=== PATIENT | male | born 1975 | race Two or more races ===

== ENCOUNTER 2020-04-08 23:27 | Inpatient (IN) | payer MEDICAID ==
[~2020-04-08] VITALS: Ht 167.6 cm; Wt 61.2 kg
--- NOTE | 2020-04-08 23:40 | NUR ---
ED Nurse Note: Patient broughtin to ED by [facility], Per ALS unit, patient was initially from [facility] from [facility] going to [facility] however patient was refused at the nursing facility, unit was running out of oxygen then was advised by their dispatch to go to the nearest facility. Patient has trache connected to portable mech vent coming in. Pt has pressure sore at sacral, back, lower and upper ext. PT has gtube, santillan cath and PICC line. Pt is non-verbal but is alert and oriented. Pt denies pain, SOB//CP, fever/ chills. Pt placed on iso bed
--- NOTE | 2020-04-08 23:42 | NUR ---
ED Nurse Note: ERMD at bedside
--- NOTE | 2020-04-08 23:43 | Emergency Room Report ---
History of Present Illness General Chief Complaint: General Complaint Source: EMS Present Illness HPI Disclaimer: Please note that this report is being documented using DRAGON technology. This can lead to erroneous entry secondary to incorrect interpretation by the dictating instrument. HPI: 44-year-old male presents by EMS after he was refused at nursing facility. Patient is being transferred from [facility] to [facility]. He is trach and vent dependent for respiratory failure currently being treated for Klebsiella pneumonia. Is reportedly refused at [facility] for fever but arrives afebrile here. EMS was rerouted to nearest hospital which is our facility. No change in patient vitals. He is afebrile on arrival. No apparent distress. He is Citizen Of [place]-speaking primarily though can interact nonverbally. No apparent distress. PMH: Pneumonia, respiratory failure, diabetes PSH: Tracheostomy Allergies: No allergies listed. Social Hx: Unable to obtain from patient Allergies: Coded Allergies: No Known Allergies (Unverified , 04/08/20) Review of Systems All Other Systems: limited - Unable to obtain from patient. Physical Exam General: Awake and alert, no acute distress, nonverbal HEENT: NC/AT. EOMI. tracheostomy in place. No obvious signs of injury Cardiovascular: RRR. S1 and S2 normal. No murmur appreciated Resp: Vent dependent. Tracheostomy appears in place and functioning well. Normal work of breathing. Abdomen: Abdomen is soft, nondistended. Nontender Skin: Intact. No abrasions, laceration or rash over the exposed skin MSK: Normal tone and bulk. Moving all extremities. No obvious deformity. Neuro: Awake and alert. Mentating appropriately. Medical Decision Making Diagnostic Impression: Primary Impression: Pneumonia ER Course 44-year-old male who is trach and vent dependent currently being treated for Klebsiella pneumonia presents after being turned away from nursing facility. Patient came from [facility]. Patient will require placement but does not appear to be in acute distress at this time. He is afebrile. Will obtain screening labs and admit the patient until proper placement can be found. He arrives with his on ventilators and equipment. Admit to panel physician, Dr. Campbell Laboratory Tests Test 04/08/20 23:45 White Blood Count 19.9 K/UL (4.8-10.8) H Red Blood Count 2.99 M/UL (4.70-6.10) L Hemoglobin 8.3 G/DL (14.2-18.0) L Hematocrit 25.1 % (42.0-52.0) L Mean Corpuscular Volume 84 FL (80-99) Mean Corpuscular Hemoglobin 27.6 PG (27.0-31.0) Mean Corpuscular Hemoglobin Concent 32.9 G/DL (32.0-36.0) Red Cell Distribution Width 14.1 % (11.6-14.8) Platelet Count 575 K/UL (150-450) H Mean Platelet Volume 5.3 FL (6.5-10.1) L Neutrophils (%) (Auto) % (45.0-75.0) Lymphocytes (%) (Auto) % (20.0-45.0) Monocytes (%) (Auto) % (1.0-10.0) Eosinophils (%) (Auto) % (0.0-3.0) Basophils (%) (Auto) % (0.0-2.0) Differential Total Cells Counted 100 Neutrophils % (Manual) 80 % (45-75) H Lymphocytes % (Manual) 13 % (20-45) L Monocytes % (Manual) 6 % (1-10) Eosinophils % (Manual) 0 % (0-3) Basophils % (Manual) 1 % (0-2) Band Neutrophils 0 % (0-8) Platelet Estimate Increased H Platelet Morphology Normal Hypochromasia 1+ Sodium Level 143 MMOL/L (136-145) Potassium Level 3.8 MMOL/L (3.5-5.1) Chloride Level 103 MMOL/L (98-107) Carbon Dioxide Level 36 MMOL/L (21-32) H Anion Gap 5 mmol/L (5-15) Blood Urea Nitrogen 37 mg/dL (7-18) H Creatinine 1.3 MG/DL (0.55-1.30) Estimated Glomerular Filtration Rate 59.4 mL/min (>60) Glucose Level 120 MG/DL (74-106) H Lactic Acid Level 0.90 mmol/L (0.4-2.0) Calcium Level 9.7 MG/DL (8.5-10.1) Total Bilirubin 0.8 MG/DL (0.2-1.0) Aspartate Amino Transferase (AST) 17 U/L (15-37) Alanine Aminotransferase (ALT) 15 U/L (12-78) Alkaline Phosphatase 189 U/L (46-116) H Troponin I 0.000 ng/mL (0.000-0.056) Total Protein 8.3 G/DL (6.4-8.2) H Albumin 1.5 G/DL (3.4-5.0) L Globulin 6.8 g/dL Albumin/Globulin Ratio 0.2 (1.0-2.7) L Microbiology Date/Time Source Procedure Growth Status 04/08/20 23:45 Nasopharynx SARS-CoV-2 RdRp Gene Assay - Final Complete EKG Diagnostic Results Troponin ordered: Yes When was troponin ordered?: Apr 08, 2020 EKG Time: 23:35 Rate: tachycardiac Rhythm: NSR ST Segments: no acute changes Other Impression Sinus tachycardia, normal axis, normal intervals, no ST segment changes. Rhythm Strip Diag. Results Rhythm Strip Time: 23:35 EP Interpretation: yes Rate: 107 Rhythm: NSR, no PVC's, no ectopy Chest X-Ray Diagnostic Results Chest X-Ray Diagnostic Results : Chest X-Ray Ordered: Yes # of Views/Limited/Complete: 1 View Indication: Shortness of Breath EP Interpretation: Yes Interpretation: no effusion, no pneumothorax, other - Tracheostomy in place. Bilateral patchy infiltrates. Impression: Other - Bilateral pneumonia Electronically Signed by: Electronically signed by Dr. Eric Diaz MD Disposition: ADMITTED INPATIENT Condition: Stable Eric Diaz MD Apr 08, 2020 23:43
--- NOTE | 2020-04-08 23:45 | NUR ---
ED Nurse Note: Blood, rapid covid sent to lab
[2020-04-09] VITALS (7 sets, daily range): BP systolic 118–144; BP diastolic 76–92
--- NOTE | 2020-04-09 00:05 | Diagnostic Imaging Report ---
EXAM: XR Chest, 1 View CLINICAL HISTORY: SOB TECHNIQUE: Frontal view of the chest. COMPARISON: No relevant prior studies available. Findings/impression. A tracheostomy tube is present. Diffuse bilateral airspace consolidations are identified. Correlate for multifocal pneumonia. No pneumothorax. Trace left pleural effusion. The right costophrenic angle was collimated from view. The heart is normal in size. Osseous structures are within normal limits.
[2020-04-09 00:10] LABS: CALCIUM 9.7 MG/DL (8.5-10.1); CREATININE 1.3 MG/DL (0.55-1.30); POTASSIUM 3.8 MMOL/L (3.5-5.1)
[2020-04-09 00:15] LABS: ALBUMIN 1.5 G/DL (3.4-5.0); ALBUMIN/GLOBULIN RATIO 0.2 (1.0-2.7); BILIRUBIN,TOTAL 0.8 MG/DL (0.2-1.0)
[2020-04-09 00:16] LABS: HEMATOCRIT 25.1 % (42.0-52.0); HEMOGLOBIN 8.3 G/DL (14.2-18.0); MEAN CORPUSCULAR VOLUME 84 FL (80-99); PLATELET COUNT 575 K/UL (150-450); RED BLOOD COUNT 2.99 M/UL (4.70-6.10); RED CELL DISTRIBUTION WIDTH 14.1 % (11.6-14.8); WHITE BLOOD COUNT 19.9 K/UL (4.8-10.8)
[2020-04-09] MEDS ORDERED: LORazepam Inj 2mg/ml 1ml IV ONE (01:00)
[2020-04-09] MEDS ORDERED: Piperacillin/Tazobactam 3.375 GM in NS 110 ML IVPB ONE (01:00)
--- NOTE | 2020-04-09 06:04 | NUR ---
ED Nurse Note: Skin assessment to done: Pressure sore noted at sacral area and left leg and upper ext. Pictures uploaded
--- NOTE | 2020-04-09 06:45 | NUR ---
ED Nurse Note: Unable to obtain med recon. Called Clarita Soto twice to get updated med recon but with no answer/ response
--- NOTE | 2020-04-09 07:30 | NUR ---
TRANSFER TO FLOOR: Patient transferred to SDU at rm 242 via gurney with manager convention accompanied by RN, Rt and polysomnograph tech. Belongings given and checked with RN. Patient transferred safely to bed and gave a bedside report to EMILE MARCANO
--- NOTE | 2020-04-09 07:36 | NUR ---
NURSE NOTES: Received bedside report from Po Hinojosa RN automated access systems technician nurse.
--- NOTE | 2020-04-09 07:38 | NUR ---
NURSE NOTES: No medication reconciliation done from ER. No demographic entered from ER.
--- NOTE | 2020-04-09 08:20 | NUR ---
Respiratory Note: ABG ordered for this time is a duplicate order.
[2020-04-09] MEDS ORDERED: Zinc Oxide Oint 2oz TOPIC PRN (08:30)
--- NOTE | 2020-04-09 08:49 | History & Physical ---
History and Physical History & Physicial History and Physical HPI Patient is a 44-year-old man admitted with Pneumonia, Covid negative, past history of Ventilator dependance s/p Tracheostomy. Has a history of being treate d for Klebsiella pneumonia recently. Was reportedly refused at [facility] as had fever. Stable vitals on admission to ED, afebrile. Patient nonverbal. No apparent distress. PMH: Pneumonia, respiratory failure, diabetes,decubitus ulcers PSH: Tracheostomy Allergies: No allergies listed. Social Hx: NA FH:NA Allergies: No Known Allergies All Other Systems: limited - Unable to obtain from patient. Physical Exam Vital signs noted: General: Awake and alert, no acute distress, nonverbal HEENT: NC/AT. EOMI. tracheostomy in place. No obvious signs of injury Cardiovascular: RRR. S1 and S2 normal. No murmur appreciated Resp: Vent dependent. Tracheostomy appears in place and functioning well. Normal work of breathing. Abdomen: Abdomen is soft, nondistended. Nontender. Sacral decubitus Skin: Intact. No abrasions, laceration or rash over the exposed skin MSK: Normal tone and bulk. Moving all extremities. No obvious deformity. pressure changes feet Neuro: Awake and alert. Mentating appropriately. Medical Decision Making Impression: Pneumonia, h/o Klebsiella Ventilator dependance Tracheostomy status Diabetes Sacral decubitus and feet pressure areas Plan: - Continue antibiotics - ID Consult,Surgery Consult - Cultures - Monitor labs - PPX - Continue current ventilator sttings - Adjust O2 PRN - ISS -Wound consult Laboratory Tests Test 04/08/20 23:45 White Blood Count 19.9 K/UL (4.8-10.8) H Red Blood Count 2.99 M/UL (4.70-6.10) L Hemoglobin 8.3 G/DL (14.2-18.0) L Hematocrit 25.1 % (42.0-52.0) L Mean Corpuscular Volume 84 FL (80-99) Mean Corpuscular Hemoglobin 27.6 PG (27.0-31.0) Mean Corpuscular Hemoglobin Concent 32.9 G/DL (32.0-36.0) Red Cell Distribution Width 14.1 % (11.6-14.8) Platelet Count 575 K/UL (150-450) H Mean Platelet Volume 5.3 FL (6.5-10.1) L Neutrophils (%) (Auto) % (45.0-75.0) Lymphocytes (%) (Auto) % (20.0-45.0) Monocytes (%) (Auto) % (1.0-10.0) Eosinophils (%) (Auto) % (0.0-3.0) Basophils (%) (Auto) % (0.0-2.0) Differential Total Cells Counted 100 Neutrophils % (Manual) 80 % (45-75) H Lymphocytes % (Manual) 13 % (20-45) L Monocytes % (Manual) 6 % (1-10) Eosinophils % (Manual) 0 % (0-3) Basophils % (Manual) 1 % (0-2) Band Neutrophils 0 % (0-8) Platelet Estimate Increased H Platelet Morphology Normal Hypochromasia 1+ Sodium Level 143 MMOL/L (136-145) Potassium Level 3.8 MMOL/L (3.5-5.1) Chloride Level 103 MMOL/L (98-107) Carbon Dioxide Level 36 MMOL/L (21-32) H Anion Gap 5 mmol/L (5-15) Blood Urea Nitrogen 37 mg/dL (7-18) H Creatinine 1.3 MG/DL (0.55-1.30) Estimated Glomerular Filtration Rate 59.4 mL/min (>60) Glucose Level 120 MG/DL (74-106) H Lactic Acid Level 0.90 mmol/L (0.4-2.0) Calcium Level 9.7 MG/DL (8.5-10.1) Total Bilirubin 0.8 MG/DL (0.2-1.0) Aspartate Amino Transferase (AST) 17 U/L (15-37) Alanine Aminotransferase (ALT) 15 U/L (12-78) Alkaline Phosphatase 189 U/L (46-116) H Troponin I 0.000 ng/mL (0.000-0.056) Total Protein 8.3 G/DL (6.4-8.2) H Albumin 1.5 G/DL (3.4-5.0) L Globulin 6.8 g/dL Albumin/Globulin Ratio 0.2 (1.0-2.7) L Microbiology Date/Time Source Procedure Growth Status 04/08/20 23:45 Nasopharynx SARS-CoV-2 RdRp Gene Assay - Final Complete EKG: Rate: tachycardiac Rhythm: NSR ST Segments: no acute changes Other Impression Sinus tachycardia, normal axis, normal intervals, no ST segment changes. Chest X-Ray: no effusion, no pneumothorax, other - Tracheostomy in place. Bilateral patchy infiltrates. Homer Arroyo MD Apr 09, 2020 08:49
[2020-04-09] MEDS ORDERED: Albuterol/Ipratropium 3ml neb HHN PRN (09:00)
[2020-04-09] MEDS ORDERED: Enoxaparin 40mg Inj SUBQ SCH (09:00)
[2020-04-09] MEDS ORDERED: Milk of Magnesia 30ml Ud ORAL PRN (09:00)
[2020-04-09] MEDS ORDERED: Vancomycin 1.25gm/250ml Premix IVPB ONE (09:00)
[2020-04-09] MEDS ORDERED: LORazepam Inj 2mg/ml 1ml IV PRN (09:00)
--- NOTE | 2020-04-09 09:00 | NUR ---
RESPIRATORY NOTE: PT received in ER and was transferred to [facility] @0725. PT is currently on AC/VC 16,500,28%,+5. Alarms are on and audible. Vent circuit and SX tubing are secure and out of the way. PT is restless and non-compliant, He keeps reaching for his trach. Risk and benefits of mechanical ventilator and keeping his trach intact were explained to him. Bilateral soft restrains aresecurely in place. Extra trach set at bedside. No s/s of respiratory distress noted at this time. Will continue to closely monitor.
[2020-04-09] MEDS: Morphine Sulfate 2mg/ml Inj(IV/IM USE ONLY) IVP PRN ×2 (09:35→14:37)
[2020-04-09] MEDS: Pantoprazole Inj IVP SCH (10:00)
[2020-04-09] MEDS: Ascorbic Acid 500mg tab GT SCH (10:00)
[2020-04-09] MEDS: Zinc Sulfate 220mg GT SCH (10:00)
[2020-04-09] MEDS: Vitamin D 1000 units Tab GT SCH (10:01)
[2020-04-09] MEDS: Piperacillin/Tazobactam 3.375 GM in NS 110 ML IVPB SCH ×2 (10:04→22:40)
[2020-04-09 10:43] LABS: HEMATOCRIT 25.7 % (42.0-52.0); MEAN CORPUSCULAR VOLUME 87 FL (80-99); PLATELET COUNT 564 K/UL (150-450); RED BLOOD COUNT 2.97 M/UL (4.70-6.10); RED CELL DISTRIBUTION WIDTH 13.6 % (11.6-14.8); WHITE BLOOD COUNT 17.5 K/UL (4.8-10.8)
[2020-04-09] MEDS: Midodrine 10mg tab ORAL SCH ×3 (10:47→18:07)
[2020-04-09] MEDS: Heparin 5000 units/ml inj SUBQ SCH ×2 (10:48→20:35)
[2020-04-09 10:50] LABS: ANION GAP 6 mmol/L (5-15); BLOOD UREA NITROGEN 40 mg/dL (7-18); CALCIUM 9.3 MG/DL (8.5-10.1); CARBON DIOXIDE 32 MMOL/L (21-32); CHLORIDE 106 MMOL/L (98-107); CREATININE 1.1 MG/DL (0.55-1.30); SODIUM 144 MMOL/L (136-145)
[2020-04-09] MEDS ORDERED: NovoLOG Insulin Flexpen SUBQ SCH (11:30)
[2020-04-09] MEDS: NovoLOG Insulin Flexpen SUBQ SCH ×3 (12:47→20:33)
--- NOTE | 2020-04-09 14:27 | Consultation ---
History of Present Illness General Date patient seen: Apr 09, 2020 Reason for Hospitalization: General Complaint Present Illness HPI this is a 44-year-old male who presents by EMS after he was refused at nursing facility. Patient is being transferred from [facility] to [facility]. He is trach and vent dependent for respiratory failure currently being treated for Klebsiella pneumonia. Is reportedly refused at [facility] for fever but arrives afebrile here. EMS was rerouted to nearest hospital which is our facility. No change in patient vitals. He is afebrile on arrival. No apparent distress. He is Hebrew- speaking primarily though can interact nonverbally. No apparent distress. on admission noted to have decubitus skin ulcers, malnutrition, and abnormal labs. surgery called to evaluate and assist with care. Allergies: Coded Allergies: No Known Allergies (Unverified , 04/08/20) COVID-19 Screening Contact w/high risk pt: No Experienced COVID-19 symptoms?: No Patient History Limited by: medical condition History Provided By: Medical Record, PMD Healthcare decision maker N Resuscitation status Advanced Directive on File Past Medical/Surgical History Past Medical/Surgical History: (1) Sacral decubitus ulcer (2) Ischemia of left lower extremity (3) Pneumonia Review of Systems Review of Symptoms General ROS: no weight loss or fever Psychological ROS: no depression or mood changes, no memory loss Ophthalmic ROS: no visual changes or eye irritation ENT ROS: no nasal congestion, hearing loss, dizziness Allergy and Immunology ROS: no allergic symptoms or urticaria Hematological and Lymphatic ROS: no swollen glands, unusual bleeding or bruising Endocrine ROS: no polyuria, polydipsia, weight changes, temperature intolerance Respiratory ROS: no cough, shortness of breath, or wheezing Cardiovascular ROS: no chest pain or dyspnea on exertion Gastrointestinal ROS: denies abdominal pain, bright red blood in stool. Musculoskeletal ROS: no myalgias or arthralgias Neurological ROS: no TIA or stroke symptoms Dermatological ROS: no new or changing skin lesions, rashes or pruritis Physical Exam Physical Exam General appearance: alert, cooperative, no distress, appears stated age Head: Normocephalic, without obvious abnormality, atraumatic Eyes: conjunctivae/corneas clear. PERRL, EOM's intact. Fundi benign Throat: Lips, mucosa, and tongue normal. Teeth and gums normal Neck: supple, symmetrical, trachea midline, no adenopathy, thyroid: not enlarged, symmetric, no tenderness/mass/nodules, no carotid bruit and no JVD Lungs: clear to auscultation bilaterally Heart: regular rate and rhythm, S1, S2 normal, no murmur, click, rub or gallop Abdomen: soft, non-tender. Bowel sounds normal. No masses, no organomegaly Extremities: extremities leg leg ischemia and foot Pulses: 2+ and symmetric Skin: Skin see below Neurologic: Grossly normal Last 24 Hour Vital Signs Date Time Temp Pulse Resp B/P (MAP) Pulse Ox O2 Delivery O2 Flow Rate FiO2 04/09/20 12:00 Mechanical Ventilator 04/09/20 10:55 101 21 99 Mechanical Ventilator 28 04/09/20 10:55 100 22 28 04/09/20 10:06 98 21 125/82 100 04/09/20 09:36 99 23 144/92 100 04/09/20 09:01 Mechanical Ventilator 04/09/20 08:00 102 04/09/20 08:00 97.2 99 21 144/92 (109) 100 04/09/20 07:45 98.6 114 24 127/90 100 Mechanical Ventilator 28 04/09/20 07:25 101 21 28 04/09/20 06:08 98.6 114 24 127/90 100 Mechanical Ventilator 28 04/09/20 04:09 98.6 110 23 130/82 100 Mechanical Ventilator 28 04/09/20 03:46 103 20 28 04/09/20 02:15 98.6 117 22 120/77 100 Mechanical Ventilator 04/09/20 01:03 112 30 129/71 100 04/09/20 00:18 98.6 101 18 118/76 100 Mechanical Ventilator 28 04/09/20 00:18 109 18 Mechanical Ventilator 28 04/08/20 23:59 109 18 28 04/08/20 23:32 98.6 98 16 118/76 (90) 100 Mechanical Ventilator Laboratory Tests Test 04/08/20 23:45 04/09/20 10:20 04/09/20 12:31 White Blood Count 19.9 K/UL (4.8-10.8) H 17.5 K/UL (4.8-10.8) H Red Blood Count 2.99 M/UL (4.70-6.10) L 2.97 M/UL (4.70-6.10) L Hemoglobin 8.3 G/DL (14.2-18.0) L 8.0 G/DL (14.2-18.0) L Hematocrit 25.1 % (42.0-52.0) L 25.7 % (42.0-52.0) L Mean Corpuscular Volume 84 FL (80-99) 87 FL (80-99) Mean Corpuscular Hemoglobin 27.6 PG (27.0-31.0) 27.1 PG (27.0-31.0) Mean Corpuscular Hemoglobin Concent 32.9 G/DL (32.0-36.0) 31.3 G/DL (32.0-36.0) L Red Cell Distribution Width 14.1 % (11.6-14.8) 13.6 % (11.6-14.8) Platelet Count 575 K/UL (150-450) H 564 K/UL (150-450) H Mean Platelet Volume 5.3 FL (6.5-10.1) L 5.1 FL (6.5-10.1) L Neutrophils (%) (Auto) % (45.0-75.0) % (45.0-75.0) Lymphocytes (%) (Auto) % (20.0-45.0) % (20.0-45.0) Monocytes (%) (Auto) % (1.0-10.0) % (1.0-10.0) Eosinophils (%) (Auto) % (0.0-3.0) % (0.0-3.0) Basophils (%) (Auto) % (0.0-2.0) % (0.0-2.0) Differential Total Cells Counted 100 100 Neutrophils % (Manual) 80 % (45-75) H 84 % (45-75) H Lymphocytes % (Manual) 13 % (20-45) L 11 % (20-45) L Monocytes % (Manual) 6 % (1-10) 5 % (1-10) Eosinophils % (Manual) 0 % (0-3) 0 % (0-3) Basophils % (Manual) 1 % (0-2) 0 % (0-2) Band Neutrophils 0 % (0-8) 0 % (0-8) Platelet Estimate Increased H Increased H Platelet Morphology Normal Normal Hypochromasia 1+ 1+ Sodium Level 143 MMOL/L (136-145) 144 MMOL/L (136-145) Potassium Level 3.8 MMOL/L (3.5-5.1) 4.0 MMOL/L (3.5-5.1) Chloride Level 103 MMOL/L (98-107) 106 MMOL/L (98-107) Carbon Dioxide Level 36 MMOL/L (21-32) H 32 MMOL/L (21-32) Anion Gap 5 mmol/L (5-15) 6 mmol/L (5-15) Blood Urea Nitrogen 37 mg/dL (7-18) H 40 mg/dL (7-18) H Creatinine 1.3 MG/DL (0.55-1.30) 1.1 MG/DL (0.55-1.30) Estimat Glomerular Filtration Rate 59.4 mL/min (>60) > 60 mL/min (>60) Glucose Level 120 MG/DL (74-106) H 163 MG/DL (74-106) H Lactic Acid Level 0.90 mmol/L (0.4-2.0) Calcium Level 9.7 MG/DL (8.5-10.1) 9.3 MG/DL (8.5-10.1) Total Bilirubin 0.8 MG/DL (0.2-1.0) Aspartate Amino Transf (AST/SGOT) 17 U/L (15-37) Alanine Aminotransferase (ALT/SGPT) 15 U/L (12-78) Alkaline Phosphatase 189 U/L (46-116) H Troponin I 0.000 ng/mL (0.000-0.056) Total Protein 8.3 G/DL (6.4-8.2) H Albumin 1.5 G/DL (3.4-5.0) L Globulin 6.8 g/dL Albumin/Globulin Ratio 0.2 (1.0-2.7) L Arterial Blood pH 7.475 (7.350-7.450) Arterial Blood Partial Pressure CO2 44.7 mmHg (35.0-45.0) Arterial Blood Partial Pressure O2 92.8 mmHg (75.0-100.0) Arterial Blood HCO3 32.2 mmol/L (22.0-26.0) H Arterial Blood Oxygen Saturation 96.6 % (95-100) Arterial Blood Base Excess 7.8 (-2-2) H Vaibhav Test Positive POC Whole Blood Glucose 159 MG/DL (74-106) H Microbiology Date/Time Source Procedure Growth Status 04/08/20 23:45 Nasopharynx SARS-CoV-2 RdRp Gene Assay - Final Complete Height (Feet): 5 Height (Inches): 6.00 Weight (Pounds): 135 Medications Current Medications Medications (Trade) Dose Ordered Sig/Benigno Route PRN Reason Start Time Stop Time Status Last Admin Dose Admin Acetaminophen (Tylenol) 650 mg Q4H PRN ORAL Mild Pain (Pain Scale 1-3) 04/09/20 09:00 05/09/20 08:59 Acetaminophen (Tylenol) 650 mg Q4H PRN ORAL Temp >100.5 04/09/20 09:00 05/09/20 08:59 Albuterol/ Ipratropium (Albuterol/ Ipratropium) 3 ml Q6H PRN HHN Shortness of Breath 04/09/20 09:00 04/14/20 08:59 Ascorbic Acid (Vitamin C) 1,000 mg DAILY GT 04/09/20 09:00 05/09/20 08:59 04/09/20 10:00 Chlorhexidine Gluconate (Ching-Hex 2%) 1 applic DAILY@2000 TOPIC 04/09/20 20:00 07/08/20 19:59 Dextrose (Dextrose 50%) 25 ml Q30M PRN IV Hypoglycemia 04/09/20 09:00 07/08/20 08:59 Dextrose (Dextrose 50%) 50 ml Q30M PRN IV Hypoglycemia 04/09/20 09:00 07/08/20 08:59 Furosemide (Lasix) 20 mg EVERY 12 HOURS IV 04/09/20 09:00 05/09/20 08:59 04/09/20 10:00 Heparin Sodium (Porcine) (Heparin 5000 units/ml) 5,000 units EVERY 12 HOURS SUBQ 04/09/20 10:00 05/24/20 09:59 04/09/20 10:48 Insulin Aspart (NovoLOG) BEFORE MEALS AND HS SUBQ 04/09/20 11:30 07/08/20 11:29 04/09/20 12:47 Lorazepam (Ativan 2mg/ml 1ml) 1 mg Q4H PRN IV For Anxiety 04/09/20 09:00 04/16/20 08:59 04/09/20 09:36 Magnesium Hydroxide (Mom) 30 ml DAILYPRN PRN ORAL Constipation 04/09/20 09:00 05/09/20 08:59 Midodrine (Pro-Amatine) 20 mg THREE TIMES A DAY ORAL 04/09/20 10:00 07/08/20 09:59 04/09/20 10:47 Morphine Sulfate (Morphine Sulfate) 2 mg Q3H PRN IVP For Pain 4-10 04/09/20 09:00 04/16/20 08:59 04/09/20 09:35 Ondansetron HCl (Zofran) 4 mg Q6H PRN IVP Nausea & Vomiting 04/09/20 09:00 05/09/20 08:59 Pantoprazole (Protonix) 40 mg DAILY IVP 04/09/20 09:00 05/09/20 08:59 04/09/20 10:00 Piperacillin Sod/ Tazobactam Sod 3.375 gm/Sodium Chloride 110 ml @ 27.5 mls/hr Q8HR IVPB 04/09/20 10:00 04/16/20 09:59 04/09/20 10:04 Quetiapine Fumarate (SEROqueL) 150 mg Q12HR GT 04/09/20 11:00 05/24/20 10:59 04/09/20 11:35 Vancomycin HCl (Vanco pharmacy to dose) 1 ea DAILY PRN MISC Per rx protocol 04/09/20 08:00 05/09/20 07:59 Vancomycin HCl 750 mg/Sodium Chloride 275 ml @ 183.333 mls/hr Q12HR IVPB 04/09/20 21:00 04/14/20 20:59 Vitamin D (Vitamin D) 2,000 unit DAILY GT 04/09/20 09:00 05/09/20 08:59 04/09/20 10:01 Zinc Oxide (Zinc Oxide) 1 applic TIDPRN PRN TOPIC Itching 04/09/20 08:30 07/08/20 08:29 Zinc Sulfate (Zinc Sulfate) 220 mg DAILY GT 04/09/20 09:00 07/08/20 08:59 04/09/20 10:00 Assessment/Plan Problem List: (1) Pneumonia ICD Codes: J18.9 - Pneumonia, unspecified organism SNOMED: 394688415 (2) Sacral decubitus ulcer Assessment & Plan: Patient presents on admission with identifiable unstageable sacral decubitus ulcer fairly fraction likely recently forming. Areas approximately 3 cm x 3 cm unknown depth. No drainage. No foul odor. Eschar area identified soft no ischemic eschar likely forming. Deep tissue underneath injury. Furthermore patient identified to have significant left lower extremity ischemic disease with ulcers and necrotic eschar. On the left lateral foot there is a necrotic eschar as well as on the left lateral leg significantly large. No drainage no signs of active infection chronic appearing in nature. Care plan initiated. Will need to ensure optimization of patient for care plan. Leukocytosis unlikely related to wounds as they do not seem actively infected Treatment plan Wash sacral area with normal saline daily. Apply Thera honey and gauze to decubitus ulcer and cover with Optifoam dressing. Change daily and as needed saturation. Monitor for incontinence Wash lower extremity with normal saline along with daily bath. Apply Xeroform to eschar on foot and leg. Cover with ABD and wrap with Kerlix okay to swab edges with Betadine. Turn every 2 hours Offload pressure Elevate heels with pillows under leg Nutritional optimization We will follow with recommendations thank you for let me participate in patient's care ICD Codes: L89.159 - Pressure ulcer of sacral region, unspecified stage SNOMED: 151709336 (3) Ischemia of left lower extremity Assessment & Plan: chronic large wounds US duplex arterial and venous ordered will follow with recs ICD Codes: I99.8 - Other disorder of circulatory system SNOMED: 280963875 Anthony Fernandez Apr 09, 2020 14:27
--- NOTE | 2020-04-09 14:30 | NUR ---
NURSE NOTES: Relieved the ASSEMBLER [employer]ING FLOATS who went to sit with the pt. Pt. noted still trying to pull out f/c able to pull out his bilateral soft wrist restrains multiple times.
[2020-04-09] MEDS ORDERED: Haloperidol Lactate 5 MG in D5W 55 ML IVPB SCH (14:40)
--- NOTE | 2020-04-09 18:57 | NUR ---
NURSE NOTES: From 7:45am to 1400 this RN went to be a 1:1 sitter due to pt. very restless, combative inspite Ativan, Haldol given. Pt. cont. pulling the trach inspite bilateral soft wrist restrains. Pt. re-oriented but pt. is still very confused. Got order for psych consult Dr. Graham due to extreme behavior. Will cont. to monitor.
[2020-04-09] MEDS ORDERED: Haloperidol 5mg/ml Inj IM SCH (19:15)
[2020-04-09] MEDS ORDERED: LORazepam Inj 2mg/ml 1ml IM SCH (19:15)
[2020-04-09] MEDS ORDERED: DiphenhydrAMINE 50mg/ml Inj IM SCH (19:15)
--- NOTE | 2020-04-09 19:15 | NUR ---
NURSE NOTES: Received report from EMILE Bradford, pt. in bed- restless and agitated trying to get out of bed, opens eyes to name, pt. appears to be tolerating current vent settings well- AC 16, TV 500, Fio2 at 28% and peep 5- no distress noted- sating at 99%, no signs or symptoms of acute cardiac or respiratory distress noted, bed alarm on, side rails up x's 3- safety brakes engaged, call light within easy reach, G tube feeding started by me Stoneershaila 1.2 at 15cc/hr- no residual noted- goal is 40cc/hr- will continue as tolerated, oral care provided, bilateral wrist restraints removed- bilateral pulses palpable and skin intact- restraints re-applied, pt. appears to have disheveled appearance, Rt. hand 22G and rt. wrist 22G both ivs intact and patent, Made DR. Graham aware of pt. restless in bed and agitated- she will put in an order, safety measures continued, will continue with plan of care.
--- NOTE | 2020-04-09 19:28 | NUR ---
NURSE HAND-OFF REPORT: Pt. still very restless. With ordered for Dr. Graham Important Events on Shift: RN went 1:1 sitter with pt. Patient Status: combative, restless, agitated. Diet: Glucerna 1.2 at 40cc/hr. Pending Orders: Dr. Graham Pending Results/Labs:x Pending MD notification:x Latest Vital Signs: Temperature 97.2 , Pulse 104 , B/P 142 /80 , Respiratory Rate 26 , O2 SAT 100 , Mechanical Ventilator, O2 Flow Rate . Vital Sign Comment: wnl EKG Rhythm: Sinus Tachycardia Rhythm change?: N MD Notified?: - MD Response: Latest Linder Fall Score: 95 Fall Risk: High Risk Safety Measures: Call light , Bed Alarm Zone 1, Side Rails Side Rails x2, Bed position Low and Locked. Fall Precautions: Yellow Socks Yellow Gown Report given to Claire BAPTISTE.
[2020-04-09] MEDS ORDERED: Dyna-Hex 2% Top Sol 2oz TOPIC SCH (20:00)
[2020-04-09] MEDS: Vancomycin 750mg/NS 275ml IVPB SCH ×2 (20:34)
[2020-04-10] VITALS: BP 146/88
--- NOTE | 2020-04-10 02:00 | NUR ---
NURSE NOTES: during bed bath noted- rt. wrist IV out at bedside- new IV inserted to left wrist 22G- complete bed bath given- all linens changed, oral care provided, pt. appears to be tolerating current vent settings well- sating at 100%- no signs of distress noted- pt. appears to be resting comfortably in bed, repositioned and turned pt., will continue to monitor pt. and with plan of care.
[2020-04-10 04:00] VITALS: BP 135/84
[2020-04-10] MEDS: Piperacillin/Tazobactam 3.375 GM in NS 110 ML IVPB SCH ×3 (05:01→22:36)
[2020-04-10] MEDS: NovoLOG Insulin Flexpen SUBQ SCH ×4 (05:30→22:22)
--- NOTE | 2020-04-10 06:55 | NUR ---
NURSE HAND-OFF REPORT: Important Events on Shift:restless/ agitated- called Gladys received orders for IM medications- Ativan, Benadryl, Haldol. Patient Status: stable Diet: Glucerna 1.2 Pending Orders: Pending Results/Labs: Pending MD notification: Latest Vital Signs: Temperature 97.6 , Pulse 100 , B/P 135 /84 , Respiratory Rate 20 , O2 SAT 99 , Mechanical Ventilator, O2 Flow Rate . Vital Sign Comment: EKG Rhythm: Sinus Rhythm Rhythm change?: Y MD Notified?: N - MD Response: Latest Linder Fall Score: 95 Fall Risk: High Risk Safety Measures: Call light Within Reach, Bed Alarm Zone 3, Side Rails Side Rails x3, Bed position Low and Locked. Fall Precautions: Yellow Socks Yellow Gown Door Sign Patient Fall Education Report given to EMILE Erickson- aware to f/u on any abnormal am labs.
--- NOTE | 2020-04-10 07:30 | NUR ---
NURSE NOTES: Received report from EMILE Rangel. Pt awake, no s/sx of acute distress, able to follow simple commands. Pt appears to be tolerating vent settings - AC 16, TV 500, FIO2 28%, PEEP 5, no respiratory distress noted. Pt on tube feeding Glucerna 1.2 running at 30cc/hr, with the goal of 40cc/hr, will continue as tolerated. D/C'd IV site on R hand as bleeding noted and not intact, IV site on L hand patent and asymptomatic, running IVF as ordered. Henry is patent. PT on B soft wrist restraints, no edema noted, pulses are present. Bed on lowest position, call light within reach. Will continue plan of care.
[2020-04-10 08:00] VITALS: BP 141/81
--- NOTE | 2020-04-10 08:42 | General Progress Note ---
Subjective ROS Limited/Unobtainable: Yes Allergies: Coded Allergies: No Known Allergies (Unverified , 04/08/20) Subjective care noted on vent and trach Objective Last 24 Hour Vital Signs Date Time Temp Pulse Resp B/P (MAP) Pulse Ox O2 Delivery O2 Flow Rate FiO2 04/10/20 04:00 Mechanical Ventilator 04/10/20 04:00 97.6 100 20 135/84 (101) 99 04/10/20 04:00 28 04/10/20 03:28 128 34 28 04/10/20 02:42 93 04/10/20 00:00 Mechanical Ventilator 04/10/20 00:00 28 04/10/20 00:00 97.3 110 22 146/88 (107) 100 04/09/20 23:18 117 04/09/20 23:01 101 26 28 04/09/20 20:04 100 22 125/80 99 04/09/20 20:00 Mechanical Ventilator 04/09/20 20:00 28 04/09/20 20:00 97.4 111 24 126/91 (103) 99 04/09/20 19:34 111 24 126/91 99 04/09/20 19:30 119 04/09/20 18:50 104 26 28 04/09/20 16:00 Mechanical Ventilator 04/09/20 16:00 28 04/09/20 15:30 118 04/09/20 15:07 97.2 04/09/20 14:38 118 28 28 04/09/20 12:00 Mechanical Ventilator 04/09/20 12:00 28 04/09/20 12:00 96.6 113 23 142/80 (100) 100 04/09/20 11:42 112 04/09/20 10:55 101 21 99 Mechanical Ventilator 28 04/09/20 10:55 100 22 28 04/09/20 10:06 98 21 125/82 100 04/09/20 09:36 99 23 144/92 100 04/09/20 09:01 Mechanical Ventilator Intake and Output 04/09/20 04/10/20 19:00 07:00 Intake Total 115 ml 839.166 ml Output Total 800 ml 1125 ml Balance -685 ml -285.834 ml Intake Free Water 100 ml 100 ml IV Total 504.166 ml Tube Feeding 15 ml 235 ml Output Urine Total 800 ml 1125 ml Laboratory Tests 04/09/20 10:20: White Blood Count 17.5H, Red Blood Count 2.97L, Hemoglobin 8.0L, Hematocrit 25.7L, Mean Corpuscular Volume 87, Mean Corpuscular Hemoglobin 27.1, Mean Corpuscular Hemoglobin Concent 31.3L, Red Cell Distribution Width 13.6, Platelet Count 564H, Mean Platelet Volume 5.1L, Neutrophils (%) (Auto) , Lymphocytes (%) (Auto) , Monocytes (%) (Auto) , Eosinophils (%) (Auto) , Basophils (%) (Auto) , Differential Total Cells Counted 100, Neutrophils % (Manual) 84H, Lymphocytes % (Manual) 11L, Monocytes % (Manual) 5, Eosinophils % (Manual) 0, Basophils % (Manual) 0, Band Neutrophils 0, Platelet Estimate IncreasedH, Platelet Morphology Normal, Hypochromasia 1+, Arterial Blood pH 7.475H, Arterial Blood Partial Pressure CO2 44.7, Arterial Blood Partial Pressure O2 92.8, Arterial Blood HCO3 32.2H, Arterial Blood Oxygen Saturation 96.6, Arterial Blood Base Excess 7.8H, Vaibhav Test Positive, Sodium Level 144, Potassium Level 4.0, Chloride Level 106, Carbon Dioxide Level 32, Anion Gap 6, Blood Urea Nitrogen 40H, Creatinine 1.1, Estimat Glomerular Filtration Rate > 60, Glucose Level 163H , Calcium Level 9.3 04/09/20 12:31: POC Whole Blood Glucose 159H 04/09/20 20:32: POC Whole Blood Glucose [Pending] 04/10/20 04:59: POC Whole Blood Glucose [Pending] Height (Feet): 5 Height (Inches): 6.00 Weight (Pounds): 135 Objective WDWN trach reduced breath sounds bilaterally without rhonchi or wheeze [id number] without MRG NABS nontender GT no CCE poor LOC Assessment/Plan Assessment/Plan: Impression: Pneumonia, h/o Klebsiella Ventilator dependance Tracheostomy status Diabetes Sacral decubitus and feet pressure areas Plan: - Continue antibiotics - ID Consult,Surgery Consult - Cultures to review - Monitor labs - supportive care - Continue current ventilator sttings - Adjust O2 as needed - DVT prophylaxis -Wound consult Mikhail Campbell MD Apr 10, 2020 08:42
[2020-04-10] MEDS: Vancomycin 750mg/NS 275ml IVPB SCH ×4 (09:08→20:45)
[2020-04-10] MEDS: Zinc Sulfate 220mg GT SCH (09:09)
[2020-04-10] MEDS: Vitamin D 1000 units Tab GT SCH (09:09)
[2020-04-10] MEDS: Ascorbic Acid 500mg tab GT SCH (09:09)
[2020-04-10] MEDS: Midodrine 10mg tab ORAL SCH ×3 (09:09→17:50)
[2020-04-10] MEDS: Pantoprazole Inj IVP SCH (09:09)
[2020-04-10] MEDS: Heparin 5000 units/ml inj SUBQ SCH ×2 (09:12→20:46)
[2020-04-10 09:57] LABS: HEMATOCRIT 27.1 % (42.0-52.0); HEMOGLOBIN 8.7 G/DL (14.2-18.0); MEAN CORPUSCULAR VOLUME 85 FL (80-99); PLATELET COUNT 614 K/UL (150-450); RED BLOOD COUNT 3.18 M/UL (4.70-6.10); RED CELL DISTRIBUTION WIDTH 14.4 % (11.6-14.8); WHITE BLOOD COUNT 18.6 K/UL (4.8-10.8)
[2020-04-10 10:03] LABS: BASOPHILS % (AUTO) 1.2 % (0.0-2.0); EOSINOPHILS % (AUTO) 1.2 % (0.0-3.0); LYMPHOCYTES % (AUTO) 7.7 % (20.0-45.0); MONOCYTES % (AUTO) 4.9 % (1.0-10.0)
[2020-04-10 10:30] LABS: CALCIUM 9.6 MG/DL (8.5-10.1); CREATININE 1.3 MG/DL (0.55-1.30); POTASSIUM 3.4 MMOL/L (3.5-5.1)
--- NOTE | 2020-04-10 10:47 | Cardiology Report ---
APPROVED REPORT EKG Measurement Heart [id number] <Conclusion> Sinus tachycardia Septal infarct, age undetermined Abnormal ECG
--- NOTE | 2020-04-10 11:18 | NUR ---
NURSE NOTES: Reported labs to Dr Campbell. Potassium 3.4, WBC trending up from 17.5 to 18.6, TSH 0.225. Asked MD if okay to switch from vent to clear aerosol, per RT recommendation. Awaiting for response. Addendum: 04/10/20 at 1626 by Adilene Erickson RN MD ordered for 20KCL, BCX X2, CBC and BMP in AM, and okay to wean the pt from vent to cool/clear aerosol
--- NOTE | 2020-04-10 11:22 | NUR ---
RD ASSESSMENT & RECOMMENDATIONS SEE CARE ACTIVITY FOR COMPLETE ASSESSMENT DAILY ESTIMATED NEEDS: Needs based on Critical care, wound, underweight/ 52kg 25-30 kcals/kg 4497-1030 total kcals 1.25-2 g protein/kg 65-104 g total protein 25-30 mL/kg 2400-0535 total fluid mLs NUTRITION DIAGNOSIS: Swallowing difficulty R/T respiratory status as evidenced by trach/vent dep, PEG dep. CURRENT TF:Glucerna 1.2 @ 40ml/hr x 24 hrs ENTERAL NUTRITION RECOMMENDATIONS: Glucerna 1.2 @ 50ml/hr x 24 hrs to provide 1200ml, 1440kcal, 72g prot, 966ml free water * Rec increase goal rate to 50ml/hr x 24 hrs * HOB over 30 degrees/ water flush per MD ADDITIONAL RECOMMENDATIONS: * Calibrated bedscale wt * Wound care: Continue Vit C and ZnSO4 William BID via PEG * Monitor lytes, replete as needed (low k)
--- NOTE | 2020-04-10 11:57 | Diagnostic Imaging Report ---
Indication: Reason For Exam: PAIN Technique: Grayscale and duplex images of the bilateral lower extremity veins Comparison: None Findings: Bilaterally, grayscale and duplex images demonstrate no evidence of intraluminal thrombus. Normal phasic Doppler waveforms, demonstrating normal augmentation response and no evidence of valvular insufficiency. Greater saphenous vein(s) and tibial veins are patent. Normal compressibility. Impression: Negative for evidence of lower extremity deep venous thrombosis bilaterally
--- NOTE | 2020-04-10 12:14 | Diagnostic Imaging Report ---
Indication: Right leg wound, lower extremity pain and edema Technique: Grayscale and duplex images of the bilateral lower extremity arteries Comparison: none Findings: On the right, triphasic waveforms with sharp systolic peaks are seen at the common femoral, superficial femoral, and popliteal artery levels. Tibial vessel waveforms are biphasic or triphasic with sharp systolic peaks. On the left, triphasic waveforms are seen at the level of the common femoral artery level. Left superficial femoral artery waveforms are triphasic proximally, borderline monophasic in the mid portion. Popliteal artery waveforms are monophasic but systolic peaks are sharp. Tibial vessel waveforms are monophasic but with sharp systolic peaks. There is a stenosis of the dorsalis pedis artery, with flow velocity elevation of up to 332 cm/s. There is slightly dampened flow velocity distal to it. Impression: No evidence of significant right lower extremity arterial insufficiency Monophasic waveforms in the distal superficial femoral and popliteal artery, could indicate stenosis in these segments; more likely artifactual as there is still rapid systolic upstroke, including in the ankle vessels. Evidence of significant stenosis in the dorsalis pedis artery
--- NOTE | 2020-04-10 12:34 | NUR ---
NURSE NOTES:WOUND CARE NOTES NOTES:Pt presented on admission with Tracheostomy,GT and Multiple Wounds including an Unstageable Pressure Injury Sacrum(L)2.1cm x (W)2.8cm.Base of wound is 100% slough. Borders are adherent, erythematous. Periwound is indurated with non-blanchable erythema. At L HIP A Blue marker measuring (L)6cm x (W)5cm. Small linear shaped wound that is somewhat approximated. The remaining base within Blue Marker is indurated,erythematous with elevation in skin temp at affected area within marker, and extends well beyond borders of Marker to upper L thigh(L)12cm x (W)8cm. Large Necrotic Ulcer with irregular borders noted to lateral L Tibia. Base of wound is 100% Necrotic and dry. Edges are adherent and erythematous. Periwound is dusky with elevation in skin temp noted(L)21cm x (W)11.5cm. Necrotic Ulcer lateral L foot/L malleolus(L)4cm x 6.5cm. Base of wound is 100% soft, but dry necrosis.Edges are adherent to base of wound but are erythematous. Surrounding the wound, skin colour is dusky and skin temp is elevated. NO odor or exudate noted. Open abscess/Boil noted to lateral R Tibia(L)3cm x (W)3cm with small opening at center base (L)0.4cmx (W)0.4cm. No exudate noted. Skin temp is slightly elevated. Both heels are callused and dry. Dry peeling skin noted to both lower ext, both feet including plantar aspect of both feet. Tx.Plan: Cleanse Sacral wound with Saline. Apply TheraHoney. Apply Moisture Barrier Paste periwound. Cover with Optifoam drsg Daily and prn. Apply Betadine to L Hip. Cover with Optifoam drsg. Change every 3 days and prn. Apply Betadine to Lateral L Tibia, and Lateral L foot. Cover each site with ABD Pads and wrap with Kerlix Daily and prn. Apply Betadine to Lateral R Tibia. Cover with Optifoam drsg. Change every 3 days and prn. Apply Cavilon Skin Barrier to both heels. Cover each heel with Optifoam drsg. Change every 7 days and prn. Reposition at Least every 2 hours or as tolerated. Elevate both lower ext and float Heels with pillows.
--- NOTE | 2020-04-10 13:00 | NUR ---
NURSE NOTES: Pt tolerating the feeding. Residual 30cc. Increased the feeding rate to 35cc/hr.
--- NOTE | 2020-04-10 13:15 | Consultation ---
DATE OF CONSULTATION: 04/10/2020 INFECTIOUS DISEASE CONSULTATION CONSULTING PHYSICIAN: Wong Kilpatrick MD. REFERRING PHYSICIAN: Dr. Arroyo. REASON FOR CONSULTATION: Pneumonia as well as left leg infection. HISTORY OF PRESENTING ILLNESS: This is a 44-year-old gentleman with history of diabetes, respiratory failure, status post tracheostomy, pneumonia, and decubitus ulcers, who comes in with fevers. The patient was found to have pneumonia and an Infectious Diseases consultation has been obtained for antibiotics. PAST MEDICAL HISTORY: 1. History of pneumonia. 2. Respiratory failure. 3. Diabetes mellitus. 4. Decubitus ulcers. 5. Status post tracheostomy. SOCIAL HISTORY: Unknown. FAMILY HISTORY: Unknown. REVIEW OF SYSTEMS: Unable to obtain currently. MEDICATIONS: As an inpatient, the patient is on IV vancomycin, chlorhexidine gluconate, insulin, Seroquel, subcutaneous heparin, midodrine, Zosyn, morphine, milk of magnesia, Zofran, Tylenol, albuterol and ipratropium, zinc sulfate, Protonix, Lasix, vitamin D, ascorbic acid, and zinc oxide. ALLERGIES: No known drug allergies. PHYSICAL EXAMINATION: VITAL SIGNS: Temperature 97.7, T-max of 97.7, pulse of 111, respiratory rate 22, blood pressure 141/81, O2 saturation of 99%. HEENT: Pupils are equally reactive to light and accommodation. NECK: Tracheostomy noted. CARDIOVASCULAR: Regular rate and rhythm. No murmurs. LUNGS: Clear to auscultation bilaterally. No crackles. No wheezes. ABDOMEN: Soft, nontender. G-tube site appears clean. EXTREMITIES: No cyanosis, no clubbing, no edema. Left leg with necrotic ulcer noted. LABORATORY AND DIAGNOSTIC DATA: White count 18.6, hemoglobin 8.7, hematocrit 27.1, MCV 85, platelet count 614,000. Sodium 144, potassium 3.4, chloride 105, bicarb 29, BUN 44, creatinine 1.3. Glucose 169. Calcium of 9.6. Beta-natriuretic peptide 215. COVID-19 test was negative, rapid test. Chest x-ray is showing diffuse bilateral airspace consolidations, multifocal pneumonia noted. ASSESSMENT: This is a 44-year-old gentleman with history of diabetes, respiratory failure, status post tracheostomy, and decubitus ulcers, who comes in with fevers and is found to have, 1. Pneumonia. 2. Sacral decubitus ulcer. 3. Left leg necrotic ulcer PLAN: 1. Continue IV vancomycin and Zosyn. 2. We will order sputum for Gram stain and culture. 3. We will follow up cultures and adjust antibiotics accordingly. I would like to thank Dr. Arroyo for this consultation. Wong Kilpatrick M.D. DR: DORIAN JOB#: [id number] CC: Dr. Arroyo
--- NOTE | 2020-04-10 14:31 | NUR ---
NURSE NOTES: Left a message to Dr Graham. Reported that pt seems to be more restless than this morning, pt trying to get out of bed, and pulled the IV pole even he is on restraints. Awaiting for response. Addendum: 04/10/20 at 1602 by Adilene Erickson RN Dr Graham responded and orders for Seroquel 50mg q6h PRN. RN made her aware that pt is already on seroquel 150mg q12h. Per , "that's OK at the PRN".
--- NOTE | 2020-04-10 14:32 | NUR ---
NURSE NOTES: Urine sample for culture and covid specimen sent to the lab.
--- NOTE | 2020-04-10 14:49 | NUR ---
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
--- NOTE | 2020-04-10 15:07 | NUR ---
NURSE NOTES: WCP uploaded.
--- NOTE | 2020-04-10 16:06 | NUR ---
NURSE HAND-OFF REPORT: Important Events on Shift: Pt started to be more restless in the afternoon. PRN seroquel obtained (see notes). WCP uploaded. Wound care nurse came to see the pt today. Pt was swabbed for Covid-19. RT aware of collecting sputum. Patient Status: no s/sx of acute distress Diet: Glucerna 1.2 running at 35cc/hr now. Goal is 40cc/hr. Pending Orders: Pending Results/Labs: Pending MD notification: Latest Vital Signs: Temperature 97.7 , Pulse 105 , B/P 141 /81 , Respiratory Rate 25 , O2 SAT 99 , Mechanical Ventilator, O2 Flow Rate . Vital Sign Comment: EKG Rhythm: Sinus Tachycardia Rhythm change?: N MD Notified?: N - MD Response: Latest Linder Fall Score: 95 Fall Risk: High Risk Safety Measures: Call light Within Reach, Bed Alarm Zone 3, Side Rails Side Rails x3, Bed position Low and Locked. Fall Precautions: Yellow Socks Yellow Gown Door Sign Patient Fall Education Report given to EMILE Busby
--- NOTE | 2020-04-10 19:07 | Surgery Progress Note ---
Surgery Progress Note Subjective Additional Comments leukocytosis anemia tsh noted dressings going well Objective Last 24 Hour Vital Signs Date Time Temp Pulse Resp B/P (MAP) Pulse Ox O2 Delivery O2 Flow Rate FiO2 04/10/20 16:30 103 22 28 04/10/20 16:00 Mechanical Ventilator 04/10/20 16:00 109 04/10/20 16:00 28 04/10/20 12:00 Mechanical Ventilator 04/10/20 12:00 28 04/10/20 11:52 105 04/10/20 11:08 110 25 28 04/10/20 08:00 97.7 111 22 141/81 (101) 99 04/10/20 08:00 28 04/10/20 08:00 Mechanical Ventilator 04/10/20 07:47 116 04/10/20 07:12 106 28 28 04/10/20 04:00 Mechanical Ventilator 04/10/20 04:00 97.6 100 20 135/84 (101) 99 04/10/20 04:00 28 04/10/20 03:28 128 34 28 04/10/20 02:42 93 04/10/20 00:00 Mechanical Ventilator 04/10/20 00:00 28 04/10/20 00:00 97.3 110 22 146/88 (107) 100 04/09/20 23:18 117 04/09/20 23:01 101 26 28 04/09/20 20:04 100 22 125/80 99 04/09/20 20:00 Mechanical Ventilator 04/09/20 20:00 28 04/09/20 20:00 97.4 111 24 126/91 (103) 99 04/09/20 19:34 111 24 126/91 99 04/09/20 19:30 119 I&O Intake and Output 04/09/20 04/10/20 19:00 07:00 Intake Total 115 ml 839.166 ml Output Total 800 ml 1125 ml Balance -685 ml -285.834 ml Intake Free Water 100 ml 100 ml IV Total 504.166 ml Tube Feeding 15 ml 235 ml Output Urine Total 800 ml 1125 ml Dressing: saturated Cardiovascular: RSR Respiratory: decreased breath sounds Abdomen: soft, non-tender, present bowel sounds Extremities: no tenderness, no cyanosis Laboratory Tests Test 04/09/20 20:32 04/10/20 04:59 04/10/20 08:30 04/10/20 12:00 POC Whole Blood Glucose Pending Pending Pending White Blood Count 18.6 K/UL (4.8-10.8) H Red Blood Count 3.18 M/UL (4.70-6.10) L Hemoglobin 8.7 G/DL (14.2-18.0) L Hematocrit 27.1 % (42.0-52.0) L Mean Corpuscular Volume 85 FL (80-99) Mean Corpuscular Hemoglobin 27.3 PG (27.0-31.0) Mean Corpuscular Hemoglobin Concent 32.1 G/DL (32.0-36.0) Red Cell Distribution Width 14.4 % (11.6-14.8) Platelet Count 614 K/UL (150-450) H Mean Platelet Volume 5.0 FL (6.5-10.1) L Neutrophils (%) (Auto) 85.0 % (45.0-75.0) H Lymphocytes (%) (Auto) 7.7 % (20.0-45.0) L Monocytes (%) (Auto) 4.9 % (1.0-10.0) Eosinophils (%) (Auto) 1.2 % (0.0-3.0) Basophils (%) (Auto) 1.2 % (0.0-2.0) Sodium Level 144 MMOL/L (136-145) Potassium Level 3.4 MMOL/L (3.5-5.1) L Chloride Level 105 MMOL/L (98-107) Carbon Dioxide Level 29 MMOL/L (21-32) Anion Gap 10 mmol/L (5-15) Blood Urea Nitrogen 44 mg/dL (7-18) H Creatinine 1.3 MG/DL (0.55-1.30) Estimat Glomerular Filtration Rate 59.4 mL/min (>60) Glucose Level 169 MG/DL (74-106) H Hemoglobin A1c 10.7 % (4.3-6.0) H Calcium Level 9.6 MG/DL (8.5-10.1) Pro-B-Type Natriuretic Peptide 215 pg/mL (0-125) H Thyroid Stimulating Hormone (TSH) 0.225 uiU/mL (0.358-3.740) Vancomycin Level Trough 20.4 ug/mL (5.0-12.0) H Test 04/10/20 16:19 POC Whole Blood Glucose Pending Plan Problems: (1) Pneumonia (2) Sacral decubitus ulcer Assessment & Plan: Pt presented on admission with Tracheostomy,GT and Multiple Wounds including an Unstageable Pressure Injury Sacrum(L)2.1cm x (W)2.8cm.Base of wound is 100% slough. Borders are adherent, erythematous. Periwound is indurated with non-blanchable erythema. At L HIP A Blue marker measuring (L)6cm x (W)5cm. Small linear shaped wound that is somewhat approximated. The remaining base within Blue Marker is indurated,erythematous with elevation in skin temp at affected area within marker, and extends well beyond borders of Marker to upper L thigh(L)12cm x (W)8cm. Large Necrotic Ulcer with irregular borders noted to lateral L Tibia. Base of wound is 100% Necrotic and dry. Edges are adherent and erythematous. Periwound is dusky with elevation in skin temp noted(L)21cm x (W)11.5cm. Necrotic Ulcer lateral L foot/L malleolus(L)4cm x 6.5cm. Base of wound is 100% soft, but dry necrosis.Edges are adherent to base of wound but are erythematous. Surrounding the wound, skin colour is dusky and skin temp is elevated. NO odor or exudate noted. Open abscess/Boil noted to lateral R Tibia(L)3cm x (W)3cm with small opening at center base (L)0.4cmx (W)0.4cm. No exudate noted. Skin temp is slightly elevated. Both heels are callused and dry. Dry peeling skin noted to both lower ext, both feet including plantar aspect of both feet. Tx.Plan: Cleanse Sacral wound with Saline. Apply TheraHoney. Apply Moisture Barrier Paste periwound. Cover with Optifoam drsg Daily and prn. Apply Betadine to L Hip. Cover with Optifoam drsg. Change every 3 days and prn. Apply Betadine to Lateral L Tibia, and Lateral L foot. Cover each site with ABD Pads and wrap with Kerlix Daily and prn. Apply Betadine to Lateral R Tibia. Cover with Optifoam drsg. Change every 3 days and prn. Apply Cavilon Skin Barrier to both heels. Cover each heel with Optifoam drsg. Change every 7 days and prn. Reposition at Least every 2 hours or as tolerated. Elevate both lower ext and float Heels with pillows.Patient presents on admission with identifiable unstageable sacral decubitus ulcer fairly fracti on likely recently forming. Areas approximately 3 cm x 3 cm unknown depth. No drainage. No foul odor. Eschar area identified soft no ischemic eschar likely forming. Deep tissue underneath injury. Furthermore patient identified to have significant left lower extremity ischemic disease with ulcers and necrotic eschar. On the left lateral foot there is a necrotic eschar as well as on the left lateral leg significantly large. No drainage no signs of active infection chronic appearing in nature. Care plan initiated. Will need to ensure optimization of patient for care plan. Leukocytosis unlikely related to wounds as they do not seem actively infected Nutritional optimization We will follow with recommendations thank you for let me participate in nadiya rodolfo's care (3) Ischemia of left lower extremity Assessment & Plan: chronic large wounds US duplex arterial and venous ordered will follow with Anthony Suggs Apr 10, 2020 19:07
--- NOTE | 2020-04-10 19:26 | NUR ---
NURSE HAND-OFF REPORT: Important Events on Shift:[PRN seroquel, PCR COVID swab] Patient Status: [FULL CODE] Diet: [glucerna 1.2 at 40mL/hr] Pending Orders: [goal of nepro 40/hr] Pending Results/Labs:[] Pending MD notification:[] Latest Vital Signs: Temperature 97.7 , Pulse 103 , B/P 141 /81 , Respiratory Rate 22 , O2 SAT 99 , Mechanical Ventilator, O2 Flow Rate . Vital Sign Comment: [] EKG Rhythm: Sinus Tachycardia Rhythm change?: N MD Notified?: N - MD Response: Latest Linder Fall Score: 95 Fall Risk: High Risk Safety Measures: Call light Within Reach, Bed Alarm Zone 3, Side Rails Side Rails x3, Bed position Low and Locked. Fall Precautions: Yellow Socks Yellow Gown Door Sign Patient Fall Education Report given to [ANTON, RN].
--- NOTE | 2020-04-10 19:35 | NUR ---
NURSE NOTES: Received report from EMILE Montoya. Patient asleep in bed, afebrile and respiratory distress noted. vent to trache shiley 8, AC 16, Tidal Volume 500, PEEP 5 saturating at 98%. with left hand 22g IV line intact, patent and asymptomatic. On Glucerna at 35cc/hr ( 40cc/hr goal) via GT intact, infusing withotu any sediments or residuals. With Fc to urine bag via gravity below bladder draining yellowish urine. With both soft wrist restraints. Skin is intact, pulses are palpable and no paresthesia. HOB elevated. Call light within reach. Bed wheels are locked and side rails are up. Alarm is on and working. Continue plan of care
[2020-04-10 20:00] VITALS: BP 128/84
[2020-04-11] VITALS: BP 119/79
--- NOTE | 2020-04-11 00:03 | Psychiatry Consultation ---
Psychiatry Consultation Psychiatry Consultation Chief Complaint: General Complaint History of Present Illness: 44-year-old male with a history of multiple medical issues, who has been admitted to the hospital. He has been admitted due to pneumonia, respiratory failure, diabetes, decubitus ulcer. The patient is presenting with disorganized speech and behavior. He is now ventilator dependent and status post tracheostomy. The patient is easily agitated, pulled out lines, is on Seroquel. It appears the Seroquel is ineffective. The patient has been getting IM shot for agitation and psychosis. PAST PSYCHIATRIC HISTORY: Psychotic disorder and anxiety. PAST MEDICAL HISTORY: Significant for pneumonia. SUBSTANCE ABUSE HISTORY: No known history of illicit drug use or alcohol. MENTAL STATUS EXAMINATION: The patient is awake, oriented to self, and disoriented to situation. Mood is agitated. Affect is flat. Thought process, there is a paucity of thought content. Thought content, no suicidal or homicidal ideation. Cognition is impaired. Insight and judgment is impaired. ASSESSMENT: [place] I Psychotic disorder. [place] II Deferred. [place] III Pneumonia. [place] IV Low. [place] V 20 PLAN: 1. We will start the patient on Haldol p.r.n. 2. Seroquel. 3. Discussed with the nurse. Allergies: Coded Allergies: No Known Allergies (Unverified , 04/08/20) Objective Data Height (Feet): 5 Height (Inches): 6.00 Weight (Pounds): 135 Watson Graham MD Apr 11, 2020 00:03
--- NOTE | 2020-04-11 00:15 | NUR ---
NURSE NOTES: Pt was noted agitated.Pulling the vent tubes 3 times. Pt attempting to get up and get out of bed. Assisted pt to lay down and reassured to remain calm and relax. Pt still trying to reach the vent tubes. 0020: Placed a call to Dr Graham and explained what's going on with the patient. will put in orders.
[2020-04-11] MEDS ORDERED: Haloperidol 5mg/ml Inj IM ONE (00:30)
[2020-04-11] MEDS ORDERED: DiphenhydrAMINE 50mg/ml Inj IM ONE (00:30)
--- NOTE | 2020-04-11 00:47 | NUR ---
NURSE NOTES: Pt moving around in the bed. RN Assisted the patient to relax. VS are stable: bp: 119/79, HR 98, RR: 26. No respiratory distress noted. Medication given. pt tolerated well
--- NOTE | 2020-04-11 01:00 | NUR ---
NURSE NOTES: Pt calmed down and went to sleep. VS within normal limits. No respiratory distress noted. Continue to monitor the patient. 0115: Placed a call to Dr Graham regarding effectiveness of medication. New orders noted and carry out
--- NOTE | 2020-04-11 01:30 | NUR ---
NURSE NOTES: PT asleep in bed. VS are stable. no respiratory distress noted. Continue to monitor the patient.
[2020-04-11 04:00] VITALS: BP 134/87
--- NOTE | 2020-04-11 04:20 | NUR ---
NURSE NOTES: PT was given partial bed bath. gown and linen change. Pt tolerated well. Continue plan of care.
[2020-04-11] MEDS: DiphenhydrAMINE 50mg/ml Inj IVP PRN ×2 (04:24→20:24)
[2020-04-11] MEDS: Piperacillin/Tazobactam 3.375 GM in NS 110 ML IVPB SCH ×3 (05:40→22:51)
[2020-04-11] MEDS: NovoLOG Insulin Flexpen SUBQ SCH ×4 (06:39→21:23)
--- NOTE | 2020-04-11 07:22 | NUR ---
NURSE HAND-OFF REPORT: Important Events on Shift: stable, moving around Patient Status: stable Diet: glcuerna 1.2 at 40cc/hr Pending Orders: n Pending Results/Labs: chemistry Pending MD notification:n Latest Vital Signs: Temperature 97.2 , Pulse 103 , B/P 134 /87 , Respiratory Rate 19 , O2 SAT 100 , Mechanical Ventilator, O2 Flow Rate . Vital Sign Comment: n EKG Rhythm: Sinus Rhythm Rhythm change?: N MD Notified?: N - MD Response: Latest Linder Fall Score: 95 Fall Risk: High Risk Safety Measures: Call light Within Reach, Bed Alarm Zone 3, Side Rails Side Rails x3, Bed position Low and Locked. Fall Precautions: Yellow Socks Yellow Gown Door Sign Patient Fall Education Report given to Roxie Pond. Pt stable in bed
--- NOTE | 2020-04-11 07:30 | NUR ---
NURSE NOTES:Handoff received from EMILE CANO. Patient received awake and alert, able to make needs known using gestures/ facial expressions. Patient received in bed, agitated on bilateral soft wrist restraints for pulling at devices. patient has removed vent tubing multiple times in the past few minutes, requires constantly supervision, informed both day and PM charge nurse that assignment is unsafe due to having multiple patients that require constant supervision. Fall and aspiration precautions in place with bed in the low and locked position and call light within reach, HOB elevated 30'. Patient has Henry patent and draining to gravity. G tube is running Glucerna 1.2 @40ML/HR. Multiple wounds noted. Will follow plan of care and reinforce importance of not pulling at devices.
[2020-04-11 08:00] VITALS: BP 129/81
[2020-04-11] MEDS: QUEtiapine 200mg tab GT SCH ×2 (08:33→20:24)
[2020-04-11] MEDS: Midodrine 10mg tab ORAL SCH ×3 (08:33→18:10)
[2020-04-11] MEDS: Zinc Sulfate 220mg GT SCH (08:33)
[2020-04-11] MEDS: Vitamin D 1000 units Tab GT SCH (08:33)
[2020-04-11] MEDS: Ascorbic Acid 500mg tab GT SCH (08:34)
[2020-04-11] MEDS: Pantoprazole Inj IVP SCH (08:35)
[2020-04-11] MEDS: Heparin 5000 units/ml inj SUBQ SCH ×2 (08:38→20:24)
[2020-04-11 08:43] LABS: HEMATOCRIT 24.6 % (42.0-52.0); HEMOGLOBIN 8.4 G/DL (14.2-18.0); MEAN CORPUSCULAR VOLUME 82 FL (80-99); PLATELET COUNT 564 K/UL (150-450); RED CELL DISTRIBUTION WIDTH 14.1 % (11.6-14.8); WHITE BLOOD COUNT 19.3 K/UL (4.8-10.8)
[2020-04-11 08:57] LABS: ANION GAP 6 mmol/L (5-15); BLOOD UREA NITROGEN 45 mg/dL (7-18); CALCIUM 9.9 MG/DL (8.5-10.1); CARBON DIOXIDE 32 MMOL/L (21-32); CHLORIDE 107 MMOL/L (98-107); CREATININE 1.1 MG/DL (0.55-1.30); POTASSIUM 3.6 MMOL/L (3.5-5.1); SODIUM 145 MMOL/L (136-145)
[2020-04-11] MEDS: Vancomycin 750mg/NS 275ml IVPB SCH ×4 (10:16→20:32)
--- NOTE | 2020-04-11 10:46 | Infectious Diseases Prog Note ---
Assessment/Plan Assessment/Plan A: 1. Pneumonia. 2. Sacral decubitus ulcer. 3. Left leg necrotic ulcer 4. Ventilator dependent respiratory failure 5. Anemia PLAN: 1. Continue IV vancomycin and Zosyn. 2. We will follow up cultures and adjust antibiotics accordingly. Subjective ROS Limited/Unobtainable: Yes Neurologic: Reports: confusion, other - on restraint Allergies: Coded Allergies: No Known Allergies (Unverified , 04/08/20) Objective Last 24 Hour Vital Signs Date Time Temp Pulse Resp B/P (MAP) Pulse Ox O2 Delivery O2 Flow Rate FiO2 04/11/20 08:00 97.3 97 19 129/81 (97) 100 04/11/20 08:00 Mechanical Ventilator 04/11/20 08:00 28 04/11/20 06:35 110 34 28 04/11/20 04:00 28 04/11/20 04:00 Mechanical Ventilator 04/11/20 04:00 97.2 103 19 134/87 (103) 100 04/11/20 03:02 101 04/11/20 02:44 97 21 28 04/11/20 00:00 Mechanical Ventilator 04/11/20 00:00 97.2 93 19 119/79 (92) 100 04/11/20 00:00 28 04/10/20 23:13 92 22 28 04/10/20 23:01 100 04/10/20 20:00 97.0 89 20 128/84 (99) 100 04/10/20 20:00 Mechanical Ventilator 04/10/20 20:00 28 04/10/20 19:49 90 18 28 04/10/20 19:02 92 04/10/20 16:30 103 22 28 04/10/20 16:00 Mechanical Ventilator 04/10/20 16:00 109 04/10/20 16:00 28 04/10/20 12:00 Mechanical Ventilator 04/10/20 12:00 28 04/10/20 11:52 105 04/10/20 11:08 110 25 28 Height (Feet): 5 Height (Inches): 6.00 Weight (Pounds): 135 HEENT: status post trach Respiratory/Chest: other - on Ventilator, UXA8=180% Cardiovascular: normal rate Abdomen: soft, non tender, other - GT in place Skin: ulcers, other - sacral, left leg Neurologic/Psychiatric: alert, disoriented Microbiology Date/Time Source Procedure Growth Status 04/09/20 10:30 Blood Blood Culture - Preliminary NO GROWTH AFTER 24 HOURS Resulted 04/09/20 10:20 Blood Blood Culture - Preliminary NO GROWTH AFTER 24 HOURS Resulted 04/09/20 05:45 Rectum Received 04/09/20 05:45 Nasal Nares MRSA Culture - Final NO METHICILLIN RESISTANT STAPH AUREUS... Complete 04/08/20 23:45 Nasopharynx SARS-CoV-2 RdRp Gene Assay - Final Complete Laboratory Tests Test 04/10/20 12:00 04/10/20 16:19 04/10/20 21:18 04/11/20 05:38 POC Whole Blood Glucose Pending Pending 180 MG/DL (74-106) H 215 MG/DL (74-106) H Test 04/11/20 08:19 White Blood Count 19.3 K/UL (4.8-10.8) H Red Blood Count 3.00 M/UL (4.70-6.10) L Hemoglobin 8.4 G/DL (14.2-18.0) L Hematocrit 24.6 % (42.0-52.0) L Mean Corpuscular Volume 82 FL (80-99) Mean Corpuscular Hemoglobin 27.8 PG (27.0-31.0) Mean Corpuscular Hemoglobin Concent 34.0 G/DL (32.0-36.0) Red Cell Distribution Width 14.1 % (11.6-14.8) Platelet Count 564 K/UL (150-450) H Mean Platelet Volume 5.1 FL (6.5-10.1) L Neutrophils (%) (Auto) % (45.0-75.0) Lymphocytes (%) (Auto) % (20.0-45.0) Monocytes (%) (Auto) % (1.0-10.0) Eosinophils (%) (Auto) % (0.0-3.0) Basophils (%) (Auto) % (0.0-2.0) Neutrophils % (Manual) Pending Lymphocytes % (Manual) Pending Platelet Estimate Pending Platelet Morphology Pending Sodium Level 145 MMOL/L (136-145) Potassium Level 3.6 MMOL/L (3.5-5.1) Chloride Level 107 MMOL/L (98-107) Carbon Dioxide Level 32 MMOL/L (21-32) Anion Gap 6 mmol/L (5-15) Blood Urea Nitrogen 45 mg/dL (7-18) H Creatinine 1.1 MG/DL (0.55-1.30) Estimat Glomerular Filtration Rate > 60 mL/min (>60) Glucose Level 202 MG/DL (74-106) H Calcium Level 9.9 MG/DL (8.5-10.1) Vancomycin Level Trough 17.8 ug/mL (5.0-12.0) H Current Medications Medications (Trade) Dose Ordered Sig/Benigno Route PRN Reason Start Time Stop Time Status Last Admin Dose Admin Acetaminophen (Tylenol) 650 mg Q4H PRN ORAL Mild Pain (Pain Scale 1-3) 04/09/20 09:00 05/09/20 08:59 Acetaminophen (Tylenol) 650 mg Q4H PRN ORAL Temp >100.5 04/09/20 09:00 05/09/20 08:59 Albuterol/ Ipratropium (Albuterol/ Ipratropium) 3 ml Q6H PRN HHN Shortness of Breath 04/09/20 09:00 04/14/20 08:59 Ascorbic Acid (Vitamin C) 1,000 mg DAILY GT 04/09/20 09:00 05/09/20 08:59 04/11/20 08:34 Dextrose (Dextrose 50%) 25 ml Q30M PRN IV Hypoglycemia 04/09/20 09:00 07/08/20 08:59 Dextrose (Dextrose 50%) 50 ml Q30M PRN IV Hypoglycemia 04/09/20 09:00 07/08/20 08:59 Diphenhydramine HCl (Benadryl) 50 mg Q12H PRN IVP Agitation 04/11/20 01:30 05/11/20 01:29 04/11/20 04:24 Furosemide (Lasix) 20 mg EVERY 12 HOURS IV 04/09/20 09:00 05/09/20 08:59 04/11/20 08:35 Heparin Sodium (Porcine) (Heparin 5000 units/ml) 5,000 units EVERY 12 HOURS SUBQ 04/09/20 10:00 05/24/20 09:59 04/11/20 08:38 Insulin Aspart (NovoLOG) BEFORE MEALS AND HS SUBQ 04/09/20 11:30 07/08/20 11:29 04/11/20 06:39 Magnesium Hydroxide (Mom) 30 ml DAILYPRN PRN ORAL Constipation 04/09/20 09:00 05/09/20 08:59 Midodrine (Pro-Amatine) 20 mg THREE TIMES A DAY ORAL 04/09/20 10:00 07/08/20 09:59 04/11/20 08:33 Morphine Sulfate (Morphine Sulfate) 2 mg Q3H PRN IVP For Pain 4-10 04/09/20 09:00 04/16/20 08:59 04/09/20 14:37 Ondansetron HCl (Zofran) 4 mg Q6H PRN IVP Nausea & Vomiting 04/09/20 09:00 05/09/20 08:59 Pantoprazole (Protonix) 40 mg DAILY IVP 04/09/20 09:00 05/09/20 08:59 04/11/20 08:35 Piperacillin Sod/ Tazobactam Sod 3.375 gm/Sodium Chloride 110 ml @ 27.5 mls/hr Q8HR IVPB 04/09/20 10:00 04/16/20 09:59 04/11/20 05:40 Quetiapine Fumarate (SEROqueL) 50 mg Q6H PRN GT Restlessness and agitation 04/10/20 16:15 05/25/20 16:14 04/11/20 00:10 Quetiapine Fumarate (SEROqueL) 200 mg Q12HR GT 04/11/20 09:00 05/26/20 08:59 04/11/20 08:33 Vancomycin HCl (Vanco pharmacy to dose) 1 ea DAILY PRN MISC Per rx protocol 04/09/20 08:00 05/09/20 07:59 Vancomycin HCl 750 mg/Sodium Chloride 275 ml @ 183.333 mls/hr Q12HR IVPB 04/09/20 21:00 04/14/20 20:59 04/11/20 10:16 Vitamin D (Vitamin D) 2,000 unit DAILY GT 04/09/20 09:00 05/09/20 08:59 04/11/20 08:33 Zinc Oxide (Zinc Oxide) 1 applic TIDPRN PRN TOPIC Itching 04/09/20 08:30 07/08/20 08:29 Zinc Sulfate (Zinc Sulfate) 220 mg DAILY GT 04/09/20 09:00 07/08/20 08:59 04/11/20 08:33 Sumit Devine MD Apr 11, 2020 10:46
--- NOTE | 2020-04-11 11:03 | NUR ---
INSURANCE clinicals/review faxed to [facility] (04/09-04/11) FX [phone] PH [phone]
[2020-04-11 12:00] VITALS: BP 137/88
--- NOTE | 2020-04-11 12:40 | Psychiatric Progress Note ---
Psychiatry Progress Note Psychiatry Progress Note Medications Current Medications Medications (Trade) Dose Ordered Sig/Benigno Route PRN Reason Start Time Stop Time Status Last Admin Dose Admin Acetaminophen (Tylenol) 650 mg Q4H PRN ORAL Mild Pain (Pain Scale 1-3) 04/09/20 09:00 05/09/20 08:59 Acetaminophen (Tylenol) 650 mg Q4H PRN ORAL Temp >100.5 04/09/20 09:00 05/09/20 08:59 Albuterol/ Ipratropium (Albuterol/ Ipratropium) 3 ml Q6H PRN HHN Shortness of Breath 04/09/20 09:00 04/14/20 08:59 Ascorbic Acid (Vitamin C) 1,000 mg DAILY GT 04/09/20 09:00 05/09/20 08:59 04/11/20 08:34 Dextrose (Dextrose 50%) 25 ml Q30M PRN IV Hypoglycemia 04/09/20 09:00 07/08/20 08:59 Dextrose (Dextrose 50%) 50 ml Q30M PRN IV Hypoglycemia 04/09/20 09:00 07/08/20 08:59 Diphenhydramine HCl (Benadryl) 50 mg Q12H PRN IVP Agitation 04/11/20 01:30 05/11/20 01:29 04/11/20 04:24 Furosemide (Lasix) 20 mg EVERY 12 HOURS IV 04/09/20 09:00 05/09/20 08:59 04/11/20 08:35 Heparin Sodium (Porcine) (Heparin 5000 units/ml) 5,000 units EVERY 12 HOURS SUBQ 04/09/20 10:00 05/24/20 09:59 04/11/20 08:38 Insulin Aspart (NovoLOG) BEFORE MEALS AND HS SUBQ 04/09/20 11:30 07/08/20 11:29 04/11/20 12:25 Magnesium Hydroxide (Mom) 30 ml DAILYPRN PRN ORAL Constipation 04/09/20 09:00 05/09/20 08:59 Midodrine (Pro-Amatine) 20 mg THREE TIMES A DAY ORAL 04/09/20 10:00 07/08/20 09:59 04/11/20 08:33 Morphine Sulfate (Morphine Sulfate) 2 mg Q3H PRN IVP For Pain 4-10 04/09/20 09:00 04/16/20 08:59 04/09/20 14:37 Ondansetron HCl (Zofran) 4 mg Q6H PRN IVP Nausea & Vomiting 04/09/20 09:00 05/09/20 08:59 Pantoprazole (Protonix) 40 mg DAILY IVP 04/09/20 09:00 05/09/20 08:59 04/11/20 08:35 Piperacillin Sod/ Tazobactam Sod 3.375 gm/Sodium Chloride 110 ml @ 27.5 mls/hr Q8HR IVPB 04/09/20 10:00 04/16/20 09:59 04/11/20 05:40 Quetiapine Fumarate (SEROqueL) 50 mg Q6H PRN GT Restlessness and agitation 04/10/20 16:15 05/25/20 16:14 04/11/20 00:10 Quetiapine Fumarate (SEROqueL) 200 mg Q12HR GT 04/11/20 09:00 05/26/20 08:59 04/11/20 08:33 Vancomycin HCl (Vanco pharmacy to dose) 1 ea DAILY PRN MISC Per rx protocol 04/09/20 08:00 05/09/20 07:59 Vancomycin HCl 750 mg/Sodium Chloride 275 ml @ 183.333 mls/hr Q12HR IVPB 04/09/20 21:00 04/14/20 20:59 04/11/20 10:16 Vitamin D (Vitamin D) 2,000 unit DAILY GT 04/09/20 09:00 05/09/20 08:59 04/11/20 08:33 Zinc Oxide (Zinc Oxide) 1 applic TIDPRN PRN TOPIC Itching 04/09/20 08:30 07/08/20 08:29 Zinc Sulfate (Zinc Sulfate) 220 mg DAILY GT 04/09/20 09:00 07/08/20 08:59 04/11/20 08:33 Neurological/Psychiatric: Reports: anxiety, depressed, emotional problems Allergies: Coded Allergies: No Known Allergies (Unverified , 04/08/20) Objective Data Height (Feet): 5 Height (Inches): 6.00 Weight (Pounds): 135 Additional Comments: MENTAL STATUS EXAMINATION: The patient is awake, oriented to self, and disoriented to situation. Mood is agitated. Affect is flat. Thought process, there is a paucity of thought content. Thought content, no suicidal or homicidal ideation. Cognition is impaired. Insight and judgment is impaired. Assessment/Plan Assessment/Plan: ASSESSMENT: [place] I Psychotic disorder. [place] II Deferred. [place] III Pneumonia. [place] IV Low. [place] V 20 PLAN: 1. We will start the patient on Haldol p.r.n. 2. Seroquel. 3. Discussed with the nurse. Watson Graham MD Apr 11, 2020 12:40
--- NOTE | 2020-04-11 12:53 | NUR ---
Accounting Reconciliation ClerkPsychologist SI: PNA, Trach/Vent dependent, Leukocytosis T 97.3, HR 97, RR 19, BP 129/81 AC 16, TV 500, FiO2 28, PEEP 5.0 O2 Sat 100% WBC 19.3, BUN 45 IS: Zosyn IV Vancomycin IV q 12 h Heparin SQ BID SDU Status DCP: Pending hospitalization
--- NOTE | 2020-04-11 13:47 | NUR ---
NURSE NOTES:Non-Administered Midodrine as patient BP is 138/88.
[2020-04-11 16:00] VITALS: BP 123/73
--- NOTE | 2020-04-11 16:57 | General Progress Note ---
Subjective ROS Limited/Unobtainable: Yes Allergies: Coded Allergies: No Known Allergies (Unverified , 04/08/20) Subjective care noted on vent and trach Objective Last 24 Hour Vital Signs Date Time Temp Pulse Resp B/P (MAP) Pulse Ox O2 Delivery O2 Flow Rate FiO2 04/11/20 16:09 98 04/11/20 16:00 Mechanical Ventilator 04/11/20 16:00 28 04/11/20 16:00 100.0 99 19 123/73 (90) 100 04/11/20 13:05 100 15 28 04/11/20 12:00 28 04/11/20 12:00 Mechanical Ventilator 04/11/20 12:00 97.3 97 25 137/88 (104) 100 04/11/20 12:00 96 04/11/20 08:00 96 04/11/20 08:00 97.3 97 19 129/81 (97) 100 04/11/20 08:00 Mechanical Ventilator 04/11/20 08:00 28 04/11/20 06:35 110 34 28 04/11/20 04:00 28 04/11/20 04:00 Mechanical Ventilator 04/11/20 04:00 97.2 103 19 134/87 (103) 100 04/11/20 03:02 101 04/11/20 02:44 97 21 28 04/11/20 00:00 Mechanical Ventilator 04/11/20 00:00 97.2 93 19 119/79 (92) 100 04/11/20 00:00 28 04/10/20 23:13 92 22 28 04/10/20 23:01 100 04/10/20 20:00 97.0 89 20 128/84 (99) 100 04/10/20 20:00 Mechanical Ventilator 04/10/20 20:00 28 04/10/20 19:49 90 18 28 04/10/20 19:02 92 Intake and Output 04/10/20 04/11/20 19:00 07:00 Intake Total 1142.500 ml Output Total 750 ml 700 ml Balance -750 ml 442.500 ml Intake Free Water 230 ml IV Total 412.500 ml Tube Feeding 500 ml Output Urine Total 750 ml 700 ml # Bowel Movements 1 Laboratory Tests 04/10/20 21:18: POC Whole Blood Glucose 180H 04/11/20 05:38: POC Whole Blood Glucose 215H 04/11/20 08:19: White Blood Count 19.3H, Red Blood Count 3.00L, Hemoglobin 8.4L, Hematocrit 24.6L, Mean Corpuscular Volume 82, Mean Corpuscular Hemoglobin 27.8, Mean Corpuscular Hemoglobin Concent 34.0, Red Cell Distribution Width 14.1, Platelet Count 564H, Mean Platelet Volume 5.1L, Neutrophils (%) (Auto) , Lymphocytes (%) (Auto) , Monocytes (%) (Auto) , Eosinophils (%) (Auto) , Basophils (%) (Auto) , Differential Total Cells Counted 100, Neutrophils % (Manual) 86H, Lymphocytes % (Manual) 8L, Monocytes % (Manual) 5, Eosinophils % (Manual) 1, Basophils % (Manu al) 0, Band Neutrophils 0, Platelet Estimate IncreasedH, Platelet Morphology Normal, Hypochromasia 1+, Anisocytosis 1+, Sodium Level 145, Potassium Level 3.6, Chloride Level 107, Carbon Dioxide Level 32, Anion Gap 6, Blood Urea Nitrogen 45H, Creatinine 1.1, Estimat Glomerular Filtration Rate > 60, Glucose Level 202H, Calcium Level 9.9, Vancomycin Level Trough 17.8H 04/11/20 11:52: POC Whole Blood Glucose 224H Height (Feet): 5 Height (Inches): 6.00 Weight (Pounds): 135 Objective WDWN trach reduced breath sounds bilaterally without rhonchi or wheeze [id number] without MRG NABS nontender GT no CCE poor LOC Assessment/Plan Assessment/Plan: Impression: Pneumonia, h/o Klebsiella Ventilator dependance Tracheostomy status Diabetes Sacral decubitus and feet pressure areas Plan: - Continue antibiotics - ID Consult,Surgery Consult - Cultures to review and defer to ID as to abx change - Monitor labs - supportive care - Continue current ventilator sttings - Adjust O2 as needed - DVT prophylaxis -Wound consult - dc planning once wbc improves impression, plan, and exam edited and reviewed in detail care discussed with Mikhail Alejandro MD Apr 11, 2020 16:57
--- NOTE | 2020-04-11 18:32 | NUR ---
NURSE NOTES:Patient pulled on IV line and caused Iv pole with feeding and IV pump to crash onto the floor. This is the 3rd time patient has done this today. Informed patient to stop pulling at lines, but patient continues to act impulsively.
--- NOTE | 2020-04-11 18:44 | Consultation ---
DATE OF CONSULTATION: 04/11/2020 HISTORY OF PRESENT ILLNESS: The patient is a 44-year-old male with a history of multiple medical issues, who has been admitted to the hospital. He has been admitted due to pneumonia, respiratory failure, diabetes, decubitus ulcer. The patient is presenting with disorganized speech and behavior. He is now ventilator dependent and status post tracheostomy. The patient is easily agitated, pulled out lines, is on Seroquel. It appears the Seroquel is ineffective. The patient has been getting IM shot for agitation and psychosis. PAST PSYCHIATRIC HISTORY: Psychotic disorder and anxiety. PAST MEDICAL HISTORY: Significant for pneumonia. SUBSTANCE ABUSE HISTORY: No known history of illicit drug use or alcohol. MENTAL STATUS EXAMINATION: The patient is awake, oriented to self, and disoriented to situation. Mood is agitated. Affect is flat. Thought process, there is a paucity of thought content. Thought content, no suicidal or homicidal ideation. Cognition is impaired. Insight and judgment is impaired. ASSESSMENT: [place] I Psychotic disorder. [place] II Deferred. [place] III Pneumonia. [place] IV Low. [place] V 20 PLAN: 1. We will start the patient on Haldol p.r.n. 2. Seroquel. 3. Discussed with the nurse. Watson Graham M.D. DR: COLUMBA JOB#: [id number] CC:
--- NOTE | 2020-04-11 19:20 | NUR ---
NURSE NOTES: Received report from EMILE Turpin. Patient asleep in bed, afebrile and respiratory distress noted. vent to trache shiley 8, AC 16, Tidal Volume 500, PEEP 5 saturating at 98%. with left fore arm 20g IV line intact, patent and asymptomatic. On Glucerna at 40 cc/hr via GT intact, infusing without any sediments or residuals. With Fc to urine bag via gravity below bladder draining yellowish urine. With both soft wrist restraints. Skin is intact, pulses are palpable and no paresthesia. HOB elevated. Call light within reach. Bed wheels are locked and side rails are up. Alarm is on and working. Continue plan of care Addendum: 04/11/20 at 2048 by JEROME Richter RN Correction: GT was found pull out during rounds. Inserted FC to keep stoma open. Pt has no discomfort. VS stable. Informed Dr Campbell about it. Dr Campbell responded he will call GI energy consultant and will let me know. Continue to monitor the patient.
[2020-04-11 20:00] VITALS: BP 126/83
--- NOTE | 2020-04-11 20:55 | Surgery Progress Note ---
Surgery Progress Note Subjective Additional Comments no acute events Objective Last 24 Hour Vital Signs Date Time Temp Pulse Resp B/P (MAP) Pulse Ox O2 Delivery O2 Flow Rate FiO2 04/11/20 16:09 98 04/11/20 16:00 Mechanical Ventilator 04/11/20 16:00 28 04/11/20 16:00 100.0 99 19 123/73 (90) 100 04/11/20 13:05 100 15 28 04/11/20 12:00 28 04/11/20 12:00 Mechanical Ventilator 04/11/20 12:00 97.3 97 25 137/88 (104) 100 04/11/20 12:00 96 04/11/20 08:00 96 04/11/20 08:00 97.3 97 19 129/81 (97) 100 04/11/20 08:00 Mechanical Ventilator 04/11/20 08:00 28 04/11/20 06:35 110 34 28 04/11/20 04:00 28 04/11/20 04:00 Mechanical Ventilator 04/11/20 04:00 97.2 103 19 134/87 (103) 100 04/11/20 03:02 101 04/11/20 02:44 97 21 28 04/11/20 00:00 Mechanical Ventilator 04/11/20 00:00 97.2 93 19 119/79 (92) 100 04/11/20 00:00 28 04/10/20 23:13 92 22 28 04/10/20 23:01 100 I&O Intake and Output 04/10/20 04/11/20 19:00 07:00 Intake Total 1182.500 ml Output Total 750 ml 700 ml Balance -750 ml 482.500 ml Intake Free Water 230 ml IV Total 412.500 ml Tube Feeding 540 ml Output Urine Total 750 ml 700 ml # Bowel Movements 1 Dressing: saturated Cardiovascular: RSR Respiratory: decreased breath sounds Abdomen: soft, non-tender, present bowel sounds Extremities: no tenderness, no cyanosis Laboratory Tests Test 04/10/20 21:18 04/11/20 05:38 04/11/20 08:19 04/11/20 11:52 POC Whole Blood Glucose 180 MG/DL (74-106) H 215 MG/DL (74-106) H 224 MG/DL (74-106) H White Blood Count 19.3 K/UL (4.8-10.8) H Red Blood Count 3.00 M/UL (4.70-6.10) L Hemoglobin 8.4 G/DL (14.2-18.0) L Hematocrit 24.6 % (42.0-52.0) L Mean Corpuscular Volume 82 FL (80-99) Mean Corpuscular Hemoglobin 27.8 PG (27.0-31.0) Mean Corpuscular Hemoglobin Concent 34.0 G/DL (32.0-36.0) Red Cell Distribution Width 14.1 % (11.6-14.8) Platelet Count 564 K/UL (150-450) H Mean Platelet Volume 5.1 FL (6.5-10.1) L Neutrophils (%) (Auto) % (45.0-75.0) Lymphocytes (%) (Auto) % (20.0-45.0) Monocytes (%) (Auto) % (1.0-10.0) Eosinophils (%) (Auto) % (0.0-3.0) Basophils (%) (Auto) % (0.0-2.0) Differential Total Cells Counted 100 Neutrophils % (Manual) 86 % (45-75) H Lymphocytes % (Manual) 8 % (20-45) L Monocytes % (Manual) 5 % (1-10) Eosinophils % (Manual) 1 % (0-3) Basophils % (Manual) 0 % (0-2) Band Neutrophils 0 % (0-8) Platelet Estimate Increased H Platelet Morphology Normal Hypochromasia 1+ Anisocytosis 1+ Sodium Level 145 MMOL/L (136-145) Potassium Level 3.6 MMOL/L (3.5-5.1) Chloride Level 107 MMOL/L (98-107) Carbon Dioxide Level 32 MMOL/L (21-32) Anion Gap 6 mmol/L (5-15) Blood Urea Nitrogen 45 mg/dL (7-18) H Creatinine 1.1 MG/DL (0.55-1.30) Estimat Glomerular Filtration Rate > 60 mL/min (>60) Glucose Level 202 MG/DL (74-106) H Calcium Level 9.9 MG/DL (8.5-10.1) Vancomycin Level Trough 17.8 ug/mL (5.0-12.0) H Test 04/11/20 20:40 POC Whole Blood Glucose 199 MG/DL (74-106) H Plan Problems: (1) Pneumonia (2) Sacral decubitus ulcer Assessment & Plan: Pt presented on admission with Tracheostomy,GT and Multiple Wounds including an Unstageable Pressure Injury Sacrum(L)2.1cm x (W)2.8cm.Base of wound is 100% slough. Borders are adherent, erythematous. Periwound is indurated with non-blanchable erythema. At L HIP A Blue marker measuring (L)6cm x (W)5cm. Small linear shaped wound that is somewhat approximated. The remaining base within Blue Marker is indurated,erythematous with elevation in skin temp at affected area within marker, and extends well beyond borders of Marker to upper L thigh(L)12cm x (W)8cm. Large Necrotic Ulcer with irregular borders noted to lateral L Tibia. Base of wound is 100% Necrotic and dry. Edges are adherent and erythematous. Periwound is dusky with elevation in skin temp noted(L)21cm x (W)11.5cm. Necrotic Ulcer lateral L foot/L malleolus(L)4cm x 6.5cm. Base of wound is 100% soft, but dry necrosis.Edges are adherent to base of wound but are erythematous. Surrounding the wound, skin colour is dusky and skin temp is elevated. NO odor or exudate noted. Open abscess/Boil noted to lateral R Tibia(L)3cm x (W)3cm with small opening at center base (L)0.4cmx (W)0.4cm. No exudate noted. Skin temp is slightly elevated. Both heels are callused and dry. Dry peeling skin noted to both lower ext, both feet including plantar aspect of both feet. Tx.Plan: Cleanse Sacral wound with Saline. Apply TheraHoney. Apply Moisture Barrier Paste periwound. Cover with Optifoam drsg Daily and prn. Apply Betadine to L Hip. Cover with Optifoam drsg. Change every 3 days and prn. Apply Betadine to Lateral L Tibia, and Lateral L foot. Cover each site with ABD Pads and wrap with Kerlix Daily and prn. Apply Betadine to Lateral R Tibia. Cover with Optifoam drsg. Change every 3 days and prn. Apply Cavilon Skin Barrier to both heels. Cover each heel with Optifoam drsg. Change every 7 days and prn. Reposition at Least every 2 hours or as tolerated. Elevate both lower ext and float Heels with pillows.Patient presents on admission with identifiable unstageable sacral decubitus ulcer fairly fraction likely recently forming. Areas approximately 3 cm x 3 cm unknown d epth. No drainage. No foul odor. Eschar area identified soft no ischemic eschar likely forming. Deep tissue underneath injury. Furthermore patient identified to have significant left lower extremity ischemic disease with ulcers and necrotic eschar. On the left lateral foot there is a necrotic eschar as well as on the left lateral leg significantly large. No drainage no signs of active infection chronic appearing in nature. Care plan initiated. Will need to ensure optimization of patient for care plan. Leukocytosis unlikely related to wounds as they do not seem actively infected Nutritional optimization We will follow with recommendations thank you for let me participate in patient's care (3) Ischemia of left lower extremity Assessment & Plan: chronic large wounds US duplex arterial and venous ordered will follow with Anthony Suggs Apr 11, 2020 20:55
[2020-04-12] VITALS: BP 130/86
--- NOTE | 2020-04-12 00:03 | NUR ---
NURSE NOTES: Pt asleep in bed. not agitated. Vs are WNL. No respiratory distress noted. remove restraints. Both wrsit skin intact. pulses are palpable and no paresthesia noted Continue to monitor
[2020-04-12] MEDS: Haloperidol 5mg/ml Inj IM PRN ×2 (01:16→19:58)
--- NOTE | 2020-04-12 03:13 | NUR ---
NURSE NOTES: Pt was noted agitated, moving around and trying to reach the vent tubes. reassure the patient but still pt is persistent. Inititate both soft wrist restraints. Skin is intact. no paresthesia and pulses are palpable. continue to monitor
[2020-04-12 04:00] VITALS: BP 129/74
[2020-04-12] MEDS: Piperacillin/Tazobactam 3.375 GM in NS 110 ML IVPB SCH ×3 (06:03→21:14)
[2020-04-12] MEDS: NovoLOG Insulin Flexpen SUBQ SCH ×4 (06:04→21:19)
--- NOTE | 2020-04-12 06:04 | NUR ---
NURSE NOTES: Pt feeding was held since last night due to GTube out. Held Insulin medication for now
--- NOTE | 2020-04-12 07:15 | NUR ---
NURSE HAND-OFF REPORT: Important Events on Shift: hematuria, CBI continuation Patient Status: stable Diet: ccho Pending Orders: n Pending Results/Labs:n Pending MD notification:n Latest Vital Signs: Temperature 97.9 , Pulse 83 , B/P 129 /74 , Respiratory Rate 21 , O2 SAT 100 , Mechanical Ventilator, O2 Flow Rate . Vital Sign Comment: n EKG Rhythm: Sinus Rhythm Rhythm change?: N MD Notified?: N - MD Response: Latest Linder Fall Score: 95 Fall Risk: High Risk Safety Measures: Call light Within Reach, Bed Alarm Zone 3, Side Rails Side Rails x3, Bed position Low and Locked. Fall Precautions: Yellow Socks Yellow Gown Door Sign Patient Fall Education Report given to EMILE Duarte. Pt stable Addendum: 04/12/20 at 0739 by JEROME Richter RN ERROR: INCORRECT PATIENT INFORMATION. DISREGARD
--- NOTE | 2020-04-12 07:39 | NUR ---
NURSE HAND-OFF REPORT: Important Events on Shift: gtube pulled out Patient Status: stable Diet: glcuerna 1.2 at 40cc/ hr Pending Orders: n Pending Results/Labs:n Pending MD notification:n Latest Vital Signs: Temperature 97.9 , Pulse 83 , B/P 129 /74 , Respiratory Rate 21 , O2 SAT 100 , Mechanical Ventilator, O2 Flow Rate . Vital Sign Comment: n EKG Rhythm: Sinus Rhythm Rhythm change?: N MD Notified?: N - MD Response: Latest Linder Fall Score: 95 Fall Risk: High Risk Safety Measures: Call light Within Reach, Bed Alarm Zone 3, Side Rails Side Rails x3, Bed position Low and Locked. Fall Precautions: Yellow Socks Yellow Gown Door Sign Patient Fall Education Report given to EMILE Duarte.
[2020-04-12 08:00] VITALS: BP 147/86
--- NOTE | 2020-04-12 08:00 | NUR ---
NURSE NOTES: Received report from JEROME RN. Patient is awake and trying to get out of restraints. Vent to trach shiley 8, AC 16, Tidal Volume 500, FiO2 28% PEEP 5 saturating 96%. Pt has left FA 20g SL. Per night assistant nurse, pt pulled out GT. DR Forte to replace G tube, replacement at bedside. tube feeding Glucerna at 40 cc/hr has been placed on hold until replaces Gtube.Pt has FC with dark nina urine. Pt is on bilat soft wrist restraints, skin is intact, pulses are palpable. HOB elevated. Call light within reach. Bed wheels are locked and side rails are up. Alarm is on
[2020-04-12] MEDS: Vitamin D 1000 units Tab GT SCH (08:40)
[2020-04-12] MEDS: Ascorbic Acid 500mg tab GT SCH (08:40)
[2020-04-12] MEDS: QUEtiapine 200mg tab GT SCH ×2 (08:40→21:13)
[2020-04-12] MEDS: Zinc Sulfate 220mg GT SCH (08:40)
[2020-04-12] MEDS: Heparin 5000 units/ml inj SUBQ SCH ×2 (08:41→21:15)
[2020-04-12] MEDS: DiphenhydrAMINE 50mg/ml Inj IVP PRN ×2 (08:41→22:36)
[2020-04-12] MEDS: Midodrine 10mg tab ORAL SCH ×3 (08:41→17:26)
[2020-04-12] MEDS: Pantoprazole Inj IVP SCH (08:44)
[2020-04-12] MEDS: Vancomycin 750mg/NS 275ml IVPB SCH ×4 (08:47→21:14)
--- NOTE | 2020-04-12 10:22 | Infectious Diseases Prog Note ---
Assessment/Plan Assessment/Plan antibiotics : vancomycin iv, zosyn A 1. left leg necrotic ulcer r/o osteomyelitis 2. pneumonia 3. diabetes mellitus 4. respiratory failure s/p tracheostomy P 1. continue iv vancomycin, zosyn 2. will follow up cultures 3. left leg culture 4. CT left leg Subjective ROS Limited/Unobtainable: Yes Allergies: Coded Allergies: No Known Allergies (Unverified , 04/08/20) Objective Last 24 Hour Vital Signs Date Time Temp Pulse Resp B/P (MAP) Pulse Ox O2 Delivery O2 Flow Rate FiO2 04/12/20 08:00 97.7 94 18 147/86 (106) 100 04/12/20 08:00 Mechanical Ventilator 04/12/20 08:00 84 04/12/20 08:00 28 04/12/20 07:30 87 24 28 04/12/20 04:00 97.9 83 21 129/74 (92) 100 04/12/20 04:00 28 04/12/20 04:00 Mechanical Ventilator 04/12/20 03:25 83 17 28 04/12/20 03:07 81 04/12/20 00:00 98.0 85 21 130/86 (101) 100 04/12/20 00:00 Mechanical Ventilator 04/11/20 23:15 92 21 28 04/11/20 23:08 87 04/11/20 20:00 97.9 91 22 126/83 (97) 100 04/11/20 20:00 Mechanical Ventilator 04/11/20 20:00 28 04/11/20 19:26 100 21 28 04/11/20 19:25 93 04/11/20 16:09 98 04/11/20 16:00 Mechanical Ventilator 04/11/20 16:00 28 04/11/20 16:00 100.0 99 19 123/73 (90) 100 04/11/20 13:05 100 15 28 04/11/20 12:00 28 04/11/20 12:00 Mechanical Ventilator 04/11/20 12:00 97.3 97 25 137/88 (104) 100 04/11/20 12:00 96 Height (Feet): 5 Height (Inches): 6.00 Weight (Pounds): 135 HEENT: status post trach Respiratory/Chest: lungs clear Cardiovascular: normal rate, regular rhythm, no gallop/murmur Abdomen: soft, non tender Extremities: no edema, other - left leg necrotic ulcers Microbiology Date/Time Source Procedure Growth Status 04/10/20 18:00 Sputum Induced Gram Stain - Final Resulted 04/10/20 18:00 Sputum Induced Sputum Culture Pending Resulted 04/10/20 15:30 Blood Blood Culture - Preliminary NO GROWTH AFTER 24 HOURS Resulted 04/10/20 15:20 Blood Blood Culture - Preliminary NO GROWTH AFTER 24 HOURS Resulted 04/10/20 14:11 Nasopharynx Coronavirus COVID-19 PCR ([place]) - Final Complete 04/10/20 13:15 Indwelling Cath Urine Culture - Preliminary NO GROWTH Resulted 04/09/20 10:30 Blood Blood Culture - Preliminary NO GROWTH AFTER 48 HOURS Resulted 04/09/20 10:20 Blood Blood Culture - Preliminary NO GROWTH AFTER 48 HOURS Resulted Laboratory Tests Test 04/11/20 11:52 04/11/20 20:40 04/12/20 05:24 POC Whole Blood Glucose 224 MG/DL (74-106) H 199 MG/DL (74-106) H 169 MG/DL (74-106) H Current Medications Medications (Trade) Dose Ordered Sig/Benigno Route PRN Reason Start Time Stop Time Status Last Admin Dose Admin Acetaminophen (Tylenol) 650 mg Q4H PRN ORAL Mild Pain (Pain Scale 1-3) 04/09/20 09:00 05/09/20 08:59 Acetaminophen (Tylenol) 650 mg Q4H PRN ORAL Temp >100.5 04/09/20 09:00 05/09/20 08:59 Albuterol/ Ipratropium (Albuterol/ Ipratropium) 3 ml Q6H PRN HHN Shortness of Breath 04/09/20 09:00 04/14/20 08:59 Ascorbic Acid (Vitamin C) 1,000 mg DAILY GT 04/09/20 09:00 05/09/20 08:59 04/11/20 08:34 Dextrose (Dextrose 50%) 25 ml Q30M PRN IV Hypoglycemia 04/09/20 09:00 07/08/20 08:59 Dextrose (Dextrose 50%) 50 ml Q30M PRN IV Hypoglycemia 04/09/20 09:00 07/08/20 08:59 Diphenhydramine HCl (Benadryl) 50 mg Q12H PRN IVP Agitation 04/11/20 01:30 05/11/20 01:29 04/12/20 08:41 Furosemide (Lasix) 20 mg EVERY 12 HOURS IV 04/09/20 09:00 05/09/20 08:59 04/12/20 08:41 Haloperidol Lactate (Haldol) 5 mg Q6H PRN IM Agitation 04/11/20 16:15 05/26/20 16:14 04/12/20 01:16 Heparin Sodium (Porcine) (Heparin 5000 units/ml) 5,000 units EVERY 12 HOURS SUBQ 04/09/20 10:00 05/24/20 09:59 04/11/20 20:24 Insulin Aspart (NovoLOG) BEFORE MEALS AND HS SUBQ 04/09/20 11:30 07/08/20 11:29 04/11/20 21:23 Magnesium Hydroxide (Mom) 30 ml DAILYPRN PRN ORAL Constipation 04/09/20 09:00 05/09/20 08:59 Midodrine (Pro-Amatine) 20 mg THREE TIMES A DAY ORAL 04/09/20 10:00 07/08/20 09:59 04/11/20 18:10 Morphine Sulfate (Morphine Sulfate) 2 mg Q3H PRN IVP For Pain 4-10 04/09/20 09:00 04/16/20 08:59 04/09/20 14:37 Ondansetron HCl (Zofran) 4 mg Q6H PRN IVP Nausea & Vomiting 04/09/20 09:00 05/09/20 08:59 Pantoprazole (Protonix) 40 mg DAILY IVP 04/09/20 09:00 05/09/20 08:59 04/12/20 08:44 Piperacillin Sod/ Tazobactam Sod 3.375 gm/Sodium Chloride 110 ml @ 27.5 mls/hr Q8HR IVPB 04/09/20 10:00 04/16/20 09:59 04/12/20 06:03 Quetiapine Fumarate (SEROqueL) 50 mg Q6H PRN GT Restlessness and agitation 04/10/20 16:15 05/25/20 16:14 04/11/20 14:19 Quetiapine Fumarate (SEROqueL) 200 mg Q12HR GT 04/11/20 09:00 05/26/20 08:59 04/11/20 08:33 Vancomycin HCl (Vanco pharmacy to dose) 1 ea DAILY PRN MISC Per rx protocol 04/09/20 08:00 05/09/20 07:59 Vancomycin HCl 750 mg/Sodium Chloride 275 ml @ 183.333 mls/hr Q12HR IVPB 04/09/20 21:00 04/14/20 20:59 04/12/20 08:47 Vitamin D (Vitamin D) 2,000 unit DAILY GT 04/09/20 09:00 05/09/20 08:59 04/11/20 08:33 Zinc Oxide (Zinc Oxide) 1 applic TIDPRN PRN TOPIC Itching 04/09/20 08:30 07/08/20 08:29 Zinc Sulfate (Zinc Sulfate) 220 mg DAILY GT 04/09/20 09:00 07/08/20 08:59 04/11/20 08:33 Wong Kilpatrick MD Apr 12, 2020 10:22
[2020-04-12] MEDS ORDERED: Omnipaque-300 100ml vial INJ PRN (10:30)
--- NOTE | 2020-04-12 10:33 | General Progress Note ---
Subjective ROS Limited/Unobtainable: Yes Allergies: Coded Allergies: No Known Allergies (Unverified , 04/08/20) Subjective care noted on vent and trach Objective Last 24 Hour Vital Signs Date Time Temp Pulse Resp B/P (MAP) Pulse Ox O2 Delivery O2 Flow Rate FiO2 04/12/20 08:00 97.7 94 18 147/86 (106) 100 04/12/20 08:00 Mechanical Ventilator 04/12/20 08:00 84 04/12/20 08:00 28 04/12/20 07:30 87 24 28 04/12/20 04:00 97.9 83 21 129/74 (92) 100 04/12/20 04:00 28 04/12/20 04:00 Mechanical Ventilator 04/12/20 03:25 83 17 28 04/12/20 03:07 81 04/12/20 00:00 98.0 85 21 130/86 (101) 100 04/12/20 00:00 Mechanical Ventilator 04/11/20 23:15 92 21 28 04/11/20 23:08 87 04/11/20 20:00 97.9 91 22 126/83 (97) 100 04/11/20 20:00 Mechanical Ventilator 04/11/20 20:00 28 04/11/20 19:26 100 21 28 04/11/20 19:25 93 04/11/20 16:09 98 04/11/20 16:00 Mechanical Ventilator 04/11/20 16:00 28 04/11/20 16:00 100.0 99 19 123/73 (90) 100 04/11/20 13:05 100 15 28 04/11/20 12:00 28 04/11/20 12:00 Mechanical Ventilator 04/11/20 12:00 97.3 97 25 137/88 (104) 100 04/11/20 12:00 96 Intake and Output 04/11/20 04/12/20 19:00 07:00 Intake Total 740 ml 385.000 ml Output Total 1000 ml 200 ml Balance -260 ml 185.000 ml Intake Free Water 300 ml IV Total 385.000 ml Tube Feeding 440 ml Output Urine Total 1000 ml 200 ml Laboratory Tests 04/11/20 11:52: POC Whole Blood Glucose 224H 04/11/20 20:40: POC Whole Blood Glucose 199H 04/12/20 05:24: POC Whole Blood Glucose 169H Height (Feet): 5 Height (Inches): 6.00 Weight (Pounds): 135 Objective WDWN trach reduced breath sounds bilaterally without rhonchi or wheeze [id number] without MRG NABS nontender GT no CCE poor LOC Assessment/Plan Assessment/Plan: Impression: Pneumonia, h/o Klebsiella Ventilator dependance Tracheostomy status Diabetes Sacral decubitus and feet pressure areas azotemia leukocytosis Plan: - Continue antibiotics - ID Consult,Surgery Consult - Cultures to review and defer to ID as to abx change - Monitor labs - supportive care - Continue current ventilator sttings - Adjust O2 as needed - DVT prophylaxis -Wound consult - dc planning once wbc improves and cleared by ID impression, plan, and exam edited and reviewed in detail care discussed with Mikhail Alejandro MD Apr 12, 2020 10:33
[2020-04-12 12:00] VITALS: BP 139/89
--- NOTE | 2020-04-12 12:29 | NUR ---
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
--- NOTE | 2020-04-12 12:54 | NUR ---
RESPIRATORY NOTES Per MD's order, PT to be placed on cool aerosol. PT taken off ventilator and placed on cool aerosol - 28%. PT does not exhibit any signs of respiratory distress and denies any increased work of breathing. PT's SaO2 - 95% EMILE Duarte aware. Will continue to monitor.
--- NOTE | 2020-04-12 15:20 | NUR ---
RESPIRATORY NOTES PT's respiratory rate increased to 30+ bpm. Asked PT if they would like to be placed back onto ventilator - PT agreed. PT placed back onto ventilator with previous vent settings. PT does not currently exhibit any signs of respiratory distress. EMILE Duarte. Will continue to monitor.
[2020-04-12 16:00] VITALS: BP 140/87
--- NOTE | 2020-04-12 16:10 | NUR ---
*-*DISCHARGE PLANNING*-* PATIENT HAS BEEN REFERRED TO: [facility] P: [phone] S/W GRANT, WILL FOLLOW UP WITH D.O.N, WILL CALL BACK. [facility] P: YESENYA,NO ISO BEDS AVAILABLE. [facility] P: [phone] S/W HO, ONLY ACCEPTING COVID POSITIVE PATIENTS. [facility] P: [phone] NO ANSWER [facility] P: [phone] S/W [place], ONLY ACCEPTING COVID POSITIVE PATIENTS. [facility] P: [phone] S/W ANA, ON LOCK DOWN FOR 2WEEKS, CALL BACK IN 2 WEEK. [facility] P: [phone] S/W BEAR, NOT ACCEPTING ANY ADMISSION AT THE MOMENT DUE TO COVID. [facility] P: [phone] S/W SAYDI, ONLY ACCEPTING POSITIVE COIVD PATIENTS. [facility] P: [phone] S/W MAURISIO, ONLY ACCEPTING POSITIVE COVID PATIENTS. [facility] P: [phone] S/W ESDRAS, NO BEDS AVAILABLE
--- NOTE | 2020-04-12 17:01 | Surgery Progress Note ---
Surgery Progress Note Subjective Additional Comments more comfortable today o n/v pending duplex Objective Last 24 Hour Vital Signs Date Time Temp Pulse Resp B/P (MAP) Pulse Ox O2 Delivery O2 Flow Rate FiO2 04/12/20 15:20 92 27 28 04/12/20 12:00 96.4 89 19 139/89 (106) 99 04/12/20 12:00 28 04/12/20 12:00 Mechanical Ventilator 04/12/20 08:00 97.7 94 18 147/86 (106) 100 04/12/20 08:00 Mechanical Ventilator 04/12/20 08:00 84 04/12/20 08:00 28 04/12/20 07:30 87 24 28 04/12/20 04:00 97.9 83 21 129/74 (92) 100 04/12/20 04:00 28 04/12/20 04:00 Mechanical Ventilator 04/12/20 03:25 83 17 28 04/12/20 03:07 81 04/12/20 00:00 98.0 85 21 130/86 (101) 100 04/12/20 00:00 Mechanical Ventilator 04/11/20 23:15 92 21 28 04/11/20 23:08 87 04/11/20 20:00 97.9 91 22 126/83 (97) 100 04/11/20 20:00 Mechanical Ventilator 04/11/20 20:00 28 04/11/20 19:26 100 21 28 04/11/20 19:25 93 I&O Intake and Output 04/11/20 04/12/20 19:00 07:00 Intake Total 740 ml 385.000 ml Output Total 1000 ml 200 ml Balance -260 ml 185.000 ml Intake Free Water 300 ml IV Total 385.000 ml Tube Feeding 440 ml Output Urine Total 1000 ml 200 ml Dressing: saturated Cardiovascular: RSR Respiratory: decreased breath sounds Abdomen: non-tender, present bowel sounds, non-distended Extremities: other Laboratory Tests Test 04/11/20 20:40 04/12/20 05:24 04/12/20 11:27 POC Whole Blood Glucose 199 MG/DL (74-106) H 169 MG/DL (74-106) H 205 MG/DL (74-106) H Plan Problems: (1) Pneumonia (2) Sacral decubitus ulcer Assessment & Plan: Pt presented on admission with Tracheostomy,GT and Multiple Wounds including an Unstageable Pressure Injury Sacrum(L)2.1cm x (W)2.8cm.Base of wound is 100% slough. Borders are adherent, erythematous. Periwound is indurated with non-blanchable erythema. At L HIP A Blue marker measuring (L)6cm x (W)5cm. Small linear shaped wound that is somewhat approximated. The remaining base within Blue Marker is indurated,erythematous with elevation in skin temp at affected area within marker, and extends well beyond borders of Marker to upper L thigh(L)12cm x (W)8cm. Large Necrotic Ulcer with irregular borders noted to lateral L Tibia. Base of wound is 100% Necrotic and dry. Edges are adherent and erythematous. Periwound is dusky with elevation in skin temp noted(L)21cm x (W)11.5cm. Necrotic Ulcer lateral L foot/L malleolus(L)4cm x 6.5cm. Base of wound is 100% soft, but dry necrosis.Edges are adherent to base of wound but are erythematous. Surrounding the wound, skin colour is dusky and skin temp is elevated. NO odor or exudate noted. Open abscess/Boil noted to lateral R Tibia(L)3cm x (W)3cm with small opening at center base (L)0.4cmx (W)0.4cm. No exudate noted. Skin temp is slightly elevated. Both heels are callused and dry. Dry peeling skin noted to both lower ext, both feet including plantar aspect of both feet. Tx.Plan: Cleanse Sacral wound with Saline. Apply TheraHoney. Apply Moisture Barrier Paste periwound. Cover with Optifoam drsg Daily and prn. Apply Betadine to L Hip. Cover with Optifoam drsg. Change every 3 days and prn. Apply Betadine to Lateral L Tibia, and Lateral L foot. Cover each site with ABD Pads and wrap with Kerlix Daily and prn. Apply Betadine to Lateral R Tibia. Cover with Optifoam drsg. Change every 3 days and prn. Apply Cavilon Skin Barrier to both heels. Cover each heel with Optifoam drsg. Change every 7 days and prn. Reposition at Least every 2 hours or as tolerated. Elevate both lower ext and float Heels with pillows.Patient presents on admission with identifiable unstageable sacral decubitus ulcer fairly fraction likely recently forming. Areas approximately 3 cm x 3 cm unknown depth. No drainage. No foul odor. Eschar area identified soft no ischemic eschar likely forming. Deep tissue underneath injury. Furthermore patient identified to have significant left lower extremity ischemic disease with ulcers and necrotic eschar. On the left lateral foot there is a necrotic eschar as well as on the left lateral leg significantly large. No drainage no signs of active infection chronic appearing in nature. Care plan initiated. Will need to ensure optimization of patient for care plan. Leukocytosis unlikely related to wounds as they do not seem actively infected Nutritional optimization We will follow with recommendations thank you for let me participate in patient's care (3) Ischemia of left lower extremity Assessment & Plan: chronic large wounds US duplex arterial and venous ordered will follow with Anthony Suggs Apr 12, 2020 17:01
--- NOTE | 2020-04-12 19:05 | NUR ---
NURSE NOTES: Received report from EMILE Duarte. Seen pt lying in bed in semi- wallace's position, pt is trach to vent with settings as ordered. Fio2 -28%. Pt is alert , oriented x 3 with, pt is non verbal. pt is on restraints for safety and pulling devices. Pt has no skin breakdown noted under the restraints, with palpable pulses. Pt has IV on LFA g20 on TKO. With Henry draining yellow urine intact and patent. Bed in lowest position, bed in locked, call light within reach. Continue to plan of care.
[2020-04-12 20:00] VITALS: BP 136/86
[2020-04-12] MEDS ORDERED: NS 275ml ONE (21:30)
[2020-04-12] MEDS ORDERED: Tubing IV Secondary IV ONE (21:30)
--- NOTE | 2020-04-12 23:54 | Psychiatric Progress Note ---
Psychiatry Progress Note Psychiatry Progress Note Medications Current Medications Medications (Trade) Dose Ordered Sig/Benigno Route PRN Reason Start Time Stop Time Status Last Admin Dose Admin Acetaminophen (Tylenol) 650 mg Q4H PRN ORAL Mild Pain (Pain Scale 1-3) 04/09/20 09:00 05/09/20 08:59 Acetaminophen (Tylenol) 650 mg Q4H PRN ORAL Temp >100.5 04/09/20 09:00 05/09/20 08:59 Albuterol/ Ipratropium (Albuterol/ Ipratropium) 3 ml Q6H PRN HHN Shortness of Breath 04/09/20 09:00 04/14/20 08:59 Ascorbic Acid (Vitamin C) 1,000 mg DAILY GT 04/09/20 09:00 05/09/20 08:59 04/11/20 08:34 Dextrose (Dextrose 50%) 25 ml Q30M PRN IV Hypoglycemia 04/09/20 09:00 07/08/20 08:59 Dextrose (Dextrose 50%) 50 ml Q30M PRN IV Hypoglycemia 04/09/20 09:00 07/08/20 08:59 Diphenhydramine HCl (Benadryl) 50 mg Q12H PRN IVP Agitation 04/11/20 01:30 05/11/20 01:29 04/12/20 22:36 Furosemide (Lasix) 20 mg EVERY 12 HOURS IV 04/09/20 09:00 05/09/20 08:59 04/12/20 21:14 Haloperidol Lactate (Haldol) 5 mg Q6H PRN IM Agitation 04/11/20 16:15 05/26/20 16:14 04/12/20 19:58 Heparin Sodium (Porcine) (Heparin 5000 units/ml) 5,000 units EVERY 12 HOURS SUBQ 04/09/20 10:00 05/24/20 09:59 04/12/20 21:15 Insulin Aspart (NovoLOG) BEFORE MEALS AND HS SUBQ 04/09/20 11:30 07/08/20 11:29 04/12/20 21:19 Iohexol (OMNIPAQUE-300 100ml) 100 ml ONCE PRN INJ radiology 04/12/20 10:30 04/14/20 10:29 Magnesium Hydroxide (Mom) 30 ml DAILYPRN PRN ORAL Constipation 04/09/20 09:00 05/09/20 08:59 Midodrine (Pro-Amatine) 20 mg THREE TIMES A DAY ORAL 04/09/20 10:00 07/08/20 09:59 04/11/20 18:10 Morphine Sulfate (Morphine Sulfate) 2 mg Q3H PRN IVP For Pain 4-10 04/09/20 09:00 04/16/20 08:59 04/09/20 14:37 Ondansetron HCl (Zofran) 4 mg Q6H PRN IVP Nausea & Vomiting 04/09/20 09:00 05/09/20 08:59 Pantoprazole (Protonix) 40 mg DAILY IVP 04/09/20 09:00 05/09/20 08:59 04/12/20 08:44 Piperacillin Sod/ Tazobactam Sod 3.375 gm/Sodium Chloride 110 ml @ 27.5 mls/hr Q8HR IVPB 04/09/20 10:00 04/16/20 09:59 04/12/20 21:14 Quetiapine Fumarate (SEROqueL) 50 mg Q6H PRN GT Restlessness and agitation 04/10/20 16:15 05/25/20 16:14 04/11/20 14:19 Quetiapine Fumarate (SEROqueL) 200 mg Q12HR GT 04/11/20 09:00 05/26/20 08:59 04/12/20 21:13 Vancomycin HCl ([facility] pharmacy to dose) 1 ea DAILY PRN MISC Per rx protocol 04/09/20 08:00 05/09/20 07:59 Vancomycin HCl 750 mg/Sodium Chloride 275 ml @ 183.333 mls/hr Q12HR IVPB 04/09/20 21:00 04/14/20 20:59 04/12/20 21:14 Vitamin D (Vitamin D) 2,000 unit DAILY GT 04/09/20 09:00 05/09/20 08:59 04/11/20 08:33 Zinc Oxide (Zinc Oxide) 1 applic TIDPRN PRN TOPIC Itching 04/09/20 08:30 07/08/20 08:29 Zinc Sulfate (Zinc Sulfate) 220 mg DAILY GT 04/09/20 09:00 07/08/20 08:59 04/11/20 08:33 Neurological/Psychiatric: Reports: anxiety, depressed, emotional problems Allergies: Coded Allergies: No Known Allergies (Unverified , 04/08/20) Objective Data Height (Feet): 5 Height (Inches): 6.00 Weight (Pounds): 135 Additional Comments: MENTAL STATUS EXAMINATION: The patient is awake, oriented to self, and disoriented to situation. Mood is agitated. Affect is flat. Thought process, there is a paucity of thought content. Thought content, no suicidal or homicidal ideation. Cognition is impaired. Insight and judgment is impaired. Assessment/Plan Assessment/Plan: ASSESSMENT: Manning I Psychotic disorder. Manning II Deferred. Manning III Pneumonia. Manning IV Low. Manning V 20 PLAN: 1. We will start the patient on Haldol p.r.n. 2. Seroquel. 3. Discussed with the nurse. Watson Graham MD Apr 12, 2020 23:54
[2020-04-13] VITALS: BP 139/91
--- NOTE | 2020-04-13 00:45 | NUR ---
NURSE NOTES: Pain noted, pt has facial grimacing, when asked nod that he has pain. Morphine given as ordered. O2 sat- 95%. Bp:125/70. RR-20. No signs of respiratory distress. Cleaned pt and sponge bath given. Smear noted for BM brown in color. Henry draining dark nina urine. Will reassess pain.
[2020-04-13] MEDS: Morphine Sulfate 2mg/ml Inj(IV/IM USE ONLY) IVP PRN ×2 (00:46→05:32)
--- NOTE | 2020-04-13 02:54 | NUR ---
NURSE NOTES: Pt is still noted restless/ agitation, trying to get up in the bed. Seroquel PRN given/ Bp-125/70. HR-76, rr-18 o2 sat-95%. Continue to monitor pt. Restraints care done.
--- NOTE | 2020-04-13 03:31 | Consultation ---
DATE OF CONSULTATION: 04/12/2020 GASTROENTEROLOGY CONSULTATION CONSULTING PHYSICIAN: Slade Shah MD CHIEF COMPLAINT: I was asked to see this patient by Dr. Mikhail Campbell for gastrostomy tube replacement. HISTORY OF PRESENT ILLNESS: The patient is a 44-year-old man, admitted with pneumonia, which is COVID negative. He has been ventilator dependent and had a tracheostomy and a gastrostomy in the past. Patient's gastrostomy tube fell out, it was replaced with temporary catheter. PAST MEDICAL HISTORY: History of pneumonia, respiratory failure, diabetes, decubitus ulceration. PAST SURGICAL HISTORY: Status post gastrostomy, status post tracheostomy. ALLERGIES: None. FAMILY HISTORY: Not obtainable. SOCIAL HISTORY: Patient requires 24-hour care. REVIEW OF SYSTEMS: Otherwise unobtainable. PHYSICAL EXAMINATION: GENERAL: Debilitated man, seen in his room with the ventilator. Patient is skinny. He also appeared to be agitated and restrained. HEENT: Normocephalic. NECK: Tracheostomy is in the neck. CHEST: Revealed coarse breath sounds. CARDIOVASCULAR: Revealed a regular rate. ABDOMEN: Soft with a gastrostomy , which is removed and replaced with a 20-Spanish gastrostomy catheter. EXTREMITIES: Revealed leg ulcers, but there was no edema. LABORATORY DATA: Noted. ASSESSMENT: This patient has a gastrostomy tube, which fell out and has now been replaced. The gastrostomy care was discussed with the nursing staff and the patient will be followed for further care in the days to come. RECOMMENDATIONS: Per above discussion and per orders written in the chart. Thank you for asking me to participate in the care of this patient. Slade Shah M.D. DR: TRUNG JOB#: [id number] CC:
[2020-04-13] MEDS: Haloperidol 5mg/ml Inj IM PRN ×2 (03:56→09:57)
[2020-04-13 04:00] VITALS: BP 139/86
--- NOTE | 2020-04-13 04:44 | NUR ---
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
[2020-04-13] MEDS: Piperacillin/Tazobactam 3.375 GM in NS 110 ML IVPB SCH ×3 (05:32→22:28)
[2020-04-13] MEDS: NovoLOG Insulin Flexpen SUBQ SCH ×4 (05:32→23:02)
--- NOTE | 2020-04-13 05:35 | NUR ---
NURSE NOTES: Pt has pain, pt is squirming and kicking legs. Asked if has pain, pt nods. Given morphine as ordered. o2 sat- 95%. Bp-143/85, RR- 19. Will continue to monitor pt. Bed in locked, call light within reach. Continue to monitor pt, Alarm on- zone 2. Restraints on.
--- NOTE | 2020-04-13 05:44 | NUR ---
NURSE NOTES: Unable to wean pt per Rt, pt is desatting to 88-89%. Will refer in AM.
[2020-04-13 05:53] LABS: HEMATOCRIT 25.7 % (42.0-52.0); HEMOGLOBIN 8.3 G/DL (14.2-18.0); MEAN CORPUSCULAR VOLUME 83 FL (80-99); PLATELET COUNT 578 K/UL (150-450); RED BLOOD COUNT 3.11 M/UL (4.70-6.10); RED CELL DISTRIBUTION WIDTH 13.9 % (11.6-14.8); WHITE BLOOD COUNT 21.7 K/UL (4.8-10.8)
--- NOTE | 2020-04-13 06:02 | NUR ---
NURSE NOTES: Pt o2 sat- 96%, no signs of respiratory distress. Continue to plan of care.
[2020-04-13 06:22] LABS: ALANINE AMINOTRANSFERASE 24 U/L (12-78); ALBUMIN 1.8 G/DL (3.4-5.0); ALBUMIN/GLOBULIN RATIO 0.3 (1.0-2.7); ALKALINE PHOSPHATASE 171 U/L (46-116); ANION GAP 4 mmol/L (5-15); ASPARTATE AMINO TRANSFERASE 19 U/L (15-37); BILIRUBIN,TOTAL 0.7 MG/DL (0.2-1.0); BLOOD UREA NITROGEN 41 mg/dL (7-18); CALCIUM 9.5 MG/DL (8.5-10.1); CARBON DIOXIDE 34 MMOL/L (21-32); CHLORIDE 109 MMOL/L (98-107); CREATININE 1.2 MG/DL (0.55-1.30); POTASSIUM 3.1 MMOL/L (3.5-5.1); SODIUM 147 MMOL/L (136-145)
--- NOTE | 2020-04-13 07:15 | NUR ---
NURSE HAND-OFF REPORT: Important Events on Shift: Pt is agitated, Pt is STAC when agitated. Na-147, Potassium 3.1- New orders given as ordered. Patient Status: Stable Diet: GTF Pending Orders: None Pending Results/Labs: None Pending MD notification: None Latest Vital Signs: Temperature 97.9 , Pulse 106 , B/P 139 /86 , Respiratory Rate 20 , O2 SAT 96 , Mechanical Ventilator, O2 Flow Rate . Vital Sign Comment: WNL EKG Rhythm: Sinus Tachycardia Rhythm change?: Y MD Notified?: N - MD Response: Latest Linder Fall Score: 95 Fall Risk: High Risk Safety Measures: Call light Within Reach, Bed Alarm Zone 3, Side Rails Side Rails x3, Bed position Low and Locked. Fall Precautions: Yellow Socks Yellow Gown Door Sign Patient Fall Education Report given to [Thuan Bruno RN].
--- NOTE | 2020-04-13 07:20 | NUR ---
NURSE NOTES: Received patient in bed. Awake, A/O x2. On trach and vent with settings as ordered. Gt patent running feeding as ordered. Bilat soft wrist restraints in place with active ROM, hands are warm and normal color for ethnicity. F/c in place draining nina colored urine. Bed low and locked, side rails up x3, bed alarm on high sensitivity, call light within reach - unable to return demonstration. Patient placed close to the nurse's station for safety and close monitoring, yellow gown on.
[2020-04-13 08:00] VITALS: BP 144/92
[2020-04-13] MEDS: Midodrine 10mg tab ORAL SCH ×3 (08:23→17:10)
[2020-04-13] MEDS: Ascorbic Acid 500mg tab GT SCH (08:23)
[2020-04-13] MEDS: Vitamin D 1000 units Tab GT SCH (08:23)
[2020-04-13] MEDS: QUEtiapine 200mg tab GT SCH ×2 (08:23→22:19)
[2020-04-13] MEDS: Zinc Sulfate 220mg GT SCH (08:23)
[2020-04-13] MEDS: Pantoprazole Inj IVP SCH (08:23)
[2020-04-13] MEDS: 1/2NS w/KCl 20mEq 1000ml 1,000 ML IV SCH ×2 (08:23→22:48)
[2020-04-13] MEDS: Vancomycin 750mg/NS 275ml IVPB SCH ×4 (08:24→22:19)
[2020-04-13] MEDS: Heparin 5000 units/ml inj SUBQ SCH ×2 (08:25→22:27)
--- NOTE | 2020-04-13 10:12 | NUR ---
insurance clinicals/review faxed to [facility] [phone]
--- NOTE | 2020-04-13 10:30 | Infectious Diseases Prog Note ---
Assessment/Plan Assessment/Plan A: 1. Pneumonia. 2. Sacral decubitus ulcer. 3. Left leg necrotic ulcer 4. Ventilator dependent respiratory failure 5. Anemia PLAN: 1. Continue IV vancomycin and Zosyn. 2. We will follow up cultures and adjust antibiotics accordingly. 3. Will f/u CT scan of leg Subjective ROS Limited/Unobtainable: Yes Neurologic: Reports: other - on restraint Allergies: Coded Allergies: No Known Allergies (Unverified , 04/08/20) Objective Last 24 Hour Vital Signs Date Time Temp Pulse Resp B/P (MAP) Pulse Ox O2 Delivery O2 Flow Rate FiO2 04/13/20 08:00 Mechanical Ventilator 04/13/20 08:00 97.8 104 19 144/92 (109) 95 04/13/20 07:47 97 04/13/20 07:30 105 27 28 04/13/20 04:00 28 04/13/20 04:00 97.9 102 20 139/86 (103) 96 04/13/20 04:00 106 04/13/20 04:00 Mechanical Ventilator 04/13/20 02:52 116 28 28 04/13/20 00:00 97.2 113 19 139/91 (107) 95 04/13/20 00:00 Mechanical Ventilator 04/13/20 00:00 94 04/12/20 23:00 105 27 28 04/12/20 20:00 97.7 90 19 136/86 (103) 96 04/12/20 20:00 28 04/12/20 20:00 Mechanical Ventilator 04/12/20 20:00 94 04/12/20 18:53 92 22 28 04/12/20 16:00 Mechanical Ventilator 04/12/20 16:00 28 04/12/20 16:00 97.5 86 18 140/87 (104) 96 04/12/20 16:00 99 04/12/20 15:20 92 27 28 04/12/20 12:00 96.4 89 19 139/89 (106) 99 04/12/20 12:00 28 04/12/20 12:00 Mechanical Ventilator Height (Feet): 5 Height (Inches): 6.00 Weight (Pounds): 135 HEENT: status post trach Respiratory/Chest: lungs clear Cardiovascular: tachycardia Abdomen: soft, non tender, other - GT Extremities: other - legs edems Skin: other - left leg ulcer Microbiology Date/Time Source Procedure Growth Status 04/10/20 18:00 Sputum Induced Gram Stain - Final Resulted 04/10/20 18:00 Sputum Culture - Preliminary YEAST Resulted 04/10/20 15:30 Blood Blood Culture - Preliminary NO GROWTH AFTER 48 HOURS Resulted 04/10/20 15:20 Blood Blood Culture - Preliminary NO GROWTH AFTER 48 HOURS Resulted 04/10/20 14:11 Nasopharynx Coronavirus COVID-19 PCR ([place]) - Final Complete 04/10/20 13:15 Indwelling Cath Urine Culture - Preliminary NO GROWTH Resulted Laboratory Tests Test 04/12/20 11:27 04/12/20 18:03 04/12/20 18:04 04/13/20 03:20 POC Whole Blood Glucose 205 MG/DL (74-106) H 167 MG/DL (74-106) H 249 MG/DL (74-106) H White Blood Count 21.7 K/UL (4.8-10.8) H Red Blood Count 3.11 M/UL (4.70-6.10) L Hemoglobin 8.3 G/DL (14.2-18.0) L Hematocrit 25.7 % (42.0-52.0) L Mean Corpuscular Volume 83 FL (80-99) Mean Corpuscular Hemoglobin 26.8 PG (27.0-31.0) L Mean Corpuscular Hemoglobin Concent 32.4 G/DL (32.0-36.0) Red Cell Distribution Width 13.9 % (11.6-14.8) Platelet Count 578 K/UL (150-450) H Mean Platelet Volume 5.1 FL (6.5-10.1) L Neutrophils (%) (Auto) % (45.0-75.0) Lymphocytes (%) (Auto) % (20.0-45.0) Monocytes (%) (Auto) % (1.0-10.0) Eosinophils (%) (Auto) % (0.0-3.0) Basophils (%) (Auto) % (0.0-2.0) Differential Total Cells Counted 100 Neutrophils % (Manual) 87 % (45-75) H Lymphocytes % (Manual) 6 % (20-45) L Monocytes % (Manual) 5 % (1-10) Eosinophils % (Manual) 1 % (0-3) Basophils % (Manual) 1 % (0-2) Band Neutrophils 0 % (0-8) Platelet Estimate Increased H Platelet Morphology Normal Hypochromasia 1+ Sodium Level 147 MMOL/L (136-145) H Potassium Level 3.1 MMOL/L (3.5-5.1) L Chloride Level 109 MMOL/L (98-107) H Carbon Dioxide Level 34 MMOL/L (21-32) H Anion Gap 4 mmol/L (5-15) L Blood Urea Nitrogen 41 mg/dL (7-18) H Creatinine 1.2 MG/DL (0.55-1.30) Estimat Glomerular Filtration Rate > 60 mL/min (>60) Glucose Level 235 MG/DL (74-106) H Calcium Level 9.5 MG/DL (8.5-10.1) Total Bilirubin 0.7 MG/DL (0.2-1.0) Aspartate Amino Transf (AST/SGOT) 19 U/L (15-37) Alanine Aminotransferase (ALT/SGPT) 24 U/L (12-78) Alkaline Phosphatase 171 U/L (46-116) H Total Protein 8.0 G/DL (6.4-8.2) Albumin 1.8 G/DL (3.4-5.0) L Globulin 6.2 g/dL Albumin/Globulin Ratio 0.3 (1.0-2.7) L Current Medications Medications (Trade) Dose Ordered Sig/Benigno Route PRN Reason Start Time Stop Time Status Last Admin Dose Admin Acetaminophen (Tylenol) 650 mg Q4H PRN ORAL Mild Pain (Pain Scale 1-3) 04/09/20 09:00 05/09/20 08:59 Acetaminophen (Tylenol) 650 mg Q4H PRN ORAL Temp >100.5 04/09/20 09:00 05/09/20 08:59 Albuterol/ Ipratropium (Albuterol/ Ipratropium) 3 ml Q6H PRN HHN Shortness of Breath 04/09/20 09:00 04/14/20 08:59 Ascorbic Acid (Vitamin C) 1,000 mg DAILY GT 04/09/20 09:00 05/09/20 08:59 04/13/20 08:23 Dextrose (Dextrose 50%) 25 ml Q30M PRN IV Hypoglycemia 04/09/20 09:00 07/08/20 08:59 Dextrose (Dextrose 50%) 50 ml Q30M PRN IV Hypoglycemia 04/09/20 09:00 07/08/20 08:59 Diphenhydramine HCl (Benadryl) 50 mg Q12H PRN IVP Agitation 04/11/20 01:30 05/11/20 01:29 04/12/20 22:36 Furosemide (Lasix) 20 mg EVERY 12 HOURS IV 04/09/20 09:00 05/09/20 08:59 04/13/20 08:24 Haloperidol Lactate (Haldol) 5 mg Q6H PRN IM Agitation 04/11/20 16:15 05/26/20 16:14 04/13/20 09:57 Heparin Sodium (Porcine) (Heparin 5000 units/ml) 5,000 units EVERY 12 HOURS SUBQ 04/09/20 10:00 05/24/20 09:59 04/13/20 08:25 Insulin Aspart (NovoLOG) BEFORE MEALS AND HS SUBQ 04/09/20 11:30 07/08/20 11:29 04/13/20 05:32 Iohexol (OMNIPAQUE-300 100ml) 100 ml ONCE PRN INJ radiology 04/12/20 10:30 04/14/20 10:29 Magnesium Hydroxide (Mom) 30 ml DAILYPRN PRN ORAL Constipation 04/09/20 09:00 05/09/20 08:59 Midodrine (Pro-Amatine) 20 mg THREE TIMES A DAY ORAL 04/09/20 10:00 07/08/20 09:59 04/13/20 08:23 Morphine Sulfate (Morphine Sulfate) 2 mg Q3H PRN IVP For Pain 4-10 04/09/20 09:00 04/16/20 08:59 04/13/20 05:32 Ondansetron HCl (Zofran) 4 mg Q6H PRN IVP Nausea & Vomiting 04/09/20 09:00 05/09/20 08:59 Pantoprazole (Protonix) 40 mg DAILY IVP 04/09/20 09:00 05/09/20 08:59 04/13/20 08:23 Piperacillin Sod/ Tazobactam Sod 3.375 gm/Sodium Chloride 110 ml @ 27.5 mls/hr Q8HR IVPB 04/09/20 10:00 04/16/20 09:59 04/13/20 05:32 Quetiapine Fumarate (SEROqueL) 50 mg Q6H PRN GT Restlessness and agitation 04/10/20 16:15 05/25/20 16:14 04/13/20 02:55 Quetiapine Fumarate (SEROqueL) 200 mg Q12HR GT 04/11/20 09:00 05/26/20 08:59 04/13/20 08:23 Sodium 1,000 ml @ 75 mls/hr [id number] IV 04/13/20 08:00 05/13/20 07:59 04/13/20 08:23 Vancomycin HCl ([facility] pharmacy to dose) 1 ea DAILY PRN MISC Per rx protocol 04/09/20 08:00 05/09/20 07:59 Vancomycin HCl 750 mg/Sodium Chloride 275 ml @ 183.333 mls/hr Q12HR IVPB 04/09/20 21:00 04/14/20 20:59 04/13/20 08:24 Vitamin D (Vitamin D) 2,000 unit DAILY GT 04/09/20 09:00 05/09/20 08:59 04/13/20 08:23 Zinc Oxide (Zinc Oxide) 1 applic TIDPRN PRN TOPIC Itching 04/09/20 08:30 07/08/20 08:29 Zinc Sulfate (Zinc Sulfate) 220 mg DAILY GT 04/09/20 09:00 07/08/20 08:59 04/13/20 08:23 Sumit Devine MD Apr 13, 2020 10:30
--- NOTE | 2020-04-13 10:48 | NUR ---
RD ASSESSMENT & RECOMMENDATIONS SEE CARE ACTIVITY FOR COMPLETE ASSESSMENT DAILY ESTIMATED NEEDS: Needs based on Critical care, wound, underweight/ 52kg 25-30 kcals/kg 0048-3486 total kcals 1.25-2 g protein/kg 65-104 g total protein 25-30 mL/kg 0229-3383 total fluid mLs NUTRITION DIAGNOSIS: Swallowing difficulty R/T respiratory status as evidenced by trach/vent dep, PEG dep. CURRENT TF:Glucerna 1.2 @ 40ml/hr x 24 hrs ENTERAL NUTRITION RECOMMENDATIONS: Glucerna 1.2 @ 50ml/hr x 24 hrs to provide 1200ml, 1440kcal, 72g prot, 966ml free water * Rec increase goal rate to 50ml/hr x 24 hrs * HOB over 30 degrees/ water flush per MD ADDITIONAL RECOMMENDATIONS: * Calibrated bedscale wt * Wound care: Continue Vit C and ZnSO4 William BID via PEG * Monitor lytes, replete as needed (low k) * Monitor BGs, need for long acting insulin
[2020-04-13 11:59] VITALS: BP 121/80
--- NOTE | 2020-04-13 12:48 | Surgery Progress Note ---
Surgery Progress Note Subjective Additional Comments worsening leukocytosis pending CT results more calm today appreciate psych input Objective Last 24 Hour Vital Signs Date Time Temp Pulse Resp B/P (MAP) Pulse Ox O2 Delivery O2 Flow Rate FiO2 04/13/20 11:59 97.9 108 18 121/80 (94) 95 04/13/20 11:31 106 04/13/20 08:00 Mechanical Ventilator 04/13/20 08:00 28 04/13/20 08:00 97.8 104 19 144/92 (109) 95 04/13/20 07:47 97 04/13/20 07:30 105 27 28 04/13/20 04:00 28 04/13/20 04:00 97.9 102 20 139/86 (103) 96 04/13/20 04:00 106 04/13/20 04:00 Mechanical Ventilator 04/13/20 02:52 116 28 28 04/13/20 00:00 97.2 113 19 139/91 (107) 95 04/13/20 00:00 Mechanical Ventilator 04/13/20 00:00 94 04/12/20 23:00 105 27 28 04/12/20 20:00 97.7 90 19 136/86 (103) 96 04/12/20 20:00 28 04/12/20 20:00 Mechanical Ventilator 04/12/20 20:00 94 04/12/20 18:53 92 22 28 04/12/20 16:00 Mechanical Ventilator 04/12/20 16:00 28 04/12/20 16:00 97.5 86 18 140/87 (104) 96 04/12/20 16:00 99 04/12/20 15:20 92 27 28 I&O Intake and Output 04/12/20 04/13/20 19:00 07:00 Intake Total 397.5 ml 966.666 ml Output Total 950 ml 1000 ml Balance -552.5 ml -33.334 ml Intake Free Water 50 ml 50 ml IV Total 27.5 ml 476.666 ml Tube Feeding 320 ml 440 ml Output Urine Total 950 ml 1000 ml # Bowel Movements 2 Dressing: saturated Cardiovascular: RSR Respiratory: decreased breath sounds Abdomen: soft, non-tender, present bowel sounds, non-distended Extremities: no edema, no tenderness, no cyanosis Laboratory Tests Test 04/12/20 18:03 04/12/20 18:04 04/13/20 03:20 04/13/20 11:43 POC Whole Blood Glucose 167 MG/DL (74-106) H 249 MG/DL (74-106) H Pending White Blood Count 21.7 K/UL (4.8-10.8) H Red Blood Count 3.11 M/UL (4.70-6.10) L Hemoglobin 8.3 G/DL (14.2-18.0) L Hematocrit 25.7 % (42.0-52.0) L Mean Corpuscular Volume 83 FL (80-99) Mean Corpuscular Hemoglobin 26.8 PG (27.0-31.0) L Mean Corpuscular Hemoglobin Concent 32.4 G/DL (32.0-36.0) Red Cell Distribution Width 13.9 % (11.6-14.8) Platelet Count 578 K/UL (150-450) H Mean Platelet Volume 5.1 FL (6.5-10.1) L Neutrophils (%) (Auto) % (45.0-75.0) Lymphocytes (%) (Auto) % (20.0-45.0) Monocytes (%) (Auto) % (1.0-10.0) Eosinophils (%) (Auto) % (0.0-3.0) Basophils (%) (Auto) % (0.0-2.0) Differential Total Cells Counted 100 Neutrophils % (Manual) 87 % (45-75) H Lymphocytes % (Manual) 6 % (20-45) L Monocytes % (Manual) 5 % (1-10) Eosinophils % (Manual) 1 % (0-3) Basophils % (Manual) 1 % (0-2) Band Neutrophils 0 % (0-8) Platelet Estimate Increased H Platelet Morphology Normal Hypochromasia 1+ Sodium Level 147 MMOL/L (136-145) H Potassium Level 3.1 MMOL/L (3.5-5.1) L Chloride Level 109 MMOL/L (98-107) H Carbon Dioxide Level 34 MMOL/L (21-32) H Anion Gap 4 mmol/L (5-15) L Blood Urea Nitrogen 41 mg/dL (7-18) H Creatinine 1.2 MG/DL (0.55-1.30) Estimat Glomerular Filtration Rate > 60 mL/min (>60) Glucose Level 235 MG/DL (74-106) H Calcium Level 9.5 MG/DL (8.5-10.1) Total Bilirubin 0.7 MG/DL (0.2-1.0) Aspartate Amino Transf (AST/SGOT) 19 U/L (15-37) Alanine Aminotransferase (ALT/SGPT) 24 U/L (12-78) Alkaline Phosphatase 171 U/L (46-116) H Total Protein 8.0 G/DL (6.4-8.2) Albumin 1.8 G/DL (3.4-5.0) L Globulin 6.2 g/dL Albumin/Globulin Ratio 0.3 (1.0-2.7) L Plan Problems: (1) Pneumonia (2) Sacral decubitus ulcer Assessment & Plan: Pt presented on admission with Tracheostomy,GT and Multiple Wounds including an Unstageable Pressure Injury Sacrum(L)2.1cm x (W)2.8cm.Base of wound is 100% slough. Borders are adherent, erythematous. Periwound is indurated with non-blanchable erythema. At L HIP A Blue marker measuring (L)6cm x (W)5cm. Small linear shaped wound that is somewhat approximated. The remaining base within Blue Marker is indurated,erythematous with elevation in skin temp at affected area within marker, and extends well beyond borders of Marker to upper L thigh(L)12cm x (W)8cm. Large Necrotic Ulcer with irregular borders noted to lateral L Tibia. Base of wound is 100% Necrotic and dry. Edges are adherent and erythematous. Periwound is dusky with elevation in skin temp noted(L)21cm x (W)11.5cm. Necrotic Ulcer lateral L foot/L malleolus(L)4cm x 6.5cm. Base of wound is 100% soft, but dry necrosis.Edges are adherent to base of wound but are erythematous. Surrounding the wound, skin colour is dusky and skin temp is elevated. NO odor or exudate noted. Open abscess/Boil noted to lateral R Tibia(L)3cm x (W)3cm with small opening at center base (L)0.4cmx (W)0.4cm. No exudate noted. Skin temp is slightly elevated. Both heels are callused and dry. Dry peeling skin noted to both lower ext, both feet including plantar aspect of both feet. Tx.Plan: Cleanse Sacral wound with Saline. Apply TheraHoney. Apply Moisture Barrier Paste periwound. Cover with Optifoam drsg Daily and prn. Apply Betadine to L Hip. Cover with Optifoam drsg. Change every 3 days and prn. Apply Betadine to Lateral L Tibia, and Lateral L foot. Cover each site with ABD Pads and wrap with Kerlix Daily and prn. Apply Betadine to Lateral R Tibia. Cover with Optifoam drsg. Change every 3 days and prn. Apply Cavilon Skin Barrier to both heels. Cover each heel with Optifoam drsg. Change every 7 days and prn. Reposition at Least every 2 hours or as tolerated. Elevate both lower ext and float Heels with pillows.Patient presents on admission with identifiable unstageable sacral decubitus ulcer fairly fraction likely recently forming. Areas approximately 3 cm x 3 cm unknown depth. No drainage. No foul odor. Eschar area identified soft no ischemic eschar likely forming. Deep tissue underneath injury. Furthermore patient identified to have significant left lower extremity ischemic disease with ulcers and necrotic eschar. On the left lateral foot there is a necrotic eschar as well as on the left lateral leg significantly large. No drainage no signs of active infection chronic appearing in nature. Care plan initiated. Will need to ensure optimization of patient for care plan. Leukocytosis unlikely related to wounds as they do not seem actively infected Nutritional optimization We will follow with recommendations thank you for let me participate in patient's care (3) Ischemia of left lower extremity Assessment & Plan: chronic large wounds US duplex arterial and venous ordered will follow with Anthony Suggs Apr 13, 2020 12:48
--- NOTE | 2020-04-13 13:46 | NUR ---
[employer] SI: PNA, Trach/Vent dependent, Leukocytosis T 97.9, HR 108, RR 18, BP 121/80 AC 16, TV 500, FiO2 28, PEEP 5.0 O2 Sat 95% WBC 21.7, BUN 41 IS: Zosyn IV q 8 hrs Vancomycin IV q 12 h Heparin SQ BID Lasix juan q 12 h Protonix IVP QD NS IV @ 75cc/hr Haldol IM q 6 hr prn Seroquel GT Q 12 h Benedryl 50mg IVP PRN Q 12 h SDU Status DCP: Pending hospitalization
[2020-04-13] MEDS: DiphenhydrAMINE 50mg/ml Inj IVP PRN (14:07)
--- NOTE | 2020-04-13 14:37 | Diagnostic Imaging Report ---
Indication: Left leg necrotic ulcer Technique: Spiral acquisitions obtained through the left distal leg Multiplanar reconstructions were generated. Total dose length product 203 mGycm. CTDIvol(s) 3 mGy. Radiation dose was minimized using automated exposure control Comparison: none Findings: There is a large area of low attenuation within the lateral subcutaneous fat extending from the highest slice in the distal thigh along the entire course of the anterolateral leg and into the foot, where it extends to the level of the metacarpals dorsolaterally. Is unclear whether this represents an organized fluid collection versus intense edema/phlegmon, although suspect the latter, as there are numerous gas bubbles within the collection in the leg which do not float nondependently. There is enhancement of the tissues bordering it.. The widest extent of this is in the distal thigh, where it measures 8.2 cm AP and about 2 cm in thickness. The overall length of this is at least 45 cm, although as mentioned earlier the proximal extent is not visualized. There is a skin defect in the lateral leg at the superficial aspect of the collection which presumably represents a skin ulcer. This demonstrates multiple areas of ulceration. Low attenuation also extends into the anterior muscular compartment of the leg. The fat appears to be hypoattenuating although the musculature demonstrates only mild if any hypoattenuation. No osseous erosions, abnormal periosteal reaction, or other findings to suggest osteomyelitis are demonstrated. Impression: Intense edema versus organized fluid exiting the entire extent of the anterolateral subcutaneous fat of the leg, extending into the foot to the level of the metatarsals and proximal into the thigh beyond the edge of the imaging volume. Favor that this represents edema/phlegmon, as there are gas bubbles that appear to be trapped within it, and there is an open wound through which it should drain if it was fluid. Presence of gas bubbles is concerning for infection with a gas-forming organism. This process also extends into the anterior muscular compartment of the tibial muscles No definite evidence of osteomyelitis. However, evaluation for such is limited on CT, and MRI should be considered if this is a clinical concern Findings discussed by phone with Dr. Fernandez at the time of interpretation The CT scanner at [facility] is accredited by the [employer] and the scans are performed using protocols designed to limit radiation exposure to as low as reasonably achievable to attain images of sufficient resolution adequate for diagnostic evaluation.
--- NOTE | 2020-04-13 15:26 | NUR ---
NURSE HAND-OFF REPORT: Important Events on Shift:[CT w/ contrast Left tibia] Patient Status: [FULL CODE/stable] Diet: [glucerna 1.2] Pending Orders: [] Pending Results/Labs:[] Pending MD notification:[] Latest Vital Signs: Temperature 97.9 , Pulse 108 , B/P 121 /80 , Respiratory Rate 18 , O2 SAT 95 , Mechanical Ventilator, O2 Flow Rate . Vital Sign Comment: [] EKG Rhythm: Sinus Tachycardia Rhythm change?: N MD Notified?: N - MD Response: Latest Linder Fall Score: 95 Fall Risk: High Risk Safety Measures: Call light Within Reach, Bed Alarm Zone 2, Side Rails Side Rails x3, Bed position Low and Locked. Fall Precautions: Yellow Socks Yellow Gown Door Sign Patient Fall Education Report given to [Dacia BAPTISTE].
--- NOTE | 2020-04-13 15:35 | NUR ---
Received report from roc Busby RN. Pt is restless, nonverbal, on restraint. Trach to vent tolerating the following setting AC 16, TV 500, FiO2 28%, PEEP 5 with O2 saturation of 97%. Sinus Tachy on the conveyor monitor at 109. G-tube is intact and patent running Glucerna 1.2 @ 40cc/hr. IV in left forearm 20 G is intact and patent running 1/2 NS wit 20 mEq KCl @ 75cc/hr. Henry catheter is intact and patent draining nina urine. Skin issues is noted and dressing intact. Recent labs and medications reviewed. Bed is locked and in lowest position, bed alarm on, call light is with the pt. Head of bed is elevated at all times. Will continue to monitor pt. Will continue with the plan of care.
[2020-04-13] MEDS ORDERED: NS 275ml ONE (15:44)
[2020-04-13 16:00] VITALS: BP 147/93
--- NOTE | 2020-04-13 16:15 | General Progress Note ---
Subjective ROS Limited/Unobtainable: Yes Allergies: Coded Allergies: No Known Allergies (Unverified , 04/08/20) Subjective care noted on vent and trach Objective Last 24 Hour Vital Signs Date Time Temp Pulse Resp B/P (MAP) Pulse Ox O2 Delivery O2 Flow Rate FiO2 04/13/20 16:00 97.8 110 20 147/93 (111) 96 04/13/20 16:00 Mechanical Ventilator 04/13/20 16:00 113 04/13/20 16:00 28 04/13/20 15:08 100 21 28 04/13/20 12:00 Mechanical Ventilator 04/13/20 12:00 28 04/13/20 11:59 97.9 108 18 121/80 (94) 95 04/13/20 11:49 102 22 28 04/13/20 11:31 106 04/13/20 08:00 Mechanical Ventilator 04/13/20 08:00 28 04/13/20 08:00 97.8 104 19 144/92 (109) 95 04/13/20 07:47 97 04/13/20 07:30 105 27 28 04/13/20 04:00 28 04/13/20 04:00 97.9 102 20 139/86 (103) 96 04/13/20 04:00 106 04/13/20 04:00 Mechanical Ventilator 04/13/20 02:52 116 28 28 04/13/20 00:00 97.2 113 19 139/91 (107) 95 04/13/20 00:00 Mechanical Ventilator 04/13/20 00:00 94 04/12/20 23:00 105 27 28 04/12/20 20:00 97.7 90 19 136/86 (103) 96 04/12/20 20:00 28 04/12/20 20:00 Mechanical Ventilator 04/12/20 20:00 94 04/12/20 18:53 92 22 28 Intake and Output 04/12/20 04/13/20 19:00 07:00 Intake Total 397.5 ml 966.666 ml Output Total 950 ml 1000 ml Balance -552.5 ml -33.334 ml Intake Free Water 50 ml 50 ml IV Total 27.5 ml 476.666 ml Tube Feeding 320 ml 440 ml Output Urine Total 950 ml 1000 ml # Bowel Movements 2 Laboratory Tests 04/12/20 18:03: POC Whole Blood Glucose 167H 1/13/21 18:04: POC Whole Blood Glucose 249H 04/13/20 03:20: White Blood Count 21.7H, Red Blood Count 3.11L, Hemoglobin 8.3L, Hematocrit 25.7L, Mean Corpuscular Volume 83, Mean Corpuscular Hemoglobin 26.8L, Mean Corpuscular Hemoglobin Concent 32.4, Red Cell Distribution Width 13.9, Platelet Count 578H, Mean Platelet Volume 5.1L, Neutrophils (%) (Auto) , Lymphocytes (%) (Auto) , Monocytes (%) (Auto) , Eosinophils (%) (Auto) , Basophils (%) (Auto) , Differential Total Cells Counted 100, Neutrophils % (Manual) 87H, Lymphocytes % (Manual) 6L, Monocytes % (Manual) 5, Eosinophils % (Manual) 1, Basophils % (Manual) 1, Band Neutrophils 0, Platelet Estimate IncreasedH, Platelet Morphology Normal, Hypochromasia 1+, Sodium Level 147H, Potassium Level 3.1L, Chloride Level 109H, Carbon Dioxide Level 34H, Anion Gap 4L, Blood Urea Nitrogen 41H, Creatinine 1.2, Estimat Glomerular Filtration Rate > 60, Glucose Level 235H , Calcium Level 9.5, Total Bilirubin 0.7, Aspartate Amino Transf (AST/SGOT) 19, Alanine Aminotransferase (ALT/SGPT) 24, Alkaline Phosphatase 171H, Total Protein 8.0, Albumin 1.8L, Globulin 6.2, Albumin/Globulin Ratio 0.3L 04/13/20 11:43: POC Whole Blood Glucose [Pending] Height (Feet): 5 Height (Inches): 6.00 Weight (Pounds): 135 Objective WDWN trach reduced breath sounds bilaterally without rhonchi or wheeze [id number] without MRG NABS nontender GT no CCE poor LOC Assessment/Plan Assessment/Plan: Impression: Pneumonia, h/o Klebsiella Ventilator dependance Tracheostomy status Diabetes Sacral decubitus and feet pressure areas azotemia leukocytosis Plan: - Continue antibiotics - ID Consult,Surgery Consult - Cultures to review and defer to ID as to abx change - Monitor labs and concern for elevated wbc - supportive care - Continue current ventilator sttings - Adjust O2 as needed - DVT prophylaxis -Wound consult - dc planning on hold impression, plan, and exam edited and reviewed in detail care discussed with RN Ishaaya,Mikhail M MD Apr 13, 2020 16:15
--- NOTE | 2020-04-13 19:15 | NUR ---
NURSE HAND-OFF REPORT: Important Events on Shift:None Patient Status: Full code Diet: Glucerna 1.2 @ 40cc/hr Pending Orders: N Pending Results/Labs:N Pending MD notification:N Latest Vital Signs: Temperature 97.8 , Pulse 113 , B/P 147 /93 , Respiratory Rate 20 , O2 SAT 96 , Mechanical Ventilator, O2 Flow Rate . Vital Sign Comment: stable EKG Rhythm: Sinus Tachycardia Rhythm change?: N MD Notified?: N - MD Response: Latest Linder Fall Score: 95 Fall Risk: High Risk Safety Measures: Call light Within Reach, Bed Alarm Zone 2, Side Rails Side Rails x3, Bed position Low and Locked. Fall Precautions: Yellow Socks Yellow Gown Door Sign Patient Fall Education Report given to Mari White RN.
--- NOTE | 2020-04-13 19:20 | NUR ---
NURSE NOTES: Received report from Amelia Pederson RN. Patient asleep in bed, afebrile w/no respiratory distress noted. vent to trache shiley 8, AC 16, Tidal Volume 500, PEEP 5 saturating at 98%. with left forearm 20g IV line intact, patent and asymptomatic. On Glucerna 1.2 at 40 cc/hr via GT without residual noted. F/c draining well yellowish colored urine. Bilat soft wrist restraint in place. Skin intact, pulses are palpable and no paresthesia to wrists noted. HOB elevated. SR on youth nutritional monitor. Call light within reach. Bed locked and side rails are upX2. Alarm engaged. Continue plan of care
[2020-04-13 20:00] VITALS: BP 147/93
--- NOTE | 2020-04-13 22:52 | General Progress Note ---
Subjective Allergies: Coded Allergies: No Known Allergies (Unverified , 04/08/20) Subjective Above noted tolerating TF WBC higher Objective Last 24 Hour Vital Signs Date Time Temp Pulse Resp B/P (MAP) Pulse Ox O2 Delivery O2 Flow Rate FiO2 04/13/20 20:00 91 04/13/20 20:00 97.2 110 20 147/93 (111) 96 04/13/20 20:00 Mechanical Ventilator 04/13/20 20:00 28 04/13/20 19:30 95 31 28 04/13/20 16:00 97.8 110 20 147/93 (111) 96 04/13/20 16:00 Mechanical Ventilator 04/13/20 16:00 113 04/13/20 16:00 28 04/13/20 15:08 100 21 28 04/13/20 12:00 Mechanical Ventilator 04/13/20 12:00 28 04/13/20 11:59 97.9 108 18 121/80 (94) 95 04/13/20 11:49 102 22 28 04/13/20 11:31 106 04/13/20 08:00 Mechanical Ventilator 04/13/20 08:00 28 04/13/20 08:00 97.8 104 19 144/92 (109) 95 04/13/20 07:47 97 04/13/20 07:30 105 27 28 04/13/20 04:00 28 04/13/20 04:00 97.9 102 20 139/86 (103) 96 04/13/20 04:00 106 04/13/20 04:00 Mechanical Ventilator 04/13/20 02:52 116 28 28 04/13/20 00:00 97.2 113 19 139/91 (107) 95 04/13/20 00:00 Mechanical Ventilator 04/13/20 00:00 94 04/12/20 23:00 105 27 28 Intake and Output 04/12/20 04/13/20 19:00 07:00 Intake Total 397.5 ml 1026.666 ml Output Total 950 ml 1000 ml Balance -552.5 ml 26.666 ml Intake Free Water 50 ml 70 ml IV Total 27.5 ml 476.666 ml Tube Feeding 320 ml 480 ml Output Urine Total 950 ml 1000 ml # Bowel Movements 2 Laboratory Tests 04/13/20 03:20: White Blood Count 21.7H, Red Blood Count 3.11L, Hemoglobin 8.3L, Hematocrit 25.7L, Mean Corpuscular Volume 83, Mean Corpuscular Hemoglobin 26.8L, Mean Corpuscular Hemoglobin Concent 32.4, Red Cell Distribution Width 13.9, Platelet Count 578H, Mean Platelet Volume 5.1L, Neutrophils (%) (Auto) , Lymphocytes (%) (Auto) , Monocytes (%) (Auto) , Eosinophils (%) (Auto) , Basophils (%) (Auto) , Differential Total Cells Counted 100, Neutrophils % (Manual) 87H, Lymphocytes % (Manual) 6L, Monocytes % (Manual) 5, Eosinophils % (Manual) 1, Basophils % (Manual) 1, Band Neutrophils 0, Platelet Estimate IncreasedH, Platelet Morphology Normal, Hypochromasia 1+, Sodium Level 147H, Potassium Level 3.1L, Chloride Level 109H, Carbon Dioxide Level 34H, Anion Gap 4L, Blood Urea Nitrogen 41H, Creatinine 1.2, Estimat Glomerular Filtration Rate > 60, Glucose Level 235H , Calcium Level 9.5, Total Bilirubin 0.7, Aspartate Amino Transf (AST/SGOT) 19, Alanine Aminotransferase (ALT/SGPT) 24, Alkaline Phosphatase 171H, Total Protein 8.0, Albumin 1.8L, Globulin 6.2, Albumin/Globulin Ratio 0.3L 04/13/20 11:43: POC Whole Blood Glucose [Pending] 04/13/20 16:23: POC Whole Blood Glucose 173H Height (Feet): 5 Height (Inches): 6.00 Weight (Pounds): 135 Objective Debilitated NCAT (+) trach Coarse BS RR abd soft, (+) GT no edema Assessment/Plan Assessment/Plan: Assessment - dysphagia, GT - resp failure, trach - anemia - leukocytosis - DM Recommendations - continue TF - GT care - follow labs - abx MD Alyssa Alfredo Payman MD Apr 13, 2020 22:52
[2020-04-14] VITALS: BP 141/87
--- NOTE | 2020-04-14 | NUR ---
NURSE NOTES: VSS. Afebrile. In no apparent distress. Respirations even and unlabored. Trach to vent saturating well with current setting. No signs of respiratory distress or SOB noted. Henry draining well. SR on bead stringer. Calm. Bed in lowest position, call light within reach. Bed alarm engaged. Continue to POC
[2020-04-14] MEDS: DiphenhydrAMINE 50mg/ml Inj IVP PRN (02:41)
[2020-04-14 04:00] VITALS: BP 144/89
--- NOTE | 2020-04-14 04:00 | NUR ---
NURSE NOTES: VSS. Afebrile. In no apparent distress. Respirations even and unlabored. Trach to vent saturating well with current setting. No signs of respiratory distress or SOB noted. REmain SR on air sampling and monitoring. Bed in lowest position, call light within reach. Bed alarm engaged. Continue to POC
[2020-04-14] MEDS: Morphine Sulfate 2mg/ml Inj(IV/IM USE ONLY) IVP PRN (05:07)
[2020-04-14] MEDS: NovoLOG Insulin Flexpen SUBQ SCH ×4 (05:27→20:16)
[2020-04-14] MEDS: Piperacillin/Tazobactam 3.375 GM in NS 110 ML IVPB SCH ×3 (05:33→22:17)
--- NOTE | 2020-04-14 07:20 | NUR ---
NURSE NOTES: Received patient in bed. Awake, nonverbal. On trach, vent with settings as ordered. F/c in place draining nina colored urine. Bilat soft wrist restraints in place with active ROM, hands are warm and normal color for ethnicity. Bed at the lowest position, bed locked, bed alarm on high sensitivity, patient placed close tot he nurses station for safety and close monitoring, yellow gown on, call light within reach - unable to return demonstration. GT flushed and patent.
[2020-04-14 08:00] VITALS: BP 136/93
[2020-04-14] MEDS: Haloperidol 5mg/ml Inj IM PRN ×2 (08:21→15:26)
[2020-04-14] MEDS: Pantoprazole Inj IVP SCH (08:21)
[2020-04-14] MEDS: Vitamin D 1000 units Tab GT SCH (08:21)
[2020-04-14] MEDS: Ascorbic Acid 500mg tab GT SCH (08:22)
[2020-04-14] MEDS: Midodrine 10mg tab ORAL SCH ×3 (08:22→17:09)
[2020-04-14] MEDS: QUEtiapine 200mg tab GT SCH ×2 (08:22→20:07)
[2020-04-14] MEDS: Zinc Sulfate 220mg GT SCH (08:22)
[2020-04-14] MEDS: Heparin 5000 units/ml inj SUBQ SCH ×2 (08:23→20:14)
[2020-04-14 08:49] LABS: HEMATOCRIT 24.1 % (42.0-52.0); HEMOGLOBIN 7.8 G/DL (14.2-18.0); MEAN CORPUSCULAR VOLUME 82 FL (80-99); PLATELET COUNT 555 K/UL (150-450); RED BLOOD COUNT 2.93 M/UL (4.70-6.10); RED CELL DISTRIBUTION WIDTH 13.9 % (11.6-14.8)
[2020-04-14 09:02] LABS: WHITE BLOOD COUNT 27.1 K/UL (4.8-10.8)
[2020-04-14 09:14] LABS: ALANINE AMINOTRANSFERASE 17 U/L (12-78); ALBUMIN 1.7 G/DL (3.4-5.0); ALBUMIN/GLOBULIN RATIO 0.3 (1.0-2.7); ALKALINE PHOSPHATASE 160 U/L (46-116); ANION GAP 7 mmol/L (5-15); ASPARTATE AMINO TRANSFERASE 16 U/L (15-37); BILIRUBIN,TOTAL 0.6 MG/DL (0.2-1.0); BLOOD UREA NITROGEN 34 mg/dL (7-18); CALCIUM 9.3 MG/DL (8.5-10.1); CARBON DIOXIDE 31 MMOL/L (21-32); CHLORIDE 110 MMOL/L (98-107); CREATININE 1.2 MG/DL (0.55-1.30); POTASSIUM 3.5 MMOL/L (3.5-5.1); SODIUM 148 MMOL/L (136-145)
--- NOTE | 2020-04-14 09:29 | NUR ---
NURSE NOTES: Lab called WBC-27.1, I notified Dr. Kilpatrick ,left message ,patient on antibiotics,Primary nurse Kehinde Larose notified
[2020-04-14] MEDS: 1/2NS w/KCl 20mEq 1000ml 1,000 ML IV SCH (10:38)
[2020-04-14] MEDS: Vancomycin 750mg/NS 275ml IVPB SCH ×4 (10:38→20:27)
--- NOTE | 2020-04-14 10:57 | NUR ---
NURSE NOTES: Wound culture order cancelled d/t no wound drainage, Dr Kilpatrick aware.
[2020-04-14 11:21] VITALS: BP 120/80
--- NOTE | 2020-04-14 11:23 | Infectious Diseases Prog Note ---
Assessment/Plan Assessment/Plan antibiotics : vancomycin iv, zosyn A 1. left leg necrotic ulcer 2. pneumonia 3. diabetes mellitus 4. respiratory failure s/p tracheostomy P 1. continue iv vancomycin, zosyn 2. will follow up cultures Subjective ROS Limited/Unobtainable: Yes Allergies: Coded Allergies: No Known Allergies (Unverified , 04/08/20) Objective Last 24 Hour Vital Signs Date Time Temp Pulse Resp B/P (MAP) Pulse Ox O2 Delivery O2 Flow Rate FiO2 04/14/20 08:00 107 04/14/20 08:00 99.5 108 18 136/93 (107) 99 04/14/20 08:00 Mechanical Ventilator 04/14/20 08:00 28 04/14/20 07:20 101 28 28 04/14/20 04:00 28 04/14/20 04:00 Mechanical Ventilator 04/14/20 04:00 97.9 86 19 144/89 (107) 100 04/14/20 04:00 86 04/14/20 03:30 89 21 28 04/14/20 00:00 Mechanical Ventilator 04/14/20 00:00 28 04/14/20 00:00 97.9 90 26 141/87 (105) 100 04/13/20 23:30 110 36 28 04/13/20 20:00 91 04/13/20 20:00 97.2 110 20 147/93 (111) 96 04/13/20 20:00 Mechanical Ventilator 04/13/20 20:00 28 04/13/20 19:30 95 31 28 04/13/20 16:00 97.8 110 20 147/93 (111) 96 04/13/20 16:00 Mechanical Ventilator 04/13/20 16:00 113 04/13/20 16:00 28 04/13/20 15:08 100 21 28 04/13/20 12:00 Mechanical Ventilator 04/13/20 12:00 28 04/13/20 11:59 97.9 108 18 121/80 (94) 95 04/13/20 11:49 102 22 28 04/13/20 11:31 106 Height (Feet): 5 Height (Inches): 6.00 Weight (Pounds): 135 HEENT: status post trach Respiratory/Chest: lungs clear Cardiovascular: normal rate, regular rhythm, no gallop/murmur Abdomen: soft, non tender, other - GT Extremities: other - left leg necrotic ulcer Laboratory Tests Test 04/13/20 11:43 04/13/20 16:23 04/14/20 08:30 POC Whole Blood Glucose Pending 173 MG/DL (74-106) H White Blood Count 27.1 K/UL (4.8-10.8) *H Red Blood Count 2.93 M/UL (4.70-6.10) L Hemoglobin 7.8 G/DL (14.2-18.0) L Hematocrit 24.1 % (42.0-52.0) L Mean Corpuscular Volume 82 FL (80-99) Mean Corpuscular Hemoglobin 26.7 PG (27.0-31.0) L Mean Corpuscular Hemoglobin Concent 32.5 G/DL (32.0-36.0) Red Cell Distribution Width 13.9 % (11.6-14.8) Platelet Count 555 K/UL (150-450) H Mean Platelet Volume 5.7 FL (6.5-10.1) L Neutrophils (%) (Auto) % (45.0-75.0) Lymphocytes (%) (Auto) % (20.0-45.0) Monocytes (%) (Auto) % (1.0-10.0) Eosinophils (%) (Auto) % (0.0-3.0) Basophils (%) (Auto) % (0.0-2.0) Differential Total Cells Counted 100 Neutrophils % (Manual) 90 % (45-75) H Lymphocytes % (Manual) 6 % (20-45) L Monocytes % (Manual) 4 % (1-10) Eosinophils % (Manual) 0 % (0-3) Basophils % (Manual) 0 % (0-2) Band Neutrophils 0 % (0-8) Platelet Estimate Increased H Platelet Morphology Normal Hypochromasia 1+ Erythrocyte Sedimentation Rate 139 MM/HR (0-15) H Sodium Level 148 MMOL/L (136-145) H Potassium Level 3.5 MMOL/L (3.5-5.1) Chloride Level 110 MMOL/L (98-107) H Carbon Dioxide Level 31 MMOL/L (21-32) Anion Gap 7 mmol/L (5-15) Blood Urea Nitrogen 34 mg/dL (7-18) H Creatinine 1.2 MG/DL (0.55-1.30) Estimat Glomerular Filtration Rate > 60 mL/min (>60) Glucose Level 195 MG/DL (74-106) H Calcium Level 9.3 MG/DL (8.5-10.1) Total Bilirubin 0.6 MG/DL (0.2-1.0) Aspartate Amino Transf (AST/SGOT) 16 U/L (15-37) Alanine Aminotransferase (ALT/SGPT) 17 U/L (12-78) Alkaline Phosphatase 160 U/L (46-116) H C-Reactive Protein, Quantitative 12.4 mg/dL (0.00-0.90) H Total Protein 7.9 G/DL (6.4-8.2) Albumin 1.7 G/DL (3.4-5.0) L Globulin 6.2 g/dL Albumin/Globulin Ratio 0.3 (1.0-2.7) L Vancomycin Level Trough 19.2 ug/mL (5.0-12.0) H Current Medications Medications (Trade) Dose Ordered Sig/Benigno Route PRN Reason Start Time Stop Time Status Last Admin Dose Admin Acetaminophen (Tylenol) 650 mg Q4H PRN ORAL Mild Pain (Pain Scale 1-3) 04/09/20 09:00 05/09/20 08:59 Acetaminophen (Tylenol) 650 mg Q4H PRN ORAL Temp >100.5 04/09/20 09:00 05/09/20 08:59 Ascorbic Acid (Vitamin C) 1,000 mg DAILY GT 04/09/20 09:00 05/09/20 08:59 04/14/20 08:22 Dextrose (Dextrose 50%) 25 ml Q30M PRN IV Hypoglycemia 04/09/20 09:00 07/08/20 08:59 Dextrose (Dextrose 50%) 50 ml Q30M PRN IV Hypoglycemia 04/09/20 09:00 07/08/20 08:59 Diphenhydramine HCl (Benadryl) 50 mg Q12H PRN IVP Agitation 04/11/20 01:30 05/11/20 01:29 04/14/20 02:41 Furosemide (Lasix) 20 mg EVERY 12 HOURS IV 04/09/20 09:00 05/09/20 08:59 04/14/20 08:22 Haloperidol Lactate (Haldol) 5 mg Q6H PRN IM Agitation 04/11/20 16:15 05/26/20 16:14 04/14/20 08:21 Heparin Sodium (Porcine) (Heparin 5000 units/ml) 5,000 units EVERY 12 HOURS SUBQ 04/09/20 10:00 05/24/20 09:59 04/14/20 08:23 Insulin Aspart (NovoLOG) BEFORE MEALS AND HS SUBQ 04/09/20 11:30 07/08/20 11:29 04/14/20 05:27 Magnesium Hydroxide (Mom) 30 ml DAILYPRN PRN ORAL Constipation 04/09/20 09:00 05/09/20 08:59 Midodrine (Pro-Amatine) 20 mg THREE TIMES A DAY ORAL 04/09/20 10:00 07/08/20 09:59 04/14/20 08:22 Morphine Sulfate (Morphine Sulfate) 2 mg Q3H PRN IVP For Pain 4-10 04/09/20 09:00 04/16/20 08:59 04/14/20 05:07 Ondansetron HCl (Zofran) 4 mg Q6H PRN IVP Nausea & Vomiting 04/09/20 09:00 05/09/20 08:59 Pantoprazole (Protonix) 40 mg DAILY IVP 04/09/20 09:00 05/09/20 08:59 04/14/20 08:21 Piperacillin Sod/ Tazobactam Sod 3.375 gm/Sodium Chloride 110 ml @ 27.5 mls/hr Q8HR IVPB 04/09/20 10:00 04/16/20 09:59 04/14/20 05:33 Quetiapine Fumarate (SEROqueL) 50 mg Q6H PRN GT Restlessness and agitation 04/10/20 16:15 05/25/20 16:14 04/14/20 05:06 Quetiapine Fumarate (SEROqueL) 200 mg Q12HR GT 04/11/20 09:00 05/26/20 08:59 04/14/20 08:22 Sodium 1,000 ml @ 75 mls/hr [id number] IV 04/13/20 08:00 05/13/20 07:59 04/14/20 10:38 Vancomycin HCl (Vanco pharmacy to dose) 1 ea DAILY PRN MISC Per rx protocol 04/09/20 08:00 05/09/20 07:59 Vancomycin HCl 750 mg/Sodium Chloride 275 ml @ 183.333 mls/hr Q12HR IVPB 04/09/20 21:00 04/14/20 20:59 04/14/20 10:38 Vitamin D (Vitamin D) 2,000 unit DAILY GT 04/09/20 09:00 05/09/20 08:59 04/14/20 08:21 Zinc Oxide (Zinc Oxide) 1 applic TIDPRN PRN TOPIC Itching 04/09/20 08:30 07/08/20 08:29 Zinc Sulfate (Zinc Sulfate) 220 mg DAILY GT 04/09/20 09:00 07/08/20 08:59 04/14/20 08:22 Wong Kilpatrick MD Apr 14, 2020 11:23
--- NOTE | 2020-04-14 11:41 | General Progress Note ---
Subjective ROS Limited/Unobtainable: Yes Allergies: Coded Allergies: No Known Allergies (Unverified , 04/08/20) Subjective care noted on vent and trach wbc worsened Objective Last 24 Hour Vital Signs Date Time Temp Pulse Resp B/P (MAP) Pulse Ox O2 Delivery O2 Flow Rate FiO2 04/14/20 11:21 98.1 89 17 120/80 (93) 99 04/14/20 08:00 107 04/14/20 08:00 99.5 108 18 136/93 (107) 99 04/14/20 08:00 Mechanical Ventilator 04/14/20 08:00 28 04/14/20 07:20 101 28 28 04/14/20 04:00 28 04/14/20 04:00 Mechanical Ventilator 04/14/20 04:00 97.9 86 19 144/89 (107) 100 04/14/20 04:00 86 04/14/20 03:30 89 21 28 04/14/20 00:00 Mechanical Ventilator 04/14/20 00:00 28 04/14/20 00:00 97.9 90 26 141/87 (105) 100 04/13/20 23:30 110 36 28 04/13/20 20:00 91 04/13/20 20:00 97.2 110 20 147/93 (111) 96 04/13/20 20:00 Mechanical Ventilator 04/13/20 20:00 28 04/13/20 19:30 95 31 28 04/13/20 16:00 97.8 110 20 147/93 (111) 96 04/13/20 16:00 Mechanical Ventilator 04/13/20 16:00 113 04/13/20 16:00 28 04/13/20 15:08 100 21 28 04/13/20 12:00 Mechanical Ventilator 04/13/20 12:00 28 04/13/20 11:59 97.9 108 18 121/80 (94) 95 04/13/20 11:49 102 22 28 Intake and Output 04/13/20 04/14/20 18:59 06:59 Intake Total 865 ml 2061.55 ml Output Total 250 ml 800 ml Balance 615 ml 1261.55 ml Intake Free Water 160 ml 100 ml IV Total 225 ml 1201.55 ml Tube Feeding 480 ml 760 ml Output Urine Total 250 ml 800 ml # Bowel Movements 1 Laboratory Tests 04/13/20 11:43: POC Whole Blood Glucose [Pending] 04/13/20 16:23: POC Whole Blood Glucose 173H 04/14/20 08:30: White Blood Count 27.1*H, Red Blood Count 2.93L, Hemoglobin 7.8L, Hematocrit 24.1L, Mean Corpuscular Volume 82, Mean Corpuscular Hemoglobin 26.7L, Mean Corpuscular Hemoglobin Concent 32.5, Red Cell Distribution Width 13.9, Platelet Count 555H, Mean Platelet Volume 5.7L, Neutrophils (%) (Auto) , Lymphocytes (%) (Auto) , Monocytes (%) (Auto) , Eosinophils (%) (Auto) , Basophils (%) (Auto) , Differential Total Cells Counted 100, Neutrophils % (Manual) 90H, Lymphocytes % (Manual) 6L, Monocytes % (Manual) 4, Eosinophils % (Manual) 0, Basophils % (Manual) 0, Band Neutrophils 0, Platelet Estimate IncreasedH, Platelet Morphology Normal, Hypochromasia 1+, Erythrocyte Sedimentation Rate 139H, Sodium Level 148H, Potassium Level 3.5, Chloride Level 110H, Carbon Dioxide Level 31, Anion Gap 7, Blood Urea Nitrogen 34H, Creatinine 1.2, Estimat Glomerular Filtration Rate > 60, Glucose Level 195H, Calcium Level 9.3, Total Bilirubin 0.6, Aspartate Amino Transf (AST/SGOT) 16, Alanine Aminotransferase (ALT/SGPT) 17, Alkaline Phosphatase 160H, C-Reactive Protein, Quantitative 12.4H, Total Protein 7.9, Albumin 1.7L, Globulin 6.2, Albumin/Globulin Ratio 0.3L, Vancomycin Level Trough 19.2H 04/14/20 11:18: POC Whole Blood Glucose [Pending] Height (Feet): 5 Height (Inches): 6.00 Weight (Pounds): 135 Objective WDWN trach reduced breath sounds bilaterally without rhonchi or wheeze [id number] without MRG NABS nontender GT no CCE poor LOC Assessment/Plan Assessment/Plan: Impression: Pneumonia, h/o Klebsiella Ventilator dependance Tracheostomy status Diabetes Sacral decubitus and feet pressure areas azotemia leukocytosis necrotic lower extremity Plan: - Continue antibiotics per ID - ID Consult,Surgery Consult - Cultures to review and defer to ID as to abx change - Monitor labs and concern for elevated wbc - supportive care - Continue current ventilator sttings - Adjust O2 as needed - DVT prophylaxis -Wound consult and surgical MD to comment further - dc planning on hold impression, plan, and exam edited and reviewed in detail care discussed with Mikhail Alejandro MD Apr 14, 2020 11:41
--- NOTE | 2020-04-14 11:44 | NUR ---
[employer] Classifier SI: PNA, Trach/Vent dependent, Leukocytosis T 98.1, HR 89, RR 17, BP 120/80 AC 16, TV 500, FiO2 28, PEEP 5.0 O2 Sat 99% WBC 27.1, BUN 34, Na+ 148, Glucose 173H CT: no definite evidence of osteomyelitis, MRI should be considered. IS: Zosyn IV q 8 hrs Vancomycin IV q 12 h Heparin SQ BID Lasix IV q 12 h Protonix IVP QD NS IV @ 75cc/hr Haldol IM q 6 hr prn Seroquel GT Q 12 h Benedryl 50mg IVP PRN Q 12 h SDU Status DCP: Pending hospitalization
--- NOTE | 2020-04-14 12:41 | NUR ---
NURSE NOTES: Dr. Kilpatrick made rounds today,notified WBC-27.1,RN Kehinde was in room with her
--- NOTE | 2020-04-14 13:27 | Diagnostic Imaging Report ---
Indication: Shortness of breath Technique: One view of the chest Comparison: 04/08/2020 Findings: Unchanged bilateral infiltrates. Normal heart size. Slight blunting of left costophrenic sulcus, slightly increased. Tracheostomy again demonstrated. Impression: Unchanged bilateral infiltrates Questionable small developing left pleural effusion
--- NOTE | 2020-04-14 13:29 | Diagnostic Imaging Report ---
Indication: Abdominal pain Technique: Supine view of the abdomen Comparison: none Findings: Unremarkable bowel gas pattern. There is a gastrostomy. No masses or unusual calcifications. Contrast from prior CT scan is seen within the urinary bladder, and the kidneys are very slightly opacified Impression: No acute process
--- NOTE | 2020-04-14 13:32 | NUR ---
RESPIRATORY NOTES Per MD's order, PT taken off ventilator and placed on cool aerosol - 3L, 28% PT does not complain of any respiratory distress. PT's SaO2 - 99%. RN Kehinde ferro. Will continue to monitor.
--- NOTE | 2020-04-14 14:21 | NUR ---
RADIOLOGY DEPT., CHEST AND ABDOMEN X-RAYS COMPLETED.-P.DYE
--- NOTE | 2020-04-14 14:42 | NUR ---
NURSE NOTES: Wound dressing change done for sacrum, left leg and left foot.
[2020-04-14 16:26] VITALS: BP 129/81
--- NOTE | 2020-04-14 16:47 | Surgery Progress Note ---
Surgery Progress Note Subjective Additional Comments leukocytosis comfortable on vent ct noted discussed with radiology on exam no fluid draining and leg improved edema Objective Last 24 Hour Vital Signs Date Time Temp Pulse Resp B/P (MAP) Pulse Ox O2 Delivery O2 Flow Rate FiO2 04/14/20 16:26 98.2 88 17 129/81 (97) 96 04/14/20 12:00 Mechanical Ventilator 04/14/20 12:00 28 04/14/20 11:36 89 04/14/20 11:21 98.1 89 17 120/80 (93) 99 04/14/20 10:55 94 23 99 Mechanical Ventilator 28 04/14/20 10:35 94 23 28 04/14/20 08:00 107 04/14/20 08:00 99.5 108 18 136/93 (107) 99 04/14/20 08:00 Mechanical Ventilator 04/14/20 08:00 28 04/14/20 07:20 101 28 28 04/14/20 04:00 28 04/14/20 04:00 Mechanical Ventilator 04/14/20 04:00 97.9 86 19 144/89 (107) 100 04/14/20 04:00 86 04/14/20 03:30 89 21 28 04/14/20 00:00 Mechanical Ventilator 04/14/20 00:00 28 04/14/20 00:00 97.9 90 26 141/87 (105) 100 04/13/20 23:30 110 36 28 04/13/20 20:00 91 04/13/20 20:00 97.2 110 20 147/93 (111) 96 04/13/20 20:00 Mechanical Ventilator 04/13/20 20:00 28 04/13/20 19:30 95 31 28 I&O Intake and Output 04/13/20 04/14/20 19:00 07:00 Intake Total 960 ml 1981.55 ml Output Total 250 ml 800 ml Balance 710 ml 1181.55 ml Intake Free Water 140 ml 100 ml IV Total 300 ml 1201.55 ml Tube Feeding 520 ml 680 ml Output Urine Total 250 ml 800 ml # Bowel Movements 1 Dressing: saturated Cardiovascular: RSR Respiratory: clear, decreased breath sounds Abdomen: soft, non-tender, present bowel sounds Extremities: no edema, no tenderness, no cyanosis, pulses, other Laboratory Tests Test 04/14/20 08:30 04/14/20 11:18 White Blood Count 27.1 K/UL (4.8-10.8) *H Red Blood Count 2.93 M/UL (4.70-6.10) L Hemoglobin 7.8 G/DL (14.2-18.0) L Hematocrit 24.1 % (42.0-52.0) L Mean Corpuscular Volume 82 FL (80-99) Mean Corpuscular Hemoglobin 26.7 PG (27.0-31.0) L Mean Corpuscular Hemoglobin Concent 32.5 G/DL (32.0-36.0) Red Cell Distribution Width 13.9 % (11.6-14.8) Platelet Count 555 K/UL (150-450) H Mean Platelet Volume 5.7 FL (6.5-10.1) L Neutrophils (%) (Auto) % (45.0-75.0) Lymphocytes (%) (Auto) % (20.0-45.0) Monocytes (%) (Auto) % (1.0-10.0) Eosinophils (%) (Auto) % (0.0-3.0) Basophils (%) (Auto) % (0.0-2.0) Differential Total Cells Counted 100 Neutrophils % (Manual) 90 % (45-75) H Lymphocytes % (Manual) 6 % (20-45) L Monocytes % (Manual) 4 % (1-10) Eosinophils % (Manual) 0 % (0-3) Basophils % (Manual) 0 % (0-2) Band Neutrophils 0 % (0-8) Platelet Estimate Increased H Platelet Morphology Normal Hypochromasia 1+ Erythrocyte Sedimentation Rate 139 MM/HR (0-15) H Sodium Level 148 MMOL/L (136-145) H Potassium Level 3.5 MMOL/L (3.5-5.1) Chloride Level 110 MMOL/L (98-107) H Carbon Dioxide Level 31 MMOL/L (21-32) Anion Gap 7 mmol/L (5-15) Blood Urea Nitrogen 34 mg/dL (7-18) H Creatinine 1.2 MG/DL (0.55-1.30) Estimat Glomerular Filtration Rate > 60 mL/min (>60) Glucose Level 195 MG/DL (74-106) H Calcium Level 9.3 MG/DL (8.5-10.1) Total Bilirubin 0.6 MG/DL (0.2-1.0) Aspartate Amino Transf (AST/SGOT) 16 U/L (15-37) Alanine Aminotransferase (ALT/SGPT) 17 U/L (12-78) Alkaline Phosphatase 160 U/L (46-116) H C-Reactive Protein, Quantitative 12.4 mg/dL (0.00-0.90) H Total Protein 7.9 G/DL (6.4-8.2) Albumin 1.7 G/DL (3.4-5.0) L Globulin 6.2 g/dL Albumin/Globulin Ratio 0.3 (1.0-2.7) L Vancomycin Level Trough 19.2 ug/mL (5.0-12.0) H POC Whole Blood Glucose Pending Plan Problems: (1) Pneumonia (2) Sacral decubitus ulcer Assessment & Plan: Pt presented on admission with Tracheostomy,GT and Multiple Wounds including an Unstageable Pressure Injury Sacrum(L)2.1cm x (W)2.8cm.Base of wound is 100% slough. Borders are adherent, erythematous. Periwound is indurated with non-blanchable erythema. At L HIP A Blue marker measuring (L)6cm x (W)5cm. Small linear shaped wound that is somewhat approximated. The remaining base within Blue Marker is indurated, erythematous with elevation in skin temp at affected area within marker, and extends well beyond borders of Marker to upper L thigh(L)12cm x (W)8cm. Large Necrotic Ulcer with irregular borders noted to lateral L Tibia. Base of wound is 100% Necrotic and dry. Edges are adherent and erythematous. Periwound is dusky with elevation in skin temp noted(L)21cm x (W)11.5cm. Necrotic Ulcer lateral L foot/L malleolus(L)4cm x 6.5cm. Base of wound is 100% soft, but dry necrosis.Edges are adherent to base of wound but are erythematous. Surrounding the wound, skin colour is dusky and skin temp is elevated. NO odor or exudate noted. Open abscess/Boil noted to lateral R Tibia(L)3cm x (W)3cm with small opening at center base (L)0.4cmx (W)0.4cm. No exudate noted. Skin temp is slightly elevated. Both heels are callused and dry. Dry peeling skin noted to both lower ext, both feet including plantar aspect of both feet. Tx.Plan: Cleanse Sacral wound with Saline. Apply TheraHoney. Apply Moisture Barrier Paste periwound. Cover with Optifoam drsg Daily and prn. Apply Betadine to L Hip. Cover with Optifoam drsg. Change every 3 days and prn. Apply Betadine to Lateral L Tibia, and Lateral L foot. Cover each site with ABD Pads and wrap with Kerlix Daily and prn. Apply Betadine to Lateral R Tibia. Cover with Optifoam drsg. Change every 3 days and prn. Apply Cavilon Skin Barrier to both heels. Cover each heel with Optifoam drsg. Change every 7 days and prn. Reposition at Least every 2 hours or as tolerated. Elevate both lower ext and float Heels with pillows.Patient presents on admission with identifiable unstageable sacral decubitus ulcer fairly fraction likely recently forming. Areas approximately 3 cm x 3 cm unknown depth. No drainage. No foul odor. Eschar area identified soft no ischemic eschar likely forming. Deep tissue underneath injury. Furthermore patient identified to have significant left lower extremity ischemic disease with ulcers and necrotic eschar. On the left lateral foot there is a necrotic eschar as well as on the left lateral leg significantly large. No drainage no signs of active infection chronic appearing in nature. Care plan initiated. Will need to ensure optimization of patient for care plan. Leukocytosis unlikely related to wounds as they do not seem actively infected Nutritional optimization We will follow with recommendations thank you for let me participate in patient's care (3) Ischemia of left lower extremity Assessment & Plan: chronic large wounds US duplex arterial and venous ordered will follow with recs There is a large area of low attenuation within the lateral subcutaneous fat extending from the highest slice in the distal thigh along the entire course of the anterolateral leg and into the foot, where it extends to the level of the metacarpals dorsolaterally. Is unclear whether this represents an organized fluid collection versus intense edema/phlegmon, although suspect the latter, as there are numerous gas bubbles within the collection in the leg which do not float nondependently. There is enhancement of the tissues bordering it.. The widest extent of this is in the distal thigh, where it measures 8.2 cm AP and about 2 cm in thickness. The overall length of this is at least 45 cm, although as mentioned earlier the proximal extent is not visualized. There is a skin defect in the lateral leg at the superficial aspect of the collection which presumably represents a skin ulcer. This demonstrates multiple areas of ulceration. Low attenuation also extends into the anterior muscular compartment of the leg. The fat appears to be hypoattenuating although the musculature demonstrates only mild if any hypoattenuation. No osseous erosions, abnormal periosteal reaction, or other findings to suggest osteomyelitis are demonstrated. Impression: Intense edema versus organized fluid exiting the entire extent of the anterolateral subcutaneous fat of the leg, extending into the foot to the level of the metatarsals and proximal into the thigh beyond the edge of the imaging volume. Favor that this represents edema/phlegmon, as there are gas bubbles that appear to be trapped within it, and there is an open wound through which it should drain if it was fluid. Presence of gas bubbles is concerning for infection with a gas-forming organism. This process also extends into the anterior muscular compartment of the tibial muscles No definite evidence of osteomyelitis. However, evaluation for such is limited on CT, and MRI should be considered if this is a clinical concern Anthony Fernandez Apr 14, 2020 16:47
--- NOTE | 2020-04-14 19:20 | NUR ---
NURSE NOTES: Received report from EMILE atkins. Patient asleep in bed, afebrile and respiratory distress noted. trache shiley 8 on t piece at 3 lpm cool aerosol and saturating at 98%. with left fore arm 20g IV line intact, patent and asymptomatic. On Glucerna at 40 cc/hr via GT intact, infusing without any sediments or residuals. With Fc to urine bag via gravity below bladder draining yellowish urine. With both soft wrist restraints. Skin is intact, pulses are palpable and no paresthesia. HOB elevated. Call light within reach. Bed wheels are locked and side rails are up. Alarm is on and working. Continue plan of care
--- NOTE | 2020-04-14 19:24 | NUR ---
NURSE HAND-OFF REPORT: Important Events on Shift:[holdol IM given, CXR, abd XR, wound care] Patient Status: [FULL CODE] Diet: [glucerna 1.2] Pending Orders: [] Pending Results/Labs:[] Pending MD notification:[] Latest Vital Signs: Temperature 98.2 , Pulse 88 , B/P 129 /81 , Respiratory Rate 17 , O2 SAT 96 , Mechanical Ventilator, O2 Flow Rate 3.0 . Vital Sign Comment: [] EKG Rhythm: Sinus Rhythm Rhythm change?: N MD Notified?: N - MD Response: Latest Linder Fall Score: 95 Fall Risk: High Risk Safety Measures: Call light Within Reach, Bed Alarm Zone 2, Side Rails Side Rails x3, Bed position Low and Locked. Fall Precautions: Yellow Socks Yellow Gown Door Sign Patient Fall Education Report given to [Neelam BAPTISTE].
--- NOTE | 2020-04-14 19:33 | CDS Physician Query ---
Clarification is required for compliance, coding accuracy, and to reflect severity of illness for this patient Dear Dr. Homer Arroyo MD. Date: 04/14/2020 CDIS Name: Anshu Soni 44-year-old man admitted with Pneumonia, Covid negative, past history of Ventilator dependance s/p Tracheostomy. Has a history of being treated for Klebsiella pneumonia recently. PHYSICAL EXAMINATION: Skin: Intact. No abrasions, laceration or rash over the exposed skin Impression: Pneumonia, h/o Klebsiella Ventilator dependance Tracheostomy status Diabetes Sacral decubitus and feet pressure areas Clinical Finding Show: BMI: 21.8 kg/m2 LAB (04/14) : Chem: Albumin 1.5 [3.4-5.0], Calcium 9.7 [ 8.5-10.1] Please select the most appropriate option: [] Protein/Calorie Malnutrition [] Mild [] Moderate [] Severe [] Other [] Unable to determine [] Not Applicable Present on Admission: [] Yes [] No [] Clinically Undetermined Physician signature Date Please also document in your Progress Notes and/or Discharge Summary and indicate if the condition was present on admission. MTDD
[2020-04-14 20:00] VITALS: BP 148/81
--- NOTE | 2020-04-14 22:11 | General Progress Note ---
Subjective Allergies: Coded Allergies: No Known Allergies (Unverified , 04/08/20) Subjective Above noted tolerating TF weaker today WBC higher Objective Last 24 Hour Vital Signs Date Time Temp Pulse Resp B/P (MAP) Pulse Ox O2 Delivery O2 Flow Rate FiO2 04/14/20 20:00 Mechanical Ventilator 04/14/20 20:00 3.0 04/14/20 20:00 98.1 95 18 148/81 (103) 98 04/14/20 19:28 94 04/14/20 16:26 98.2 88 17 129/81 (97) 96 04/14/20 16:00 94 04/14/20 16:00 3.0 04/14/20 16:00 Mechanical Ventilator 04/14/20 12:00 Mechanical Ventilator 04/14/20 12:00 28 04/14/20 11:36 89 04/14/20 11:21 98.1 89 17 120/80 (93) 99 04/14/20 10:55 94 23 99 Mechanical Ventilator 28 04/14/20 10:35 94 23 28 04/14/20 08:00 107 04/14/20 08:00 99.5 108 18 136/93 (107) 99 04/14/20 08:00 Mechanical Ventilator 04/14/20 08:00 28 04/14/20 07:20 101 28 28 04/14/20 04:00 28 04/14/20 04:00 Mechanical Ventilator 04/14/20 04:00 97.9 86 19 144/89 (107) 100 04/14/20 04:00 86 04/14/20 03:30 89 21 28 04/14/20 00:00 Mechanical Ventilator 04/14/20 00:00 28 04/14/20 00:00 97.9 90 26 141/87 (105) 100 04/13/20 23:30 110 36 28 Intake and Output 04/13/20 04/14/20 19:00 07:00 Intake Total 960 ml 1981.55 ml Output Total 250 ml 800 ml Balance 710 ml 1181.55 ml Intake Free Water 140 ml 100 ml IV Total 300 ml 1201.55 ml Tube Feeding 520 ml 680 ml Output Urine Total 250 ml 800 ml # Bowel Movements 1 Laboratory Tests 04/14/20 08:30: White Blood Count 27.1*H, Red Blood Count 2.93L, Hemoglobin 7.8L, Hematocrit 24.1L, Mean Corpuscular Volume 82, Mean Corpuscular Hemoglobin 26.7L, Mean Corpuscular Hemoglobin Concent 32.5, Red Cell Distribution Width 13.9, Platelet Count 555H, Mean Platelet Volume 5.7L, Neutrophils (%) (Auto) , Lymphocytes (%) (Auto) , Monocytes (%) (Auto) , Eosinophils (%) (Auto) , Basophils (%) (Auto) , Differential Total Cells Counted 100, Neutrophils % (Manual) 90H, Lymphocytes % (Manual) 6L, Monocytes % (Manual) 4, Eosinophils % (Manual) 0, Basophils % (Manual) 0, Band Neutrophils 0, Platelet Estimate IncreasedH, Platelet Morphology Normal, Hypochromasia 1+, Erythrocyte Sedimentation Rate 139H, Sodium Level 148H, Potassium Level 3.5, Chloride Level 110H, Carbon Dioxide Level 31, Anion Gap 7, Blood Urea Nitrogen 34H, Creatinine 1.2, Estimat Glomerular Filtration Rate > 60, Glucose Level 195H, Calcium Level 9.3, Total Bilirubin 0.6, Aspartate Amino Transf (AST/SGOT) 16, Alanine Aminotransferase (ALT/SGPT) 17, Alkaline Phosphatase 160H, C-Reactive Protein, Quantitative 12.4H, Total Protein 7.9, Albumin 1.7L, Globulin 6.2, Albumin/Globulin Ratio 0.3L, Vancomycin Level Trough 19.2H 04/14/20 11:18: POC Whole Blood Glucose [Pending] 04/14/20 17:09: POC Whole Blood Glucose 198H 04/14/20 20:06: POC Whole Blood Glucose 149H Height (Feet): 5 Height (Inches): 6.00 Weight (Pounds): 135 Objective Debilitated NCAT (+) trach Coarse BS RR abd soft, (+) GT no edema Assessment/Plan Assessment/Plan: Assessment - dysphagia, GT - resp failure, trach - anemia - leukocytosis - DM Recommendations - continue TF - GT care - follow labs - Slade Lizama MD Apr 14, 2020 22:11
[2020-04-15] VITALS: BP 123/86
--- NOTE | 2020-04-15 00:35 | NUR ---
NURSE NOTES: Pt asleep in bed. not agitated. Vs are WNL. No respiratory distress noted. remove restraints. Both wrist skin intact. pulses are palpable and no paresthesia noted Continue to monitor
[2020-04-15] MEDS: 1/2NS w/KCl 20mEq 1000ml 1,000 ML IV SCH ×2 (00:47→13:19)
[2020-04-15] MEDS: DiphenhydrAMINE 50mg/ml Inj IVP PRN ×2 (00:48→12:53)
--- NOTE | 2020-04-15 02:10 | NUR ---
NURSE NOTES: Pt asleep in bed and no respiratory distress noted. Gown and linen were changed. Continue plan of care.
--- NOTE | 2020-04-15 02:30 | NUR ---
NURSE NOTES: Pt became tachypneic at 25 bpm, use of accessory muscles of respiration were noted. Pt saturating at 98% SaO2 . Informed RT. RT came in put pt back to Vent settings order. Pt became relax, calm and went back to sleep. Pt stayed saturating at 98-99%. Continue to monitor the patient.
[2020-04-15] MEDS: Haloperidol 5mg/ml Inj IM PRN ×2 (02:32→20:14)
[2020-04-15 04:00] VITALS: BP 151/93
--- NOTE | 2020-04-15 04:02 | NUR ---
Pt woke up and starting to get up from bed. pulling medical devices. pt was assisted back to bed to remain calm. Pt still trying to grab gtube and iv lines. initiate both soft wrist restraints. Skin is intact. no paresthesia noted. Pulses are palpable. made aware.
[2020-04-15 05:05] LABS: HEMATOCRIT 23.5 % (42.0-52.0); HEMOGLOBIN 7.6 G/DL (14.2-18.0); MEAN CORPUSCULAR VOLUME 83 FL (80-99); PLATELET COUNT 518 K/UL (150-450); RED BLOOD COUNT 2.82 M/UL (4.70-6.10); RED CELL DISTRIBUTION WIDTH 14.6 % (11.6-14.8)
[2020-04-15] MEDS: Piperacillin/Tazobactam 3.375 GM in NS 110 ML IVPB SCH ×3 (05:35→22:01)
[2020-04-15] MEDS: NovoLOG Insulin Flexpen SUBQ SCH ×4 (05:36→23:38)
[2020-04-15 05:40] LABS: WHITE BLOOD COUNT 25.3 K/UL (4.8-10.8)
[2020-04-15 05:54] LABS: ALANINE AMINOTRANSFERASE 19 U/L (12-78); ALBUMIN 1.6 G/DL (3.4-5.0); ALBUMIN/GLOBULIN RATIO 0.3 (1.0-2.7); ALKALINE PHOSPHATASE 155 U/L (46-116); ANION GAP 5 mmol/L (5-15); ASPARTATE AMINO TRANSFERASE 17 U/L (15-37); BILIRUBIN,TOTAL 0.6 MG/DL (0.2-1.0); BLOOD UREA NITROGEN 32 mg/dL (7-18); CALCIUM 8.9 MG/DL (8.5-10.1); CARBON DIOXIDE 31 MMOL/L (21-32); CHLORIDE 109 MMOL/L (98-107); CREATININE 1.1 MG/DL (0.55-1.30); POTASSIUM 3.6 MMOL/L (3.5-5.1); SODIUM 145 MMOL/L (136-145)
--- NOTE | 2020-04-15 06:20 | NUR ---
NURSE NOTES: informed Dr ruelas regarding Pt's HGb of 7.6. Received and carried out orders for 1 unit of PRBC Transfusion.
--- NOTE | 2020-04-15 06:35 | NUR ---
NURSE NOTES: Placed a Call to Sapna Estes() and get a consent for blood transfusion. Explained the risk and benefits. Sapna understood and consented the procedure. Another RN verified the telephone consent. Consent form on the chart. Continue to monitor the patient. No s/sx of any bleeding. VS WNL
--- NOTE | 2020-04-15 07:10 | NUR ---
NURSE NOTES: Received report RN JEROME patient on ventilator agitated,moving body forward and back grabbing tubes,head elevated-aspiration precaution, on restraints to prevent getting out bed and pulling tubes,on g tube feeding,with overlay mattress,for skin protection reduce pressure,santillan cathter,-care done off floor,to gravity,medication given to control agitation,observe contact isolation [id number] patient asleep calm,continue to monitor
--- NOTE | 2020-04-15 07:10 | NUR ---
NURSE HAND-OFF REPORT: Important Events on Shift: none Patient Status: Stable Diet: Glucerna 1.2 @ 40cc/hr Pending Orders: n Pending Results/Labs:n Pending MD notification:n Latest Vital Signs: Temperature 97.9 , Pulse 100 , B/P 151 /93 , Respiratory Rate 18 , O2 SAT 100 , Mechanical Ventilator, O2 Flow Rate 3.0 . Vital Sign Comment: n EKG Rhythm: Sinus Rhythm Rhythm change?: N MD Notified?: N - MD Response: Latest Linder Fall Score: 95 Fall Risk: High Risk Safety Measures: Call light Within Reach, Bed Alarm Zone 2, Side Rails Side Rails x3, Bed position Low and Locked. Fall Precautions: Yellow Socks Yellow Gown Door Sign Patient Fall Education Report given to EMILE Real. Pt stable in bed
[2020-04-15 08:00] VITALS: BP 157/82
[2020-04-15] MEDS: QUEtiapine 200mg tab GT SCH ×2 (08:03→20:13)
[2020-04-15] MEDS: Zinc Sulfate 220mg GT SCH (08:22)
[2020-04-15] MEDS: Vitamin D 1000 units Tab GT SCH (08:22)
[2020-04-15] MEDS: Ascorbic Acid 500mg tab GT SCH (08:22)
[2020-04-15] MEDS: Midodrine 10mg tab ORAL SCH ×3 (08:23→18:00)
[2020-04-15] MEDS: Pantoprazole Inj IVP SCH (08:24)
[2020-04-15] MEDS: Heparin 5000 units/ml inj SUBQ SCH ×2 (08:41→20:15)
--- NOTE | 2020-04-15 09:07 | NUR ---
HAND-OFF: Report given to EMILE Kathy.
--- NOTE | 2020-04-15 09:10 | NUR ---
NURSE NOTES: Received report from Addie/charge nurse, Observed Patient asleep in bed, On vent, no acute distress noted. IV on left FA 20g, and Right FA 22G, intact, patent and asymptomatic. On Glucerna at 40 cc/hr via GT intact, Henry catheter draining well to gravity with yellowish urine. On bilateral soft wrist restraints for safety, Skin is intact, pulses are palpable. HOB elevated and locked. Call light within reach. Bed alarm is on, side rails are up x3. Encourage to use call light when needed. Will continue plan of care.
[2020-04-15] MEDS: Vancomycin 750mg/NS 275ml IVPB SCH ×4 (09:24→20:14)
--- NOTE | 2020-04-15 11:50 | Surgery Progress Note ---
Surgery Progress Note Subjective Additional Comments no acute events labs noted exam stable dressings going well respiratory unchanged Objective Last 24 Hour Vital Signs Date Time Temp Pulse Resp B/P (MAP) Pulse Ox O2 Delivery O2 Flow Rate FiO2 04/15/20 08:00 T-piece 04/15/20 08:00 118 04/15/20 08:00 98.4 120 33 157/82 (107) 97 04/15/20 06:47 28 04/15/20 04:00 T-piece 04/15/20 04:00 97.9 100 18 151/93 (112) 100 04/15/20 03:53 100 04/15/20 02:30 87 23 28 04/15/20 00:00 91 04/15/20 00:00 97.9 85 18 123/86 (98) 99 04/15/20 00:00 T-piece 04/14/20 20:00 T-piece 04/14/20 20:00 3.0 04/14/20 20:00 98.1 95 18 148/81 (103) 98 04/14/20 19:28 94 04/14/20 16:26 98.2 88 17 129/81 (97) 96 04/14/20 16:00 94 04/14/20 16:00 3.0 04/14/20 16:00 Mechanical Ventilator 04/14/20 12:00 Mechanical Ventilator 04/14/20 12:00 28 I&O Intake and Output 04/14/20 04/15/20 19:00 07:00 Intake Total 1185 ml 2107.166 ml Output Total 900 ml Balance 1185 ml 1207.166 ml Intake Free Water 300 ml 300 ml IV Total 525 ml 1327.166 ml Tube Feeding 360 ml 480 ml Output Urine Total 900 ml # Bowel Movements 1 Dressing: dry Cardiovascular: RSR Respiratory: decreased breath sounds Abdomen: non-tender, present bowel sounds Extremities: cyanosis, no tenderness, other Laboratory Tests Test 04/14/20 17:09 04/14/20 20:06 04/15/20 04:05 04/15/20 05:34 POC Whole Blood Glucose 198 MG/DL (74-106) H 149 MG/DL (74-106) H 220 MG/DL (74-106) H White Blood Count 25.3 K/UL (4.8-10.8) *H Red Blood Count 2.82 M/UL (4.70-6.10) L Hemoglobin 7.6 G/DL (14.2-18.0) L Hematocrit 23.5 % (42.0-52.0) L Mean Corpuscular Volume 83 FL (80-99) Mean Corpuscular Hemoglobin 26.9 PG (27.0-31.0) L Mean Corpuscular Hemoglobin Concent 32.4 G/DL (32.0-36.0) Red Cell Distribution Width 14.6 % (11.6-14.8) Platelet Count 518 K/UL (150-450) H Mean Platelet Volume 6.0 FL (6.5-10.1) L Neutrophils (%) (Auto) % (45.0-75.0) Lymphocytes (%) (Auto) % (20.0-45.0) Monocytes (%) (Auto) % (1.0-10.0) Eosinophils (%) (Auto) % (0.0-3.0) Basophils (%) (Auto) % (0.0-2.0) Differential Total Cells Counted 100 Neutrophils % (Manual) 89 % (45-75) H Lymphocytes % (Manual) 4 % (20-45) L Monocytes % (Manual) 6 % (1-10) Eosinophils % (Manual) 1 % (0-3) Basophils % (Manual) 0 % (0-2) Band Neutrophils 0 % (0-8) Platelet Estimate Increased H Platelet Morphology Normal Hypochromasia 1+ Anisocytosis 1+ Erythrocyte Sedimentation Rate 135 MM/HR (0-15) H Sodium Level 145 MMOL/L (136-145) Potassium Level 3.6 MMOL/L (3.5-5.1) Chloride Level 109 MMOL/L (98-107) H Carbon Dioxide Level 31 MMOL/L (21-32) Anion Gap 5 mmol/L (5-15) Blood Urea Nitrogen 32 mg/dL (7-18) H Creatinine 1.1 MG/DL (0.55-1.30) Estimat Glomerular Filtration Rate > 60 mL/min (>60) Glucose Level 232 MG/DL (74-106) H Calcium Level 8.9 MG/DL (8.5-10.1) Total Bilirubin 0.6 MG/DL (0.2-1.0) Aspartate Amino Transf (AST/SGOT) 17 U/L (15-37) Alanine Aminotransferase (ALT/SGPT) 19 U/L (12-78) Alkaline Phosphatase 155 U/L (46-116) H C-Reactive Protein, Quantitative 14.2 mg/dL (0.00-0.90) H Total Protein 7.5 G/DL (6.4-8.2) Albumin 1.6 G/DL (3.4-5.0) L Globulin 5.9 g/dL Albumin/Globulin Ratio 0.3 (1.0-2.7) L Plan Problems: (1) Pneumonia (2) Sacral decubitus ulcer Assessment & Plan: Pt presented on admission with Tracheostomy,GT and Multiple Wounds including an Unstageable Pressure Injury Sacrum(L)2.1cm x (W)2.8cm.Base of wound is 100% slough. Borders are adherent, erythematous. Periwound is indurated with non-blanchable erythema. At L HIP A Blue marker measuring (L)6cm x (W)5cm. Small linear shaped wound that is somewhat approximated. The remaining base within Blue Marker is indurated,erythematous with elevation in skin temp at affected area within marker, and extends well beyond borders of Marker to upper L thigh(L)12cm x (W)8cm. Large Necrotic Ulcer with irregular borders noted to lateral L Tibia. Base of wound is 100% Necrotic and dry. Edges are adherent and erythematous. Periwound is dusky with elevation in skin temp noted(L)21cm x (W)11.5cm. Necrotic Ulcer lateral L foot/L malleolus(L)4cm x 6.5cm. Base of wound is 100% soft, but dry necrosis.Edges are adherent to base of wound but are erythematous. Surrounding the wound, skin colour is dusky and skin temp is elevated. NO odor or exudate noted. Open abscess/Boil noted to lateral R Tibia(L)3cm x (W)3cm with small opening at center base (L)0.4cmx (W)0.4cm. No exudate noted. Skin temp is slightly elevated. Both heels are callused and dry. Dry peeling skin noted to both lower ext, both feet including plantar aspect of both feet. Tx.Plan: Cleanse Sacral wound with Saline. Apply TheraHoney. Apply Moisture Barrier Paste periwound. Cover with Optifoam drsg Daily and prn. Apply Betadine to L Hip. Cover with Optifoam drsg. Change every 3 days and prn. Apply Betadine to Lateral L Tibia, and Lateral L foot. Cover each site with ABD Pads and wrap with Kerlix Daily and prn. Apply Betadine to Lateral R Tibia. Cover with Optifoam drsg. Change every 3 days and prn. Apply Cavilon Skin Barrier to both heels. Cover each heel with Optifoam drsg. Change every 7 days and prn. Reposition at Least every 2 hours or as tolerated. Elevate both lower ext and float Heels with pillows.Patient presents on admission with identifiable unstageable sacral decubitus ulcer fairly fraction likely recently forming. Areas approximately 3 cm x 3 cm unknown depth. No drainage. No foul odor. Eschar area identified soft no ischemic eschar likely forming. Deep tissue underneath injury. Furthermore patient identified to have significant left lower extremity ischemic disease with ulcers and necrotic eschar. On the left lateral foot there is a necrotic eschar as well as on the left lateral leg significantly large. No drainage no signs of active infection chronic appearing in nature. Care plan initiated. Will need to ensure optimization of patient for care plan. Leukocytosis unlikely related to wounds as they do not seem actively infected Nutritional optimization We will follow with recommendations thank you for let me participate in patient's care (3) Ischemia of left lower extremity Assessment & Plan: chronic large wounds US duplex arterial and venous ordered will follow with recs There is a large area of low attenuation within the lateral subcutaneous fat extending from the highest slice in the distal thigh along the entire course of the anterolateral leg and into the foot, where it extends to the level of the metacarpals dorsolaterally. Is unclear whether this represents an organized fluid collection versus intense edema/phlegmon, although suspect the latter, as there are numerous gas bubbles within the collection in the leg which do not float nondependently. There is enhancement of the tissues bordering it.. The widest extent of this is in the distal thigh, where it measures 8.2 cm AP and about 2 cm in thickness. The overall length of this is at least 45 cm, although as mentioned earlier the proximal extent is not visualized. There is a skin defect in the lateral leg at the superficial aspect of the collection which presumably represents a skin ulcer. This demonstrates multiple areas of ulceration. Low attenuation also extends into the anterior muscular compartment of the leg. The fat appears to be hypoattenuating although the musculature demonstrates only mild if any hypoattenuation. No osseous erosions, abnormal periosteal reaction, or other findings to suggest osteomyelitis are demonstrated. Impression: Intense edema versus organized fluid exiting the entire extent of the anterolateral subcutaneous fat of the leg, extending into the foot to the level of the metatarsals and proximal into the thigh beyond the edge of the imaging volume. Favor that this represents edema/phlegmon, as there are gas bubbles that appear to be trapped within it, and there is an open wound through which it should drain if it was fluid. Presence of gas bubbles is concerning for infection with a gas-forming organism. This process also extends into the anterior muscular compartment of the tibial muscles No definite evidence of osteomyelitis. However, evaluation for such is limited on CT, and MRI should be considered if this is a clinical concern Anthony Fernandez Apr 15, 2020 11:50
[2020-04-15 12:00] VITALS: BP 133/82
--- NOTE | 2020-04-15 12:05 | NUR ---
NURSE NOTES: Blood is transfusing, no distress noted. Patient is tolerating well. Pre and pos vital take and WNL.
[2020-04-15] MEDS ORDERED: Morphine Sulfate 2mg/ml Inj(IV/IM USE ONLY) IVP PRN (12:30)
--- NOTE | 2020-04-15 14:02 | NUR ---
NURSE NOTES: Blood transfusion done, Patient had BM Changed and repositioned, tolerated well. Will continue to monitor.
--- NOTE | 2020-04-15 14:34 | Infectious Diseases Prog Note ---
Assessment/Plan Assessment/Plan A: 1. Pneumonia. 2. Sacral decubitus ulcer. 3. Left leg necrotic ulcer, plegmon or edema 4. Ventilator dependent respiratory failure 5. Anemia 5. Leukocytosis PLAN: 1. Continue IV vancomycin and Zosyn. 2. We will follow up cultures and adjust antibiotics accordingly. Subjective ROS Limited/Unobtainable: Yes Constitutional: Denies: fever Neurologic: Reports: confusion, other - on rstraint Allergies: Coded Allergies: No Known Allergies (Unverified , 04/08/20) Objective Last 24 Hour Vital Signs Date Time Temp Pulse Resp B/P (MAP) Pulse Ox O2 Delivery O2 Flow Rate FiO2 04/15/20 12:00 97.3 99 24 133/82 (99) 100 04/15/20 12:00 98 04/15/20 12:00 T-piece 04/15/20 12:00 28 04/15/20 08:00 T-piece 04/15/20 08:00 118 04/15/20 08:00 98.4 120 33 157/82 (107) 97 04/15/20 06:47 28 04/15/20 04:00 T-piece 04/15/20 04:00 97.9 100 18 151/93 (112) 100 04/15/20 03:53 100 04/15/20 02:30 87 23 28 04/15/20 00:00 91 04/15/20 00:00 97.9 85 18 123/86 (98) 99 04/15/20 00:00 T-piece 04/14/20 20:00 T-piece 04/14/20 20:00 3.0 04/14/20 20:00 98.1 95 18 148/81 (103) 98 04/14/20 19:28 94 04/14/20 16:26 98.2 88 17 129/81 (97) 96 04/14/20 16:00 94 04/14/20 16:00 3.0 04/14/20 16:00 Mechanical Ventilator Height (Feet): 5 Height (Inches): 6.00 Weight (Pounds): 135 HEENT: status post trach Respiratory/Chest: lungs clear, other - on ventilator Cardiovascular: tachycardia Abdomen: soft, non tender, other - Gt feeding Skin: ulcers, other - left lrg Neurologic/Psychiatric: aphasia, other - sleeping Laboratory Tests Test 04/14/20 17:09 04/14/20 20:06 04/15/20 04:05 04/15/20 05:34 POC Whole Blood Glucose 198 MG/DL (74-106) H 149 MG/DL (74-106) H 220 MG/DL (74-106) H White Blood Count 25.3 K/UL (4.8-10.8) *H Red Blood Count 2.82 M/UL (4.70-6.10) L Hemoglobin 7.6 G/DL (14.2-18.0) L Hematocrit 23.5 % (42.0-52.0) L Mean Corpuscular Volume 83 FL (80-99) Mean Corpuscular Hemoglobin 26.9 PG (27.0-31.0) L Mean Corpuscular Hemoglobin Concent 32.4 G/DL (32.0-36.0) Red Cell Distribution Width 14.6 % (11.6-14.8) Platelet Count 518 K/UL (150-450) H Mean Platelet Volume 6.0 FL (6.5-10.1) L Neutrophils (%) (Auto) % (45.0-75.0) Lymphocytes (%) (Auto) % (20.0-45.0) Monocytes (%) (Auto) % (1.0-10.0) Eosinophils (%) (Auto) % (0.0-3.0) Basophils (%) (Auto) % (0.0-2.0) Differential Total Cells Counted 100 Neutrophils % (Manual) 89 % (45-75) H Lymphocytes % (Manual) 4 % (20-45) L Monocytes % (Manual) 6 % (1-10) Eosinophils % (Manual) 1 % (0-3) Basophils % (Manual) 0 % (0-2) Band Neutrophils 0 % (0-8) Platelet Estimate Increased H Platelet Morphology Normal Hypochromasia 1+ Anisocytosis 1+ Erythrocyte Sedimentation Rate 135 MM/HR (0-15) H Sodium Level 145 MMOL/L (136-145) Potassium Level 3.6 MMOL/L (3.5-5.1) Chloride Level 109 MMOL/L (98-107) H Carbon Dioxide Level 31 MMOL/L (21-32) Anion Gap 5 mmol/L (5-15) Blood Urea Nitrogen 32 mg/dL (7-18) H Creatinine 1.1 MG/DL (0.55-1.30) Estimat Glomerular Filtration Rate > 60 mL/min (>60) Glucose Level 232 MG/DL (74-106) H Calcium Level 8.9 MG/DL (8.5-10.1) Total Bilirubin 0.6 MG/DL (0.2-1.0) Aspartate Amino Transf (AST/SGOT) 17 U/L (15-37) Alanine Aminotransferase (ALT/SGPT) 19 U/L (12-78) Alkaline Phosphatase 155 U/L (46-116) H C-Reactive Protein, Quantitative 14.2 mg/dL (0.00-0.90) H Total Protein 7.5 G/DL (6.4-8.2) Albumin 1.6 G/DL (3.4-5.0) L Globulin 5.9 g/dL Albumin/Globulin Ratio 0.3 (1.0-2.7) L Test 04/15/20 11:52 POC Whole Blood Glucose Pending Current Medications Medications (Trade) Dose Ordered Sig/Benigno Route PRN Reason Start Time Stop Time Status Last Admin Dose Admin Acetaminophen (Tylenol) 650 mg Q4H PRN ORAL Mild Pain (Pain Scale 1-3) 04/09/20 09:00 05/09/20 08:59 Acetaminophen (Tylenol) 650 mg Q4H PRN ORAL Temp >100.5 04/09/20 09:00 05/09/20 08:59 Ascorbic Acid (Vitamin C) 1,000 mg DAILY GT 04/09/20 09:00 05/09/20 08:59 04/15/20 08:22 Dextrose (Dextrose 50%) 25 ml Q30M PRN IV Hypoglycemia 04/09/20 09:00 07/08/20 08:59 Dextrose (Dextrose 50%) 50 ml Q30M PRN IV Hypoglycemia 04/09/20 09:00 07/08/20 08:59 Diphenhydramine HCl (Benadryl) 50 mg Q12H PRN IVP Agitation 04/11/20 01:30 05/11/20 01:29 04/15/20 12:53 Furosemide (Lasix) 20 mg EVERY 12 HOURS IV 04/09/20 09:00 05/09/20 08:59 04/15/20 08:24 Haloperidol Lactate (Haldol) 5 mg Q6H PRN IM Agitation 04/11/20 16:15 05/26/20 16:14 04/15/20 02:32 Heparin Sodium (Porcine) (Heparin 5000 units/ml) 5,000 units EVERY 12 HOURS SUBQ 04/09/20 10:00 05/24/20 09:59 04/15/20 08:41 Insulin Aspart (NovoLOG) EVERY 6 HOURS SUBQ 04/15/20 06:00 07/08/20 11:29 04/15/20 12:00 Magnesium Hydroxide (Mom) 30 ml DAILYPRN PRN ORAL Constipation 04/09/20 09:00 05/09/20 08:59 Midodrine (Pro-Amatine) 20 mg THREE TIMES A DAY ORAL 04/09/20 10:00 07/08/20 09:59 04/15/20 12:07 Morphine Sulfate (Morphine Sulfate) 2 mg Q3H PRN IVP For Pain 4-10 04/15/20 12:30 04/22/20 12:29 Ondansetron HCl (Zofran) 4 mg Q6H PRN IVP Nausea & Vomiting 04/09/20 09:00 05/09/20 08:59 Pantoprazole (Protonix) 40 mg DAILY IVP 04/09/20 09:00 05/09/20 08:59 04/15/20 08:24 Piperacillin Sod/ Tazobactam Sod 3.375 gm/Sodium Chloride 110 ml @ 27.5 mls/hr Q8HR IVPB 04/09/20 10:00 04/17/20 09:59 04/15/20 05:35 Quetiapine Fumarate (SEROqueL) 50 mg Q6H PRN GT Restlessness and agitation 04/10/20 16:15 05/25/20 16:14 04/15/20 14:04 Quetiapine Fumarate (SEROqueL) 200 mg Q12HR GT 04/11/20 09:00 05/26/20 08:59 04/15/20 08:03 Sodium 1,000 ml @ 75 mls/hr [id number] IV 04/13/20 08:00 05/13/20 07:59 04/15/20 13:19 [facility] 1 ea DAILY PRN MISC Per rx protocol 1/10/21 08:00 05/09/20 07:59 Vancomycin HCl 750 mg/Sodium Chloride 275 ml @ 183.333 mls/hr Q12HR IVPB 04/09/20 21:00 04/19/20 23:59 04/15/20 09:24 Vitamin D (Vitamin D) 2,000 unit DAILY GT 04/09/20 09:00 05/09/20 08:59 04/15/20 08:22 Zinc Oxide (Zinc Oxide) 1 applic TIDPRN PRN TOPIC Itching 04/09/20 08:30 07/08/20 08:29 Zinc Sulfate (Zinc Sulfate) 220 mg DAILY GT 04/09/20 09:00 07/08/20 08:59 04/15/20 08:22 Sumit Devine MD Apr 15, 2020 14:34
--- NOTE | 2020-04-15 15:39 | General Progress Note ---
Subjective ROS Limited/Unobtainable: Yes Allergies: Coded Allergies: No Known Allergies (Unverified , 04/08/20) Subjective care noted on vent and trach wbc worsened Objective Last 24 Hour Vital Signs Date Time Temp Pulse Resp B/P (MAP) Pulse Ox O2 Delivery O2 Flow Rate FiO2 04/15/20 12:00 97.3 99 24 133/82 (99) 100 04/15/20 12:00 98 04/15/20 12:00 T-piece 04/15/20 12:00 28 04/15/20 10:49 95 22 28 04/15/20 08:00 T-piece 04/15/20 08:00 118 04/15/20 08:00 98.4 120 33 157/82 (107) 97 04/15/20 07:28 89 17 28 04/15/20 06:47 28 04/15/20 04:00 T-piece 04/15/20 04:00 97.9 100 18 151/93 (112) 100 04/15/20 03:53 100 04/15/20 02:30 87 23 28 04/15/20 00:00 91 04/15/20 00:00 97.9 85 18 123/86 (98) 99 04/15/20 00:00 T-piece 04/14/20 20:00 T-piece 04/14/20 20:00 3.0 04/14/20 20:00 98.1 95 18 148/81 (103) 98 04/14/20 19:28 94 04/14/20 16:26 98.2 88 17 129/81 (97) 96 04/14/20 16:00 94 04/14/20 16:00 3.0 04/14/20 16:00 Mechanical Ventilator Intake and Output 04/14/20 04/15/20 19:00 07:00 Intake Total 1185 ml 2107.166 ml Output Total 900 ml Balance 1185 ml 1207.166 ml Intake Free Water 300 ml 300 ml IV Total 525 ml 1327.166 ml Tube Feeding 360 ml 480 ml Output Urine Total 900 ml # Bowel Movements 1 Laboratory Tests 04/14/20 17:09: POC Whole Blood Glucose 198H 04/14/20 20:06: POC Whole Blood Glucose 149H 04/15/20 04:05: White Blood Count 25.3*H, Red Blood Count 2.82L, Hemoglobin 7.6L, Hematocrit 23.5L, Mean Corpuscular Volume 83, Mean Corpuscular Hemoglobin 26.9L, Mean Corpuscular Hemoglobin Concent 32.4, Red Cell Distribution Width 14.6, Platelet Count 518H, Mean Platelet Volume 6.0L, Neutrophils (%) (Auto) , Lymphocytes (%) (Auto) , Monocytes (%) (Auto) , Eosinophils (%) (Auto) , Basophils (%) (Auto) , Differential Total Cells Counted 100, Neutrophils % (Manual) 89H, Lymphocytes % (Manual) 4L, Monocytes % (Manual) 6, Eosinophils % (Manual) 1, Basophils % (Manual) 0, Band Neutrophils 0, Platelet Estimate IncreasedH, Platelet Morphology Normal, Hypochromasia 1+, Anisocytosis 1+, Erythrocyte Sedimentation Rate 135H, Sodium Level 145, Potassium Level 3.6, Chloride Level 109H, Carbon Dioxide Level 31, Anion Gap 5, Blood Urea Nitrogen 32H, Creatinine 1.1, Estimat Glomerular Filtration Rate > 60, Glucose Level 232H, Calcium Level 8.9, Total Bilirubin 0.6, Aspartate Amino Transf (AST/SGOT) 17, Alanine Aminotransferase (ALT/SGPT) 19, Alkaline Phosphatase 155H, C-Reactive Protein, Quantitative 14.2H , Total Protein 7.5, Albumin 1.6L, Globulin 5.9, Albumin/Globulin Ratio 0.3L 04/15/20 05:34: POC Whole Blood Glucose 220H 04/15/20 11:52: POC Whole Blood Glucose [Pending] Height (Feet): 5 Height (Inches): 6.00 Weight (Pounds): 135 Objective WDWN trach reduced breath sounds bilaterally without rhonchi or wheeze [id number] without MRG NABS nontender GT no CCE poor LOC Assessment/Plan Assessment/Plan: Impression: Pneumonia, h/o Klebsiella Ventilator dependance Tracheostomy status Diabetes Sacral decubitus and feet pressure areas azotemia leukocytosis necrotic lower extremity Plan: - Continue antibiotics per ID - ID Consult,Surgery Consult - not improved; imaging with significant infiltrates - supportive care - Continue current ventilator sttings - Adjust O2 - DVT prophylaxis -Wound consult and surgical MD to comment further - dc planning on hold as patient remains acute impression, plan, and exam edited and reviewed in detail care discussed with Mikhail Alejandro MD Apr 15, 2020 15:39
[2020-04-15 16:00] VITALS: BP 158/87
--- NOTE | 2020-04-15 17:37 | NUR ---
NURSE NOTES: Pt asleep in bed and no respiratory distress noted. IV linen were changed. Will continue plan of care
--- NOTE | 2020-04-15 19:30 | NUR ---
NURSE HAND-OFF REPORT: Important Events on Shift:N/A Patient Status: Stable Diet: Tube feeding Pending Orders: N/A Pending Results/Labs: ABG's Pending MD notification: N/A Latest Vital Signs: Temperature 97.9 , Pulse 91 , B/P 158 /87 , Respiratory Rate 29 , O2 SAT 100 , Mechanical Ventilator, O2 Flow Rate 3.0 . Vital Sign Comment: Stable EKG Rhythm: Sinus Rhythm Rhythm change?: N MD Notified?: N - MD Response: Latest Linder Fall Score: 95 Fall Risk: High Risk Safety Measures: Call light Within Reach, Bed Alarm Zone 2, Side Rails Side Rails x3, Bed position Low and Locked. Fall Precautions: Yellow Socks Yellow Gown Door Sign Patient Fall Education Report given to Diane/EMILE.
--- NOTE | 2020-04-15 19:35 | NUR ---
NURSE NOTES: NURSE NOTES: Received report from Kathy RN., Patient awake , agitated. On trach to vent,settings are AC 16 TV 500 Fio2 30% PEEP 5 . o2 sat 98-100%. no acute distress noted. IV on left FA 20g, and Right FA 22G, intact, patent and asymptomatic. On Glucerna at 40 cc/hr via GT intact, Henry catheter draining well to gravity with yellowish urine. On bilateral soft wrist restraints for safety, Skin is intact, pulses are palpable. HOB elevated and locked. Call light within reach. Bed alarm is on, side rails are up x3. Encourage to use call light when needed. Will continue plan of care.
[2020-04-15 20:00] VITALS: BP 166/99
--- NOTE | 2020-04-15 20:00 | General Progress Note ---
Subjective Allergies: Coded Allergies: No Known Allergies (Unverified , 04/08/20) Subjective Above noted tolerating TF weaker today WBC higher Objective Last 24 Hour Vital Signs Date Time Temp Pulse Resp B/P (MAP) Pulse Ox O2 Delivery O2 Flow Rate FiO2 04/15/20 16:00 T-piece 04/15/20 16:00 83 04/15/20 16:00 97.9 91 29 158/87 (110) 100 04/15/20 16:00 30 04/15/20 15:15 85 25 28 04/15/20 12:00 97.3 99 24 133/82 (99) 100 04/15/20 12:00 98 04/15/20 12:00 T-piece 04/15/20 12:00 28 04/15/20 10:49 95 22 28 04/15/20 08:00 T-piece 04/15/20 08:00 118 04/15/20 08:00 98.4 120 33 157/82 (107) 97 04/15/20 07:28 89 17 28 04/15/20 06:47 28 04/15/20 04:00 T-piece 04/15/20 04:00 97.9 100 18 151/93 (112) 100 04/15/20 03:53 100 04/15/20 02:30 87 23 28 04/15/20 00:00 91 04/15/20 00:00 97.9 85 18 123/86 (98) 99 04/15/20 00:00 T-piece 04/14/20 20:00 T-piece 04/14/20 20:00 3.0 04/14/20 20:00 98.1 95 18 148/81 (103) 98 Intake and Output 04/14/20 04/15/20 19:00 07:00 Intake Total 1185 ml 2107.166 ml Output Total 900 ml Balance 1185 ml 1207.166 ml Intake Free Water 300 ml 300 ml IV Total 525 ml 1327.166 ml Tube Feeding 360 ml 480 ml Output Urine Total 900 ml # Bowel Movements 1 Laboratory Tests 04/14/20 20:06: POC Whole Blood Glucose 149H 04/15/20 04:05: White Blood Count 25.3*H, Red Blood Count 2.82L, Hemoglobin 7.6L, Hematocrit 23.5L, Mean Corpuscular Volume 83, Mean Corpuscular Hemoglobin 26.9L, Mean Corpuscular Hemoglobin Concent 32.4, Red Cell Distribution Width 14.6, Platelet Count 518H, Mean Platelet Volume 6.0L, Neutrophils (%) (Auto) , Lymphocytes (%) (Auto) , Monocytes (%) (Auto) , Eosinophils (%) (Auto) , Basophils (%) (Auto) , Differential Total Cells Counted 100, Neutrophils % (Manual) 89H, Lymphocytes % (Manual) 4L, Monocytes % (Manual) 6, Eosinophils % (Manual) 1, Basophils % (Manual) 0, Band Neutrophils 0, Platelet Estimate IncreasedH, Platelet Morphology Normal, Hypochromasia 1+, Anisocytosis 1+, Erythrocyte Sedimentation Rate 135H, Sodium Level 145, Potassium Level 3.6, Chloride Level 109H, Carbon Dioxide Level 31, Anion Gap 5, Blood Urea Nitrogen 32H, Creatinine 1.1, Estimat Glomerular Filtration Rate > 60, Glucose Level 232H, Calcium Level 8.9, Total Bilirubin 0.6, Aspartate Amino Transf (AST/SGOT) 17, Alanine Aminotransferase (ALT/SGPT) 19, Alkaline Phosphatase 155H, C-Reactive Protein, Quantitative 14.2H , Total Protein 7.5, Albumin 1.6L, Globulin 5.9, Albumin/Globulin Ratio 0.3L 04/15/20 05:34: POC Whole Blood Glucose 220H 04/15/20 11:52: POC Whole Blood Glucose [Pending] 04/15/20 18:39: POC Whole Blood Glucose 188H Height (Feet): 5 Height (Inches): 6.00 Weight (Pounds): 135 Objective Debilitated NCAT (+) trach Coarse BS RR abd soft, (+) GT no edema Assessment/Plan Assessment/Plan: Assessment - dysphagia, GT - resp failure, trach - anemia - leukocytosis - worse - malnutrition - decub ulcer - DM Recommendations - continue TF - increase rate - protein powder - MVI / zinc - GT care - follow labs - Slade Lizama MD Apr 15, 2020 20:00
--- NOTE | 2020-04-15 23:44 | Psychiatric Progress Note ---
Psychiatry Progress Note Psychiatry Progress Note Medications Current Medications Medications (Trade) Dose Ordered Sig/Benigno Route PRN Reason Start Time Stop Time Status Last Admin Dose Admin Acetaminophen (Tylenol) 650 mg Q4H PRN ORAL Mild Pain (Pain Scale 1-3) 04/09/20 09:00 05/09/20 08:59 Acetaminophen (Tylenol) 650 mg Q4H PRN ORAL Temp >100.5 04/09/20 09:00 05/09/20 08:59 Ascorbic Acid (Vitamin C) 1,000 mg DAILY GT 04/09/20 09:00 05/09/20 08:59 04/15/20 08:22 Dextrose (Dextrose 50%) 25 ml Q30M PRN IV Hypoglycemia 04/09/20 09:00 07/08/20 08:59 Dextrose (Dextrose 50%) 50 ml Q30M PRN IV Hypoglycemia 04/09/20 09:00 07/08/20 08:59 Diphenhydramine HCl (Benadryl) 50 mg Q12H PRN IVP Agitation 04/11/20 01:30 05/11/20 01:29 04/15/20 12:53 Furosemide (Lasix) 20 mg EVERY 12 HOURS IV 04/09/20 09:00 05/09/20 08:59 04/15/20 20:14 Haloperidol Lactate (Haldol) 5 mg Q6H PRN IM Agitation 04/11/20 16:15 05/26/20 16:14 04/15/20 20:14 Heparin Sodium (Porcine) (Heparin 5000 units/ml) 5,000 units EVERY 12 HOURS SUBQ 04/09/20 10:00 05/24/20 09:59 04/15/20 08:41 Insulin Aspart (NovoLOG) EVERY 6 HOURS SUBQ 04/15/20 06:00 07/08/20 11:29 04/15/20 23:38 Magnesium Hydroxide (Mom) 30 ml DAILYPRN PRN ORAL Constipation 04/09/20 09:00 05/09/20 08:59 Midodrine (Pro-Amatine) 20 mg THREE TIMES A DAY ORAL 04/09/20 10:00 07/08/20 09:59 04/15/20 18:00 Morphine Sulfate (Morphine Sulfate) 2 mg Q3H PRN IVP For Pain 4-10 04/15/20 12:30 04/22/20 12:29 Ondansetron HCl (Zofran) 4 mg Q6H PRN IVP Nausea & Vomiting 04/09/20 09:00 05/09/20 08:59 Pantoprazole (Protonix) 40 mg DAILY IVP 04/09/20 09:00 05/09/20 08:59 04/15/20 08:24 Piperacillin Sod/ Tazobactam Sod 3.375 gm/Sodium Chloride 110 ml @ 27.5 mls/hr Q8HR IVPB 04/09/20 10:00 04/17/20 09:59 04/15/20 22:01 Quetiapine Fumarate (SEROqueL) 50 mg Q6H PRN GT Restlessness and agitation 04/10/20 16:15 05/25/20 16:14 04/15/20 14:04 Quetiapine Fumarate (SEROqueL) 200 mg Q12HR GT 04/11/20 09:00 05/26/20 08:59 04/15/20 20:13 Sodium 1,000 ml @ 75 mls/hr [id number] IV 04/13/20 08:00 05/13/20 07:59 04/15/20 13:19 Vancomycin HCl (Vanco pharmacy to dose) 1 ea DAILY PRN MISC Per rx protocol 04/09/20 08:00 05/09/20 07:59 Vancomycin HCl 750 mg/Sodium Chloride 275 ml @ 183.333 mls/hr Q12HR IVPB 04/09/20 21:00 04/19/20 23:59 04/15/20 20:14 Vitamin D (Vitamin D) 2,000 unit DAILY GT 04/09/20 09:00 05/09/20 08:59 04/15/20 08:22 Zinc Oxide (Zinc Oxide) 1 applic TIDPRN PRN TOPIC Itching 04/09/20 08:30 07/08/20 08:29 Zinc Sulfate (Zinc Sulfate) 220 mg DAILY GT 04/09/20 09:00 07/08/20 08:59 04/15/20 08:22 Neurological/Psychiatric: Reports: anxiety, depressed, emotional problems Allergies: Coded Allergies: No Known Allergies (Unverified , 04/08/20) Objective Data Height (Feet): 5 Height (Inches): 6.00 Weight (Pounds): 135 Additional Comments: MENTAL STATUS EXAMINATION: The patient is awake, oriented to self, and disoriented to situation. Mood is agitated. Affect is flat. Thought process, there is a paucity of thought content. Thought content, no suicidal or homicidal ideation. Cognition is impaired. Insight and judgment is impaired. Assessment/Plan [place] I: ASSESSMENT: [place] I Psychotic disorder. [place] II Deferred. [place] III Pneumonia. [place] IV Low. [place] V 20 PLAN: 1. We will start the patient on Haldol p.r.n. 2. Seroquel. 3. Discussed with the nurse. Status Narrative ASSESSMENT: [place] I Psychotic disorder. [place] II Deferred. [place] III Pneumonia. [place] IV Low. [place] V 20 PLAN: 1. We will start the patient on Haldol p.r.n. 2. Seroquel. 3. Discussed with the nurse. Assessment/Plan: ASSESSMENT: [place] I Psychotic disorder. [place] II Deferred. [place] III Pneumonia. [place] IV Low. [place] V 20 PLAN: 1. We will start the patient on Haldol p.r.n. 2. Seroquel. 3. Discussed with the nurse. Watson Graham MD Apr 15, 2020 23:44
[2020-04-16] VITALS: BP 161/92
--- NOTE | 2020-04-16 01:48 | NUR ---
NURSE NOTES: Patient asleep with no acute distress noted. vss. Afebrile. SR on monitor. Turned and repositioned.
[2020-04-16 04:00] VITALS: BP 139/84
[2020-04-16] MEDS: 1/2NS w/KCl 20mEq 1000ml 1,000 ML IV SCH ×2 (04:13→15:59)
[2020-04-16] MEDS: Piperacillin/Tazobactam 3.375 GM in NS 110 ML IVPB SCH ×4 (06:10→21:41)
[2020-04-16] MEDS: NovoLOG Insulin Flexpen SUBQ SCH ×4 (06:11→23:00)
[2020-04-16 07:33] LABS: HEMOGLOBIN 8.1 G/DL (14.2-18.0); MEAN CORPUSCULAR VOLUME 84 FL (80-99); PLATELET COUNT 474 K/UL (150-450); RED BLOOD COUNT 2.98 M/UL (4.70-6.10); RED CELL DISTRIBUTION WIDTH 14.4 % (11.6-14.8); WHITE BLOOD COUNT 21.6 K/UL (4.8-10.8)
--- NOTE | 2020-04-16 07:40 | NUR ---
NURSE HAND-OFF REPORT: Important Events on Shift:NA Patient Status: STABLE Diet: GTF with Glucerna at 50cc/hr Pending Orders: N Pending Results/Labs:N Pending MD notification:N Latest Vital Signs: Temperature 97.9 , Pulse 98 , B/P 139 /84 , Respiratory Rate 22 , O2 SAT 100 , Mechanical Ventilator, O2 Flow Rate 3.0 . Vital Sign Comment: EKG Rhythm: Sinus Rhythm Rhythm change?: N MD Notified?: N - MD Response: Latest Linder Fall Score: 95 Fall Risk: High Risk Safety Measures: Call light Within Reach, Bed Alarm Zone 2, Side Rails Side Rails x3, Bed position Low and Locked. Fall Precautions: Yellow Socks Yellow Gown Door Sign Patient Fall Education Report given to KEISHA.
--- NOTE | 2020-04-16 07:41 | NUR ---
NURSE NOTES: Received patient in bed awake and alert. Trach to vent in place, no acute distress. Gtube intact, feeding ongoing with Glucerna 1.2 at 50cc/hr, goal at 70cc/hr. FC intact, draining yellow colored urine. IV lines intact and patent. HOB elevated. Bed locked in low position. Call light within reach. Will continue plan of care.
[2020-04-16 07:43] LABS: ALANINE AMINOTRANSFERASE 19 U/L (12-78); ALBUMIN 1.6 G/DL (3.4-5.0); ALBUMIN/GLOBULIN RATIO 0.3 (1.0-2.7); ALKALINE PHOSPHATASE 151 U/L (46-116); ANION GAP 4 mmol/L (5-15); ASPARTATE AMINO TRANSFERASE 16 U/L (15-37); BILIRUBIN,TOTAL 0.6 MG/DL (0.2-1.0); BLOOD UREA NITROGEN 30 mg/dL (7-18); CALCIUM 9.2 MG/DL (8.5-10.1); CARBON DIOXIDE 30 MMOL/L (21-32); CHLORIDE 107 MMOL/L (98-107); CREATININE 1.2 MG/DL (0.55-1.30); POTASSIUM 3.7 MMOL/L (3.5-5.1); SODIUM 141 MMOL/L (136-145)
[2020-04-16 08:00] VITALS: BP 139/87
[2020-04-16] MEDS: QUEtiapine 200mg tab GT SCH ×2 (08:45→21:39)
[2020-04-16] MEDS: Vitamin D 1000 units Tab GT SCH (08:45)
[2020-04-16] MEDS: Vancomycin 750mg/NS 275ml IVPB SCH ×4 (08:45→21:00)
[2020-04-16] MEDS: Zinc Sulfate 220mg GT SCH (08:45)
[2020-04-16] MEDS: Ascorbic Acid 500mg tab GT SCH (08:45)
[2020-04-16] MEDS: Midodrine 10mg tab ORAL SCH ×3 (08:46→17:54)
[2020-04-16] MEDS: Pantoprazole Inj IVP SCH (08:46)
[2020-04-16] MEDS: Heparin 5000 units/ml inj SUBQ SCH ×2 (08:46→21:41)
--- NOTE | 2020-04-16 09:30 | NUR ---
NURSE NOTES: No residual. Gtube feeding increased to 60cc/hr. Monitoring for tolerance.
[2020-04-16 11:45] VITALS: BP 130/85
--- NOTE | 2020-04-16 13:38 | General Progress Note ---
Subjective ROS Limited/Unobtainable: Yes Allergies: Coded Allergies: No Known Allergies (Unverified , 04/08/20) Subjective care noted on vent and trach wbc minimally improved Objective Last 24 Hour Vital Signs Date Time Temp Pulse Resp B/P (MAP) Pulse Ox O2 Delivery O2 Flow Rate FiO2 04/16/20 12:00 88 04/16/20 11:45 98.2 94 26 130/85 (100) 97 04/16/20 11:10 93 26 28 04/16/20 08:00 30 04/16/20 08:00 Mechanical Ventilator 04/16/20 08:00 94 04/16/20 08:00 95.5 87 23 139/87 (104) 98 04/16/20 07:10 91 30 28 04/16/20 04:00 97.9 98 22 139/84 (102) 100 04/16/20 04:00 30 04/16/20 04:00 Mechanical Ventilator 04/16/20 04:00 82 04/16/20 03:30 92 21 28 04/16/20 00:00 90 04/16/20 00:00 30 04/16/20 00:00 98.2 95 24 161/92 (115) 99 04/16/20 00:00 Mechanical Ventilator 04/15/20 23:30 88 21 28 04/15/20 20:00 98.2 92 24 166/99 (121) 100 04/15/20 19:59 30 04/15/20 19:59 88 04/15/20 19:58 T-piece 04/15/20 19:30 80 23 28 04/15/20 16:00 T-piece 04/15/20 16:00 83 04/15/20 16:00 97.9 91 29 158/87 (110) 100 04/15/20 16:00 30 04/15/20 15:15 85 25 28 Intake and Output 04/15/20 04/16/20 19:00 07:00 Intake Total 1437.5 ml 1337.5 ml Output Total 1800 ml 950 ml Balance -362.5 ml 387.5 ml Intake Free Water 300 ml 200 ml IV Total 307.5 ml 637.5 ml Tube Feeding 480 ml 500 ml Blood Product 250 ml Other 100 ml Output Urine Total 1800 ml 950 ml # Bowel Movements 1 2 Laboratory Tests 04/15/20 18:39: POC Whole Blood Glucose 188H 1/16/21 23:33: POC Whole Blood Glucose 182H 04/16/20 05:00: White Blood Count 21.6H, Red Blood Count 2.98L, Hemoglobin 8.1L, Hematocrit 25.0L, Mean Corpuscular Volume 84, Mean Corpuscular Hemoglobin 27.3, Mean Corpuscular Hemoglobin Concent 32.5, Red Cell Distribution Width 14.4, Platelet Count 474H, Mean Platelet Volume 5.9L, Neutrophils (%) (Auto) , Lymphocytes (%) (Auto) , Monocytes (%) (Auto) , Eosinophils (%) (Auto) , Basophils (%) (Auto) , Differential Total Cells Counted 100, Neutrophils % (Manual) 88H, Lymphocytes % (Manual) 6L, Monocytes % (Manual) 5, Eosinophils % (Manual) 1, Basophils % (Manual) 0, Band Neutrophils 0, Platelet Estimate Adequate, Platelet Morphology Normal, Hypochromasia 1+, Anisocytosis 1+, Sodium Level 141, Potassium Level 3.7, Chloride Level 107, Carbon Dioxide Level 30, Anion Gap 4L, Blood Urea Nitrogen 30H, Creatinine 1.2, Estimat Glomerular Filtration Rate > 60, Glucose Level 194H, Calcium Level 9.2, Total Bilirubin 0.6, Aspartate Amino Transf (AST/SGOT) 16, Alanine Aminotransferase (ALT/SGPT) 19, Alkaline Phosphatase 151H , Total Protein 7.6, Albumin 1.6L, Globulin 6.0, Albumin/Globulin Ratio 0.3L 04/16/20 05:42: POC Whole Blood Glucose 197H 04/16/20 11:21: POC Whole Blood Glucose 233H Height (Feet): 5 Height (Inches): 6.00 Weight (Pounds): 135 Objective WDWN trach reduced breath sounds bilaterally without rhonchi or wheeze [id number] without MRG NABS nontender GT no CCE poor LOC Assessment/Plan Assessment/Plan: Impression: Pneumonia, h/o Klebsiella Ventilator dependance Tracheostomy status Diabetes Sacral decubitus and feet pressure areas azotemia leukocytosis necrotic lower extremity Plan: - Continue antibiotics per ID - ID Consult,Surgery Consult - not improved; no new CXR - supportive care - Continue current ventilator sttings - Adjust O2 as needed - DVT prophylaxis -Wound consult and surgical MD to comment further - dc planning when improves impression, plan, and exam edited and reviewed in detail care discussed with Mikhail Alejandro MD Apr 16, 2020 13:38
--- NOTE | 2020-04-16 13:45 | Surgery Progress Note ---
Surgery Progress Note Subjective Additional Comments wbc improving no n/v labs noted exam unchanged Objective Last 24 Hour Vital Signs Date Time Temp Pulse Resp B/P (MAP) Pulse Ox O2 Delivery O2 Flow Rate FiO2 04/16/20 12:00 88 04/16/20 11:45 98.2 94 26 130/85 (100) 97 04/16/20 11:10 93 26 28 04/16/20 08:00 30 04/16/20 08:00 Mechanical Ventilator 04/16/20 08:00 94 04/16/20 08:00 95.5 87 23 139/87 (104) 98 04/16/20 07:10 91 30 28 04/16/20 04:00 97.9 98 22 139/84 (102) 100 04/16/20 04:00 30 04/16/20 04:00 Mechanical Ventilator 04/16/20 04:00 82 04/16/20 03:30 92 21 28 04/16/20 00:00 90 04/16/20 00:00 30 04/16/20 00:00 98.2 95 24 161/92 (115) 99 04/16/20 00:00 Mechanical Ventilator 04/15/20 23:30 88 21 28 04/15/20 20:00 98.2 92 24 166/99 (121) 100 04/15/20 19:59 30 04/15/20 19:59 88 04/15/20 19:58 T-piece 04/15/20 19:30 80 23 28 04/15/20 16:00 T-piece 04/15/20 16:00 83 04/15/20 16:00 97.9 91 29 158/87 (110) 100 04/15/20 16:00 30 04/15/20 15:15 85 25 28 I&O Intake and Output 04/15/20 04/16/20 19:00 07:00 Intake Total 1437.5 ml 1337.5 ml Output Total 1800 ml 950 ml Balance -362.5 ml 387.5 ml Intake Free Water 300 ml 200 ml IV Total 307.5 ml 637.5 ml Tube Feeding 480 ml 500 ml Blood Product 250 ml Other 100 ml Output Urine Total 1800 ml 950 ml # Bowel Movements 1 2 Dressing: dry Cardiovascular: RSR Respiratory: decreased breath sounds Abdomen: soft, non-tender, present bowel sounds Extremities: cyanosis, no tenderness, other Laboratory Tests Test 04/15/20 18:39 04/15/20 23:33 04/16/20 05:00 04/16/20 05:42 POC Whole Blood Glucose 188 MG/DL (74-106) H 182 MG/DL (74-106) H 197 MG/DL (74-106) H White Blood Count 21.6 K/UL (4.8-10.8) H Red Blood Count 2.98 M/UL (4.70-6.10) L Hemoglobin 8.1 G/DL (14.2-18.0) L Hematocrit 25.0 % (42.0-52.0) L Mean Corpuscular Volume 84 FL (80-99) Mean Corpuscular Hemoglobin 27.3 PG (27.0-31.0) Mean Corpuscular Hemoglobin Concent 32.5 G/DL (32.0-36.0) Red Cell Distribution Width 14.4 % (11.6-14.8) Platelet Count 474 K/UL (150-450) H Mean Platelet Volume 5.9 FL (6.5-10.1) L Neutrophils (%) (Auto) % (45.0-75.0) Lymphocytes (%) (Auto) % (20.0-45.0) Monocytes (%) (Auto) % (1.0-10.0) Eosinophils (%) (Auto) % (0.0-3.0) Basophils (%) (Auto) % (0.0-2.0) Differential Total Cells Counted 100 Neutrophils % (Manual) 88 % (45-75) H Lymphocytes % (Manual) 6 % (20-45) L Monocytes % (Manual) 5 % (1-10) Eosinophils % (Manual) 1 % (0-3) Basophils % (Manual) 0 % (0-2) Band Neutrophils 0 % (0-8) Platelet Estimate Adequate Platelet Morphology Normal Hypochromasia 1+ Anisocytosis 1+ Sodium Level 141 MMOL/L (136-145) Potassium Level 3.7 MMOL/L (3.5-5.1) Chloride Level 107 MMOL/L (98-107) Carbon Dioxide Level 30 MMOL/L (21-32) Anion Gap 4 mmol/L (5-15) L Blood Urea Nitrogen 30 mg/dL (7-18) H Creatinine 1.2 MG/DL (0.55-1.30) Estimat Glomerular Filtration Rate > 60 mL/min (>60) Glucose Level 194 MG/DL (74-106) H Calcium Level 9.2 MG/DL (8.5-10.1) Total Bilirubin 0.6 MG/DL (0.2-1.0) Aspartate Amino Transf (AST/SGOT) 16 U/L (15-37) Alanine Aminotransferase (ALT/SGPT) 19 U/L (12-78) Alkaline Phosphatase 151 U/L (46-116) H Total Protein 7.6 G/DL (6.4-8.2) Albumin 1.6 G/DL (3.4-5.0) L Globulin 6.0 g/dL Albumin/Globulin Ratio 0.3 (1.0-2.7) L Test 04/16/20 11:21 POC Whole Blood Glucose 233 MG/DL (74-106) H Plan Problems: (1) Pneumonia (2) Sacral decubitus ulcer Assessment & Plan: Pt presented on admission with Tracheostomy,GT and Multiple Wounds including an Unstageable Pressure Injury Sacrum(L)2.1cm x (W)2.8cm.Base of wound is 100% slough. Borders are adherent, erythematous. Periwound is indurated with non-blanchable erythema. At L HIP A Blue marker measuring (L)6cm x (W)5cm. Small linear shaped wound that is somewhat approximated. The remaining base within Blue Marker is indurated,erythematous with elevation in skin temp at affected area within marker, and extends well beyond borders of Marker to upper L thigh(L)12cm x (W)8cm. Large Necrotic Ulcer with irregular borders noted to lateral L Tibia. Base of wound is 100% Necrotic and dry. Edges are adherent and erythematous. Periwound is dusky with elevation in skin temp noted(L)21cm x (W)11.5cm. Necrotic Ulcer lateral L foot/L malleolus(L)4cm x 6.5cm. Base of wound is 100% soft, but dry necrosis.Edges are adherent to base of wound but are erythematous. Surrounding the wound, skin colour is dusky and skin temp is elevated. NO odor or exudate noted. Open abscess/Boil noted to lateral R Tibia(L)3cm x (W)3cm with small opening at center base (L)0.4cmx (W)0.4cm. No exudate noted. Skin temp is slightly elevated. Both heels are callused and dry. Dry peeling skin noted to both lower ext, both feet including plantar aspect of both feet. Tx.Plan: Cleanse Sacral wound with Saline. Apply TheraHoney. Apply Moisture Barrier Paste periwound. Cover with Optifoam drsg Daily and prn. Apply Betadine to L Hip. Cover with Optifoam drsg. Change every 3 days and prn. Apply Betadine to Lateral L Tibia, and Lateral L foot. Cover each site with ABD Pads and wrap with Kerlix Daily and prn. Apply Betadine to Lateral R Tibia. Cover with Optifoam drsg. Change every 3 days and prn. Apply Cavilon Skin Barrier to both heels. Cover each heel with Optifoam drsg. Change every 7 days and prn. Reposition at Least every 2 hours or as tolerated. Elevate both lower ext and float Heels with pillows.Patient presents on admission with identifiable unstageable sacral decubitus ulcer fairly fraction likely recently forming. Areas approximately 3 cm x 3 cm unknown depth. No drainage. No foul odor. Eschar area identified soft no ischemic eschar likely forming. Deep tissue underneath injury. Furthermore patient identified to have significant left lower extremity ischemic disease with ulcers and necrotic eschar. On the left lateral foot there is a necrotic eschar as well as on the left lateral leg significantly large. No drainage no signs of a ctive infection chronic appearing in nature. Care plan initiated. Will need to ensure optimization of patient for care plan. Leukocytosis unlikely related to wounds as they do not seem actively infected Nutritional optimization We will follow with recommendations thank you for let me participate in patient's care (3) Ischemia of left lower extremity Assessment & Plan: chronic large wounds US duplex arterial and venous ordered will follow with recs There is a large area of low attenuation within the lateral subcutaneous fat extending from the highest slice in the distal thigh along the entire course of the anterolateral leg and into the foot, where it extends to the level of the metacarpals dorsolaterally. Is unclear whether this represents an organized fluid collection versus intense edema/phlegmon, although suspect the latter, as there are numerous gas bubbles within the collection in the leg which do not float nondependently. There is enhancement of the tissues bordering it.. The widest extent of this is in the distal thigh, where it measures 8.2 cm AP and about 2 cm in thickness. The overall length of this is at least 45 cm, although as mentioned earlier the proximal extent is not visualized. There is a skin defect in the lateral leg at the superficial aspect of the collection which presumably represents a skin ulcer. This demonstrates multiple areas of ulceration. Low attenuation also extends into the anterior muscular compartment of the leg. The fat appears to be hypoattenuating although the musculature demonstrates only mild if any hypoattenuation. No osseous erosions, abnormal periosteal reaction, or other findings to suggest osteomyelitis are demonstrated. Impression: Intense edema versus organized fluid exiting the entire extent of the anterolateral subcutaneous fat of the leg, extending into the foot to the level of the metatarsals and proximal into the thigh beyond the edge of the imaging volume. Favor that this represents edema/phlegmon, as there are gas bubbles that appear to be trapped within it, and there is an open wound through which it should drain if it was fluid. Presence of gas bubbles is concerning for infection with a gas-forming organism. This process also extends into the anterior muscular compartment of the tibial muscles No definite evidence of osteomyelitis. However, evaluation for such is limited on CT, and MRI should be considered if this is a clinical concern Anthony Fernandez Apr 16, 2020 13:45
--- NOTE | 2020-04-16 13:50 | NUR ---
NURSE NOTES: Residual at 20cc. Gtube feeding increased to 70cc/hr goal. Monitoring for tolerance. Patient responds that he is not nauseous.
[2020-04-16 15:49] VITALS: BP 139/87
--- NOTE | 2020-04-16 19:15 | NUR ---
NURSE NOTES: Received report from Jemma Mcdaniel RN. Patient asleep in bed, afebrile w/no respiratory distress noted. Trach to vent saturating at 98% w/current setting. Rt forearm 22g IV line intact, patent and asymptomatic. On Glucerna 1.2 at 70 cc/hr via GT with 30ml residual noted. F/c draining well yellowish colored urine. Bilat. soft wrist restraint in place. Skin to wrists intact and pulses palpable. HOB elevated. SR on court monitor. Call light within reach. Bed locked and side rails are upX2. Alarm engaged.
--- NOTE | 2020-04-16 19:26 | NUR ---
NURSE HAND-OFF REPORT: Important Events on Shift: Patient Status: alert Diet: Glucerna 1.2 x 70cc/hr Pending Orders: Pending Results/Labs: Pending MD notification: Latest Vital Signs: Temperature 98.4 , Pulse 78 , B/P 139 /87 , Respiratory Rate 25 , O2 SAT 99 , Mechanical Ventilator, O2 Flow Rate 3.0 . Vital Sign Comment: EKG Rhythm: Sinus Rhythm Rhythm change?: N MD Notified?: N - MD Response: Latest Linder Fall Score: 95 Fall Risk: High Risk Safety Measures: Call light Within Reach, Bed Alarm Zone 2, Side Rails Side Rails x3, Bed position Low and Locked. Fall Precautions: Yellow Socks Yellow Gown Door Sign Patient Fall Education Report given to Christopher BAPTISTE.
--- NOTE | 2020-04-16 19:34 | General Progress Note ---
Subjective Allergies: Coded Allergies: No Known Allergies (Unverified , 04/08/20) Subjective Above noted tolerating TF awake, interactive Objective Last 24 Hour Vital Signs Date Time Temp Pulse Resp B/P (MAP) Pulse Ox O2 Delivery O2 Flow Rate FiO2 04/16/20 16:02 78 04/16/20 16:00 30 04/16/20 16:00 Mechanical Ventilator 04/16/20 15:49 98.4 85 25 139/87 (104) 99 04/16/20 15:10 83 28 28 04/16/20 12:00 88 04/16/20 12:00 30 04/16/20 12:00 Mechanical Ventilator 04/16/20 11:45 98.2 94 26 130/85 (100) 97 04/16/20 11:10 93 26 28 04/16/20 08:00 30 04/16/20 08:00 Mechanical Ventilator 04/16/20 08:00 94 04/16/20 08:00 95.5 87 23 139/87 (104) 98 04/16/20 07:10 91 30 28 04/16/20 04:00 97.9 98 22 139/84 (102) 100 04/16/20 04:00 30 04/16/20 04:00 Mechanical Ventilator 04/16/20 04:00 82 04/16/20 03:30 92 21 28 04/16/20 00:00 90 04/16/20 00:00 30 04/16/20 00:00 98.2 95 24 161/92 (115) 99 04/16/20 00:00 Mechanical Ventilator 04/15/20 23:30 88 21 28 04/15/20 20:00 98.2 92 24 166/99 (121) 100 04/15/20 19:59 30 04/15/20 19:59 88 04/15/20 19:58 T-piece Intake and Output 04/15/20 04/16/20 19:00 07:00 Intake Total 1437.5 ml 1337.5 ml Output Total 1800 ml 950 ml Balance -362.5 ml 387.5 ml Intake Free Water 300 ml 200 ml IV Total 307.5 ml 637.5 ml Tube Feeding 480 ml 500 ml Blood Product 250 ml Other 100 ml Output Urine Total 1800 ml 950 ml # Bowel Movements 1 2 Laboratory Tests 04/15/20 23:33: POC Whole Blood Glucose 182H 04/16/20 05:00: White Blood Count 21.6H, Red Blood Count 2.98L, Hemoglobin 8.1L, Hematocrit 25.0L, Mean Corpuscular Volume 84, Mean Corpuscular Hemoglobin 27.3, Mean Cor puscular Hemoglobin Concent 32.5, Red Cell Distribution Width 14.4, Platelet Count 474H, Mean Platelet Volume 5.9L, Neutrophils (%) (Auto) , Lymphocytes (%) (Auto) , Monocytes (%) (Auto) , Eosinophils (%) (Auto) , Basophils (%) (Auto) , Differential Total Cells Counted 100, Neutrophils % (Manual) 88H, Lymphocytes % (Manual) 6L, Monocytes % (Manual) 5, Eosinophils % (Manual) 1, Basophils % (Manual) 0, Band Neutrophils 0, Platelet Estimate Adequate, Platelet Morphology Normal, Hypochromasia 1+, Anisocytosis 1+, Sodium Level 141, Potassium Level 3.7, Chloride Level 107, Carbon Dioxide Level 30, Anion Gap 4L, Blood Urea Nitrogen 30H, Creatinine 1.2, Estimat Glomerular Filtration Rate > 60, Glucose Level 194H, Calcium Level 9.2, Total Bilirubin 0.6, Aspartate Amino Transf (AST/SGOT) 16, Alanine Aminotransferase (ALT/SGPT) 19, Alkaline Phosphatase 151H , Total Protein 7.6, Albumin 1.6L, Globulin 6.0, Albumin/Globulin Ratio 0.3L 04/16/20 05:42: POC Whole Blood Glucose 197H 04/16/20 11:21: POC Whole Blood Glucose 233H 04/16/20 15:54: POC Whole Blood Glucose 207H 04/16/20 17:51: POC Whole Blood Glucose 258H Height (Feet): 5 Height (Inches): 6.00 Weight (Pounds): 135 Objective Debilitated NCAT (+) trach Coarse BS RR abd soft, (+) GT Assessment/Plan Assessment/Plan: Assessment - dysphagia, GT - resp failure, trach - anemia - leukocytosis - malnutrition - decub ulcer - LE eschemia - DM Recommendations - continue TF - protein powder - MVI / zinc - GT care - follow labs - abx Slade Shah MD Apr 16, 2020 19:34
[2020-04-16 20:00] VITALS: BP 141/90
[2020-04-17] VITALS (7 sets, daily range): BP systolic 127–149; BP diastolic 87–94
--- NOTE | 2020-04-17 | NUR ---
NURSE NOTES: Restless at times. Respirations even and unlabored. Saturating well with current setting. No signs of respiratory distress or SOB noted. Tolerating GT feeding well w/no residual. Henry draining well. SR on software tools developer. Bed in lowest position, call light within reach. Bed alarm engaged.
--- NOTE | 2020-04-17 04:00 | NUR ---
NURSE NOTES: Incontinent of large pasty brown stool. Partial bath given. Complete linen changed. VSS. Afebrile. In no apparent distress. Respirations even and unlabored. Trach to vent saturating well with current setting. No signs of respiratory distress or SOB noted. Remain SR on awake overnight monitor. Tolerating GT feeding well. Bed in lowest position, call light within reach. Bed alarm engaged. Continue to POC
[2020-04-17] MEDS: NovoLOG Insulin Flexpen SUBQ SCH ×4 (06:12→23:52)
[2020-04-17] MEDS: Piperacillin/Tazobactam 3.375 GM in NS 110 ML IVPB SCH ×3 (06:32→23:20)
[2020-04-17] MEDS: 1/2NS w/KCl 20mEq 1000ml 1,000 ML IV SCH (06:33)
--- NOTE | 2020-04-17 07:30 | NUR ---
NURSE NOTES: Received pt from EMILE White, pt is awake and confused, pt has trach to ventilator AC 16 TV 500 PEEP 5 FIO2 30%, Pt is on continues heart monitoring. pt has g tube in place is working well. pt has Henry cath in place is working well. pt has intact iv access L wrist 22G and R wrist 22g SL. Dr Campbell visited pt and ordered to D/C iv fluid, noted and carried out. All needs attended, bed is locked and is in the lowest position, call light within easy reach. will continue to monitor.
[2020-04-17] MEDS: Zinc Sulfate 220mg GT SCH (09:20)
[2020-04-17] MEDS: Ascorbic Acid 500mg tab GT SCH (09:21)
[2020-04-17] MEDS: Vitamin D 1000 units Tab GT SCH (09:21)
[2020-04-17] MEDS: Pantoprazole Inj IVP SCH (09:21)
[2020-04-17] MEDS: QUEtiapine 200mg tab GT SCH ×2 (09:21→23:22)
--- NOTE | 2020-04-17 09:21 | NUR ---
RD ASSESSMENT & RECOMMENDATIONS SEE CARE ACTIVITY FOR COMPLETE ASSESSMENT DAILY ESTIMATED NEEDS: Needs based on Critical care, wound, underweight/ 52kg 25-30 kcals/kg 9170-3561 total kcals 1.25-2 g protein/kg 65-104 g total protein 25-30 mL/kg 2936-2102 total fluid mLs NUTRITION DIAGNOSIS: Swallowing difficulty R/T respiratory status as evidenced by trach/vent dep, PEG dep. CURRENT TF:Glucerna 1.2 now @ 70ml/hr x 24 hrs ENTERAL NUTRITION RECOMMENDATIONS: Glucerna 1.2 @ 50ml/hr x 24 hrs to provide 1200ml, 1440kcal, 72g prot, 966ml free water * Rec goal rate of 50ml/hr x 24 hrs: meets 100% est kcal/prot needs * HOB over 30 degrees/ water flush per MD ADDITIONAL RECOMMENDATIONS: * Calibrated bedscale wt * Wound care: Continue Vit C and ZnSO4 William BID via PEG * Monitor lytes, replete as needed * Monitor BGs, need for long acting insulin
[2020-04-17] MEDS: Vancomycin 750mg/NS 275ml IVPB SCH ×2 (09:22)
[2020-04-17] MEDS: Heparin 5000 units/ml inj SUBQ SCH ×2 (09:23→23:22)
[2020-04-17] MEDS: Haloperidol 5mg/ml Inj IM PRN (10:11)
--- NOTE | 2020-04-17 11:16 | Infectious Diseases Prog Note ---
Assessment/Plan Assessment/Plan antibiotics : vancomycin iv, zosyn A 1. left leg necrotic ulcer 2. pneumonia 3. diabetes mellitus 4. respiratory failure s/p tracheostomy P 1. continue iv vancomycin, zosyn 5 more days 2. will follow up cultures Subjective ROS Limited/Unobtainable: Yes Allergies: Coded Allergies: No Known Allergies (Unverified , 04/08/20) Objective Last 24 Hour Vital Signs Date Time Temp Pulse Resp B/P (MAP) Pulse Ox O2 Delivery O2 Flow Rate FiO2 04/17/20 08:00 30 04/17/20 08:00 97.7 96 20 132/93 (106) 100 04/17/20 07:10 89 22 28 04/17/20 06:00 92 24 135/87 (103) 98 04/17/20 04:00 Mechanical Ventilator 04/17/20 04:00 86 04/17/20 04:00 30 04/17/20 04:00 95 28 149/94 (112) 97 04/17/20 02:36 87 23 28 04/17/20 00:00 30 04/17/20 00:00 97.7 94 20 144/94 (111) 98 04/17/20 00:00 94 04/17/20 00:00 Mechanical Ventilator 04/16/20 22:39 99 26 28 04/16/20 20:00 97.3 87 20 141/90 (107) 100 04/16/20 19:45 Mechanical Ventilator 04/16/20 19:45 30 04/16/20 19:45 89 04/16/20 19:22 98 31 28 04/16/20 16:02 78 04/16/20 16:00 30 04/16/20 16:00 Mechanical Ventilator 04/16/20 15:49 98.4 85 25 139/87 (104) 99 04/16/20 15:10 83 28 28 04/16/20 12:00 88 04/16/20 12:00 30 04/16/20 12:00 Mechanical Ventilator 04/16/20 11:45 98.2 94 26 130/85 (100) 97 Height (Feet): 5 Height (Inches): 6.00 Weight (Pounds): 135 HEENT: status post trach Respiratory/Chest: lungs clear Cardiovascular: normal rate, regular rhythm, no gallop/murmur Abdomen: soft, non tender, other - GT Extremities: no edema, other - left leg necrotic ulcer Laboratory Tests Test 04/16/20 11:21 04/16/20 15:54 04/16/20 17:51 POC Whole Blood Glucose 233 MG/DL (74-106) H 207 MG/DL (74-106) H 258 MG/DL (74-106) H Current Medications Medications (Trade) Dose Ordered Sig/Benigno Route PRN Reason Start Time Stop Time Status Last Admin Dose Admin Acetaminophen (Tylenol) 650 mg Q4H PRN ORAL Mild Pain (Pain Scale 1-3) 04/09/20 09:00 05/09/20 08:59 Acetaminophen (Tylenol) 650 mg Q4H PRN ORAL Temp >100.5 04/09/20 09:00 05/09/20 08:59 Ascorbic Acid (Vitamin C) 1,000 mg DAILY GT 04/09/20 09:00 05/09/20 08:59 04/17/20 09:21 Dextrose (Dextrose 50%) 25 ml Q30M PRN IV Hypoglycemia 04/09/20 09:00 07/08/20 08:59 Dextrose (Dextrose 50%) 50 ml Q30M PRN IV Hypoglycemia 04/09/20 09:00 07/08/20 08:59 Diphenhydramine HCl (Benadryl) 50 mg Q12H PRN IVP Agitation 04/11/20 01:30 05/11/20 01:29 04/15/20 12:53 Furosemide (Lasix) 20 mg EVERY 12 HOURS IV 04/09/20 09:00 05/09/20 08:59 04/17/20 09:21 Haloperidol Lactate (Haldol) 5 mg Q6H PRN IM Agitation 04/11/20 16:15 05/26/20 16:14 04/17/20 10:11 Heparin Sodium (Porcine) (Heparin 5000 units/ml) 5,000 units EVERY 12 HOURS SUBQ 04/09/20 10:00 05/24/20 09:59 04/17/20 09:23 Insulin Aspart (NovoLOG) EVERY 6 HOURS SUBQ 04/15/20 06:00 07/08/20 11:29 04/17/20 06:12 Magnesium Hydroxide (Mom) 30 ml DAILYPRN PRN ORAL Constipation 04/09/20 09:00 05/09/20 08:59 Midodrine (Pro-Amatine) 20 mg THREE TIMES A DAY ORAL 04/17/20 09:00 07/08/20 08:59 04/17/20 09:21 Morphine Sulfate (Morphine Sulfate) 2 mg Q3H PRN IVP For Pain 4-10 04/15/20 12:30 04/22/20 12:29 Ondansetron HCl (Zofran) 4 mg Q6H PRN IVP Nausea & Vomiting 04/09/20 09:00 05/09/20 08:59 Pantoprazole (Protonix) 40 mg DAILY IVP 04/09/20 09:00 05/09/20 08:59 04/17/20 09:21 Piperacillin Sod/ Tazobactam Sod 3.375 gm/Sodium Chloride 110 ml @ 27.5 mls/hr Q8HR IVPB 04/09/20 10:00 04/19/20 09:59 04/17/20 06:32 Quetiapine Fumarate (SEROqueL) 50 mg Q6H PRN GT Restlessness and agitation 04/10/20 16:15 05/25/20 16:14 04/15/20 14:04 Quetiapine Fumarate (SEROqueL) 200 mg Q12HR GT 04/11/20 09:00 05/26/20 08:59 04/17/20 09:21 Vancomycin HCl (Vanco pharmacy to dose) 1 ea DAILY PRN MISC Per rx protocol 04/09/20 08:00 05/09/20 07:59 Vancomycin HCl 750 mg/Sodium Chloride 275 ml @ 183.333 mls/hr Q12HR IVPB 04/09/20 21:00 04/19/20 23:59 04/17/20 09:22 Vitamin D (Vitamin D) 2,000 unit DAILY GT 04/09/20 09:00 05/09/20 08:59 04/17/20 09:21 Zinc Oxide (Zinc Oxide) 1 applic TIDPRN PRN TOPIC Itching 04/09/20 08:30 07/08/20 08:29 Zinc Sulfate (Zinc Sulfate) 220 mg DAILY GT 04/09/20 09:00 07/08/20 08:59 04/17/20 09:20 Wong Kilpatrick MD Apr 17, 2020 11:16
--- NOTE | 2020-04-17 12:11 | Surgery Progress Note ---
Surgery Progress Note Subjective Additional Comments wbc trending down leg stable on support weaning dressings going well Objective Last 24 Hour Vital Signs Date Time Temp Pulse Resp B/P (MAP) Pulse Ox O2 Delivery O2 Flow Rate FiO2 04/17/20 08:00 30 04/17/20 08:00 97.7 96 20 132/93 (106) 100 04/17/20 07:29 88 04/17/20 07:10 89 22 28 04/17/20 06:00 92 24 135/87 (103) 98 04/17/20 04:00 Mechanical Ventilator 04/17/20 04:00 86 04/17/20 04:00 30 04/17/20 04:00 95 28 149/94 (112) 97 04/17/20 02:36 87 23 28 04/17/20 00:00 30 04/17/20 00:00 97.7 94 20 144/94 (111) 98 04/17/20 00:00 94 04/17/20 00:00 Mechanical Ventilator 04/16/20 22:39 99 26 28 04/16/20 20:00 97.3 87 20 141/90 (107) 100 04/16/20 19:45 Mechanical Ventilator 04/16/20 19:45 30 04/16/20 19:45 89 04/16/20 19:22 98 31 28 04/16/20 16:02 78 04/16/20 16:00 30 04/16/20 16:00 Mechanical Ventilator 04/16/20 15:49 98.4 85 25 139/87 (104) 99 04/16/20 15:10 83 28 28 I&O Intake and Output 04/16/20 04/17/20 19:00 07:00 Intake Total 1204.20 ml 1947.500 ml Output Total 2500 ml 1000 ml Balance -1295.80 ml 947.500 ml Intake Free Water 100 ml IV Total 1074.20 ml 1097.500 ml Tube Feeding 130 ml 750 ml Output Urine Total 2500 ml 1000 ml # Bowel Movements 1 Dressing: other Wound: other Cardiovascular: RSR Respiratory: decreased breath sounds Abdomen: soft, non-tender, present bowel sounds Extremities: cyanosis, no tenderness, other Laboratory Tests Test 04/16/20 15:54 04/16/20 17:51 POC Whole Blood Glucose 207 MG/DL (74-106) H 258 MG/DL (74-106) H Plan Problems: (1) Pneumonia (2) Sacral decubitus ulcer Assessment & Plan: Pt presented on admission with Tracheostomy,GT and Multiple Wounds including an Unstageable Pressure Injury Sacrum(L)2.1cm x (W)2.8cm.Base of wound is 100% slough. Borders are adherent, erythematous. Periwound is indurated with non-blanchable erythema. At L HIP A Blue marker measuring (L)6cm x (W)5cm. Small linear shaped wound that is somewhat approximated. The remaining base within Blue Marker is indurated,er ythematous with elevation in skin temp at affected area within marker, and extends well beyond borders of Marker to upper L thigh(L)12cm x (W)8cm. Large Necrotic Ulcer with irregular borders noted to lateral L Tibia. Base of wound is 100% Necrotic and dry. Edges are adherent and erythematous. Periwound is dusky with elevation in skin temp noted(L)21cm x (W)11.5cm. Necrotic Ulcer lateral L foot/L malleolus(L)4cm x 6.5cm. Base of wound is 100% soft, but dry necrosis.Edges are adherent to base of wound but are erythematous. Surrounding the wound, skin colour is dusky and skin temp is elevated. NO odor or exudate noted. Open abscess/Boil noted to lateral R Tibia(L)3cm x (W)3cm with small opening at center base (L)0.4cmx (W)0.4cm. No exudate noted. Skin temp is slightly elevated. Both heels are callused and dry. Dry peeling skin noted to both lower ext, both feet including plantar aspect of both feet. Tx.Plan: Cleanse Sacral wound with Saline. Apply TheraHoney. Apply Moisture Barrier Paste periwound. Cover with Optifoam drsg Daily and prn. Apply Betadine to L Hip. Cover with Optifoam drsg. Change every 3 days and prn. Apply Betadine to Lateral L Tibia, and Lateral L foot. Cover each site with ABD Pads and wrap with Kerlix Daily and prn. Apply Betadine to Lateral R Tibia. Cover with Optifoam drsg. Change every 3 days and prn. Apply Cavilon Skin Barrier to both heels. Cover each heel with Optifoam drsg. Change every 7 days and prn. Reposition at Least every 2 hours or as tolerated. Elevate both lower ext and float Heels with pillows.Patient presents on admission with identifiable unstageable sacral decubitus ulcer fairly fraction likely recently forming. Areas approximately 3 cm x 3 cm unknown depth. No drainage. No foul odor. Eschar area identified soft no ischemic eschar likely forming. Deep tissue underneath injury. Furthermore patient identified to have significant left lower extremity ischemic disease with ulcers and necrotic eschar. On the left lateral foot there is a necrotic eschar as well as on the left lateral leg significantly large. No drainage no signs of active infection chronic appearing in nature. Care plan initiated. Will need to ensure optimization of patient for care plan. Leukocytosis unlikely related to wounds as they do not seem actively infected Nutritional optimization We will follow with recommendations thank you for let me participate in patient's care (3) Ischemia of left lower extremity Assessment & Plan: chronic large wounds US duplex arterial and venous ordered will follow with recs There is a large area of low attenuation within the lateral subcutaneous fat extending from the highest slice in the distal thigh along the entire course of the anterolateral leg and into the foot, where it extends to the level of the metacarpals dorsolaterally. Is unclear whether this represents an organized fluid collection versus intense edema/phlegmon, although suspect the latter, as there are numerous gas bubbles within the collection in the leg which do not float nondependently. There is enhancement of the tissues bordering it.. The widest extent of this is in the distal thigh, where it measures 8.2 cm AP and about 2 cm in thickness. The overall length of this is at least 45 cm, although as mentioned earlier the proximal extent is not visualized. There is a skin defect in the lateral leg at the superficial aspect of the collection which presumably represents a skin ulcer. This demonstrates multiple areas of ulceration. Low attenuation also extends into the anterior muscular compartment of the leg. The fat appears to be hypoattenuating although the musculature demonstrates only mild if any hypoattenuation. No osseous erosions, abnormal periosteal reaction, or other findings to suggest osteomyelitis are demonstrated. Impression: Intense edema versus organized fluid exiting the entire extent of the anterolateral subcutaneous fat of the leg, extending into the foot to the level of the metatarsals and proximal into the thigh beyond the edge of the imaging volume. Favor that this represents edema/phlegmon, as there are gas bubbles that appear to be trapped within it, and there is an open wound through which it should drain if it was fluid. Presence of gas bubbles is concerning for infection with a gas-forming organism. This process also extends into the anterior muscular compartment of the tibial muscles No definite evidence of osteomyelitis. However, evaluation for such is limited on CT, and MRI should be considered if this is a clinical concern Anthony Fernandez Apr 17, 2020 12:11
--- NOTE | 2020-04-17 13:09 | NUR ---
NURSE NOTES: at 1000 pt was very anxious, tried to get out of bed and take off trach, Haldol IM given as order, pt is sleeping and stable now, will continue to close monitoring.
--- NOTE | 2020-04-17 13:33 | NUR ---
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
--- NOTE | 2020-04-17 14:13 | General Progress Note ---
Subjective ROS Limited/Unobtainable: Yes Allergies: Coded Allergies: No Known Allergies (Unverified , 04/08/20) Subjective care noted on vent and trach wbc better Objective Last 24 Hour Vital Signs Date Time Temp Pulse Resp B/P (MAP) Pulse Ox O2 Delivery O2 Flow Rate FiO2 04/17/20 13:58 89 26 28 04/17/20 12:00 Mechanical Ventilator 04/17/20 12:00 96.4 98 22 127/93 (104) 100 04/17/20 12:00 30 04/17/20 11:32 95 04/17/20 08:00 30 04/17/20 08:00 97.7 96 20 132/93 (106) 100 04/17/20 08:00 Mechanical Ventilator 04/17/20 07:29 88 04/17/20 07:10 89 22 28 04/17/20 06:00 92 24 135/87 (103) 98 04/17/20 04:00 Mechanical Ventilator 04/17/20 04:00 86 04/17/20 04:00 30 04/17/20 04:00 95 28 149/94 (112) 97 04/17/20 02:36 87 23 28 04/17/20 00:00 30 04/17/20 00:00 97.7 94 20 144/94 (111) 98 04/17/20 00:00 94 04/17/20 00:00 Mechanical Ventilator 04/16/20 22:39 99 26 28 04/16/20 20:00 97.3 87 20 141/90 (107) 100 04/16/20 19:45 Mechanical Ventilator 04/16/20 19:45 30 04/16/20 19:45 89 04/16/20 19:22 98 31 28 04/16/20 16:02 78 04/16/20 16:00 30 04/16/20 16:00 Mechanical Ventilator 04/16/20 15:49 98.4 85 25 139/87 (104) 99 04/16/20 15:10 83 28 28 Intake and Output 04/16/20 04/17/20 19:00 07:00 Intake Total 1204.20 ml 1947.500 ml Output Total 2500 ml 1000 ml Balance -1295.80 ml 947.500 ml Intake Free Water 100 ml IV Total 1074.20 ml 1097.500 ml Tube Feeding 130 ml 750 ml Output Urine Total 2500 ml 1000 ml # Bowel Movements 1 Laboratory Tests 04/16/20 15:54: POC Whole Blood Glucose 207H 04/16/20 17:51: POC Whole Blood Glucose 258H 04/17/20 12:25: POC Whole Blood Glucose [Pending] Height (Feet): 5 Height (Inches): 6.00 Weight (Pounds): 135 Objective WDWN trach reduced breath sounds bilaterally without rhonchi or wheeze [id number] without MRG NABS nontender GT no CCE poor LOC Assessment/Plan Assessment/Plan: Impression: Pneumonia, h/o Klebsiella Ventilator dependance Tracheostomy status Diabetes Sacral decubitus and feet pressure areas azotemia leukocytosis necrotic lower extremity diabetes Plan: - Continue antibiotics per ID - ID Consult,Surgery Consult - Continue current ventilator sttings - Adjust O2 as needed - DVT prophylaxis -Wound consult - dc planning hope soon impression, plan, and exam edited and reviewed in detail care discussed with Mikhail Alejandro MD Apr 17, 2020 14:13
[2020-04-17] MEDS ORDERED: Midodrine 10mg tab ORAL SCH (18:13)
--- NOTE | 2020-04-17 19:00 | NUR ---
NURSE NOTES: G tube dressing and wound treatment done as order and pt tolerated well. will continue to monitor.
--- NOTE | 2020-04-17 19:48 | NUR ---
NURSE HAND-OFF REPORT: Important Events on Shift:pt iis aggitated and tries to get out of bed. Patient Status: Diet: Pending Orders: Pending Results/Labs: Pending MD notification: Latest Vital Signs: Temperature 98.2 , Pulse 92 , B/P 132 /88 , Respiratory Rate 30 , O2 SAT 99 , Mechanical Ventilator, O2 Flow Rate 3.0 . Vital Sign Comment: EKG Rhythm: Sinus Rhythm Rhythm change?: N MD Notified?: N - MD Response: Latest Linder Fall Score: 95 Fall Risk: High Risk Safety Measures: Call light Within Reach, Bed Alarm Zone 2, Side Rails Side Rails x3, Bed position Low and Locked. Fall Precautions: Yellow Socks Yellow Gown Door Sign Patient Fall Education Report given to . Pt is awake and stable, no stress noted, endorsed planof care, endorsed to g tube residual.
--- NOTE | 2020-04-17 19:50 | NUR ---
NURSE HAND-OFF REPORT: Important Events on Shift: Received report from Anastacia Linda RN. Will continue plan of care. Will continue close monitoring. Patient Status: FC Diet: Glu 1.2 @ 70 ml/hr Pending Orders: none Pending Results/Labs: none Pending MD notification: none Latest Vital Signs: Temperature 98.9 , Pulse 86 , B/P 139 /87 , Respiratory Rate 23 , O2 SAT 99 , Mechanical Ventilator, O2 Flow Rate 3.0 . Vital Sign Comment: EKG Rhythm: Sinus Rhythm Rhythm change?: N MD Notified?: N - MD Response: Latest Linder Fall Score: 95 Fall Risk: High Risk Safety Measures: Call light Within Reach, Bed Alarm Zone 2, Side Rails Side Rails x3, Bed position Low and Locked. Fall Precautions: YES Yellow Socks Yellow Gown Door Sign Patient Fall Education
--- NOTE | 2020-04-17 19:51 | General Progress Note ---
Subjective Allergies: Coded Allergies: No Known Allergies (Unverified , 04/08/20) Subjective Above noted tolerating TF awake, interactive Objective Last 24 Hour Vital Signs Date Time Temp Pulse Resp B/P (MAP) Pulse Ox O2 Delivery O2 Flow Rate FiO2 04/17/20 19:41 92 30 30 04/17/20 16:00 98.2 99 22 132/88 (103) 99 04/17/20 16:00 Mechanical Ventilator 04/17/20 16:00 30 04/17/20 15:33 82 04/17/20 13:58 89 26 28 04/17/20 12:00 Mechanical Ventilator 04/17/20 12:00 96.4 98 22 127/93 (104) 100 04/17/20 12:00 30 04/17/20 11:32 95 04/17/20 08:00 30 04/17/20 08:00 97.7 96 20 132/93 (106) 100 04/17/20 08:00 Mechanical Ventilator 04/17/20 07:29 88 04/17/20 07:10 89 22 28 04/17/20 06:00 92 24 135/87 (103) 98 04/17/20 04:00 Mechanical Ventilator 04/17/20 04:00 86 04/17/20 04:00 30 04/17/20 04:00 95 28 149/94 (112) 97 04/17/20 02:36 87 23 28 04/17/20 00:00 30 04/17/20 00:00 97.7 94 20 144/94 (111) 98 04/17/20 00:00 94 04/17/20 00:00 Mechanical Ventilator 04/16/20 22:39 99 26 28 04/16/20 20:00 97.3 87 20 141/90 (107) 100 Intake and Output 04/16/20 04/17/20 19:00 07:00 Intake Total 1204.20 ml 2017.500 ml Output Total 2500 ml 1000 ml Balance -1295.80 ml 1017.500 ml Intake Free Water 100 ml IV Total 1074.20 ml 1097.500 ml Tube Feeding 130 ml 820 ml Output Urine Total 2500 ml 1000 ml # Bowel Movements 1 Laboratory Tests 04/17/20 12:25: POC Whole Blood Glucose [Pending] 04/17/20 18:35: POC Whole Blood Glucose [Pending] 04/17/20 19:40: Vancomycin Level Trough [Pending] Height (Feet): 5 Height (Inches): 6.00 Weight (Pounds): 135 Objective Debilitated NCAT (+) trach Coarse BS RR abd soft, (+) GT ext (+) LLE leg dressings, no edema Assessment/Plan Assessment/Plan: Assessment - dysphagia, GT - resp failure, trach - anemia - leukocytosis - malnutrition - decub ulcer - LE ischemia - DM Recommendations - continue TF - protein powder - MVI / zinc - GT care - follow labs - abx Slade Shah MD Apr 17, 2020 19:51
[2020-04-17] MEDS: Vancomycin 1gm/D5W 275ml IVPB SCH ×2 (23:21)
--- NOTE | 2020-04-17 23:58 | Psychiatric Progress Note ---
Psychiatry Progress Note Psychiatry Progress Note Medications Current Medications Medications (Trade) Dose Ordered Sig/Benigno Route PRN Reason Start Time Stop Time Status Last Admin Dose Admin Acetaminophen (Tylenol) 650 mg Q4H PRN ORAL Mild Pain (Pain Scale 1-3) 04/09/20 09:00 05/09/20 08:59 Acetaminophen (Tylenol) 650 mg Q4H PRN ORAL Temp >100.5 04/09/20 09:00 05/09/20 08:59 Ascorbic Acid (Vitamin C) 1,000 mg DAILY GT 04/09/20 09:00 05/09/20 08:59 04/17/20 09:21 Dextrose (Dextrose 50%) 25 ml Q30M PRN IV Hypoglycemia 04/09/20 09:00 07/08/20 08:59 Dextrose (Dextrose 50%) 50 ml Q30M PRN IV Hypoglycemia 04/09/20 09:00 07/08/20 08:59 Diphenhydramine HCl (Benadryl) 50 mg Q12H PRN IVP Agitation 04/11/20 01:30 05/11/20 01:29 04/15/20 12:53 Furosemide (Lasix) 20 mg EVERY 12 HOURS IV 04/09/20 09:00 05/09/20 08:59 04/17/20 23:21 Haloperidol Lactate (Haldol) 5 mg Q6H PRN IM Agitation 04/11/20 16:15 05/26/20 16:14 04/17/20 10:11 Heparin Sodium (Porcine) (Heparin 5000 units/ml) 5,000 units EVERY 12 HOURS SUBQ 04/09/20 10:00 05/24/20 09:59 04/17/20 23:22 Insulin Aspart (NovoLOG) EVERY 6 HOURS SUBQ 04/15/20 06:00 07/08/20 11:29 04/17/20 23:52 Magnesium Hydroxide (Mom) 30 ml DAILYPRN PRN ORAL Constipation 04/09/20 09:00 05/09/20 08:59 Midodrine (Pro-Amatine) 20 mg THREE TIMES A DAY ORAL 04/17/20 18:15 07/08/20 08:59 04/17/20 18:31 Morphine Sulfate (Morphine Sulfate) 2 mg Q3H PRN IVP For Pain 4-10 04/15/20 12:30 04/22/20 12:29 Ondansetron HCl (Zofran) 4 mg Q6H PRN IVP Nausea & Vomiting 04/09/20 09:00 05/09/20 08:59 Pantoprazole (Protonix) 40 mg DAILY IVP 04/09/20 09:00 05/09/20 08:59 04/17/20 09:21 Piperacillin Sod/ Tazobactam Sod 3.375 gm/Sodium Chloride 110 ml @ 27.5 mls/hr Q8HR IVPB 04/09/20 10:00 04/19/20 09:59 04/17/20 23:20 Quetiapine Fumarate (SEROqueL) 50 mg Q6H PRN GT Restlessness and agitation 04/10/20 16:15 05/25/20 16:14 04/15/20 14:04 Quetiapine Fumarate (SEROqueL) 200 mg Q12HR GT 04/11/20 09:00 05/26/20 08:59 04/17/20 23:22 Vancomycin HCl (Vanco pharmacy to dose) 1 ea DAILY PRN MISC Per rx protocol 04/09/20 08:00 05/09/20 07:59 Vancomycin HCl 1 gm/Dextrose 275 ml @ 183.708 mls/hr Q18H IVPB 04/17/20 22:00 04/22/20 21:59 04/17/20 23:21 Vitamin D (Vitamin D) 2,000 unit DAILY GT 04/09/20 09:00 05/09/20 08:59 04/17/20 09:21 Zinc Oxide (Zinc Oxide) 1 applic TIDPRN PRN TOPIC Itching 04/09/20 08:30 07/08/20 08:29 Zinc Sulfate (Zinc Sulfate) 220 mg DAILY GT 04/09/20 09:00 07/08/20 08:59 04/17/20 09:20 Neurological/Psychiatric: Reports: anxiety, depressed, emotional problems Allergies: Coded Allergies: No Known Allergies (Unverified , 04/08/20) Objective Data Height (Feet): 5 Height (Inches): 6.00 Weight (Pounds): 135 Additional Comments: MENTAL STATUS EXAMINATION: The patient is awake, oriented to self, and disoriented to situation. Mood is agitated. Affect is flat. Thought process, there is a paucity of thought content. Thought content, no suicidal or homicidal ideation. Cognition is impaired. Insight and judgment is impaired. Assessment/Plan [place] I: ASSESSMENT: [place] I Psychotic disorder. [place] II Deferred. [place] III Pneumonia. [place] IV Low. [place] V 20 PLAN: 1. We will start the patient on Haldol p.r.n. 2. Seroquel. 3. Discussed with the nurse. Status Narrative ASSESSMENT: [place] I Psychotic disorder. Fair[place] II Deferred. [place] III Pneumonia. [place] IV Low. [place] V 20 PLAN: 1. We will start the patient on Haldol p.r.n. 2. Seroquel. 3. Discussed with the nurse. Assessment/Plan: ASSESSMENT: [place] I Psychotic disorder. Fairplay II Deferred. [place] III Pneumonia. [place] IV Low. [place] V 20 PLAN: 1. We will start the patient on Haldol p.r.n. 2. Seroquel. 3. Discussed with the nurse. Watson Graham MD Apr 17, 2020 23:58
[2020-04-18] VITALS: BP 144/90
[2020-04-18 04:00] VITALS: BP 139/87
[2020-04-18] MEDS: Piperacillin/Tazobactam 3.375 GM in NS 110 ML IVPB SCH ×3 (06:00→21:28)
[2020-04-18] MEDS: NovoLOG Insulin Flexpen SUBQ SCH ×4 (06:00→23:54)
--- NOTE | 2020-04-18 07:25 | NUR ---
NURSE NOTES: Received report from EMILE Hernandez. Patient in bed resting, no active s/s cardiac, respiratory distress noticed at this time. Patient asleep at this time, easy to awake, Trach to vent Shiley 8 AC 16 TV 500 PEEP 5 Fio2 30%, O2 sat 99%. GT feeding on Glucerna 1.2 @ 70ml/h, Henry Catheter draining well to gravity at this time, IV on left FA 20G, right wrist 20G, asymptomatic, patent, intact. Patient on bilateral soft wrist restraints, cap refill <3 sec, able to move. Bed in lowest position, side rails upx3, call light within reach, bed alarm on, Will continue to monitor.
--- NOTE | 2020-04-18 07:30 | NUR ---
NURSE NOTES: Dr. Shah at the bedside, made aware of no lab for 2 days, per MD refer to Dr. Campbell, no new order received at this time, Will continue to follow up.
[2020-04-18 08:00] VITALS: BP 135/87
--- NOTE | 2020-04-18 08:03 | NUR ---
NURSE NOTES: Per Dr. Campbell, CBC , BMP order, order noted, entered, carried out.
--- NOTE | 2020-04-18 08:04 | NUR ---
NURSE HAND-OFF REPORT: Important Events on Shift: None Patient Status: FC Diet: Glucerna 1.2 @ 70ml/hr Pending Orders: none Pending Results/Labs: none Pending MD notification: none Latest Vital Signs: Temperature 98.9 , Pulse 86 , B/P 139 /87 , Respiratory Rate 23 , O2 SAT 99 , Mechanical Ventilator, O2 Flow Rate 3.0 . Vital Sign Comment: EKG Rhythm: Sinus Rhythm Rhythm change?: N MD Notified?: N - MD Response: Latest Linder Fall Score: 95 Fall Risk: High Risk Safety Measures: Call light Within Reach, Bed Alarm Zone 2, Side Rails Side Rails x3, Bed position Low and Locked. Fall Precautions: YES Yellow Socks Yellow Gown Door Sign Patient Fall Education Report given to .
--- NOTE | 2020-04-18 08:26 | Surgery Progress Note ---
Surgery Progress Note Subjective Additional Comments pending labs leukocytosis has been trending down leg exam stable without signs of active infection. just large area of chronic ischemia eschar Objective Last 24 Hour Vital Signs Date Time Temp Pulse Resp B/P (MAP) Pulse Ox O2 Delivery O2 Flow Rate FiO2 04/18/20 07:42 86 23 30 04/18/20 04:00 Mechanical Ventilator 04/18/20 04:00 98.9 94 23 139/87 (104) 99 04/18/20 04:00 90 04/18/20 04:00 30 04/18/20 03:00 92 19 30 04/18/20 00:00 98.6 92 22 144/90 (108) 99 04/18/20 00:00 80 04/18/20 00:00 30 04/18/20 00:00 Mechanical Ventilator 04/17/20 22:51 83 26 30 04/17/20 20:30 98.2 99 22 142/93 (109) 99 04/17/20 20:00 30 04/17/20 20:00 Mechanical Ventilator 04/17/20 20:00 87 04/17/20 19:41 92 30 30 04/17/20 16:00 98.2 99 22 132/88 (103) 99 04/17/20 16:00 Mechanical Ventilator 04/17/20 16:00 30 04/17/20 15:33 82 04/17/20 13:58 89 26 28 04/17/20 12:00 Mechanical Ventilator 04/17/20 12:00 96.4 98 22 127/93 (104) 100 04/17/20 12:00 30 04/17/20 11:32 95 I&O Intake and Output 04/17/20 04/18/20 19:00 07:00 Intake Total 1435.0003 ml 140 ml Output Total 1800 ml 1800 ml Balance -364.9997 ml -1660 ml Intake Free Water 170 ml 70 ml IV Total 495.0003 ml Tube Feeding 770 ml 70 ml Output Urine Total 1800 ml 1800 ml # Bowel Movements 2 Dressing: dry, other Wound: other Cardiovascular: RSR Respiratory: decreased breath sounds Abdomen: soft, flat, non-tender, present bowel sounds, non-distended Extremities: cyanosis, no edema, no tenderness, other Laboratory Tests Test 04/17/20 12:25 04/17/20 18:35 04/17/20 19:40 04/17/20 23:48 POC Whole Blood Glucose Pending Pending 170 MG/DL (74-106) H Vancomycin Level Trough 22.3 ug/mL (5.0-12.0) H Test 04/18/20 06:39 POC Whole Blood Glucose 267 MG/DL (74-106) H Plan Problems: (1) Pneumonia (2) Sacral decubitus ulcer Assessment & Plan: Pt presented on admission with Tracheostomy,GT and Multiple Wounds including an Unstageable Pressure Injury Sacrum(L)2.1cm x (W)2.8cm.Base of wound is 100% slough. Borders are adherent, erythematous. Periwound is indurated with non-blanchable erythema. At L HIP A Blue marker measuring (L)6cm x (W)5cm. Small linear shaped wound that is somewhat approximated. The remaining base within Blue Marker is indurated,erythematous with elevation in skin temp at affected area within marker, and extends well beyond borders of Marker to upper L thigh(L)12cm x (W)8cm. Large Necrotic Ulcer with irregular borders noted to lateral L Tibia. Base of wound is 100% Necrotic and dry. Edges are adherent and erythematous. Periwound is dusky with elevation in skin temp noted(L)21cm x (W)11.5cm. Necrotic Ulcer lateral L foot/L malleolus(L)4cm x 6.5cm. Base of wound is 100% soft, but dry necrosis.Edges are adherent to base of wound but are erythematous. Surrounding the wound, skin colour is dusky and skin temp is elevated. NO odor or exudate noted. Open abscess/Boil noted to lateral R Tibia(L)3cm x (W)3cm with small opening at center base (L)0.4cmx (W)0.4cm. No exudate noted. Skin temp is slightly elevated. Both heels are callused and dry. Dry peeling skin noted to both lower ext, both feet including plantar aspect of both feet. Tx.Plan: Cleanse Sacral wound with Saline. Apply TheraHoney. Apply Moisture Barrier Paste periwound. Cover with Optifoam drsg Daily and prn. Apply Betadine to L Hip. Cover with Optifoam drsg. Change every 3 days and prn. Apply Betadine to Lateral L Tibia, and Lateral L foot. Cover each site with ABD Pads and wrap with Kerlix Daily and prn. Apply Betadine to Lateral R Tibia. Cover with Optifoam drsg. Change every 3 days and prn. Apply Cavilon Skin Barrier to both heels. Cover each heel with Optifoam drsg. Change every 7 days and prn. Reposition at Least every 2 hours or as tolerated. Elevate both lower ext and float Heels with pillows.Patient presents on admission with identifiable unstageable sacral decubitus ulcer fairly fraction likely recently forming. Areas approximately 3 cm x 3 cm unknown depth. No drainage. No foul odor. Eschar area identified soft no ischemic eschar likely forming. Deep tissue underneath injury. Furthermore patient identified to have significant left lower extremity ischemic disease with ulcers and necrotic eschar. On the left lateral foot there is a necrotic eschar as well as on the left lateral leg significantly large. No drainage no signs of active infection chronic appearing in nature. Care plan initiated. Will need to ensure optimization of patient for care plan. Leukocytosis unlikely related to wounds as they do not seem actively infected Nutritional optimization We will follow with recommendations thank you for let me participate in patient's care (3) Ischemia of left lower extremity Assessment & Plan: chronic large wounds US duplex arterial and venous will follow with recs leukocytosis has been trending down leg exam stable without signs of active infection. just large area of chronic ischemia eschar On the right, triphasic waveforms with sharp systolic peaks are seen at the common femoral, superficial femoral, and popliteal artery levels. Tibial vessel waveforms are biphasic or triphasic with sharp systolic peaks. On the left, triphasic waveforms are seen at the level of the common femoral artery level. Left superficial femoral artery waveforms are triphasic proximally, borderline monophasic in the mid portion. Popliteal artery waveforms are monophasic but systolic peaks are sharp. Tibial vessel waveforms are monophasic but with sharp systolic peaks. There is a stenosis of the dorsalis pedis artery, with flow velocity elevation of up to 332 cm/s. There is slightly dampened flow velocity distal to it. Impression: No evidence of significant right lower extremity arterial insufficiency Monophasic waveforms in the distal superficial femoral and popliteal artery, could indicate stenosis in these segments; more likely artifactual as there is still rapid systolic upstroke, including in the ankle vessels. Evidence of significant stenosis in the dorsalis pedis artery There is a large area of low attenuation within the lateral subcutaneous fat extending from the highest slice in the distal thigh along the entire course of the anterolateral leg and into the foot, where it extends to the level of the metacarpals dorsolaterally. Is unclear whether this represents an organized fluid collection versus intense edema/phlegmon, although suspect the latter, as there are numerous gas bubbles within the collection in the leg which do not float nondependently. There is enhancement of the tissues bordering it.. The widest extent of this is in the distal thigh, where it measures 8.2 cm AP and about 2 cm in thickness. The overall length of this is at least 45 cm, although as mentioned earlier the proximal extent is not visualized. There is a skin defect in the lat eral leg at the superficial aspect of the collection which presumably represents a skin ulcer. This demonstrates multiple areas of ulceration. Low attenuation also extends into the anterior muscular compartment of the leg. The fat appears to be hypoattenuating although the musculature demonstrates only mild if any hypoattenuation. No osseous erosions, abnormal periosteal reaction, or other findings to suggest osteomyelitis are demonstrated. Impression: Intense edema versus organized fluid exiting the entire extent of the anterolateral subcutaneous fat of the leg, extending into the foot to the level of the metatarsals and proximal into the thigh beyond the edge of the imaging volume. Favor that this represents edema/phlegmon, as there are gas bubbles that appear to be trapped within it, and there is an open wound through which it should drain if it was fluid. Presence of gas bubbles is concerning for infection with a gas-forming organism. This process also extends into the anterior muscular compartment of the tibial muscles No definite evidence of osteomyelitis. However, evaluation for such is limited on CT, and MRI should be considered if this is a clinical concern Anthony Fernandez Apr 18, 2020 08:26
[2020-04-18] MEDS: QUEtiapine 200mg tab GT SCH ×2 (08:59→20:17)
[2020-04-18] MEDS: Pantoprazole Inj IVP SCH (08:59)
[2020-04-18] MEDS: Zinc Sulfate 220mg GT SCH (08:59)
[2020-04-18] MEDS: Ascorbic Acid 500mg tab GT SCH (08:59)
[2020-04-18] MEDS: Heparin 5000 units/ml inj SUBQ SCH ×2 (09:01→20:17)
[2020-04-18 09:02] LABS: BASOPHILS % (AUTO) 1.1 % (0.0-2.0); EOSINOPHILS % (AUTO) 1.8 % (0.0-3.0); HEMATOCRIT 28.6 % (42.0-52.0); HEMOGLOBIN 9.2 G/DL (14.2-18.0); LYMPHOCYTES % (AUTO) 9.3 % (20.0-45.0); MEAN CORPUSCULAR VOLUME 83 FL (80-99); MONOCYTES % (AUTO) 6.5 % (1.0-10.0); NEUTROPHILS % (AUTO) 81.2 % (45.0-75.0); PLATELET COUNT 440 K/UL (150-450); RED BLOOD COUNT 3.44 M/UL (4.70-6.10); RED CELL DISTRIBUTION WIDTH 14.3 % (11.6-14.8); WHITE BLOOD COUNT 17.9 K/UL (4.8-10.8)
[2020-04-18 09:06] LABS: ANION GAP 5 mmol/L (5-15); BLOOD UREA NITROGEN 31 mg/dL (7-18); CALCIUM 9.3 MG/DL (8.5-10.1); CARBON DIOXIDE 30 MMOL/L (21-32); CHLORIDE 101 MMOL/L (98-107); CREATININE 1.2 MG/DL (0.55-1.30); POTASSIUM 3.8 MMOL/L (3.5-5.1); SODIUM 136 MMOL/L (136-145)
[2020-04-18] MEDS: Vitamin D 1000 units Tab GT SCH (09:20)
--- NOTE | 2020-04-18 09:48 | NUR ---
NURSE NOTES: Paged Dr. Campbell regarding Midodrine 20mg TID. MD made aware baseline SBP 130s, per MD change midodrine to 10mg TID. Order noted, entered, carried out .
--- NOTE | 2020-04-18 10:57 | General Progress Note ---
Subjective ROS Limited/Unobtainable: Yes Allergies: Coded Allergies: No Known Allergies (Unverified , 04/08/20) Subjective care noted on vent and trach wbc better labs noted and adjusted Objective Last 24 Hour Vital Signs Date Time Temp Pulse Resp B/P (MAP) Pulse Ox O2 Delivery O2 Flow Rate FiO2 04/18/20 08:41 87 04/18/20 08:00 Mechanical Ventilator 04/18/20 08:00 30 04/18/20 08:00 97.7 88 25 135/87 (103) 99 04/18/20 07:42 86 23 30 04/18/20 04:00 Mechanical Ventilator 04/18/20 04:00 98.9 94 23 139/87 (104) 99 04/18/20 04:00 90 04/18/20 04:00 30 04/18/20 03:00 92 19 30 04/18/20 00:00 98.6 92 22 144/90 (108) 99 04/18/20 00:00 80 04/18/20 00:00 30 04/18/20 00:00 Mechanical Ventilator 04/17/20 22:51 83 26 30 04/17/20 20:30 98.2 99 22 142/93 (109) 99 04/17/20 20:00 30 04/17/20 20:00 Mechanical Ventilator 04/17/20 20:00 87 04/17/20 19:41 92 30 30 04/17/20 16:00 98.2 99 22 132/88 (103) 99 04/17/20 16:00 Mechanical Ventilator 04/17/20 16:00 30 04/17/20 15:33 82 04/17/20 13:58 89 26 28 04/17/20 12:00 Mechanical Ventilator 04/17/20 12:00 96.4 98 22 127/93 (104) 100 04/17/20 12:00 30 04/17/20 11:32 95 Intake and Output 04/17/20 04/18/20 19:00 07:00 Intake Total 1435.0003 ml 140 ml Output Total 1800 ml 1800 ml Balance -364.9997 ml -1660 ml Intake Free Water 170 ml 70 ml IV Total 495.0003 ml Tube Feeding 770 ml 70 ml Output Urine Total 1800 ml 1800 ml # Bowel Movements 2 Laboratory Tests 04/17/20 12:25: POC Whole Blood Glucose [Pending] 04/17/20 18:35: POC Whole Blood Glucose [Pending] 04/17/20 19:40: Vancomycin Level Trough 22.3H 04/17/20 23:48: POC Whole Blood Glucose 170H 04/18/20 06:39: POC Whole Blood Glucose 267H 04/18/20 08:43: White Blood Count 17.9H, Red Blood Count 3.44L, Hemoglobin 9.2L, Hematocrit 28.6L, Mean Corpuscular Volume 83, Mean Corpuscular Hemoglobin 26.7L, Mean Corpuscular Hemoglobin Concent 32.2, Red Cell Distribution Width 14.3, Platelet Count 440, Mean Platelet Volume 6.5, Neutrophils (%) (Auto) 81.2H, Lymphocytes (%) (Auto) 9.3L, Monocytes (%) (Auto) 6.5, Eosinophils (%) (Auto) 1.8, Basophils (%) (Auto) 1.1, Sodium Level 136, Potassium Level 3.8, Chloride Level 101, Carbon Dioxide Level 30, Anion Gap 5, Blood Urea Nitrogen 31H, Creatinine 1.2, Estimat Glomerular Filtration Rate > 60, Glucose Level 225H, Calcium Level 9.3 Height (Feet): 5 Height (Inches): 6.00 Weight (Pounds): 135 Objective WDWN trach reduced breath sounds bilaterally without rhonchi or wheeze [id number] without MRG NABS nontender GT no CCE poor LOC Assessment/Plan Assessment/Plan: Impression: Pneumonia, h/o Klebsiella Ventilator dependance Tracheostomy status Diabetes Sacral decubitus and feet pressure areas azotemia leukocytosis necrotic lower extremity diabetes Plan: - Continue antibiotics per ID - ID Consult,Surgery Consult - Continue current ventilator sttings - Adjust O2 as needed - DVT prophylaxis -Wound consult - dc planning to snf to complete care impression, plan, and exam edited and reviewed in detail care discussed with Mikhail Alejandro MD Apr 18, 2020 10:57
[2020-04-18 12:00] VITALS: BP 120/78
--- NOTE | 2020-04-18 12:02 | Infectious Diseases Prog Note ---
Assessment/Plan Assessment/Plan A: 1. Pneumonia. 2. Sacral decubitus ulcer. 3. Left leg necrotic ulcer, phlegmon or edema 4. Ventilator dependent respiratory failure 5. Anemia 5. Leukocytosis improving PLAN: 1. Continue IV vancomycin and Zosyn X 4 days 2. We will follow up cultures Subjective ROS Limited/Unobtainable: Yes Neurologic: Reports: other - on restraint Allergies: Coded Allergies: No Known Allergies (Unverified , 04/08/20) Objective Last 24 Hour Vital Signs Date Time Temp Pulse Resp B/P (MAP) Pulse Ox O2 Delivery O2 Flow Rate FiO2 04/18/20 11:20 97 21 30 04/18/20 08:41 87 04/18/20 08:00 Mechanical Ventilator 04/18/20 08:00 30 04/18/20 08:00 97.7 88 25 135/87 (103) 99 04/18/20 07:42 86 23 30 04/18/20 04:00 Mechanical Ventilator 04/18/20 04:00 98.9 94 23 139/87 (104) 99 04/18/20 04:00 90 04/18/20 04:00 30 04/18/20 03:00 92 19 30 04/18/20 00:00 98.6 92 22 144/90 (108) 99 04/18/20 00:00 80 04/18/20 00:00 30 04/18/20 00:00 Mechanical Ventilator 04/17/20 22:51 83 26 30 04/17/20 20:30 98.2 99 22 142/93 (109) 99 04/17/20 20:00 30 04/17/20 20:00 Mechanical Ventilator 04/17/20 20:00 87 04/17/20 19:41 92 30 30 04/17/20 16:00 98.2 99 22 132/88 (103) 99 04/17/20 16:00 Mechanical Ventilator 04/17/20 16:00 30 04/17/20 15:33 82 04/17/20 13:58 89 26 28 Height (Feet): 5 Height (Inches): 6.00 Weight (Pounds): 135 HEENT: status post trach Respiratory/Chest: lungs clear, other - on ventilator Cardiovascular: normal rate Abdomen: soft, non tender Extremities: no edema Skin: other - left lateral leg eschar Neurologic/Psychiatric: alert, responsive Laboratory Tests Test 1/18/21 12:25 04/17/20 18:35 04/17/20 19:40 04/17/20 23:48 POC Whole Blood Glucose Pending Pending 170 MG/DL (74-106) H Vancomycin Level Trough 22.3 ug/mL (5.0-12.0) H Test 04/18/20 06:39 04/18/20 08:43 POC Whole Blood Glucose 267 MG/DL (74-106) H White Blood Count 17.9 K/UL (4.8-10.8) H Red Blood Count 3.44 M/UL (4.70-6.10) L Hemoglobin 9.2 G/DL (14.2-18.0) L Hematocrit 28.6 % (42.0-52.0) L Mean Corpuscular Volume 83 FL (80-99) Mean Corpuscular Hemoglobin 26.7 PG (27.0-31.0) L Mean Corpuscular Hemoglobin Concent 32.2 G/DL (32.0-36.0) Red Cell Distribution Width 14.3 % (11.6-14.8) Platelet Count 440 K/UL (150-450) Mean Platelet Volume 6.5 FL (6.5-10.1) Neutrophils (%) (Auto) 81.2 % (45.0-75.0) H Lymphocytes (%) (Auto) 9.3 % (20.0-45.0) L Monocytes (%) (Auto) 6.5 % (1.0-10.0) Eosinophils (%) (Auto) 1.8 % (0.0-3.0) Basophils (%) (Auto) 1.1 % (0.0-2.0) Sodium Level 136 MMOL/L (136-145) Potassium Level 3.8 MMOL/L (3.5-5.1) Chloride Level 101 MMOL/L (98-107) Carbon Dioxide Level 30 MMOL/L (21-32) Anion Gap 5 mmol/L (5-15) Blood Urea Nitrogen 31 mg/dL (7-18) H Creatinine 1.2 MG/DL (0.55-1.30) Estimat Glomerular Filtration Rate > 60 mL/min (>60) Glucose Level 225 MG/DL (74-106) H Calcium Level 9.3 MG/DL (8.5-10.1) Current Medications Medications (Trade) Dose Ordered Sig/Benigno Route PRN Reason Start Time Stop Time Status Last Admin Dose Admin Acetaminophen (Tylenol) 650 mg Q4H PRN ORAL Mild Pain (Pain Scale 1-3) 04/09/20 09:00 05/09/20 08:59 Acetaminophen (Tylenol) 650 mg Q4H PRN ORAL Temp >100.5 04/09/20 09:00 05/09/20 08:59 Ascorbic Acid (Vitamin C) 1,000 mg DAILY GT 04/09/20 09:00 05/09/20 08:59 04/18/20 08:59 Dextrose (Dextrose 50%) 25 ml Q30M PRN IV Hypoglycemia 04/09/20 09:00 07/08/20 08:59 Dextrose (Dextrose 50%) 50 ml Q30M PRN IV Hypoglycemia 04/09/20 09:00 07/08/20 08:59 Diphenhydramine HCl (Benadryl) 50 mg Q12H PRN IVP Agitation 04/11/20 01:30 05/11/20 01:29 04/15/20 12:53 Furosemide (Lasix) 20 mg EVERY 12 HOURS IV 04/09/20 09:00 05/09/20 08:59 04/18/20 08:59 Haloperidol Lactate (Haldol) 5 mg Q6H PRN IM Agitation 04/11/20 16:15 05/26/20 16:14 04/17/20 10:11 Heparin Sodium (Porcine) (Heparin 5000 units/ml) 5,000 units EVERY 12 HOURS SUBQ 04/09/20 10:00 05/24/20 09:59 04/18/20 09:01 Insulin Aspart (NovoLOG) EVERY 6 HOURS SUBQ 04/15/20 06:00 07/08/20 11:29 04/18/20 06:00 Magnesium Hydroxide (Mom) 30 ml DAILYPRN PRN ORAL Constipation 04/09/20 09:00 05/09/20 08:59 Midodrine (Pro-Amatine) 10 mg THREE TIMES A DAY ORAL 04/18/20 13:00 07/08/20 08:59 Morphine Sulfate (Morphine Sulfate) 2 mg Q3H PRN IVP For Pain 4-10 04/15/20 12:30 04/22/20 12:29 Ondansetron HCl (Zofran) 4 mg Q6H PRN IVP Nausea & Vomiting 04/09/20 09:00 05/09/20 08:59 Pantoprazole (Protonix) 40 mg DAILY IVP 04/09/20 09:00 05/09/20 08:59 04/18/20 08:59 Piperacillin Sod/ Tazobactam Sod 3.375 gm/Sodium Chloride 110 ml @ 27.5 mls/hr Q8HR IVPB 04/09/20 10:00 04/23/20 09:59 04/18/20 06:00 Quetiapine Fumarate (SEROqueL) 50 mg Q6H PRN GT Restlessness and agitation 04/10/20 16:15 05/25/20 16:14 04/15/20 14:04 Quetiapine Fumarate (SEROqueL) 200 mg Q12HR GT 04/11/20 09:00 05/26/20 08:59 04/18/20 08:59 Vancomycin HCl (Vanco pharmacy to dose) 1 ea DAILY PRN MISC Per rx protocol 04/09/20 08:00 05/09/20 07:59 Vancomycin HCl 1 gm/Dextrose 275 ml @ 183.708 mls/hr Q18H IVPB 04/17/20 22:00 04/22/20 21:59 04/17/20 23:21 Vitamin D (Vitamin D) 2,000 unit DAILY GT 04/09/20 09:00 05/09/20 08:59 04/18/20 09:20 Zinc Oxide (Zinc Oxide) 1 applic TIDPRN PRN TOPIC Itching 04/09/20 08:30 07/08/20 08:29 Zinc Sulfate (Zinc Sulfate) 220 mg DAILY GT 04/09/20 09:00 07/08/20 08:59 04/18/20 08:59 Sumit Devine MD Apr 18, 2020 12:02
--- NOTE | 2020-04-18 13:08 | NUR ---
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
[2020-04-18 16:00] VITALS: BP 131/86
[2020-04-18] MEDS: Vancomycin 1gm/D5W 275ml IVPB SCH ×2 (16:44)
--- NOTE | 2020-04-18 19:16 | NUR ---
NURSE HAND-OFF REPORT: Important Events on Shift:stable Patient Status: stable Diet: Glucerna 1.2@ 70ml/hr Pending Orders: na Pending Results/Labs:na Pending MD notification:na Latest Vital Signs: Temperature 97.3 , Pulse 96 , B/P 131 /86 , Respiratory Rate 23 , O2 SAT 99 , Mechanical Ventilator, O2 Flow Rate 3.0 . Vital Sign Comment: stable EKG Rhythm: Sinus Rhythm Rhythm change?: N MD Notified?: N - MD Response: Latest Linder Fall Score: 95 Fall Risk: High Risk Safety Measures: Call light Within Reach, Bed Alarm Zone 2, Side Rails Side Rails x3, Bed position Low and Locked. Fall Precautions: Yellow Socks Yellow Gown Door Sign Patient Fall Education Report given to EMILE Pisano.
--- NOTE | 2020-04-18 19:30 | NUR ---
NURSE NOTES: Received patient awake in bed, no s/s of acute distress, able to follow commands. Bilateral soft wrist restraints noted, skin underneath intact, peripheral pulses present. G tube feeding in progress at 70cc/hr, tube patent, patient tolerating well. Vent Shiley 8, AC 16, TV 500, Peep 5, Fi02 30%. All other needs attended to at this time.
[2020-04-18 20:00] VITALS: BP 126/82
--- NOTE | 2020-04-18 22:33 | General Progress Note ---
Subjective Allergies: Coded Allergies: No Known Allergies (Unverified , 04/08/20) Subjective Above noted tolerating TF awake, interactive Objective Last 24 Hour Vital Signs Date Time Temp Pulse Resp B/P (MAP) Pulse Ox O2 Delivery O2 Flow Rate FiO2 04/18/20 20:00 Mechanical Ventilator 04/18/20 20:00 97.7 87 23 126/82 (97) 100 04/18/20 20:00 30 04/18/20 19:33 80 04/18/20 19:25 83 21 30 04/18/20 16:03 96 04/18/20 16:00 97.3 85 23 131/86 (101) 99 04/18/20 16:00 30 04/18/20 16:00 Mechanical Ventilator 04/18/20 15:54 90 25 30 04/18/20 12:00 98.0 82 23 120/78 (92) 100 04/18/20 12:00 94 04/18/20 12:00 Mechanical Ventilator 04/18/20 12:00 30 04/18/20 11:20 97 21 30 04/18/20 08:41 87 04/18/20 08:00 Mechanical Ventilator 04/18/20 08:00 30 04/18/20 08:00 97.7 88 25 135/87 (103) 99 04/18/20 07:42 86 23 30 04/18/20 04:00 Mechanical Ventilator 04/18/20 04:00 98.9 94 23 139/87 (104) 99 04/18/20 04:00 90 04/18/20 04:00 30 04/18/20 03:00 92 19 30 04/18/20 00:00 98.6 92 22 144/90 (108) 99 04/18/20 00:00 80 04/18/20 00:00 30 04/18/20 00:00 Mechanical Ventilator 04/17/20 22:51 83 26 30 Intake and Output 04/17/20 04/18/20 19:00 07:00 Intake Total 1435.0003 ml 237.5 ml Output Total 1800 ml 1800 ml Balance -364.9997 ml -1562.5 ml Intake Free Water 170 ml 70 ml IV Total 495.0003 ml 27.5 ml Tube Feeding 770 ml 140 ml Output Urine Total 1800 ml 1800 ml # Bowel Movements 2 Laboratory Tests 04/17/20 23:48: POC Whole Blood Glucose 170H 1/19/21 06:39: POC Whole Blood Glucose 267H 04/18/20 08:43: White Blood Count 17.9H, Red Blood Count 3.44L, Hemoglobin 9.2L, Hematocrit 28.6L, Mean Corpuscular Volume 83, Mean Corpuscular Hemoglobin 26.7L, Mean Corpuscular Hemoglobin Concent 32.2, Red Cell Distribution Width 14.3, Platelet Count 440, Mean Platelet Volume 6.5, Neutrophils (%) (Auto) 81.2H, Lymphocytes (%) (Auto) 9.3L, Monocytes (%) (Auto) 6.5, Eosinophils (%) (Auto) 1.8, Basophils (%) (Auto) 1.1, Sodium Level 136, Potassium Level 3.8, Chloride Level 101, Carbon Dioxide Level 30, Anion Gap 5, Blood Urea Nitrogen 31H, Creatinine 1.2, Estimat Glomerular Filtration Rate > 60, Glucose Level 225H, Calcium Level 9.3 04/18/20 12:55: POC Whole Blood Glucose [Pending] 04/18/20 16:42: POC Whole Blood Glucose 187H Height (Feet): 5 Height (Inches): 6.00 Weight (Pounds): 135 Objective Debilitated NCAT (+) trach Coarse BS RR abd soft, (+) GT ext (+) LLE leg dressings, no edema Assessment/Plan Assessment/Plan: Assessment - dysphagia, GT - resp failure, trach - anemia - leukocytosis - malnutrition - decub ulcer - LE ischemia - DM Recommendations - continue TF - protein powder - MVI / zinc - GT care - follow labs - x Slade Shah MD Apr 18, 2020 22:33
[2020-04-19] VITALS: BP 121/80
--- NOTE | 2020-04-19 00:12 | Psychiatric Progress Note ---
Psychiatry Progress Note Psychiatry Progress Note Medications Current Medications Medications (Trade) Dose Ordered Sig/Benigno Route PRN Reason Start Time Stop Time Status Last Admin Dose Admin Acetaminophen (Tylenol) 650 mg Q4H PRN ORAL Mild Pain (Pain Scale 1-3) 04/09/20 09:00 05/09/20 08:59 Acetaminophen (Tylenol) 650 mg Q4H PRN ORAL Temp >100.5 04/09/20 09:00 05/09/20 08:59 Ascorbic Acid (Vitamin C) 1,000 mg DAILY GT 04/09/20 09:00 05/09/20 08:59 04/18/20 08:59 Dextrose (Dextrose 50%) 25 ml Q30M PRN IV Hypoglycemia 04/09/20 09:00 07/08/20 08:59 Dextrose (Dextrose 50%) 50 ml Q30M PRN IV Hypoglycemia 04/09/20 09:00 07/08/20 08:59 Diphenhydramine HCl (Benadryl) 50 mg Q12H PRN IVP Agitation 04/11/20 01:30 05/11/20 01:29 04/15/20 12:53 Furosemide (Lasix) 20 mg EVERY 12 HOURS IV 04/09/20 09:00 05/09/20 08:59 04/18/20 20:16 Haloperidol Lactate (Haldol) 5 mg Q6H PRN IM Agitation 04/11/20 16:15 05/26/20 16:14 04/17/20 10:11 Heparin Sodium (Porcine) (Heparin 5000 units/ml) 5,000 units EVERY 12 HOURS SUBQ 04/09/20 10:00 05/24/20 09:59 04/18/20 20:17 Insulin Aspart (NovoLOG) EVERY 6 HOURS SUBQ 04/15/20 06:00 07/08/20 11:29 04/18/20 23:54 Magnesium Hydroxide (Mom) 30 ml DAILYPRN PRN ORAL Constipation 04/09/20 09:00 05/09/20 08:59 Midodrine (Pro-Amatine) 10 mg THREE TIMES A DAY ORAL 04/18/20 13:00 07/08/20 08:59 04/18/20 17:03 Morphine Sulfate (Morphine Sulfate) 2 mg Q3H PRN IVP For Pain 4-10 04/15/20 12:30 04/22/20 12:29 Ondansetron HCl (Zofran) 4 mg Q6H PRN IVP Nausea & Vomiting 04/09/20 09:00 05/09/20 08:59 Pantoprazole (Protonix) 40 mg DAILY IVP 04/09/20 09:00 05/09/20 08:59 04/18/20 08:59 Piperacillin Sod/ Tazobactam Sod 3.375 gm/Sodium Chloride 110 ml @ 27.5 mls/hr Q8HR IVPB 04/09/20 10:00 04/23/20 09:59 04/18/20 21:28 Quetiapine Fumarate (SEROqueL) 50 mg Q6H PRN GT Restlessness and agitation 04/10/20 16:15 05/25/20 16:14 04/15/20 14:04 Quetiapine Fumarate (SEROqueL) 200 mg Q12HR GT 04/11/20 09:00 05/26/20 08:59 04/18/20 20:17 Vancomycin HCl (Vanco pharmacy to dose) 1 ea DAILY PRN MISC Per rx protocol 04/09/20 08:00 05/09/20 07:59 Vancomycin HCl 1 gm/Dextrose 275 ml @ 183.708 mls/hr Q18H IVPB 04/17/20 22:00 04/22/20 21:59 04/18/20 16:44 Vitamin D (Vitamin D) 2,000 unit DAILY GT 04/09/20 09:00 05/09/20 08:59 04/18/20 09:20 Zinc Oxide (Zinc Oxide) 1 applic TIDPRN PRN TOPIC Itching 04/09/20 08:30 07/08/20 08:29 Zinc Sulfate (Zinc Sulfate) 220 mg DAILY GT 04/09/20 09:00 07/08/20 08:59 04/18/20 08:59 Neurological/Psychiatric: Reports: anxiety, depressed, emotional problems Allergies: Coded Allergies: No Known Allergies (Unverified , 04/08/20) Objective Data Height (Feet): 5 Height (Inches): 6.00 Weight (Pounds): 135 Additional Comments: MENTAL STATUS EXAMINATION: The patient is awake, oriented to self, and disoriented to situation. Mood is agitated. Affect is flat. Thought process, there is a paucity of thought content. Thought content, no suicidal or homicidal ideation. Cognition is impaired. Insight and judgment is impaired. Assessment/Plan [place] I: ASSESSMENT: [place] I Psychotic disorder. [place] II Deferred. [place] III Pneumonia. [place] IV Low. [place] V 20 PLAN: 1. We will start the patient on Haldol p.r.n. 2. Seroquel. 3. Discussed with the nurse. Status Narrative ASSESSMENT: [place] I Psychotic disorder. [place] II Deferred. [place] III Pneumonia. [place] IV Low. [place] V 20 PLAN: 1. We will start the patient on Haldol p.r.n. 2. Seroquel. 3. Discussed with the nurse. Assessment/Plan: ASSESSMENT: [place] I Psychotic disorder. [place] II Deferred. [place] III Pneumonia. [place] IV Low. [place] V 20 PLAN: 1. We will start the patient on Haldol p.r.n. 2. Seroquel. 3. Discussed with the nurse. Watson Graham MD Apr 19, 2020 00:12
--- NOTE | 2020-04-19 00:30 | NUR ---
NURSE NOTES: Patient asleep, no s/s of acute distress. On Ventilator, no leaking, no beeping, patient tolerating well with 02 sat at 99-100%. G tube feeding patent, patient tolerating well. Midnight oral care done. Large bowel movement x1, patient cleaned.
[2020-04-19 04:00] VITALS: BP 118/83
[2020-04-19 04:12] LABS: BASOPHILS % (AUTO) 1.6 % (0.0-2.0); EOSINOPHILS % (AUTO) 2.8 % (0.0-3.0); HEMATOCRIT 27.1 % (42.0-52.0); HEMOGLOBIN 8.9 G/DL (14.2-18.0); LYMPHOCYTES % (AUTO) 10.9 % (20.0-45.0); MEAN CORPUSCULAR VOLUME 83 FL (80-99); MONOCYTES % (AUTO) 8.4 % (1.0-10.0); NEUTROPHILS % (AUTO) 76.3 % (45.0-75.0); PLATELET COUNT 446 K/UL (150-450); RED BLOOD COUNT 3.26 M/UL (4.70-6.10); RED CELL DISTRIBUTION WIDTH 14.8 % (11.6-14.8); WHITE BLOOD COUNT 15.5 K/UL (4.8-10.8)
--- NOTE | 2020-04-19 04:30 | NUR ---
NURSE NOTES: Patient sleeping in bed comfortably, easily arousable. Patient cleaned, linen changed, oral care performed. Patient tolerating current vent settings. No s/s of acute distress. Bilateral soft wrist restraints in place, peripheral pulses present, patient tolerating.
[2020-04-19 04:49] LABS: ALANINE AMINOTRANSFERASE 17 U/L (12-78); ALBUMIN 1.7 G/DL (3.4-5.0); ALBUMIN/GLOBULIN RATIO 0.3 (1.0-2.7); ALKALINE PHOSPHATASE 162 U/L (46-116); ANION GAP 3 mmol/L (5-15); ASPARTATE AMINO TRANSFERASE 13 U/L (15-37); BILIRUBIN,TOTAL 0.4 MG/DL (0.2-1.0); BLOOD UREA NITROGEN 31 mg/dL (7-18); CALCIUM 9.1 MG/DL (8.5-10.1); CARBON DIOXIDE 32 MMOL/L (21-32); CHLORIDE 98 MMOL/L (98-107); CREATININE 1.2 MG/DL (0.55-1.30); POTASSIUM 3.8 MMOL/L (3.5-5.1); SODIUM 133 MMOL/L (136-145)
[2020-04-19] MEDS: Piperacillin/Tazobactam 3.375 GM in NS 110 ML IVPB SCH ×3 (05:05→21:40)
[2020-04-19] MEDS: NovoLOG Insulin Flexpen SUBQ SCH ×3 (05:34→17:20)
--- NOTE | 2020-04-19 06:36 | NUR ---
NURSE HAND-OFF REPORT: Important Events on Shift:[bilateral soft wrist restraints] Patient Status: [stable] Diet: [GT Glucerna 1.2] Pending Orders: [] Pending Results/Labs:[] Pending MD notification:[] Latest Vital Signs: Temperature 97.2 , Pulse 99 , B/P 118 /83 , Respiratory Rate 21 , O2 SAT 99 , Mechanical Ventilator, O2 Flow Rate 3.0 . Vital Sign Comment: [stable] EKG Rhythm: Sinus Rhythm Rhythm change?: N MD Notified?: N - MD Response: Latest Linder Fall Score: 95 Fall Risk: High Risk Safety Measures: Call light Within Reach, Bed Alarm Zone 2, Side Rails Side Rails x3, Bed position Low and Locked. Fall Precautions: Yellow Socks Yellow Gown Door Sign Patient Fall Education Report given to [].
--- NOTE | 2020-04-19 07:05 | NUR ---
NURSE NOTES: Received report from EMILE Pisano. Patient is AO x3 in bed, awake at this time. Patient on Bilateral soft wrist restraints, skin intact and peripheral pulses present. Patient on Gtube glucerna 1.2 @ 70ml/hr. Patient on vent Shiley 8, AC 16, TV 500, Peep 5, Fi02 30% with no signs of respiratory distress. Bed in lowest position, locked with side rails x2 up. Call light within reach.
--- NOTE | 2020-04-19 07:20 | NUR ---
HAND-OFF: Report given to EMILE Watts. Patient awake in bed, no s/s of acute distress.
[2020-04-19 08:00] VITALS: BP 123/86
[2020-04-19] MEDS: Vitamin D 1000 units Tab GT SCH (08:54)
[2020-04-19] MEDS: Ascorbic Acid 500mg tab GT SCH (08:54)
[2020-04-19] MEDS: QUEtiapine 200mg tab GT SCH ×2 (08:54→21:39)
[2020-04-19] MEDS: Zinc Sulfate 220mg GT SCH (08:54)
[2020-04-19] MEDS: Pantoprazole Inj IVP SCH (08:55)
[2020-04-19] MEDS: Heparin 5000 units/ml inj SUBQ SCH ×2 (08:58→21:39)
--- NOTE | 2020-04-19 10:01 | NUR ---
*-*DISCHARGE PLANNING*-* PATIENT HAS BEEN REFERRED TO: [facility] P: [phone] S/W DELFINA , WILL CALL BACK AFTER REVIEW.
--- NOTE | 2020-04-19 11:15 | Infectious Diseases Prog Note ---
Assessment/Plan Assessment/Plan antibiotics : vancomycin iv, zosyn A 1. left leg necrotic ulcer 2. pneumonia 3. diabetes mellitus 4. respiratory failure s/p tracheostomy P 1. continue iv vancomycin, zosyn 3 more days 2. will follow up cultures Subjective ROS Limited/Unobtainable: Yes Allergies: Coded Allergies: No Known Allergies (Unverified , 04/08/20) Objective Last 24 Hour Vital Signs Date Time Temp Pulse Resp B/P (MAP) Pulse Ox O2 Delivery O2 Flow Rate FiO2 04/19/20 08:00 Mechanical Ventilator 04/19/20 08:00 30 04/19/20 08:00 98.0 95 20 123/86 (98) 99 04/19/20 07:44 91 04/19/20 07:12 89 20 30 04/19/20 04:00 97.2 92 21 118/83 (95) 99 04/19/20 04:00 99 04/19/20 04:00 30 04/19/20 03:51 Mechanical Ventilator 04/19/20 03:10 93 23 30 04/19/20 00:03 Mechanical Ventilator 04/19/20 00:00 30 04/19/20 00:00 97.3 90 20 121/80 (94) 99 04/18/20 23:17 128 33 30 04/18/20 23:07 91 04/18/20 20:00 Mechanical Ventilator 04/18/20 20:00 97.7 87 23 126/82 (97) 100 04/18/20 20:00 30 04/18/20 19:33 80 04/18/20 19:25 83 21 30 04/18/20 16:03 96 04/18/20 16:00 97.3 85 23 131/86 (101) 99 04/18/20 16:00 30 04/18/20 16:00 Mechanical Ventilator 04/18/20 15:54 90 25 30 04/18/20 12:00 98.0 82 23 120/78 (92) 100 04/18/20 12:00 94 04/18/20 12:00 Mechanical Ventilator 04/18/20 12:00 30 04/18/20 11:20 97 21 30 Height (Feet): 5 Height (Inches): 6.00 Weight (Pounds): 135 HEENT: status post trach Respiratory/Chest: lungs clear Cardiovascular: normal rate, regular rhythm, no gallop/murmur Abdomen: soft, non tender, other - GT Extremities: no edema, other - left leg necrotic ulcers Laboratory Tests Test 04/18/20 12:55 04/18/20 16:42 04/18/20 23:48 04/19/20 03:00 POC Whole Blood Glucose Pending 187 MG/DL (74-106) H 255 MG/DL (74-106) H White Blood Count 15.5 K/UL (4.8-10.8) H Red Blood Count 3.26 M/UL (4.70-6.10) L Hemoglobin 8.9 G/DL (14.2-18.0) L Hematocrit 27.1 % (42.0-52.0) L Mean Corpuscular Volume 83 FL (80-99) Mean Corpuscular Hemoglobin 27.4 PG (27.0-31.0) Mean Corpuscular Hemoglobin Concent 33.0 G/DL (32.0-36.0) Red Cell Distribution Width 14.8 % (11.6-14.8) Platelet Count 446 K/UL (150-450) Mean Platelet Volume 6.9 FL (6.5-10.1) Neutrophils (%) (Auto) 76.3 % (45.0-75.0) H Lymphocytes (%) (Auto) 10.9 % (20.0-45.0) L Monocytes (%) (Auto) 8.4 % (1.0-10.0) Eosinophils (%) (Auto) 2.8 % (0.0-3.0) Basophils (%) (Auto) 1.6 % (0.0-2.0) Sodium Level 133 MMOL/L (136-145) L Potassium Level 3.8 MMOL/L (3.5-5.1) Chloride Level 98 MMOL/L (98-107) Carbon Dioxide Level 32 MMOL/L (21-32) Anion Gap 3 mmol/L (5-15) L Blood Urea Nitrogen 31 mg/dL (7-18) H Creatinine 1.2 MG/DL (0.55-1.30) Estimat Glomerular Filtration Rate > 60 mL/min (>60) Glucose Level 187 MG/DL (74-106) H Calcium Level 9.1 MG/DL (8.5-10.1) Total Bilirubin 0.4 MG/DL (0.2-1.0) Aspartate Amino Transf (AST/SGOT) 13 U/L (15-37) L Alanine Aminotransferase (ALT/SGPT) 17 U/L (12-78) Alkaline Phosphatase 162 U/L (46-116) H Total Protein 8.3 G/DL (6.4-8.2) H Albumin 1.7 G/DL (3.4-5.0) L Globulin 6.6 g/dL Albumin/Globulin Ratio 0.3 (1.0-2.7) L Test 04/19/20 05:20 04/19/20 08:47 POC Whole Blood Glucose 208 MG/DL (74-106) H Vancomycin Level Trough 18.7 ug/mL (5.0-12.0) H Current Medications Medications (Trade) Dose Ordered Sig/Benigno Route PRN Reason Start Time Stop Time Status Last Admin Dose Admin Acetaminophen (Tylenol) 650 mg Q4H PRN ORAL Mild Pain (Pain Scale 1-3) 04/09/20 09:00 05/09/20 08:59 Acetaminophen (Tylenol) 650 mg Q4H PRN ORAL Temp >100.5 04/09/20 09:00 05/09/20 08:59 Ascorbic Acid (Vitamin C) 1,000 mg DAILY GT 04/09/20 09:00 05/09/20 08:59 04/19/20 08:54 Dextrose (Dextrose 50%) 25 ml Q30M PRN IV Hypoglycemia 04/09/20 09:00 07/08/20 08:59 Dextrose (Dextrose 50%) 50 ml Q30M PRN IV Hypoglycemia 04/09/20 09:00 07/08/20 08:59 Diphenhydramine HCl (Benadryl) 50 mg Q12H PRN IVP Agitation 04/11/20 01:30 05/11/20 01:29 04/15/20 12:53 Furosemide (Lasix) 20 mg EVERY 12 HOURS IV 04/09/20 09:00 05/09/20 08:59 04/19/20 08:55 Haloperidol Lactate (Haldol) 5 mg Q6H PRN IM Agitation 04/11/20 16:15 05/26/20 16:14 04/17/20 10:11 Heparin Sodium (Porcine) (Heparin 5000 units/ml) 5,000 units EVERY 12 HOURS SUBQ 04/09/20 10:00 05/24/20 09:59 04/19/20 08:58 Insulin Aspart (NovoLOG) EVERY 6 HOURS SUBQ 04/15/20 06:00 07/08/20 11:29 04/19/20 05:34 Magnesium Hydroxide (Mom) 30 ml DAILYPRN PRN ORAL Constipation 04/09/20 09:00 05/09/20 08:59 Midodrine (Pro-Amatine) 10 mg THREE TIMES A DAY ORAL 04/18/20 13:00 07/08/20 08:59 04/19/20 08:55 Morphine Sulfate (Morphine Sulfate) 2 mg Q3H PRN IVP For Pain 4-04/15/20 12:30 04/22/20 12:29 Ondansetron HCl (Zofran) 4 mg Q6H PRN IVP Nausea & Vomiting 04/09/20 09:00 05/09/20 08:59 Pantoprazole (Protonix) 40 mg DAILY IVP 04/09/20 09:00 05/09/20 08:59 04/19/20 08:55 Piperacillin Sod/ Tazobactam Sod 3.375 gm/Sodium Chloride 110 ml @ 27.5 mls/hr Q8HR IVPB 04/09/20 10:00 04/23/20 09:59 04/19/20 05:05 Quetiapine Fumarate (SEROqueL) 50 mg Q6H PRN GT Restlessness and agitation 04/10/20 16:15 05/25/20 16:14 04/15/20 14:04 Quetiapine Fumarate (SEROqueL) 200 mg Q12HR GT 04/11/20 09:00 05/26/20 08:59 04/19/20 08:54 Vancomycin HCl 250 ml @ 166.667 mls/hr Q24H IVPB 04/19/20 12:00 04/24/20 11:59 Vancomycin HCl (Vanco pharmacy to dose) 1 ea DAILY PRN MISC Per rx protocol 04/09/20 08:00 05/09/20 07:59 Vitamin D (Vitamin D) 2,000 unit DAILY GT 04/09/20 09:00 05/09/20 08:59 04/19/20 08:54 Zinc Oxide (Zinc Oxide) 1 applic TIDPRN PRN TOPIC Itching 04/09/20 08:30 07/08/20 08:29 Zinc Sulfate (Zinc Sulfate) 220 mg DAILY GT 04/09/20 09:00 07/08/20 08:59 04/19/20 08:54 Wong Kilpatrick MD Apr 19, 2020 11:15
--- NOTE | 2020-04-19 11:55 | NUR ---
Perinatal EducatorSubscription Crew Leader SI: PNA, Trach/Vent dependent, Leukocytosis T 98.0, HR 94, RR 17, BP 123/86 AC 16, TV 500, FiO2 30%, PEEP 5.0 O2 Sat 99% WBC 15.5, BUN 31, Glucose 208 Cxray unchanged bilateral infiltrates, questionable small developing L pleural effusion 04-14-20 IS: Zosyn IV q 8 hrs Vancomycin IV q 12 h Heparin SQ BID Lasix IV q 12 h Protonix IVP QD Haldol IM q 6 hr prn Seroquel GT Q 12 h Benedryl 50mg IVP PRN Q 12 h Step down Status
[2020-04-19 12:00] VITALS: BP 130/74
[2020-04-19] MEDS: Vancomycin 1.25gm Premix q24h IVPB SCH (12:13)
--- NOTE | 2020-04-19 12:46 | Surgery Progress Note ---
Surgery Progress Note Subjective Additional Comments wbc improving no n/v comfortable discussed care plan for leg and understands Objective Last 24 Hour Vital Signs Date Time Temp Pulse Resp B/P (MAP) Pulse Ox O2 Delivery O2 Flow Rate FiO2 04/19/20 12:00 30 04/19/20 12:00 98.4 94 20 130/74 (92) 99 04/19/20 12:00 Mechanical Ventilator 04/19/20 11:12 94 17 30 04/19/20 10:55 94 17 99 28 04/19/20 08:00 Mechanical Ventilator 04/19/20 08:00 30 04/19/20 08:00 98.0 95 20 123/86 (98) 99 04/19/20 07:44 91 04/19/20 07:12 89 20 30 04/19/20 04:00 97.2 92 21 118/83 (95) 99 04/19/20 04:00 99 04/19/20 04:00 30 04/19/20 03:51 Mechanical Ventilator 04/19/20 03:10 93 23 30 04/19/20 00:03 Mechanical Ventilator 04/19/20 00:00 30 04/19/20 00:00 97.3 90 20 121/80 (94) 99 04/18/20 23:17 128 33 30 04/18/20 23:07 91 04/18/20 20:00 Mechanical Ventilator 04/18/20 20:00 97.7 87 23 126/82 (97) 100 04/18/20 20:00 30 04/18/20 19:33 80 04/18/20 19:25 83 21 30 04/18/20 16:03 96 04/18/20 16:00 97.3 85 23 131/86 (101) 99 04/18/20 16:00 30 04/18/20 16:00 Mechanical Ventilator 04/18/20 15:54 90 25 30 I&O Intake and Output 04/18/20 04/19/20 19:00 07:00 Intake Total 1117.500 ml 670.0 ml Output Total 600 ml 1450 ml Balance 517.500 ml -780.0 ml Intake Free Water 90 ml 60 ml IV Total 467.500 ml 110.0 ml Tube Feeding 560 ml 500 ml Output Urine Total 600 ml 1450 ml # Bowel Movements 2 Dressing: dry Wound: clean Cardiovascular: RSR Respiratory: clear, decreased breath sounds Abdomen: soft, non-tender, present bowel sounds Extremities: cyanosis, no edema, no tenderness Laboratory Tests Test 04/18/20 12:55 04/18/20 16:42 04/18/20 23:48 04/19/20 03:00 POC Whole Blood Glucose Pending 187 MG/DL (74-106) H 255 MG/DL (74-106) H White Blood Count 15.5 K/UL (4.8-10.8) H Red Blood Count 3.26 M/UL (4.70-6.10) L Hemoglobin 8.9 G/DL (14.2-18.0) L Hematocrit 27.1 % (42.0-52.0) L Mean Corpuscular Volume 83 FL (80-99) Mean Corpuscular Hemoglobin 27.4 PG (27.0-31.0) Mean Corpuscular Hemoglobin Concent 33.0 G/DL (32.0-36.0) Red Cell Distribution Width 14.8 % (11.6-14.8) Platelet Count 446 K/UL (150-450) Mean Platelet Volume 6.9 FL (6.5-10.1) Neutrophils (%) (Auto) 76.3 % (45.0-75.0) H Lymphocytes (%) (Auto) 10.9 % (20.0-45.0) L Monocytes (%) (Auto) 8.4 % (1.0-10.0) Eosinophils (%) (Auto) 2.8 % (0.0-3.0) Basophils (%) (Auto) 1.6 % (0.0-2.0) Sodium Level 133 MMOL/L (136-145) L Potassium Level 3.8 MMOL/L (3.5-5.1) Chloride Level 98 MMOL/L (98-107) Carbon Dioxide Level 32 MMOL/L (21-32) Anion Gap 3 mmol/L (5-15) L Blood Urea Nitrogen 31 mg/dL (7-18) H Creatinine 1.2 MG/DL (0.55-1.30) Estimat Glomerular Filtration Rate > 60 mL/min (>60) Glucose Level 187 MG/DL (74-106) H Calcium Level 9.1 MG/DL (8.5-10.1) Total Bilirubin 0.4 MG/DL (0.2-1.0) Aspartate Amino Transf (AST/SGOT) 13 U/L (15-37) L Alanine Aminotransferase (ALT/SGPT) 17 U/L (12-78) Alkaline Phosphatase 162 U/L (46-116) H Total Protein 8.3 G/DL (6.4-8.2) H Albumin 1.7 G/DL (3.4-5.0) L Globulin 6.6 g/dL Albumin/Globulin Ratio 0.3 (1.0-2.7) L Test 04/19/20 05:20 04/19/20 08:47 POC Whole Blood Glucose 208 MG/DL (74-106) H Vancomycin Level Trough 18.7 ug/mL (5.0-12.0) H Plan Problems: (1) Pneumonia (2) Sacral decubitus ulcer Assessment & Plan: Pt presented on admission with Tracheostomy,GT and Multiple Wounds including an Unstageable Pressure Injury Sacrum(L)2.1cm x (W)2.8cm.Base of wound is 100% slough. Borders are adherent, erythematous. Periwound is indurated with non-blanchable erythema. At L HIP A Blue marker measuring (L)6cm x (W)5cm. Small linear shaped wound that is somewhat approximated. The remaining base within Blue Marker is indurated,erythematous with elevation in skin temp at affected area within marker, and extends well beyond borders of Marker to upper L thigh(L)12cm x (W)8cm. Large Necrotic Ulcer with irregular borders noted to lateral L Tibia. Base of wound is 100% Necrotic and dry. Edges are adherent and erythematous. Periwound is dusky with elevation in skin temp noted(L)21cm x (W)11.5cm. Necrotic Ulcer lateral L foot/L malleolus(L)4cm x 6.5cm. Base of wound is 100% soft, but dry necrosis.Edges are adherent to base of wound but are erythematous. Surrounding the wound, skin colour is dusky and skin temp is elevated. NO odor or exudate noted. Open abscess/Boil noted to lateral R Tibia(L)3cm x (W)3cm with small opening at center base (L)0.4cmx (W)0.4cm. No exudate noted. Skin temp is slightly elevated. Both heels are callused and dry. Dry peeling skin noted to both lower ext, both feet including plantar aspect of both feet. Tx.Plan: Cleanse Sacral wound with Saline. Apply TheraHoney. Apply Moisture Barrier Paste periwound. Cover with Optifoam drsg Daily and prn. Apply Betadine to L Hip. Cover with Optifoam drsg. Change every 3 days and prn. Apply Betadine to Lateral L Tibia, and Lateral L foot. Cover each site with ABD Pads and wrap with Kerlix Daily and prn. Apply Betadine to Lateral R Tibia. Cover with Optifoam drsg. Change every 3 days and prn. Apply Cavilon Skin Barrier to both heels. Cover each heel with Optifoam drsg. Change every 7 days and prn. Reposition at Least every 2 hours or as tolerated. Elevate both lower ext and float Heels with pillows.Patient presents on admission with identifiable unstageable sacral decubitus ulcer fairly fra ction likely recently forming. Areas approximately 3 cm x 3 cm unknown depth. No drainage. No foul odor. Eschar area identified soft no ischemic eschar likely forming. Deep tissue underneath injury. Furthermore patient identified to have significant left lower extremity ischemic disease with ulcers and necrotic eschar. On the left lateral foot there is a necrotic eschar as well as on the left lateral leg significantly large. No drainage no signs of active infection chronic appearing in nature. Care plan initiated. Will need to ensure optimization of patient for care plan. Leukocytosis unlikely related to wounds as they do not seem actively infected Nutritional optimization We will follow with recommendations thank you for let me participate in dominick chau's care (3) Ischemia of left lower extremity Assessment & Plan: chronic large wounds US duplex arterial and venous will follow with recs leukocytosis has been trending down leg exam stable without signs of active infection. just large area of chronic ischemia eschar On the right, triphasic waveforms with sharp systolic peaks are seen at the common femoral, superficial femoral, and popliteal artery levels. Tibial vessel waveforms are biphasic or triphasic with sharp systolic peaks. On the left, triphasic waveforms are seen at the level of the common femoral artery level. Left superficial femoral artery waveforms are triphasic proximally, borderline monophasic in the mid portion. Popliteal artery waveforms are monophasic but systolic peaks are sharp. Tibial vessel waveforms are monophasic but with sharp systolic peaks. There is a stenosis of the dorsalis pedis artery, with flow velocity elevation of up to 332 cm/s. There is slightly dampened flow velocity distal to it. Impression: No evidence of significant right lower extremity arterial insufficiency Monophasic waveforms in the distal superficial femoral and popliteal artery, could indicate stenosis in these segments; more likely artifactual as there is still rapid systolic upstroke, including in the ankle vessels. Evidence of significant stenosis in the dorsalis pedis artery There is a large area of low attenuation within the lateral subcutaneous fat extending from the highest slice in the distal thigh along the entire course of the anterolateral leg and into the foot, where it extends to the level of the metacarpals dorsolaterally. Is unclear whether this represents an organized fluid collection versus intense edema/phlegmon, although suspect the latter, as there are numerous gas bubbles within the collection in the leg which do not float nondependently. There is enhancement of the tissues bordering it.. The widest extent of this is in the distal thigh, where it measures 8.2 cm AP and about 2 cm in thickness. The overall length of this is at least 45 cm, although as mentioned earlier the proximal extent is not visualized. There is a skin defect in the lateral leg at the superficial aspect of the collection which presumably represents a skin ulcer. This demonstrates multiple areas of ulceration. Low attenuation also extends into the anterior muscular compartment of the leg. The fat appears to be hypoattenuating although the musculature demonstrates only mild if any hypoattenuation. No osseous erosions, abnormal periosteal reaction, or other findings to suggest osteomyelitis are demonstrated. Impression: Intense edema versus organized fluid exiting the entire extent of the anterolateral subcutaneous fat of the leg, extending into the foot to the level of the metatarsals and proximal into the thigh beyond the edge of the imaging volume. Favor that this represents edema/phlegmon, as there are gas bubbles that appear to be trapped within it, and there is an open wound through which it should drain if it was fluid. Presence of gas bubbles is concerning for infection with a gas-forming organism. This process also extends into the anterior muscular compartment of the tibial muscles No definite evidence of osteomyelitis. However, evaluation for such is limited on CT, and MRI should be considered if this is a clinical concern Anthony Fernandez Apr 19, 2020 12:46
[2020-04-19 16:00] VITALS: BP 133/88
--- NOTE | 2020-04-19 16:53 | NUR ---
*-*DISCHARGE PLANNING*-* PATIENT HAS BEEN REFERRED TO: [facility] P: [phone] S/W DELFINA, NO BEDS AVAILABLE, WILL SEND TO [facility].
--- NOTE | 2020-04-19 16:54 | NUR ---
*-*DISCHARGE PLANNING*-* [facility] P: [phone] S/W SHAYY, STATED ONLY ACCEPTING SKILLED PATIENTS, WILL SEND TO [facility] LIN WILL CALL [facility]. DENISE MULLINS P: [phone] S/W ABAD, ONLY ACCEPTING COVID POSITIVE PATIENTS.
--- NOTE | 2020-04-19 16:59 | General Progress Note ---
Subjective ROS Limited/Unobtainable: Yes Allergies: Coded Allergies: No Known Allergies (Unverified , 04/08/20) Subjective care noted on vent and trach Objective Last 24 Hour Vital Signs Date Time Temp Pulse Resp B/P (MAP) Pulse Ox O2 Delivery O2 Flow Rate FiO2 04/19/20 16:00 Mechanical Ventilator 04/19/20 16:00 97.5 87 24 133/88 (103) 99 04/19/20 16:00 30 04/19/20 15:04 88 21 30 04/19/20 12:00 30 04/19/20 12:00 98.4 94 20 130/74 (92) 99 04/19/20 12:00 Mechanical Ventilator 04/19/20 12:00 92 04/19/20 11:12 94 17 30 04/19/20 10:55 94 17 99 28 04/19/20 08:00 Mechanical Ventilator 04/19/20 08:00 30 04/19/20 08:00 98.0 95 20 123/86 (98) 99 04/19/20 07:44 91 04/19/20 07:12 89 20 30 04/19/20 04:00 97.2 92 21 118/83 (95) 99 04/19/20 04:00 99 04/19/20 04:00 30 04/19/20 03:51 Mechanical Ventilator 04/19/20 03:10 93 23 30 04/19/20 00:03 Mechanical Ventilator 04/19/20 00:00 30 04/19/20 00:00 97.3 90 20 121/80 (94) 99 04/18/20 23:17 128 33 30 04/18/20 23:07 91 04/18/20 20:00 Mechanical Ventilator 04/18/20 20:00 97.7 87 23 126/82 (97) 100 04/18/20 20:00 30 04/18/20 19:33 80 04/18/20 19:25 83 21 30 Intake and Output 04/18/20 04/19/20 19:00 07:00 Intake Total 1117.500 ml 670.0 ml Output Total 600 ml 1450 ml Balance 517.500 ml -780.0 ml Intake Free Water 90 ml 60 ml IV Total 467.500 ml 110.0 ml Tube Feeding 560 ml 500 ml Output Urine Total 600 ml 1450 ml # Bowel Movements 2 Laboratory Tests 04/18/20 23:48: POC Whole Blood Glucose 255H 04/19/20 03:00: White Blood Count 15.5H, Red Blood Count 3.26L, Hemoglobin 8.9L, Hematocrit 27.1L, Mean Corpuscular Volume 83, Mean Corpuscular Hemoglobin 27.4, Mean Corpuscular Hemoglobin Concent 33.0, Red Cell Distribution Width 14.8, Platelet Count 446, Mean Platelet Volume 6.9, Neutrophils (%) (Auto) 76.3H, Lymphocytes (%) (Auto) 10.9L, Monocytes (%) (Auto) 8.4, Eosinophils (%) (Auto) 2.8, Basophils (%) (Auto) 1.6, Sodium Level 133L, Potassium Level 3.8, Chloride Level 98, Carbon Dioxide Level 32, Anion Gap 3L, Blood Urea Nitrogen 31H, Creatinine 1.2, Estimat Glomerular Filtration Rate > 60, Glucose Level 187H, Calcium Level 9.1, Total Bilirubin 0.4, Aspartate Amino Transf (AST/SGOT) 13L, Alanine Aminotransferase (ALT/SGPT) 17, Alkaline Phosphatase 162H, Total Protein 8.3H, Albumin 1.7L, Globulin 6.6, Albumin/Globulin Ratio 0.3L 04/19/20 05:20: POC Whole Blood Glucose 208H 04/19/20 08:47: Vancomycin Level Trough 18.7H Height (Feet): 5 Height (Inches): 6.00 Weight (Pounds): 135 Objective WDWN trach reduced breath sounds bilaterally without rhonchi or wheeze [id number] without MRG NABS nontender GT no CCE poor LOC Assessment/Plan Assessment/Plan: Impression: Pneumonia, h/o Klebsiella Ventilator dependance Tracheostomy status Diabetes Sacral decubitus and feet pressure areas azotemia leukocytosis necrotic lower extremity diabetes Plan: - Continue antibiotics per ID - ID Consult,Surgery Consult - Continue current ventilator sttings - Adjust O2 as needed - DVT prophylaxis -Wound consult - dc planning to snf to complete care impression, plan, and exam edited and reviewed in detail care discussed with Mikhail Alejandro MD Apr 19, 2020 16:59
--- NOTE | 2020-04-19 17:09 | NUR ---
*-*DISCHARGE PLANNING*-* PATIENT HAS BEEN REFERRED TO: [facility] P: [phone]
--- NOTE | 2020-04-19 19:00 | NUR ---
NURSE HAND-OFF REPORT: Important Events on Shift:NA Patient Status: Stable Diet: Gtube glucerna 1.2 Pending Orders: Na Pending Results/Labs:Na Pending MD notification:Na Latest Vital Signs: Temperature 97.5 , Pulse 87 , B/P 133 /88 , Respiratory Rate 23 , O2 SAT 99 , Mechanical Ventilator, O2 Flow Rate 3.0 . Vital Sign Comment: Stable EKG Rhythm: Sinus Rhythm Rhythm change?: N MD Notified?: N - MD Response: Latest Linder Fall Score: 95 Fall Risk: High Risk Safety Measures: Call light Within Reach, Bed Alarm Zone 2, Side Rails Side Rails x3, Bed position Low and Locked. Fall Precautions: Yellow Socks Yellow Gown Door Sign Patient Fall Education Report given to EMILE Montoya.
--- NOTE | 2020-04-19 19:05 | NUR ---
NURSE NOTES: Received patient from EMILE Watts under the care of Dr. Campbell for the admitting dx. of PNA. No allergies noted. Full code. Fall and aspiration precautions observed and maintained at all times. Patient noted awake and alert to self, with periods of agitation and confusion. Patient on B soft wrist restraints for pulling on medical devices. Tolerating O2 settings well. Will continue with current plan of care.
[2020-04-19 20:00] VITALS: BP 130/84
--- NOTE | 2020-04-19 20:48 | General Progress Note ---
Subjective Allergies: Coded Allergies: No Known Allergies (Unverified , 04/08/20) Subjective Above noted tolerating TF Resting Objective Last 24 Hour Vital Signs Date Time Temp Pulse Resp B/P (MAP) Pulse Ox O2 Delivery O2 Flow Rate FiO2 04/19/20 20:00 30 04/19/20 20:00 Mechanical Ventilator 04/19/20 20:00 97.2 85 19 130/84 (99) 97 04/19/20 18:50 87 23 30 04/19/20 16:00 Mechanical Ventilator 04/19/20 16:00 90 04/19/20 16:00 97.5 87 24 133/88 (103) 99 04/19/20 16:00 30 04/19/20 15:04 88 21 30 04/19/20 12:00 30 04/19/20 12:00 98.4 94 20 130/74 (92) 99 04/19/20 12:00 Mechanical Ventilator 04/19/20 12:00 92 04/19/20 11:12 94 17 30 04/19/20 10:55 94 17 99 28 04/19/20 08:00 Mechanical Ventilator 04/19/20 08:00 30 04/19/20 08:00 98.0 95 20 123/86 (98) 99 04/19/20 07:44 91 04/19/20 07:12 89 20 30 04/19/20 04:00 97.2 92 21 118/83 (95) 99 04/19/20 04:00 99 04/19/20 04:00 30 04/19/20 03:51 Mechanical Ventilator 04/19/20 03:10 93 23 30 04/19/20 00:03 Mechanical Ventilator 04/19/20 00:00 30 04/19/20 00:00 97.3 90 20 121/80 (94) 99 04/18/20 23:17 128 33 30 04/18/20 23:07 91 Intake and Output 04/18/20 04/19/20 19:00 07:00 Intake Total 1117.500 ml 720.0 ml Output Total 600 ml 1450 ml Balance 517.500 ml -730.0 ml Intake Free Water 90 ml 60 ml IV Total 467.500 ml 110.0 ml Tube Feeding 560 ml 550 ml Output Urine Total 600 ml 1450 ml # Bowel Movements 2 Laboratory Tests 04/18/20 23:48: POC Whole Blood Glucose 255H 04/19/20 03:00: White Blood Count 15.5H, Red Blood Count 3.26L, Hemoglobin 8.9L, Hematocrit 27.1L, Mean Corpuscular Volume 83, Mean Corpuscular Hemoglobin 27.4, Mean Corpuscular Hemoglobin Concent 33.0, Red Cell Distribution Width 14.8, Platelet Count 446, Mean Platelet Volume 6.9, Neutrophils (%) (Auto) 76.3H, Lymphocytes (%) (Auto) 10.9L, Monocytes (%) (Auto) 8.4, Eosinophils (%) (Auto) 2.8, Basophils (%) (Auto) 1.6, Sodium Level 133L, Potassium Level 3.8, Chloride Level 98, Carbon Dioxide Level 32, Anion Gap 3L, Blood Urea Nitrogen 31H, Creatinine 1.2, Estimat Glomerular Filtration Rate > 60, Glucose Level 187H, Calcium Level 9.1, Total Bilirubin 0.4, Aspartate Amino Transf (AST/SGOT) 13L, Alanine Aminotransferase (ALT/SGPT) 17, Alkaline Phosphatase 162H, Total Protein 8.3H, Albumin 1.7L, Globulin 6.6, Albumin/Globulin Ratio 0.3L 04/19/20 05:20: POC Whole Blood Glucose 208H 04/19/20 08:47: Vancomycin Level Trough 18.7H Height (Feet): 5 Height (Inches): 6.00 Weight (Pounds): 135 Objective Debilitated NCAT (+) trach Coarse BS RR abd soft, (+) GT ext (+) LLE leg dressings, no edema Assessment/Plan Assessment/Plan: Assessment - dysphagia, GT - resp failure, trach - anemia - leukocytosis - malnutrition - decub ulcer - LE ischemia - DM Recommendations - continue TF - protein powder - MVI / zinc - GT care - follow labs - abx Slade Shah MD Apr 19, 2020 20:48
--- NOTE | 2020-04-19 21:00 | NUR ---
NURSE NOTES: Patient awake, tolerating vent settings well. All due medications provided and tolerated well. Denies pain at this time. Will continue to monitor.
[2020-04-20] VITALS: BP 133/86
--- NOTE | 2020-04-20 | NUR ---
NURSE NOTES: Patient awake and noted watching TV. Soft wrist restraints readjusted and education given to patient regarding removal parameters. Will continue to monitor.
[2020-04-20] MEDS: NovoLOG Insulin Flexpen SUBQ SCH ×4 (00:39→17:13)
--- NOTE | 2020-04-20 03:00 | NUR ---
NURSE NOTES: Patient noted asleep, tolerating vent settings well, no acute distress noted. Will continue to monitor.
[2020-04-20 04:00] VITALS: BP 116/85
[2020-04-20 05:36] LABS: BASOPHILS % (AUTO) 0.9 % (0.0-2.0); EOSINOPHILS % (AUTO) 2.3 % (0.0-3.0); HEMATOCRIT 26.6 % (42.0-52.0); HEMOGLOBIN 8.8 G/DL (14.2-18.0); LYMPHOCYTES % (AUTO) 8.9 % (20.0-45.0); MEAN CORPUSCULAR VOLUME 83 FL (80-99); NEUTROPHILS % (AUTO) 78.9 % (45.0-75.0); PLATELET COUNT 454 K/UL (150-450); RED BLOOD COUNT 3.21 M/UL (4.70-6.10); RED CELL DISTRIBUTION WIDTH 14.5 % (11.6-14.8); WHITE BLOOD COUNT 14.7 K/UL (4.8-10.8)
[2020-04-20 05:42] LABS: ANION GAP 3 mmol/L (5-15); BLOOD UREA NITROGEN 37 mg/dL (7-18); CALCIUM 9.3 MG/DL (8.5-10.1); CARBON DIOXIDE 33 MMOL/L (21-32); CHLORIDE 98 MMOL/L (98-107); CREATININE 1.2 MG/DL (0.55-1.30); POTASSIUM 3.9 MMOL/L (3.5-5.1); SODIUM 134 MMOL/L (136-145)
--- NOTE | 2020-04-20 06:00 | NUR ---
NURSE NOTES: In no apparent distress. Remain alert and OX4. Respiration even and unlabored w/no s/s of SOB. Tach to vent. Saturating 99% with current setting. Bed is in lowest position. Side rails up X2. Brakes engaged. Bed alarm engaged. Call light is within reach.
[2020-04-20] MEDS: Piperacillin/Tazobactam 3.375 GM in NS 110 ML IVPB SCH ×3 (06:12→21:37)
--- NOTE | 2020-04-20 07:00 | NUR ---
HAND-OFF: Report given to Rico Bender RN.
--- NOTE | 2020-04-20 07:25 | NUR ---
NURSE NOTES: RECEIVED REPORT FROM [employer]TON[facility] [employer]. RECEIVED PT WITH HOB ELEVATED 45 DEGREE AWAKE ALERT TO NAME BUT WITH PERIODS OF CONFUSION. PT WITH BILAT SOFT WRIST RESTRAINS IN PLACE TO PREVENT HIM FROM PULLING MEDICAL DEVICES AND FALL,S. REMOVED BILAT SOFT WRIST RESTRAINTS AND RENDERED ROM,S TO ALL ETX,S. PT REPOSITIONED IN BED TO PROVIDE COMFORT AND TO PREVENT FURTHER SKIN BREAK DOWN. FULL BODY ASSESSMENT DONE. PT TOLERATING WELL CURRENTS VENT SETTINGS AC 16, TV 500, PEEP 5,FIO2 30%. O2 SAT 98%. RENDERED TRACH CARE AND ORAL HYGIENE, MOD AMT OF WHITE TICK SECRETIONS NOTE. RE-APPLIED SOFT RESTRAINTS PER M.D ORDERS FOR PT SAFETY. PT REMAINS FREE OF INJURIES AT THIS TIME. WILL CONT TO MONITOR.
[2020-04-20 08:00] VITALS: BP 145/77
[2020-04-20] MEDS: Zinc Sulfate 220mg GT SCH (09:14)
[2020-04-20] MEDS: Pantoprazole Inj IVP SCH (09:14)
[2020-04-20] MEDS: Vitamin D 1000 units Tab GT SCH (09:15)
[2020-04-20] MEDS: QUEtiapine 200mg tab GT SCH ×2 (09:15→20:06)
[2020-04-20] MEDS: Ascorbic Acid 500mg tab GT SCH (09:15)
[2020-04-20] MEDS: Midodrine 10mg tab ORAL SCH ×3 (09:15→17:12)
[2020-04-20] MEDS: Heparin 5000 units/ml inj SUBQ SCH ×2 (09:18→20:06)
--- NOTE | 2020-04-20 10:33 | NUR ---
RD ASSESSMENT & RECOMMENDATIONS SEE CARE ACTIVITY FOR COMPLETE ASSESSMENT DAILY ESTIMATED NEEDS: Needs based on Critical care, wound, underweight/ 52kg 25-30 kcals/kg 1704-6338 total kcals 1.25-2 g protein/kg 65-104 g total protein 25-30 mL/kg 0330-8503 total fluid mLs NUTRITION DIAGNOSIS: Swallowing difficulty R/T respiratory status as evidenced by trach/vent dep, PEG dep. CURRENT TF:Glucerna 1.2 @ 70ml/hr x 24 hrs ENTERAL NUTRITION RECOMMENDATIONS: Glucerna 1.2 @ 50ml/hr x 24 hrs to provide 1200ml, 1440kcal, 72g prot, 966ml free water * Rec goal rate of 50ml/hr x 24 hrs: meets 100% est kcal/prot needs * HOB over 30 degrees/ water flush per MD ADDITIONAL RECOMMENDATIONS: * Calibrated bedscale wt * Wound care: Continue Vit C and ZnSO4 William BID via PEG * Monitor lytes, replete as needed * Monitor BGs, POC glu 200's -> rec LOWERING TF goal rate, monitor need for long acting.
--- NOTE | 2020-04-20 10:39 | General Progress Note ---
Subjective ROS Limited/Unobtainable: Yes Allergies: Coded Allergies: No Known Allergies (Unverified , 04/08/20) Subjective care noted on vent and trach Objective Last 24 Hour Vital Signs Date Time Temp Pulse Resp B/P (MAP) Pulse Ox O2 Delivery O2 Flow Rate FiO2 04/20/20 08:00 97.8 90 20 145/77 (99) 98 04/20/20 07:43 93 04/20/20 04:00 97.2 92 20 116/85 (95) 100 04/20/20 04:00 96 04/20/20 04:00 30 04/20/20 04:00 Mechanical Ventilator 04/20/20 03:15 96 19 30 04/20/20 02:01 30 04/20/20 00:00 86 04/20/20 00:00 Mechanical Ventilator 04/20/20 00:00 97.5 88 18 133/86 (102) 100 04/19/20 23:23 87 25 30 04/19/20 20:16 84 04/19/20 20:00 30 04/19/20 20:00 Mechanical Ventilator 04/19/20 20:00 97.2 85 19 130/84 (99) 97 04/19/20 18:50 87 23 30 04/19/20 16:00 Mechanical Ventilator 04/19/20 16:00 90 04/19/20 16:00 97.5 87 24 133/88 (103) 99 04/19/20 16:00 30 04/19/20 15:04 88 21 30 04/19/20 12:00 30 04/19/20 12:00 98.4 94 20 130/74 (92) 99 04/19/20 12:00 Mechanical Ventilator 04/19/20 12:00 92 04/19/20 11:12 94 17 30 04/19/20 10:55 94 17 99 28 Intake and Output 04/19/20 04/20/20 19:00 07:00 Intake Total 1260.0 ml 900 ml Output Total 500 ml 1500 ml Balance 760.0 ml -600 ml Intake Free Water 300 ml 300 ml IV Total 360.0 ml Tube Feeding 600 ml 600 ml Output Urine Total 500 ml 1500 ml # Bowel Movements 1 Laboratory Tests 04/20/20 00:34: POC Whole Blood Glucose [Pending] 04/20/20 03:05: White Blood Count 14.7H, Red Blood Count 3.21L, Hemoglobin 8.8L, Hematocrit 26.6L, Mean Corpuscular Volume 83, Mean Corpuscular Hemoglobin 27.4, Mean Corpuscular Hemoglobin Concent 33.0, Red Cell Distribution Width 14.5, Platelet Count 454H, Mean Platelet Volume 6.5, Neutrophils (%) (Auto) 78.9H, Lymphocytes (%) (Auto) 8.9L, Monocytes (%) (Auto) 9.0, Eosinophils (%) (Auto) 2.3, Basophils (%) (Auto) 0.9, Sodium Level 134L, Potassium Level 3.9, Chloride Level 98, Carbon Dioxide Level 33H, Anion Gap 3L, Blood Urea Nitrogen 37H, Creatinine 1.2, Estimat Glomerular Filtration Rate > 60, Glucose Level 195H, Calcium Level 9.3 Height (Feet): 5 Height (Inches): 6.00 Weight (Pounds): 135 Objective WDWN trach reduced breath sounds bilaterally without rhonchi or wheeze [id number] without MRG NABS nontender GT no CCE poor LOC Assessment/Plan Assessment/Plan: Impression: Pneumonia, h/o Klebsiella Ventilator dependance Tracheostomy status Diabetes Sacral decubitus and feet pressure areas azotemia leukocytosis necrotic lower extremity diabetes Plan: - Continue antibiotics per ID - ID Consult,Surgery Consult - Continue current ventilator sttings - Adjust O2 as needed - DVT prophylaxis -Wound consult - dc planning to snf today if cleared impression, plan, and exam edited and reviewed in detail care discussed with Mikhail Alejandro MD Apr 20, 2020 10:39
--- NOTE | 2020-04-20 10:41 | Infectious Diseases Prog Note ---
Assessment/Plan Assessment/Plan A: 1. Pneumonia. 2. Sacral decubitus ulcer. 3. Left leg necrotic ulcer, phlegmon or edema 4. Ventilator dependent respiratory failure 5. Anemia 5. Leukocytosis improving PLAN: 1. Continue IV vancomycin and Zosyn X 2 days 2. We will follow up cultures Subjective ROS Limited/Unobtainable: Yes Respiratory: Reports: no symptoms Neurologic: Reports: other - on restraint Musculoskeletal: Reports: no symptoms Allergies: Coded Allergies: No Known Allergies (Unverified , 04/08/20) Objective Last 24 Hour Vital Signs Date Time Temp Pulse Resp B/P (MAP) Pulse Ox O2 Delivery O2 Flow Rate FiO2 04/20/20 08:00 97.8 90 20 145/77 (99) 98 04/20/20 07:43 93 04/20/20 04:00 97.2 92 20 116/85 (95) 100 04/20/20 04:00 96 04/20/20 04:00 30 04/20/20 04:00 Mechanical Ventilator 04/20/20 03:15 96 19 30 04/20/20 02:01 30 04/20/20 00:00 86 04/20/20 00:00 Mechanical Ventilator 04/20/20 00:00 97.5 88 18 133/86 (102) 100 04/19/20 23:23 87 25 30 04/19/20 20:16 84 04/19/20 20:00 30 04/19/20 20:00 Mechanical Ventilator 04/19/20 20:00 97.2 85 19 130/84 (99) 97 04/19/20 18:50 87 23 30 04/19/20 16:00 Mechanical Ventilator 04/19/20 16:00 90 04/19/20 16:00 97.5 87 24 133/88 (103) 99 04/19/20 16:00 30 04/19/20 15:04 88 21 30 04/19/20 12:00 30 04/19/20 12:00 98.4 94 20 130/74 (92) 99 04/19/20 12:00 Mechanical Ventilator 04/19/20 12:00 92 04/19/20 11:12 94 17 30 04/19/20 10:55 94 17 99 28 Height (Feet): 5 Height (Inches): 6.00 Weight (Pounds): 135 HEENT: status post trach Respiratory/Chest: lungs clear, other - on ventilator Cardiovascular: normal rate Abdomen: soft, non tender Extremities: no edema Skin: other - left leg eschar Neurologic/Psychiatric: alert, responsive Laboratory Tests Test 04/20/20 00:34 04/20/20 03:05 POC Whole Blood Glucose Pending White Blood Count 14.7 K/UL (4.8-10.8) H Red Blood Count 3.21 M/UL (4.70-6.10) L Hemoglobin 8.8 G/DL (14.2-18.0) L Hematocrit 26.6 % (42.0-52.0) L Mean Corpuscular Volume 83 FL (80-99) Mean Corpuscular Hemoglobin 27.4 PG (27.0-31.0) Mean Corpuscular Hemoglobin Concent 33.0 G/DL (32.0-36.0) Red Cell Distribution Width 14.5 % (11.6-14.8) Platelet Count 454 K/UL (150-450) H Mean Platelet Volume 6.5 FL (6.5-10.1) Neutrophils (%) (Auto) 78.9 % (45.0-75.0) H Lymphocytes (%) (Auto) 8.9 % (20.0-45.0) L Monocytes (%) (Auto) 9.0 % (1.0-10.0) Eosinophils (%) (Auto) 2.3 % (0.0-3.0) Basophils (%) (Auto) 0.9 % (0.0-2.0) Sodium Level 134 MMOL/L (136-145) L Potassium Level 3.9 MMOL/L (3.5-5.1) Chloride Level 98 MMOL/L (98-107) Carbon Dioxide Level 33 MMOL/L (21-32) H Anion Gap 3 mmol/L (5-15) L Blood Urea Nitrogen 37 mg/dL (7-18) H Creatinine 1.2 MG/DL (0.55-1.30) Estimat Glomerular Filtration Rate > 60 mL/min (>60) Glucose Level 195 MG/DL (74-106) H Calcium Level 9.3 MG/DL (8.5-10.1) Current Medications Medications (Trade) Dose Ordered Sig/Benigno Route PRN Reason Start Time Stop Time Status Last Admin Dose Admin Acetaminophen (Tylenol) 650 mg Q4H PRN ORAL Mild Pain (Pain Scale 1-3) 04/09/20 09:00 05/09/20 08:59 Acetaminophen (Tylenol) 650 mg Q4H PRN ORAL Temp >100.5 04/09/20 09:00 05/09/20 08:59 Ascorbic Acid (Vitamin C) 1,000 mg DAILY GT 04/09/20 09:00 05/09/20 08:59 04/20/20 09:15 Dextrose (Dextrose 50%) 25 ml Q30M PRN IV Hypoglycemia 04/09/20 09:00 07/08/20 08:59 Dextrose (Dextrose 50%) 50 ml Q30M PRN IV Hypoglycemia 04/09/20 09:00 07/08/20 08:59 Diphenhydramine HCl (Benadryl) 50 mg Q12H PRN IVP Agitation 04/11/20 01:30 05/11/20 01:29 04/15/20 12:53 Furosemide (Lasix) 20 mg EVERY 12 HOURS IV 04/09/20 09:00 05/09/20 08:59 04/20/20 09:14 Haloperidol Lactate (Haldol) 5 mg Q6H PRN IM Agitation 04/11/20 16:15 05/26/20 16:14 04/17/20 10:11 Heparin Sodium (Porcine) (Heparin 5000 units/ml) 5,000 units EVERY 12 HOURS SUBQ 04/09/20 10:00 05/24/20 09:59 04/20/20 09:18 Insulin Aspart (NovoLOG) EVERY 6 HOURS SUBQ 04/15/20 06:00 07/08/20 11:29 04/20/20 06:39 Magnesium Hydroxide (Mom) 30 ml DAILYPRN PRN ORAL Constipation 04/09/20 09:00 05/09/20 08:59 Midodrine (Pro-Amatine) 10 mg THREE TIMES A DAY ORAL 04/20/20 09:00 07/17/20 08:59 04/20/20 09:15 Morphine Sulfate (Morphine Sulfate) 2 mg Q3H PRN IVP For Pain 4-10 04/15/20 12:30 04/22/20 12:29 Ondansetron HCl (Zofran) 4 mg Q6H PRN IVP Nausea & Vomiting 04/09/20 09:00 05/09/20 08:59 Pantoprazole (Protonix) 40 mg DAILY IVP 04/09/20 09:00 05/09/20 08:59 04/20/20 09:14 Piperacillin Sod/ Tazobactam Sod 3.375 gm/Sodium Chloride 110 ml @ 27.5 mls/hr Q8HR IVPB 04/09/20 10:00 04/23/20 09:59 04/20/20 06:12 Quetiapine Fumarate (SEROqueL) 50 mg Q6H PRN GT Restlessness and agitation 04/10/20 16:15 05/25/20 16:14 04/15/20 14:04 Quetiapine Fumarate (SEROqueL) 200 mg Q12HR GT 04/11/20 09:00 05/26/20 08:59 04/20/20 09:15 Vancomycin HCl 250 ml @ 166.667 mls/hr Q24H IVPB 04/19/20 12:00 04/24/20 11:59 04/19/20 12:13 Vancomycin HCl (Vanco pharmacy to dose) 1 ea DAILY PRN MISC Per rx protocol 04/09/20 08:00 05/09/20 07:59 Vitamin D (Vitamin D) 2,000 unit DAILY GT 04/09/20 09:00 05/09/20 08:59 04/20/20 09:15 Zinc Oxide (Zinc Oxide) 1 applic TIDPRN PRN TOPIC Itching 04/09/20 08:30 07/08/20 08:29 Zinc Sulfate (Zinc Sulfate) 220 mg DAILY GT 04/09/20 09:00 07/08/20 08:59 04/20/20 09:14 Sumit Devine MD Apr 20, 2020 10:41
[2020-04-20 12:00] VITALS: BP 120/79
[2020-04-20] MEDS: Vancomycin 1.25gm Premix q24h IVPB SCH (12:23)
--- NOTE | 2020-04-20 15:11 | NUR ---
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
[2020-04-20 16:00] VITALS: BP 114/77
--- NOTE | 2020-04-20 16:50 | NUR ---
NURSE NOTES:WOUND CARE FOLLOW-UP NOTES:Pt presented on admission with tracheostomy,GT, Sacral Pressure Injury, Ulcerations L lower ext and L foot. Unstageable Sacral Pressure Injury(L)1.5cm x (W)1.3cm Base of wound is 100% slough. Margins and periwound are edematous ,but without induration or changes in skin temp. NO odor or exudate noted. Large Necrotic Ulcer with irregular borders Lateral L tibia(L)19.8cm x (W)10cm .Base of necrotic wound is dry.Edges are adherent to base of wound . NO erythema,induration/fluctuance noted periwound. Dry Necrotic Ulcer dorso/lateral L foot(L04.5cm x (W)3.7cm. Edges are adherent to base of wound. No erythema ,induration or fluctuance periwound. L Heel is dry and callused. Boil lateral R tibia previously documented;has resolved. R heel is callused and dry . Tx are effective and continued as ordered. All wound prevention protocols continued as care-planned.
--- NOTE | 2020-04-20 18:06 | Surgery Progress Note ---
Surgery Progress Note Subjective Symptoms: improved Objective Last 24 Hour Vital Signs Date Time Temp Pulse Resp B/P (MAP) Pulse Ox O2 Delivery O2 Flow Rate FiO2 04/20/20 16:00 93 04/20/20 16:00 97.6 90 20 114/77 (89) 95 04/20/20 15:39 88 21 30 04/20/20 12:00 97.7 87 20 120/79 (93) 97 04/20/20 12:00 Mechanical Ventilator 04/20/20 12:00 30 04/20/20 11:35 93 04/20/20 11:00 90 19 30 04/20/20 08:00 30 04/20/20 08:00 Mechanical Ventilator 04/20/20 08:00 97.8 90 20 145/77 (99) 98 04/20/20 07:43 93 04/20/20 07:10 93 22 30 04/20/20 04:00 97.2 92 20 116/85 (95) 100 04/20/20 04:00 96 04/20/20 04:00 30 04/20/20 04:00 Mechanical Ventilator 04/20/20 03:15 96 19 30 04/20/20 02:01 30 04/20/20 00:00 86 04/20/20 00:00 Mechanical Ventilator 04/20/20 00:00 97.5 88 18 133/86 (102) 100 04/19/20 23:23 87 25 30 04/19/20 20:16 84 04/19/20 20:00 30 04/19/20 20:00 Mechanical Ventilator 04/19/20 20:00 97.2 85 19 130/84 (99) 97 04/19/20 18:50 87 23 30 I&O Intake and Output 04/19/20 04/20/20 19:00 07:00 Intake Total 1260.0 ml 900 ml Output Total 500 ml 1500 ml Balance 760.0 ml -600 ml Intake Free Water 300 ml 300 ml IV Total 360.0 ml Tube Feeding 600 ml 600 ml Output Urine Total 500 ml 1500 ml # Bowel Movements 1 Dressing: dry Cardiovascular: RSR Respiratory: decreased breath sounds Abdomen: non-tender, present bowel sounds Extremities: cyanosis, no edema, no tenderness Laboratory Tests Test 04/20/20 00:34 04/20/20 03:05 04/20/20 12:04/20/20 16:54 POC Whole Blood Glucose Pending 291 MG/DL (74-106) H 208 MG/DL (74-106) H White Blood Count 14.7 K/UL (4.8-10.8) H Red Blood Count 3.21 M/UL (4.70-6.10) L Hemoglobin 8.8 G/DL (14.2-18.0) L Hematocrit 26.6 % (42.0-52.0) L Mean Corpuscular Volume 83 FL (80-99) Mean Corpuscular Hemoglobin 27.4 PG (27.0-31.0) Mean Corpuscular Hemoglobin Concent 33.0 G/DL (32.0-36.0) Red Cell Distribution Width 14.5 % (11.6-14.8) Platelet Count 454 K/UL (150-450) H Mean Platelet Volume 6.5 FL (6.5-10.1) Neutrophils (%) (Auto) 78.9 % (45.0-75.0) H Lymphocytes (%) (Auto) 8.9 % (20.0-45.0) L Monocytes (%) (Auto) 9.0 % (1.0-10.0) Eosinophils (%) (Auto) 2.3 % (0.0-3.0) Basophils (%) (Auto) 0.9 % (0.0-2.0) Sodium Level 134 MMOL/L (136-145) L Potassium Level 3.9 MMOL/L (3.5-5.1) Chloride Level 98 MMOL/L (98-107) Carbon Dioxide Level 33 MMOL/L (21-32) H Anion Gap 3 mmol/L (5-15) L Blood Urea Nitrogen 37 mg/dL (7-18) H Creatinine 1.2 MG/DL (0.55-1.30) Estimat Glomerular Filtration Rate > 60 mL/min (>60) Glucose Level 195 MG/DL (74-106) H Calcium Level 9.3 MG/DL (8.5-10.1) Plan Problems: (1) Pneumonia (2) Sacral decubitus ulcer Assessment & Plan: Pt presented on admission with Tracheostomy,GT and Multiple Wounds including an Unstageable Pressure Injury Sacrum(L)2.1cm x (W)2.8cm.Base of wound is 100% slough. Borders are adherent, erythematous. Periwound is indurated with non-blanchable erythema. At L HIP A Blue marker measuring (L)6cm x (W)5cm. Small linear shaped wound that is somewhat approximated. The remaining base within Blue Marker is indurated,erythematous with elevation in skin temp at affected area within marker, and extends well beyond borders of Marker to upper L thigh(L)12cm x (W)8cm. Large Necrotic Ulcer with irregular borders noted to lateral L Tibia. Base of wound is 100% Necrotic and dry. Edges are adherent and erythematous. Periwound is dusky with elevation in skin temp noted(L)21cm x (W)11.5cm. Necrotic Ulcer lateral L foot/L malleolus(L)4cm x 6.5cm. Base of wound is 100% soft, but dry necrosis.Edges are adherent to base of wound but are erythematous. Surrounding the wound, skin colour is dusky and skin temp is elevated. NO odor or exudate noted. Open abscess/Boil noted to lateral R Tibia(L)3cm x (W)3cm with small opening at center base (L)0.4cmx (W)0.4cm. No exudate noted. Skin temp is slightly elevated. Both heels are callused and dry. Dry peeling skin noted to both lower ext, both feet including plantar aspect of both feet. Tx.Plan: Cleanse Sacral wound with Saline. Apply TheraHoney. Apply Moisture Barrier Paste periwound. Cover with Optifoam drsg Daily and prn. Apply Betadine to L Hip. Cover with Optifoam drsg. Change every 3 days and prn. Apply Betadine to Lateral L Tibia, and Lateral L foot. Cover each site with ABD Pads and wrap with Kerlix Daily and prn. Apply Betadine to Lateral R Tibia. Cover with Optifoam drsg. Change every 3 days and prn. Apply Cavilon Skin Barrier to both heels. Cover each heel with Optifoam drsg. Change every 7 days and prn. Reposition at Least every 2 hours or as tolerated. Elevate both lower ext and float Heels with pillows.Patient presents on admission with identifiable unstageable sacral decubitus ulcer fairly fraction likely recently forming. Areas approximately 3 cm x 3 cm unknown depth. No drainage. No foul odor. Eschar area identified soft no ischemic eschar likely forming. Deep tissue underneath injury. Furthermore patient identified to have significant left lower extremity ischemic disease with ulcers and necrotic eschar. On the left lateral foot there is a necrotic eschar as well as on the left lateral leg significantly large. No drainage no signs of active infection chronic appearing in nature. Care plan initiated. Will need to ensure optimization of patient for care plan. Leukocytosis unlikely related to wounds as they do not seem actively infected Nutritional optimization We will follow with recommendations thank you for let me participate in patient's care (3) Ischemia of left lower extremity Assessment & Plan: chronic large wounds US duplex arterial and venous will follow with recs leukocytosis has been trending down leg exam stable without signs of active infection. just large area of chronic ischemia eschar On the right, triphasic waveforms with sharp systolic peaks are seen at the common femoral, superficial femoral, and popliteal artery levels. Tibial vessel waveforms are biphasic or triphasic with sharp systolic peaks. On the left, triphasic waveforms are seen at the level of the common femoral artery level. Left superficial femoral artery waveforms are triphasic proximally, borderline monophasic in the mid portion. Popliteal artery waveforms are monophasic but systolic peaks are sharp. Tibial vessel waveforms are monophasic but with sharp systolic peaks. There is a stenosis of the dorsalis pedis artery, with flow velocity elevation of up to 332 cm/s. There is slightly dampened flow velocity distal to it. Impression: No evidence of significant right lower extremity arterial insufficiency Monophasic waveforms in the distal superficial femoral and popliteal artery, could indicate stenosis in these segments; more likely artifactual as there is still rapid systolic upstroke, including in the ankle vessels. Evidence of significant stenosis in the dorsalis pedis artery There is a large area of low attenuation within the lateral subcutaneous fat extending from the highest slice in the distal thigh along the entire course of the anterolateral leg and into the foot, where it extends to the level of the metacarpals dorsolaterally. Is unclear whether this represents an organized fluid collection versus intense edema/phlegmon, although suspect the latter, as there are numerous gas bubbles within the collection in the leg which do not float nondependently. There is enhancement of the tissues bordering it.. The widest extent of this is in the distal thigh, where it measures 8.2 cm AP and about 2 cm in thickness. The overall length of this is at least 45 cm, although as mentioned earlier the proximal extent is not visualized. There is a skin defect in the lateral leg at the superficial aspect of the collection which presumably represents a skin ulcer. This demonstrates multiple areas of ulceration. Low attenuation also extends into the anterior muscular compartment of the leg. The fat appears to be hypoattenuating although the musculature demonstrates only mild if any hypoattenuation. No osseous erosions, abnormal periosteal reaction, or other findings to suggest osteomyelitis are demonstrated. Impression: Intense edema versus organized fluid exiting the entire extent of the anterolateral subcutaneous fat of the leg, extending into the foot to the level of the metatarsals and proximal into the thigh beyond the edge of the imaging volume. Favor that this represents edema/phlegmon, as there are gas bubbles that appear to be trapped within it, and there is an open wound through which it should drain if it was fluid. Presence of gas bubbles is concerning for infection with a gas-forming organism. This process also extends into the anterior muscular compartment of the tibial muscles No definite evidence of osteomyelitis. However, evaluation for such is limited on CT, and MRI should be considered if this is a clinical concern Anthony Fernandez Apr 20, 2020 18:06
--- NOTE | 2020-04-20 19:15 | NUR ---
HAND-OFF: Report given to .RICARDO BAPTISTE.
--- NOTE | 2020-04-20 19:23 | NUR ---
NURSE NOTES: Received report from Rico RN, pt. in bed- calm and awake, opens eyes to name, pt. appears to be tolerating current vent settings well- AC 16, TV 500, Fio2 at 30% and peep 5- no distress noted- sating at 98%, no signs or symptoms of acute cardiac or respiratory distress noted, bed alarm on, side rails up x's 3- safety brakes engaged, call light within easy reach, G tube feeding started by Glucerna 1.2 at 70cc/hr- will continue as tolerated, oral care provided, bilateral wrist restraints removed- bilateral pulses palpable and skin intact- restraints re-applied, pt. appears to have disheveled appearance, Rt. wrist 20G hep lock and left forearm 20G both TKO intact and patent, safety measures continued, will continue with plan of care.
[2020-04-20 20:00] VITALS: BP 132/67
[2020-04-20] MEDS ORDERED: NS 275ml ONE ×2 (20:44→20:48)
[2020-04-20] MEDS ORDERED: Tubing IV Secondary IV ONE (20:48)
--- NOTE | 2020-04-20 23:16 | General Progress Note ---
Subjective Allergies: Coded Allergies: No Known Allergies (Unverified , 04/08/20) Subjective Above noted tolerating TF Resting Objective Last 24 Hour Vital Signs Date Time Temp Pulse Resp B/P (MAP) Pulse Ox O2 Delivery O2 Flow Rate FiO2 04/20/20 20:00 97.3 86 20 132/67 (88) 99 04/20/20 20:00 30 04/20/20 20:00 Mechanical Ventilator 04/20/20 19:44 87 17 30 04/20/20 19:26 87 04/20/20 16:00 Mechanical Ventilator 04/20/20 16:00 93 04/20/20 16:00 30 04/20/20 16:00 97.6 90 20 114/77 (89) 95 04/20/20 15:39 88 21 30 04/20/20 12:00 97.7 87 20 120/79 (93) 97 04/20/20 12:00 Mechanical Ventilator 04/20/20 12:00 30 04/20/20 11:35 93 04/20/20 11:00 90 19 30 04/20/20 08:00 30 04/20/20 08:00 Mechanical Ventilator 04/20/20 08:00 97.8 90 20 145/77 (99) 98 04/20/20 07:43 93 04/20/20 07:10 93 22 30 04/20/20 04:00 97.2 92 20 116/85 (95) 100 04/20/20 04:00 96 04/20/20 04:00 30 04/20/20 04:00 Mechanical Ventilator 04/20/20 03:15 96 19 30 04/20/20 02:01 30 04/20/20 00:00 86 04/20/20 00:00 Mechanical Ventilator 04/20/20 00:00 97.5 88 18 133/86 (102) 100 04/19/20 23:23 87 25 30 Intake and Output 04/19/20 04/20/20 19:00 07:00 Intake Total 1260.0 ml 900 ml Output Total 500 ml 1500 ml Balance 760.0 ml -600 ml Intake Free Water 300 ml 300 ml IV Total 360.0 ml Tube Feeding 600 ml 600 ml Output Urine Total 500 ml 1500 ml # Bowel Movements 1 Laboratory Tests 04/20/20 00:34: POC Whole Blood Glucose [Pending] 04/20/20 03:05: White Blood Count 14.7H, Red Blood Count 3.21L, Hemoglobin 8.8L, Hematocrit 26.6L, Mean Corpuscular Volume 83, Mean Corpuscular Hemoglobin 27.4, Mean Cor puscular Hemoglobin Concent 33.0, Red Cell Distribution Width 14.5, Platelet Count 454H, Mean Platelet Volume 6.5, Neutrophils (%) (Auto) 78.9H, Lymphocytes (%) (Auto) 8.9L, Monocytes (%) (Auto) 9.0, Eosinophils (%) (Auto) 2.3, Basophils (%) (Auto) 0.9, Sodium Level 134L, Potassium Level 3.9, Chloride Level 98, Carbon Dioxide Level 33H, Anion Gap 3L, Blood Urea Nitrogen 37H, Creatinine 1.2, Estimat Glomerular Filtration Rate > 60, Glucose Level 195H, Calcium Level 9.3 04/20/20 12:07: POC Whole Blood Glucose 291H 04/20/20 16:54: POC Whole Blood Glucose 208H Height (Feet): 5 Height (Inches): 6.00 Weight (Pounds): 135 Objective Debilitated NCAT (+) trach Coarse BS RR abd soft, (+) GT ext (+) LLE leg dressings, no edema Assessment/Plan Assessment/Plan: Assessment - dysphagia, GT - resp failure, trach - anemia - leukocytosis - malnutrition - decub ulcer - LE ischemia - DM Recommendations - continue TF - protein powder - MVI / zinc - GT care - follow labs - abx Slade Shah MD Apr 20, 2020 23:16
--- NOTE | 2020-04-20 23:16 | Psychiatric Progress Note ---
Psychiatry Progress Note Psychiatry Progress Note Medications Current Medications Medications (Trade) Dose Ordered Sig/Benigno Route PRN Reason Start Time Stop Time Status Last Admin Dose Admin Acetaminophen (Tylenol) 650 mg Q4H PRN ORAL Mild Pain (Pain Scale 1-3) 04/09/20 09:00 05/09/20 08:59 Acetaminophen (Tylenol) 650 mg Q4H PRN ORAL Temp >100.5 04/09/20 09:00 05/09/20 08:59 Ascorbic Acid (Vitamin C) 1,000 mg DAILY GT 04/09/20 09:00 05/09/20 08:59 04/20/20 09:15 Dextrose (Dextrose 50%) 25 ml Q30M PRN IV Hypoglycemia 04/09/20 09:00 07/08/20 08:59 Dextrose (Dextrose 50%) 50 ml Q30M PRN IV Hypoglycemia 04/09/20 09:00 07/08/20 08:59 Diphenhydramine HCl (Benadryl) 50 mg Q12H PRN IVP Agitation 04/11/20 01:30 05/11/20 01:29 04/15/20 12:53 Furosemide (Lasix) 20 mg EVERY 12 HOURS IV 04/09/20 09:00 05/09/20 08:59 04/20/20 20:05 Haloperidol Lactate (Haldol) 5 mg Q6H PRN IM Agitation 04/11/20 16:15 05/26/20 16:14 04/17/20 10:11 Heparin Sodium (Porcine) (Heparin 5000 units/ml) 5,000 units EVERY 12 HOURS SUBQ 04/09/20 10:00 05/24/20 09:59 04/20/20 20:06 Insulin Aspart (NovoLOG) EVERY 6 HOURS SUBQ 04/15/20 06:00 07/08/20 11:29 04/20/20 17:13 Magnesium Hydroxide (Mom) 30 ml DAILYPRN PRN ORAL Constipation 04/09/20 09:00 05/09/20 08:59 Midodrine (Pro-Amatine) 10 mg THREE TIMES A DAY ORAL 04/20/20 09:00 07/17/20 08:59 04/20/20 17:12 Morphine Sulfate (Morphine Sulfate) 2 mg Q3H PRN IVP For Pain 4-10 04/15/20 12:30 04/22/20 12:29 Ondansetron HCl (Zofran) 4 mg Q6H PRN IVP Nausea & Vomiting 04/09/20 09:00 05/09/20 08:59 Pantoprazole (Protonix) 40 mg DAILY IVP 04/09/20 09:00 05/09/20 08:59 04/20/20 09:14 Piperacillin Sod/ Tazobactam Sod 3.375 gm/Sodium Chloride 110 ml @ 27.5 mls/hr Q8HR IVPB 04/09/20 10:00 04/23/20 09:59 04/20/20 21:37 Quetiapine Fumarate (SEROqueL) 50 mg Q6H PRN GT Restlessness and agitation 04/10/20 16:15 05/25/20 16:14 04/15/20 14:04 Quetiapine Fumarate (SEROqueL) 200 mg Q12HR GT 04/11/20 09:00 05/26/20 08:59 04/20/20 20:06 Vancomycin HCl 250 ml @ 166.667 mls/hr Q24H IVPB 04/19/20 12:00 04/24/20 11:59 04/20/20 12:23 Vancomycin HCl (Vanco pharmacy to dose) 1 ea DAILY PRN MISC Per rx protocol 04/09/20 08:00 05/09/20 07:59 Vitamin D (Vitamin D) 2,000 unit DAILY GT 04/09/20 09:00 05/09/20 08:59 04/20/20 09:15 Zinc Oxide (Zinc Oxide) 1 applic TIDPRN PRN TOPIC Itching 04/09/20 08:30 07/08/20 08:29 Zinc Sulfate (Zinc Sulfate) 220 mg DAILY GT 04/09/20 09:00 07/08/20 08:59 04/20/20 09:14 Neurological/Psychiatric: Reports: anxiety, depressed, emotional problems Allergies: Coded Allergies: No Known Allergies (Unverified , 04/08/20) Objective Data Height (Feet): 5 Height (Inches): 6.00 Weight (Pounds): 135 Additional Comments: MENTAL STATUS EXAMINATION: The patient is awake, oriented to self, and disoriented to situation. Mood is agitated. Affect is flat. Thought process, there is a paucity of thought content. Thought content, no suicidal or homicidal ideation. Cognition is impaired. Insight and judgment is impaired. Assessment/Plan [place] I: ASSESSMENT: [place] I Psychotic disorder. [place] II Deferred. [place] III Pneumonia. [place] IV Low. [place] V 20 PLAN: 1. We will start the patient on Haldol p.r.n. 2. Seroquel. 3. Discussed with the nurse. Status Narrative ASSESSMENT: [place] I Psychotic disorder. [place] II Deferred. [place] III Pneumonia. [place] IV Low. [place] V 20 PLAN: 1. We will start the patient on Haldol p.r.n. 2. Seroquel. 3. Discussed with the nurse. Assessment/Plan: ASSESSMENT: [place] I Psychotic disorder. [place] II Deferred. [place] III Pneumonia. [place] IV Low. [place] V 20 PLAN: 1. We will start the patient on Haldol p.r.n. 2. Seroquel. 3. Discussed with the nurse. Watson Graham MD Apr 20, 2020 23:16
[2020-04-21] VITALS: BP 112/81
--- NOTE | 2020-04-21 01:46 | NUR ---
NURSE NOTES: Pt. in bed in semi-wallace awake, not reporting pain at this time. Tolerating current vent settings well- AC 16, TV 500, Fio2 at 30% and peep 5- no distress noted- sating at 99%. G-tube - Running Glucerna 1.2 @70cc/hr- no residual at this time. Henry draing well to gravity.
[2020-04-21 04:00] VITALS: BP 118/79
[2020-04-21] MEDS: Piperacillin/Tazobactam 3.375 GM in NS 110 ML IVPB SCH (05:19)
[2020-04-21 05:28] LABS: BASOPHILS % (AUTO) 1.1 % (0.0-2.0); EOSINOPHILS % (AUTO) 3.1 % (0.0-3.0); HEMOGLOBIN 9.1 G/DL (14.2-18.0); LYMPHOCYTES % (AUTO) 13.9 % (20.0-45.0); MEAN CORPUSCULAR VOLUME 83 FL (80-99); MONOCYTES % (AUTO) 7.2 % (1.0-10.0); NEUTROPHILS % (AUTO) 74.7 % (45.0-75.0); PLATELET COUNT 461 K/UL (150-450); RED BLOOD COUNT 3.37 M/UL (4.70-6.10); RED CELL DISTRIBUTION WIDTH 14.8 % (11.6-14.8)
[2020-04-21] MEDS: NovoLOG Insulin Flexpen SUBQ SCH ×4 (05:55→17:47)
[2020-04-21 06:35] LABS: ALANINE AMINOTRANSFERASE 14 U/L (12-78); ALBUMIN 1.9 G/DL (3.4-5.0); ALBUMIN/GLOBULIN RATIO 0.3 (1.0-2.7); ALKALINE PHOSPHATASE 152 U/L (46-116); ANION GAP 7 mmol/L (5-15); ASPARTATE AMINO TRANSFERASE 14 U/L (15-37); BILIRUBIN,TOTAL 0.2 MG/DL (0.2-1.0); BLOOD UREA NITROGEN 39 mg/dL (7-18); CALCIUM 10.2 MG/DL (8.5-10.1); CARBON DIOXIDE 32 MMOL/L (21-32); CHLORIDE 100 MMOL/L (98-107); CREATININE 1.2 MG/DL (0.55-1.30); POTASSIUM 3.9 MMOL/L (3.5-5.1); SODIUM 139 MMOL/L (136-145)
--- NOTE | 2020-04-21 06:59 | NUR ---
NURSE HAND-OFF REPORT: Important Events on Shift:none Patient Status: fair Diet: Nepro Pending Orders: Pending Results/Labs: Pending MD notification: Latest Vital Signs: Temperature 97.8 , Pulse 94 , B/P 118 /79 , Respiratory Rate 20 , O2 SAT 100 , Mechanical Ventilator, O2 Flow Rate 3.0 . Vital Sign Comment: EKG Rhythm: Sinus Rhythm Rhythm change?: N MD Notified?: N - MD Response: Latest Linder Fall Score: 95 Fall Risk: High Risk Safety Measures: Call light Within Reach, Bed Alarm Zone 2, Side Rails Side Rails x3, Bed position Low and Locked. Fall Precautions: Yellow Socks Yellow Gown Door Sign Patient Fall Education Report given to Roxie Galaviz, -aware to f/u on any abnormal am labs. Addendum: 04/21/20 at 0702 by STEWART HUMPHRIES RN RN correction to message- report given to ROXIE Rowland- jose miguel Galaviz. pt. is on Glucerna for feeding not Nephro.
--- NOTE | 2020-04-21 07:02 | NUR ---
NURSE HAND-OFF REPORT: Important Events on Shift:none Patient Status: stable Diet: Glucerna 1.2 Pending Orders: Pending Results/Labs: Pending MD notification: Latest Vital Signs: Temperature 97.8 , Pulse 94 , B/P 118 /79 , Respiratory Rate 20 , O2 SAT 100 , Mechanical Ventilator, O2 Flow Rate 3.0 . Vital Sign Comment: EKG Rhythm: Sinus Rhythm Rhythm change?: N MD Notified?: N - MD Response: Latest Linder Fall Score: 95 Fall Risk: High Risk Safety Measures: Call light Within Reach, Bed Alarm Zone 2, Side Rails Side Rails x3, Bed position Low and Locked. Fall Precautions: Yellow Socks Yellow Gown Door Sign Patient Fall Education Report given to Janett Faustin, aware to f/u on any abnormal am labs. Addendum: 04/21/20 at 0703 by STEWART HUMPHRIES RN RN condition is stable.
--- NOTE | 2020-04-21 07:17 | NUR ---
NURSE NOTES: Received report from EMILE Richard. Pt is stable on ventilator. Pt AOx2-3, able to make needs known. Pt is on B soft restraints for safety and pulling at medical devices. Pt has gtube running glucerna 1.2 at 70cc. Pt jacque noted, some leakage at this time. pt requesting to be changed later, not now. Pt stage 1 redness noted. R knee wrapped with kerlix. Pt R 20 wrist SL. LFA 20g running zosyn. Pt bed low and locked, call light in reach and bed alarm on. Pt close to nursing station. verbalized understanding to call for help.
[2020-04-21 08:00] VITALS: BP 121/85
--- NOTE | 2020-04-21 08:00 | NUR ---
NURSE NOTES: Contacted Dr Campbell regarding Pt santillan leaking overnight and this morning. Dr Zacarias added to the case. Deann changed santillan to 18Fr, drained 800cc clear yellow urine. Pt linen changed at this time.
--- NOTE | 2020-04-21 08:41 | General Progress Note ---
Subjective Allergies: Coded Allergies: No Known Allergies (Unverified , 04/08/20) Subjective care noted on vent and trach Objective Last 24 Hour Vital Signs Date Time Temp Pulse Resp B/P (MAP) Pulse Ox O2 Delivery O2 Flow Rate FiO2 04/21/20 04:00 Mechanical Ventilator 04/21/20 04:00 97.8 94 20 118/79 (92) 100 04/21/20 04:00 30 04/21/20 03:44 92 04/21/20 00:36 95 20 30 04/21/20 00:00 97.3 86 20 112/81 (91) 97 04/21/20 00:00 30 04/21/20 00:00 Mechanical Ventilator 04/20/20 23:33 98 04/20/20 20:00 97.3 86 20 132/67 (88) 99 04/20/20 20:00 30 04/20/20 20:00 Mechanical Ventilator 04/20/20 19:44 87 17 30 04/20/20 19:26 87 04/20/20 16:00 Mechanical Ventilator 04/20/20 16:00 93 04/20/20 16:00 30 04/20/20 16:00 97.6 90 20 114/77 (89) 95 04/20/20 15:39 88 21 30 04/20/20 12:00 97.7 87 20 120/79 (93) 97 04/20/20 12:00 Mechanical Ventilator 04/20/20 12:00 30 04/20/20 11:35 93 04/20/20 11:00 90 19 30 Intake and Output 04/20/20 04/21/20 19:00 07:00 Intake Total 1340.834 ml 1010.0 ml Output Total 500 ml 1225 ml Balance 840.834 ml -215.0 ml Intake Free Water 250 ml 60 ml IV Total 470.834 ml 110.0 ml Tube Feeding 620 ml 840 ml Output Urine Total 500 ml 1225 ml # Bowel Movements 1 2 Laboratory Tests 04/20/20 12:07: POC Whole Blood Glucose 291H 04/20/20 16:54: POC Whole Blood Glucose 208H 04/20/20 23:43: POC Whole Blood Glucose 251H 04/21/20 03:15: White Blood Count 14.0H, Red Blood Count 3.37L, Hemoglobin 9.1L, Hematocrit 28.0L, Mean Corpuscular Volume 83, Mean Corpuscular Hemoglobin 27.1, Mean Ree uscular Hemoglobin Concent 32.6, Red Cell Distribution Width 14.8, Platelet Count 461H, Mean Platelet Volume 6.6, Neutrophils (%) (Auto) 74.7, Lymphocytes (%) (Auto) 13.9L, Monocytes (%) (Auto) 7.2, Eosinophils (%) (Auto) 3.1H, Basophils (%) (Auto) 1.1, Sodium Level 139, Potassium Level 3.9, Chloride Level 100, Carbon Dioxide Level 32, Anion Gap 7, Blood Urea Nitrogen 39H, Creatinine 1.2, Estimat Glomerular Filtration Rate > 60, Glucose Level 164H, Calcium Level 10.2H, Total Bilirubin 0.2, Aspartate Amino Transf (AST/SGOT) 14L, Alanine Aminotransferase (ALT/SGPT) 14, Alkaline Phosphatase 152H, Total Protein 8.8H, Albumin 1.9L, Globulin 6.9, Albumin/Globulin Ratio 0.3L 04/21/20 05:32: POC Whole Blood Glucose [Pending] Height (Feet): 5 Height (Inches): 6.00 Weight (Pounds): 135 Objective WDWN trach reduced breath sounds bilaterally without rhonchi or wheeze [id number] without MRG NABS nontender GT no CCE poor LOC Assessment/Plan Assessment/Plan: Impression: Pneumonia, h/o Klebsiella Ventilator dependance Tracheostomy status Diabetes Sacral decubitus and feet pressure areas azotemia leukocytosis necrotic lower extremity diabetes Plan: -urology follow up - Continue antibiotics per ID - ID Consult,Surgery Consult - Continue current ventilator sttings - Adjust O2 as needed - DVT prophylaxis -Wound consult - dc planning impression, plan, and exam edited and reviewed in detail care discussed with Mikhail Alejandro MD Apr 21, 2020 08:41
[2020-04-21] MEDS: Midodrine 10mg tab ORAL SCH ×3 (08:48→17:36)
[2020-04-21] MEDS: Vitamin D 1000 units Tab GT SCH (08:48)
[2020-04-21] MEDS: Ascorbic Acid 500mg tab GT SCH (08:49)
[2020-04-21] MEDS: QUEtiapine 200mg tab GT SCH ×2 (08:49→21:05)
[2020-04-21] MEDS: Zinc Sulfate 220mg GT SCH (08:49)
[2020-04-21] MEDS: Pantoprazole Inj IVP SCH (08:51)
[2020-04-21] MEDS: Heparin 5000 units/ml inj SUBQ SCH ×2 (08:58→21:06)
--- NOTE | 2020-04-21 09:29 | Consultation ---
DATE OF CONSULTATION: 04/21/2020 CONSULTING PHYSICIAN: Saji Zacarias MD. REFERRING PHYSICIAN: Mikhail Campbell MD. REASON FOR CONSULTATION: Evaluation of Henry leakage. HISTORY OF PRESENT ILLNESS: This is an unfortunate 44-year-old male. He was admitted to the hospital because of pneumonia. He has a history of chronic respiratory failure, ventilator dependent with tracheostomy. He has been in the hospital for an extended period. He has had a chronic Henry, the Henry has been leaking. Urology evaluation is requested. Most of his history was obtained from the chart. PAST MEDICAL HISTORY: As above. PAST SURGICAL HISTORY: Trach. Other surgeries are unknown. MEDICATIONS: Current medication list in the hospital was reviewed. ALLERGIES: He has no known drug allergies. PHYSICAL EXAMINATION: GENERAL: This is a cachectic male, in no acute distress. VITAL SIGNS: Temperature is 97.8, blood pressure 118/79, pulse 94, respirations 20. ABDOMEN: Shows suprapubic fullness. Henry is in place 16-Chinese with yellowish urine and copious debris. LABORATORY DATA: BUN is 39, creatinine is 1.2. White count is 14.0, hemoglobin 9.1, platelets 461,000. I do not see any recent urinalysis or urine cultures. He did have a blood culture recently, which was negative. His last sputum culture showed Marlyn. DIAGNOSTIC AND IMAGING STUDIES: Reviewed. I did not see any obvious renal imaging. He did have a plain abdominal x-ray, which did not show any acute process. Procedure at the bedside. The Henry was inspected. I was not able to irrigate it out as it was occluded. The Henry was removed. This was 16-Chinese. Urethra was gently dilated and a new 18-Chinese catheter was placed and there was immediate copious return of yellow nina urine from the bladder. IMPRESSION: 1. Urinary retention. 2. Possible BPH. 3. Probable neurogenic bladder. 4. Rule out UTI colonization. 5. Urethral stenosis. PLAN AND DISCUSSION: Again, as noted above, a new Henry was placed and is draining well. The nursing staff was instructed on irrigating the catheter as needed. I will start the patient on Flomax and hopefully can have a voiding trial in the near future. I would also recommend cystoscopy at some point electively. Thank you, Dr. Campbell, for asking me to see this patient in consultation. Saji Zacarias M.D. DR: LOUIE JOB#: [id number] CC:
[2020-04-21] MEDS ORDERED: Morphine Sulfate 2mg/ml Inj(IV/IM USE ONLY) IVP PRN (10:30)
--- NOTE | 2020-04-21 10:39 | Surgery Progress Note ---
Surgery Progress Note Subjective Additional Comments wbc stable labs noted exam stable Objective Last 24 Hour Vital Signs Date Time Temp Pulse Resp B/P (MAP) Pulse Ox O2 Delivery O2 Flow Rate FiO2 04/21/20 08:00 30 04/21/20 08:00 92 04/21/20 08:00 97.7 98 21 121/85 (97) 99 04/21/20 08:00 Mechanical Ventilator 04/21/20 07:10 94 31 30 04/21/20 04:00 Mechanical Ventilator 04/21/20 04:00 97.8 94 20 118/79 (92) 100 04/21/20 04:00 30 04/21/20 03:44 92 04/21/20 00:36 95 20 30 04/21/20 00:00 97.3 86 20 112/81 (91) 97 04/21/20 00:00 30 04/21/20 00:00 Mechanical Ventilator 04/20/20 23:33 98 04/20/20 20:00 97.3 86 20 132/67 (88) 99 04/20/20 20:00 30 04/20/20 20:00 Mechanical Ventilator 04/20/20 19:44 87 17 30 04/20/20 19:26 87 04/20/20 16:00 Mechanical Ventilator 04/20/20 16:00 93 04/20/20 16:00 30 04/20/20 16:00 97.6 90 20 114/77 (89) 95 04/20/20 15:39 88 21 30 04/20/20 12:00 97.7 87 20 120/79 (93) 97 04/20/20 12:00 Mechanical Ventilator 04/20/20 12:00 30 04/20/20 11:35 93 04/20/20 11:00 90 19 30 I&O Intake and Output 04/20/20 04/21/20 19:00 07:00 Intake Total 1340.834 ml 1010.0 ml Output Total 500 ml 1225 ml Balance 840.834 ml -215.0 ml Intake Free Water 250 ml 60 ml IV Total 470.834 ml 110.0 ml Tube Feeding 620 ml 840 ml Output Urine Total 500 ml 1225 ml # Bowel Movements 1 2 Dressing: dry Cardiovascular: RSR Respiratory: decreased breath sounds Abdomen: soft, flat, non-tender, present bowel sounds, non-distended Extremities: cyanosis, no edema, no tenderness, pulses, other Laboratory Tests Test 04/20/20 12:07 04/20/20 16:54 04/20/20 23:43 04/21/20 03:15 POC Whole Blood Glucose 291 MG/DL (74-106) H 208 MG/DL (74-106) H 251 MG/DL (74-106) H White Blood Count 14.0 K/UL (4.8-10.8) H Red Blood Count 3.37 M/UL (4.70-6.10) L Hemoglobin 9.1 G/DL (14.2-18.0) L Hematocrit 28.0 % (42.0-52.0) L Mean Corpuscular Volume 83 FL (80-99) Mean Corpuscular Hemoglobin 27.1 PG (27.0-31.0) Mean Corpuscular Hemoglobin Concent 32.6 G/DL (32.0-36.0) Red Cell Distribution Width 14.8 % (11.6-14.8) Platelet Count 461 K/UL (150-450) H Mean Platelet Volume 6.6 FL (6.5-10.1) Neutrophils (%) (Auto) 74.7 % (45.0-75.0) Lymphocytes (%) (Auto) 13.9 % (20.0-45.0) L Monocytes (%) (Auto) 7.2 % (1.0-10.0) Eosinophils (%) (Auto) 3.1 % (0.0-3.0) H Basophils (%) (Auto) 1.1 % (0.0-2.0) Sodium Level 139 MMOL/L (136-145) Potassium Level 3.9 MMOL/L (3.5-5.1) Chloride Level 100 MMOL/L (98-107) Carbon Dioxide Level 32 MMOL/L (21-32) Anion Gap 7 mmol/L (5-15) Blood Urea Nitrogen 39 mg/dL (7-18) H Creatinine 1.2 MG/DL (0.55-1.30) Estimat Glomerular Filtration Rate > 60 mL/min (>60) Glucose Level 164 MG/DL (74-106) H Calcium Level 10.2 MG/DL (8.5-10.1) H Total Bilirubin 0.2 MG/DL (0.2-1.0) Aspartate Amino Transf (AST/SGOT) 14 U/L (15-37) L Alanine Aminotransferase (ALT/SGPT) 14 U/L (12-78) Alkaline Phosphatase 152 U/L (46-116) H Total Protein 8.8 G/DL (6.4-8.2) H Albumin 1.9 G/DL (3.4-5.0) L Globulin 6.9 g/dL Albumin/Globulin Ratio 0.3 (1.0-2.7) L Test 04/21/20 05:32 POC Whole Blood Glucose Pending Plan Problems: (1) Pneumonia (2) Sacral decubitus ulcer Assessment & Plan: Pt presented on admission with Tracheostomy,GT and Multiple Wounds including an Unstageable Pressure Injury Sacrum(L)2.1cm x (W)2.8cm.Base of wound is 100% slough. Borders are adherent, erythematous. Periwound is indurated with non-blanchable erythema. At L HIP A Blue marker measuring (L)6cm x (W)5cm. Small linear shaped wound that is somewhat approximated. The remaining base within Blue Marker is indurated,erythematous with elevation in skin temp at affected area within marker, and extends well beyond borders of Marker to upper L thigh(L)12cm x (W)8cm. Large Necrotic Ulcer with irregular borders noted to lateral L Tibia. Base of wound is 100% Necrotic and dry. Edges are adherent and erythematous. Periwound is dusky with elevation in skin temp noted(L)21cm x (W)11.5cm. Necrotic Ulcer lateral L foot/L malleolus(L)4cm x 6.5cm. Base of wound is 100% soft, but dry necrosis.Edges are adherent to base of wound but are erythematous. Surrounding the wound, skin colour is dusky and skin temp is elevated. NO odor or exudate noted. Open abscess/Boil noted to lateral R Tibia(L)3cm x (W)3cm with small opening at center base (L)0.4cmx (W)0.4cm. No exudate noted. Skin temp is slightly elevated. Both heels are callused and dry. Dry peeling skin noted to both lower ext, both feet including plantar aspect of both feet. Tx.Plan: Cleanse Sacral wound with Saline. Apply TheraHoney. Apply Moisture Barrier Paste periwound. Cover with Optifoam drsg Daily and prn. Apply Betadine to L Hip. Cover with Optifoam drsg. Change every 3 days and prn. Apply Betadine to Lateral L Tibia, and Lateral L foot. Cover each site with ABD Pads and wrap with Kerlix Daily and prn. Apply Betadine to Lateral R Tibia. Cover with Optifoam drsg. Change every 3 days and prn. Apply Cavilon Skin Barrier to both heels. Cover each heel with Optifoam drsg. Change every 7 days and prn. Reposition at Least every 2 hours or as tolerated. Elevate both lower ext and float Heels with pillows.Patient presents on admission with identifiable unstageable sacral decubitus ulcer fairly fraction likely recently forming. Areas approximately 3 cm x 3 cm unknown depth. No drainage. No foul odor. Eschar area identified soft no ischemic eschar likely forming. Deep tissue underneath injury. Furthermore patient identified to have significant left lower extremity ischemic disease with ulcers and necrotic eschar. On the left lateral foot there is a necrotic eschar as well as on the left lateral leg significantly large. No drainage no signs of active infection chronic appearing in nature. Care plan initiated. Will need to ensure optimization of patient for care plan. Leukocytosis unlikely related to wounds as they do not seem actively infected Nutritional optimization We will follow with recommendations thank you for let me participate in patient's care (3) Ischemia of left lower extremity Assessment & Plan: chronic large wounds US duplex arterial and venous will follow with recs leukocytosis has been trending down leg exam stable without signs of active infection. just large area of chronic ischemia eschar On the right, triphasic waveforms with sharp systolic peaks are seen at the common femoral, superficial femoral, and popliteal artery levels. Tibial vessel waveforms are biphasic or triphasic with sharp systolic peaks. On the left, triphasic waveforms are seen at the level of the common femoral artery level. Left superficial femoral artery waveforms are triphasic proximally, borderline monophasic in the mid portion. Popliteal artery waveforms are monophasic but systolic peaks are sharp. Tibial vessel waveforms are monophasic but with sharp systolic peaks. There is a stenosis of the dorsalis pedis artery, with flow velocity elevation of up to 332 cm/s. There is slightly dampened flow velocity distal to it. Impression: No evidence of significant right lower extremity arterial insufficiency Monophasic waveforms in the distal superficial femoral and popliteal artery, could indicate stenosis in these segments; more likely artifactual as there is still rapid systolic upstroke, including in the ankle vessels. Evidence of significant stenosis in the dorsalis pedis artery There is a large area of low attenuation within the lateral subcutaneous fat extending from the highest slice in the distal thigh along the entire course of the anterolateral leg and into the foot, where it extends to the level of the metacarpals dorsolaterally. Is unclear whether this represents an organized fluid collection versus intense edema/phlegmon, although suspect the latter, as there are numerous gas bubbles within the collection in the leg which do not float nondependently. There is enhancement of the tissues bordering it.. The widest extent of this is in the distal thigh, where it measures 8.2 cm AP and about 2 cm in thickness. The overall length of this is at least 45 cm, although as mentioned earlier the proximal extent is not visualized. There is a skin defect in the lateral leg at the superficial aspect of the collection which presumably represents a skin ulcer. This demonstrates multiple areas of ulceration. Low attenuation also extends into the anterior muscular compartment of the leg. The fat appears to be hypoattenuating although the musculature demonstrates only mild if any hypoattenuation. No osseous erosions, abnormal periosteal reaction, or other findings to suggest osteomyelitis are demonstrated. Impression: Intense edema versus organized fluid exiting the entire extent of the anterolateral subcutaneous fat of the leg, extending into the foot to the level of the metatarsals and proximal into the thigh beyond the edge of the imaging volume. Favor that this represents edema/phlegmon, as there are gas bubbles that appear to be trapped within it, and there is an open wound through which it should drain if it was fluid. Presence of gas bubbles is concerning for infection with a gas-forming organism. This process also extends into the anterior muscular compartment of t he tibial muscles No definite evidence of osteomyelitis. However, evaluation for such is limited on CT, and MRI should be considered if this is a clinical concern Anthony Fernandez Apr 21, 2020 10:39
--- NOTE | 2020-04-21 11:29 | Infectious Diseases Prog Note ---
Assessment/Plan Assessment/Plan antibiotics : vancomycin iv, zosyn A 1. left leg necrotic ulcer 2. pneumonia 3. diabetes mellitus 4. respiratory failure s/p tracheostomy P 1. d/c iv vancomycin, zosyn 2. will follow up cultures Subjective ROS Limited/Unobtainable: Yes Allergies: Coded Allergies: No Known Allergies (Unverified , 04/08/20) Objective Last 24 Hour Vital Signs Date Time Temp Pulse Resp B/P (MAP) Pulse Ox O2 Delivery O2 Flow Rate FiO2 04/21/20 08:00 30 04/21/20 08:00 92 04/21/20 08:00 97.7 98 21 121/85 (97) 99 04/21/20 08:00 Mechanical Ventilator 04/21/20 07:10 94 31 30 04/21/20 04:00 Mechanical Ventilator 04/21/20 04:00 97.8 94 20 118/79 (92) 100 04/21/20 04:00 30 04/21/20 03:44 92 04/21/20 00:36 95 20 30 04/21/20 00:00 97.3 86 20 112/81 (91) 97 04/21/20 00:00 30 04/21/20 00:00 Mechanical Ventilator 04/20/20 23:33 98 04/20/20 20:00 97.3 86 20 132/67 (88) 99 04/20/20 20:00 30 04/20/20 20:00 Mechanical Ventilator 04/20/20 19:44 87 17 30 04/20/20 19:26 87 04/20/20 16:00 Mechanical Ventilator 04/20/20 16:00 93 04/20/20 16:00 30 04/20/20 16:00 97.6 90 20 114/77 (89) 95 04/20/20 15:39 88 21 30 04/20/20 12:00 97.7 87 20 120/79 (93) 97 04/20/20 12:00 Mechanical Ventilator 04/20/20 12:00 30 04/20/20 11:35 93 Height (Feet): 5 Height (Inches): 6.00 Weight (Pounds): 135 HEENT: status post trach Respiratory/Chest: lungs clear Cardiovascular: normal rate, regular rhythm, no gallop/murmur Abdomen: soft, non tender, other - GT Extremities: no edema, other - left leg in dressings Laboratory Tests Test 04/20/20 12:07 04/20/20 16:54 04/20/20 23:43 04/21/20 03:15 POC Whole Blood Glucose 291 MG/DL (74-106) H 208 MG/DL (74-106) H 251 MG/DL (74-106) H White Blood Count 14.0 K/UL (4.8-10.8) H Red Blood Count 3.37 M/UL (4.70-6.10) L Hemoglobin 9.1 G/DL (14.2-18.0) L Hematocrit 28.0 % (42.0-52.0) L Mean Corpuscular Volume 83 FL (80-99) Mean Corpuscular Hemoglobin 27.1 PG (27.0-31.0) Mean Corpuscular Hemoglobin Concent 32.6 G/DL (32.0-36.0) Red Cell Distribution Width 14.8 % (11.6-14.8) Platelet Count 461 K/UL (150-450) H Mean Platelet Volume 6.6 FL (6.5-10.1) Neutrophils (%) (Auto) 74.7 % (45.0-75.0) Lymphocytes (%) (Auto) 13.9 % (20.0-45.0) L Monocytes (%) (Auto) 7.2 % (1.0-10.0) Eosinophils (%) (Auto) 3.1 % (0.0-3.0) H Basophils (%) (Auto) 1.1 % (0.0-2.0) Sodium Level 139 MMOL/L (136-145) Potassium Level 3.9 MMOL/L (3.5-5.1) Chloride Level 100 MMOL/L (98-107) Carbon Dioxide Level 32 MMOL/L (21-32) Anion Gap 7 mmol/L (5-15) Blood Urea Nitrogen 39 mg/dL (7-18) H Creatinine 1.2 MG/DL (0.55-1.30) Estimat Glomerular Filtration Rate > 60 mL/min (>60) Glucose Level 164 MG/DL (74-106) H Calcium Level 10.2 MG/DL (8.5-10.1) H Total Bilirubin 0.2 MG/DL (0.2-1.0) Aspartate Amino Transf (AST/SGOT) 14 U/L (15-37) L Alanine Aminotransferase (ALT/SGPT) 14 U/L (12-78) Alkaline Phosphatase 152 U/L (46-116) H Total Protein 8.8 G/DL (6.4-8.2) H Albumin 1.9 G/DL (3.4-5.0) L Globulin 6.9 g/dL Albumin/Globulin Ratio 0.3 (1.0-2.7) L Test 04/21/20 05:32 POC Whole Blood Glucose Pending Current Medications Medications (Trade) Dose Ordered Sig/Benigno Route PRN Reason Start Time Stop Time Status Last Admin Dose Admin Acetaminophen (Tylenol) 650 mg Q4H PRN ORAL Mild Pain (Pain Scale 1-3) 04/09/20 09:00 05/09/20 08:59 Acetaminophen (Tylenol) 650 mg Q4H PRN ORAL Temp >100.5 04/09/20 09:00 05/09/20 08:59 Ascorbic Acid (Vitamin C) 1,000 mg DAILY GT 04/09/20 09:00 05/09/20 08:59 04/21/20 08:49 Dextrose (Dextrose 50%) 25 ml Q30M PRN IV Hypoglycemia 04/09/20 09:00 07/08/20 08:59 Dextrose (Dextrose 50%) 50 ml Q30M PRN IV Hypoglycemia 04/09/20 09:00 07/08/20 08:59 Diphenhydramine HCl (Benadryl) 50 mg Q12H PRN IVP Agitation 04/11/20 01:30 05/11/20 01:29 04/15/20 12:53 Furosemide (Lasix) 20 mg EVERY 12 HOURS IV 04/09/20 09:00 05/09/20 08:59 04/21/20 08:50 Haloperidol Lactate (Haldol) 5 mg Q6H PRN IM Agitation 04/11/20 16:15 05/26/20 16:14 04/17/20 10:11 Heparin Sodium (Porcine) (Heparin 5000 units/ml) 5,000 units EVERY 12 HOURS SUBQ 04/09/20 10:00 05/24/20 09:59 04/21/20 08:58 Insulin Aspart (NovoLOG) EVERY 6 HOURS SUBQ 04/15/20 06:00 07/08/20 11:29 04/21/20 05:55 Magnesium Hydroxide (Mom) 30 ml DAILYPRN PRN ORAL Constipation 04/09/20 09:00 05/09/20 08:59 Midodrine (Pro-Amatine) 10 mg THREE TIMES A DAY ORAL 04/20/20 09:00 07/17/20 08:59 04/21/20 08:48 Morphine Sulfate (Morphine Sulfate) 2 mg Q3H PRN IVP For Pain 4-10 04/21/20 10:30 04/28/20 10:29 Ondansetron HCl (Zofran) 4 mg Q6H PRN IVP Nausea & Vomiting 04/09/20 09:00 05/09/20 08:59 Pantoprazole (Protonix) 40 mg DAILY IVP 04/09/20 09:00 05/09/20 08:59 04/21/20 08:51 Piperacillin Sod/ Tazobactam Sod 3.375 gm/Sodium Chloride 110 ml @ 27.5 mls/hr Q8HR IVPB 04/09/20 10:00 04/23/20 09:59 04/21/20 05:19 Quetiapine Fumarate (SEROqueL) 50 mg Q6H PRN GT Restlessness and agitation 04/10/20 16:15 05/25/20 16:14 04/15/20 14:04 Quetiapine Fumarate (SEROqueL) 200 mg Q12HR GT 04/11/20 09:00 05/26/20 08:59 04/21/20 08:49 Tamsulosin HCl (Flomax) 0.4 mg BEDTIME ORAL 04/21/20 21:00 05/21/20 20:59 Vancomycin HCl 250 ml @ 166.667 mls/hr Q24H IVPB 04/19/20 12:00 04/24/20 11:59 04/20/20 12:23 Vancomycin HCl (Vanco pharmacy to dose) 1 ea DAILY PRN MISC Per rx protocol 04/09/20 08:00 05/09/20 07:59 Vitamin D (Vitamin D) 2,000 unit DAILY GT 04/09/20 09:00 05/09/20 08:59 04/21/20 08:48 Zinc Oxide (Zinc Oxide) 1 applic TIDPRN PRN TOPIC Itching 04/09/20 08:30 07/08/20 08:29 Zinc Sulfate (Zinc Sulfate) 220 mg DAILY GT 04/09/20 09:00 07/08/20 08:59 04/21/20 08:49 Wong Kilpatrick MD Apr 21, 2020 11:29
[2020-04-21 12:00] VITALS: BP 110/69
--- NOTE | 2020-04-21 15:40 | NUR ---
CASE MANAGEMENT:REVIEW 04/21/20 SI: PNA. NECROTIC LE TRACH/VENT/GTUBE DEPENDENT 96.9 98 18 110/69 100% ON VENT SUPPORT W/30% FIO2 WBC+14.0 BUN+39 IS: FLOMAX GT QHS MIDODRINE GT TID NOVOLOG SQ Q6 SEROQUEL GT Q12 HEPARIN SQ SQ Q12 IV PROTONIX QD IV LASIX Q12 : STEP DOWN UNIT DCP: FROM [facility]
[2020-04-21 16:00] VITALS: BP 116/59
--- NOTE | 2020-04-21 16:09 | NUR ---
*-*DISCHARGE PLANNING*-* PATIENT HAS BEEN REFERRED TO: ROZINA CARTER P: [phone] S/W LY, WILL CALL BACK AFTER REVIEW.
--- NOTE | 2020-04-21 17:59 | NUR ---
NURSE HAND-OFF REPORT: Important Events on Shift: new santillan 18fr inserted by bamshad// morphone rx renewed Patient Status: fc, stable Diet: glucerna 1.2 at 70cc flush 100 q shift Pending Orders: Pending Results/Labs: Pending MD notification: Latest Vital Signs: Temperature 98.7 , Pulse 69 , B/P 116 /59 , Respiratory Rate 22 , O2 SAT 100 , Mechanical Ventilator, O2 Flow Rate 3.0 . Vital Sign Comment: EKG Rhythm: Sinus Rhythm Rhythm change?: N MD Notified?: N - MD Response: Latest Linder Fall Score: 95 Fall Risk: High Risk Safety Measures: Call light Within Reach, Bed Alarm Zone 2, Side Rails Side Rails x3, Bed position Low and Locked. Fall Precautions: Yellow Socks Yellow Gown Door Sign Patient Fall Education Report to be given. Addendum: 04/21/20 at 1901 by Janett Gleason RN RN Report given to EMILE Palmer and EMILE Salomon. Pt is stable, pt repositioned at this time.
--- NOTE | 2020-04-21 19:10 | NUR ---
NURSE NOTES: Pt received from EMILE Rowland. Pt is resting comfortably in bed and denies any pain. Pt is A/Ox2 and currently not agitated nor showing signs of confusion. Pt is on cardiac monitoring SR and asymptomatic. Pt has Vent settings AC16 TV500 PEEP5 FiO2 30%. Pt has Henry Catheter 18fr patent and draining well to gravity. Pt has RWrist 20G and LFA 20G SL patent with dressings dry and intact. Pt has GT feeding Glucerna 1.2 70 ml/hr to flush 100ml QShift. Pt has bilateral soft restraints with PMSCx4 and skin intact; toileting needs monitored. Bed is locked and in lowest position with call light within reach. Will continue to monitor.
[2020-04-21 20:00] VITALS: BP 133/90
--- NOTE | 2020-04-21 20:15 | General Progress Note ---
Subjective Allergies: Coded Allergies: No Known Allergies (Unverified , 04/08/20) Subjective Above noted Tolerating TF calm/comfortable Objective Last 24 Hour Vital Signs Date Time Temp Pulse Resp B/P (MAP) Pulse Ox O2 Delivery O2 Flow Rate FiO2 04/21/20 16:00 86 04/21/20 16:00 Mechanical Ventilator 04/21/20 16:00 30 04/21/20 16:00 98.7 69 22 116/59 (78) 100 04/21/20 15:05 77 20 30 04/21/20 12:00 98 04/21/20 12:00 96.9 87 18 110/69 (83) 100 04/21/20 12:00 30 04/21/20 12:00 Mechanical Ventilator 04/21/20 11:05 100 21 30 04/21/20 08:00 30 04/21/20 08:00 92 04/21/20 08:00 97.7 98 21 121/85 (97) 99 04/21/20 08:00 Mechanical Ventilator 04/21/20 07:10 94 31 30 04/21/20 04:00 Mechanical Ventilator 04/21/20 04:00 97.8 94 20 118/79 (92) 100 04/21/20 04:00 30 04/21/20 03:44 92 04/21/20 00:36 95 20 30 04/21/20 00:00 97.3 86 20 112/81 (91) 97 04/21/20 00:00 30 04/21/20 00:00 Mechanical Ventilator 04/20/20 23:33 98 Intake and Output 04/20/20 04/21/20 19:00 07:00 Intake Total 1340.834 ml 1010.0 ml Output Total 500 ml 1225 ml Balance 840.834 ml -215.0 ml Intake Free Water 250 ml 60 ml IV Total 470.834 ml 110.0 ml Tube Feeding 620 ml 840 ml Output Urine Total 500 ml 1225 ml # Bowel Movements 1 2 Laboratory Tests 04/20/20 23:43: POC Whole Blood Glucose 251H 04/21/20 03:15: White Blood Count 14.0H, Red Blood Count 3.37L, Hemoglobin 9.1L, Hematocrit 28.0L, Mean Corpuscular Volume 83, Mean Corpuscular Hemoglobin 27.1, Mean Corpuscular Hemoglobin Concent 32.6, Red Cell Distribution Width 14.8, Platelet Count 461H, Mean Platelet Volume 6.6, Neutrophils (%) (Auto) 74.7, Lymphocytes (%) (Auto) 13.9L, Monocytes (%) (Auto) 7.2, Eosinophils (%) (Auto) 3.1H, Basophils (%) (Auto) 1.1, Sodium Level 139, Potassium Level 3.9, Chloride Level 100, Carbon Dioxide Level 32, Anion Gap 7, Blood Urea Nitrogen 39H, Creatinine 1.2, Estimat Glomerular Filtration Rate > 60, Glucose Level 164H, Calcium Level 10.2H, Total Bilirubin 0.2, Aspartate Amino Transf (AST/SGOT) 14L, Alanine Aminotransferase (ALT/SGPT) 14, Alkaline Phosphatase 152H, Total Protein 8.8H, Albumin 1.9L, Globulin 6.9, Albumin/Globulin Ratio 0.3L 04/21/20 05:32: POC Whole Blood Glucose [Pending] 04/21/20 11:58: POC Whole Blood Glucose 247H 04/21/20 17:38: POC Whole Blood Glucose 232H Height (Feet): 5 Height (Inches): 6.00 Weight (Pounds): 135 Objective Debilitated NCAT (+) trach Coarse BS RR abd soft, (+) GT ext (+) LLE leg dressings, no edema Assessment/Plan Assessment/Plan: Assessment - dysphagia, GT - resp failure, trach - anemia - leukocytosis - malnutrition - decub ulcer - LE ischemia - DM Recommendations - continue TF - protein powder - MVI / zinc - GT care - follow labs - abx Slade Shah MD Apr 21, 2020 20:15
[2020-04-21] MEDS ORDERED: NS 275ml ONE (20:35)
[2020-04-21] MEDS: Tamsulosin 0.4mg cap ORAL SCH (21:05)
[2020-04-22] VITALS: BP 132/73
--- NOTE | 2020-04-22 | NUR ---
NURSE NOTES: Pt used cell phone and communicated with family over the phone. States he is feeling better and desires discharge. Plan of care explained to patient and family is made aware. Will continue to monitor.
[2020-04-22] MEDS: NovoLOG Insulin Flexpen SUBQ SCH ×5 (00:12→23:39)
[2020-04-22 04:00] VITALS: BP 129/78
--- NOTE | 2020-04-22 04:00 | NUR ---
NURSE NOTES: Pt cleaned and provided time without restraints. Pt does not show any signs of confusion and shows desire to be kept off restraints. Explained to patient about varying confusion. Pt understands need for restraints due to safety. Will continue to monitor.
[2020-04-22 04:56] LABS: ALANINE AMINOTRANSFERASE 14 U/L (12-78); ALBUMIN 2.1 G/DL (3.4-5.0); ALBUMIN/GLOBULIN RATIO 0.3 (1.0-2.7); ALKALINE PHOSPHATASE 162 U/L (46-116); ANION GAP 5 mmol/L (5-15); BASOPHILS % (AUTO) 1.5 % (0.0-2.0); BILIRUBIN,TOTAL 0.2 MG/DL (0.2-1.0); BLOOD UREA NITROGEN 44 mg/dL (7-18); CALCIUM 10.2 MG/DL (8.5-10.1); CARBON DIOXIDE 33 MMOL/L (21-32); CHLORIDE 101 MMOL/L (98-107); CREATININE 1.2 MG/DL (0.55-1.30); EOSINOPHILS % (AUTO) 2.6 % (0.0-3.0); HEMATOCRIT 28.7 % (42.0-52.0); HEMOGLOBIN 9.5 G/DL (14.2-18.0); MEAN CORPUSCULAR VOLUME 83 FL (80-99); MONOCYTES % (AUTO) 8.3 % (1.0-10.0); NEUTROPHILS % (AUTO) 75.7 % (45.0-75.0); PLATELET COUNT 493 K/UL (150-450); POTASSIUM 3.9 MMOL/L (3.5-5.1); RED BLOOD COUNT 3.44 M/UL (4.70-6.10); RED CELL DISTRIBUTION WIDTH 14.9 % (11.6-14.8); SODIUM 139 MMOL/L (136-145); WHITE BLOOD COUNT 14.6 K/UL (4.8-10.8)
[2020-04-22 05:16] LABS: ASPARTATE AMINO TRANSFERASE 12 U/L (15-37)
--- NOTE | 2020-04-22 06:00 | NUR ---
NURSE NOTES: Patient noted keep sliding down bed. Patient repositioned. Will continue to monitor.
--- NOTE | 2020-04-22 07:07 | NUR ---
NURSE HAND-OFF REPORT: Important Events on Shift:Pt continued scheduled medications. Expresses wishes for discharge and understands continued need for care and restraints due to varying confusion. Patient Status: Stable Diet: Glucerna 1.2 70 ml.hr Pending Orders: Pending Results/Labs:AM Labs Pending MD notification: Latest Vital Signs: Temperature 97.7 , Pulse 90 , B/P 129 /78 , Respiratory Rate 22 , O2 SAT 100 , Mechanical Ventilator, O2 Flow Rate 3.0 . Vital Sign Comment: VSS EKG Rhythm: Sinus Rhythm Rhythm change?: N MD Notified?: N - MD Response: Latest Linder Fall Score: 95 Fall Risk: High Risk Safety Measures: Call light Within Reach, Bed Alarm Zone 2, Side Rails Side Rails x3, Bed position Low and Locked. Fall Precautions: Yellow Socks Yellow Gown Door Sign Patient Fall Education Report given to EMIEL Rowland.
--- NOTE | 2020-04-22 07:19 | NUR ---
RESPIRATORY NOTE: PT received stable on AC/VC 16, 500, 30%, +5. Alarms are on and audible. Vent circuit is secure and out of the way. Airway is midline secure and patent. No s/s of acute respiratory distress noted at this time. Will continue to closely monitor.
--- NOTE | 2020-04-22 07:25 | NUR ---
NURSE NOTES: Received report from EMILE Palmer. Pt is stable on ventilator. Pt AOx2-3, able to make needs known. Pt is on B soft restraints for safety and pulling at medical devices. Pt has gtube running [employer] 1.2 at 70cc. Pt 18 Fr santillan noted.Pt stage 1 redness noted. R knee wrapped with kerlix. Pt R 20 wrist SL. LFA 20g SL. Pt bed low and locked, call light in reach and bed alarm on. Pt close to nursing station. verbalized understanding to call for help.
[2020-04-22 08:00] VITALS: BP 118/84
[2020-04-22] MEDS: Midodrine 10mg tab ORAL SCH ×3 (08:27→18:15)
[2020-04-22] MEDS: Zinc Sulfate 220mg GT SCH (08:27)
[2020-04-22] MEDS: Vitamin D 1000 units Tab GT SCH (08:27)
[2020-04-22] MEDS: Ascorbic Acid 500mg tab GT SCH (08:27)
[2020-04-22] MEDS: QUEtiapine 200mg tab GT SCH ×2 (08:27→21:10)
[2020-04-22] MEDS: Pantoprazole Inj IVP SCH (08:30)
[2020-04-22] MEDS: Heparin 5000 units/ml inj SUBQ SCH ×2 (08:36→21:11)
--- NOTE | 2020-04-22 08:52 | Infectious Diseases Prog Note ---
Assessment/Plan Assessment/Plan A: 1. Pneumonia treated 2. Sacral decubitus ulcer. 3. Left leg necrotic ulcer, phlegmon or edema 4. Ventilator dependent respiratory failure 5. Anemia 5. Leukocytosis PLAN: 1. Observe off antibiotic Subjective ROS Limited/Unobtainable: Yes Neurologic: Reports: confusion, other - on restraint Allergies: Coded Allergies: No Known Allergies (Unverified , 04/08/20) Objective Last 24 Hour Vital Signs Date Time Temp Pulse Resp B/P (MAP) Pulse Ox O2 Delivery O2 Flow Rate FiO2 04/22/20 04:00 Mechanical Ventilator 04/22/20 04:00 90 04/22/20 04:00 97.7 92 22 129/78 (95) 100 04/22/20 04:00 30 04/22/20 03:07 91 18 30 04/22/20 00:00 30 04/22/20 00:00 Mechanical Ventilator 04/22/20 00:00 102 04/22/20 00:00 96.4 96 22 132/73 (92) 100 04/21/20 23:12 97 19 30 04/21/20 20:00 30 04/21/20 20:00 84 04/21/20 20:00 97.7 87 22 133/90 (104) 100 04/21/20 20:00 Mechanical Ventilator 04/21/20 19:41 95 19 30 04/21/20 16:00 86 04/21/20 16:00 Mechanical Ventilator 04/21/20 16:00 30 04/21/20 16:00 98.7 69 22 116/59 (78) 100 04/21/20 15:05 77 20 30 04/21/20 12:00 98 04/21/20 12:00 96.9 87 18 110/69 (83) 100 04/21/20 12:00 30 04/21/20 12:00 Mechanical Ventilator 04/21/20 11:05 100 21 30 Height (Feet): 5 Height (Inches): 6.00 Weight (Pounds): 135 HEENT: status post trach Respiratory/Chest: other - on ventilator Cardiovascular: normal rate Abdomen: soft, non tender, other - GT feeding Extremities: no edema Skin: other - left leg eschar Neurologic/Psychiatric: other - sleeping Laboratory Tests Test 04/21/20 11:58 04/21/20 17:38 04/22/20 00:00 04/22/20 03:10 POC Whole Blood Glucose 247 MG/DL (74-106) H 232 MG/DL (74-106) H Pending White Blood Count 14.6 K/UL (4.8-10.8) H Red Blood Count 3.44 M/UL (4.70-6.10) L Hemoglobin 9.5 G/DL (14.2-18.0) L Hematocrit 28.7 % (42.0-52.0) L Mean Corpuscular Volume 83 FL (80-99) Mean Corpuscular Hemoglobin 27.6 PG (27.0-31.0) Mean Corpuscular Hemoglobin Concent 33.1 G/DL (32.0-36.0) Red Cell Distribution Width 14.9 % (11.6-14.8) H Platelet Count 493 K/UL (150-450) H Mean Platelet Volume 6.4 FL (6.5-10.1) L Neutrophils (%) (Auto) 75.7 % (45.0-75.0) H Lymphocytes (%) (Auto) 12.0 % (20.0-45.0) L Monocytes (%) (Auto) 8.3 % (1.0-10.0) Eosinophils (%) (Auto) 2.6 % (0.0-3.0) Basophils (%) (Auto) 1.5 % (0.0-2.0) Erythrocyte Sedimentation Rate 118 MM/HR (0-15) H Sodium Level 139 MMOL/L (136-145) Potassium Level 3.9 MMOL/L (3.5-5.1) Chloride Level 101 MMOL/L (98-107) Carbon Dioxide Level 33 MMOL/L (21-32) H Anion Gap 5 mmol/L (5-15) Blood Urea Nitrogen 44 mg/dL (7-18) H Creatinine 1.2 MG/DL (0.55-1.30) Estimat Glomerular Filtration Rate > 60 mL/min (>60) Glucose Level 208 MG/DL (74-106) H Calcium Level 10.2 MG/DL (8.5-10.1) H Total Bilirubin 0.2 MG/DL (0.2-1.0) Aspartate Amino Transf (AST/SGOT) 12 U/L (15-37) L Alanine Aminotransferase (ALT/SGPT) 14 U/L (12-78) Alkaline Phosphatase 162 U/L (46-116) H C-Reactive Protein, Quantitative 2.6 mg/dL (0.00-0.90) H Total Protein 9.0 G/DL (6.4-8.2) H Albumin 2.1 G/DL (3.4-5.0) L Globulin 6.9 g/dL Albumin/Globulin Ratio 0.3 (1.0-2.7) L Test 04/22/20 05:52 POC Whole Blood Glucose Pending Current Medications Medications (Trade) Dose Ordered Sig/Benigno Route PRN Reason Start Time Stop Time Status Last Admin Dose Admin Acetaminophen (Tylenol) 650 mg Q4H PRN ORAL Mild Pain (Pain Scale 1-3) 04/09/20 09:00 05/09/20 08:59 Acetaminophen (Tylenol) 650 mg Q4H PRN ORAL Temp >100.5 04/09/20 09:00 05/09/20 08:59 Ascorbic Acid (Vitamin C) 1,000 mg DAILY GT 04/09/20 09:00 05/09/20 08:59 04/22/20 08:27 Dextrose (Dextrose 50%) 25 ml Q30M PRN IV Hypoglycemia 04/09/20 09:00 07/08/20 08:59 Dextrose (Dextrose 50%) 50 ml Q30M PRN IV Hypoglycemia 04/09/20 09:00 07/08/20 08:59 Diphenhydramine HCl (Benadryl) 50 mg Q12H PRN IVP Agitation 04/11/20 01:30 05/11/20 01:29 04/15/20 12:53 Furosemide (Lasix) 20 mg EVERY 12 HOURS IV 04/09/20 09:00 05/09/20 08:59 04/22/20 08:27 Haloperidol Lactate (Haldol) 5 mg Q6H PRN IM Agitation 04/11/20 16:15 05/26/20 16:14 04/17/20 10:11 Heparin Sodium (Porcine) (Heparin 5000 units/ml) 5,000 units EVERY 12 HOURS SUBQ 04/09/20 10:00 05/24/20 09:59 04/22/20 08:36 Insulin Aspart (NovoLOG) EVERY 6 HOURS SUBQ 04/15/20 06:00 07/08/20 11:29 04/22/20 05:58 Magnesium Hydroxide (Mom) 30 ml DAILYPRN PRN ORAL Constipation 04/09/20 09:00 05/09/20 08:59 Midodrine (Pro-Amatine) 10 mg THREE TIMES A DAY ORAL 04/20/20 09:00 07/17/20 08:59 04/22/20 08:27 Morphine Sulfate (Morphine Sulfate) 2 mg Q3H PRN IVP For Pain 4-10 04/21/20 10:30 04/28/20 10:29 Ondansetron HCl (Zofran) 4 mg Q6H PRN IVP Nausea & Vomiting 04/09/20 09:00 05/09/20 08:59 Pantoprazole (Protonix) 40 mg DAILY IVP 04/09/20 09:00 05/09/20 08:59 04/22/20 08:30 Quetiapine Fumarate (SEROqueL) 50 mg Q6H PRN GT Restlessness and agitation 04/10/20 16:15 05/25/20 16:14 04/15/20 14:04 Quetiapine Fumarate (SEROqueL) 200 mg Q12HR GT 04/11/20 09:00 05/26/20 08:59 04/22/20 08:27 Tamsulosin HCl (Flomax) 0.4 mg BEDTIME ORAL 04/21/20 21:00 05/21/20 20:59 04/21/20 21:05 Vitamin D (Vitamin D) 2,000 unit DAILY GT 04/09/20 09:00 05/09/20 08:59 04/22/20 08:27 Zinc Oxide (Zinc Oxide) 1 applic TIDPRN PRN TOPIC Itching 04/09/20 08:30 07/08/20 08:29 Zinc Sulfate (Zinc Sulfate) 220 mg DAILY GT 04/09/20 09:00 07/08/20 08:59 04/22/20 08:27 Sumit Devine MD Apr 22, 2020 08:52
--- NOTE | 2020-04-22 09:22 | Urology Progress Note ---
Assessment/Plan Assessment/Plan: 1. Urinary retention. 2. Possible BPH. 3. Probable neurogenic bladder. 4. Rule out UTI colonization. 5. Urethral stenosis. monitor clinically maintain santillan, replaced 04/21 hand irrigated and do PRN flomax added voiding trial at some point? cysto electively Subjective Allergies: Coded Allergies: No Known Allergies (Unverified , 04/08/20) Subjective all noted Objective Last 24 Hour Vital Signs Date Time Temp Pulse Resp B/P (MAP) Pulse Ox O2 Delivery O2 Flow Rate FiO2 04/22/20 08:00 96.7 85 17 118/84 (95) 100 04/22/20 08:00 89 04/22/20 08:00 Mechanical Ventilator 04/22/20 08:00 30 04/22/20 04:00 Mechanical Ventilator 04/22/20 04:00 90 04/22/20 04:00 97.7 92 22 129/78 (95) 100 04/22/20 04:00 30 04/22/20 03:07 91 18 30 04/22/20 00:00 30 04/22/20 00:00 Mechanical Ventilator 04/22/20 00:00 102 04/22/20 00:00 96.4 96 22 132/73 (92) 100 04/21/20 23:12 97 19 30 04/21/20 20:00 30 04/21/20 20:00 84 04/21/20 20:00 97.7 87 22 133/90 (104) 100 04/21/20 20:00 Mechanical Ventilator 04/21/20 19:41 95 19 30 04/21/20 16:00 86 04/21/20 16:00 Mechanical Ventilator 04/21/20 16:00 30 04/21/20 16:00 98.7 69 22 116/59 (78) 100 04/21/20 15:05 77 20 30 04/21/20 12:00 98 04/21/20 12:00 96.9 87 18 110/69 (83) 100 04/21/20 12:00 30 04/21/20 12:00 Mechanical Ventilator 04/21/20 11:05 100 21 30 Intake and Output 04/21/20 04/22/20 19:00 07:00 Intake Total 1140 ml 780 ml Output Total 400 ml Balance 740 ml 780 ml Intake Free Water 150 ml Tube Feeding 140 ml 630 ml Other 1000 ml Output Urine Total 400 ml Microbiology Date/Time Source Procedure Growth Status 04/10/20 18:00 Sputum Induced Gram Stain - Final Complete 04/10/20 18:00 Sputum Culture - Final Marlyn Albicans Complete 04/10/20 15:30 Blood Blood Culture - Final NO GROWTH AFTER 5 DAYS Complete 04/10/20 13:15 Indwelling Cath Urine Culture - Final NO GROWTH AFTER 48 HOURS Complete 04/09/20 05:45 Rectum VRE Culture - Final NO VANCOMYCIN RESISTANT ENTEROCOCCUS ... Complete Current Medications Medications (Trade) Dose Ordered Sig/Benigno Route PRN Reason Start Time Stop Time Status Last Admin Dose Admin Acetaminophen (Tylenol) 650 mg Q4H PRN ORAL Mild Pain (Pain Scale 1-3) 04/09/20 09:00 05/09/20 08:59 Acetaminophen (Tylenol) 650 mg Q4H PRN ORAL Temp >100.5 04/09/20 09:00 05/09/20 08:59 Ascorbic Acid (Vitamin C) 1,000 mg DAILY GT 04/09/20 09:00 05/09/20 08:59 04/22/20 08:27 Dextrose (Dextrose 50%) 25 ml Q30M PRN IV Hypoglycemia 04/09/20 09:00 07/08/20 08:59 Dextrose (Dextrose 50%) 50 ml Q30M PRN IV Hypoglycemia 04/09/20 09:00 07/08/20 08:59 Diphenhydramine HCl (Benadryl) 50 mg Q12H PRN IVP Agitation 04/11/20 01:30 05/11/20 01:29 04/15/20 12:53 Furosemide (Lasix) 20 mg EVERY 12 HOURS IV 04/09/20 09:00 05/09/20 08:59 04/22/20 08:27 Haloperidol Lactate (Haldol) 5 mg Q6H PRN IM Agitation 04/11/20 16:15 05/26/20 16:14 04/17/20 10:11 Heparin Sodium (Porcine) (Heparin 5000 units/ml) 5,000 units EVERY 12 HOURS SUBQ 04/09/20 10:00 05/24/20 09:59 04/22/20 08:36 Insulin Aspart (NovoLOG) EVERY 6 HOURS SUBQ 04/15/20 06:00 07/08/20 11:29 04/22/20 05:58 Magnesium Hydroxide (Mom) 30 ml DAILYPRN PRN ORAL Constipation 04/09/20 09:00 05/09/20 08:59 Midodrine (Pro-Amatine) 10 mg THREE TIMES A DAY ORAL 04/20/20 09:00 07/17/20 08:59 04/22/20 08:27 Morphine Sulfate (Morphine Sulfate) 2 mg Q3H PRN IVP For Pain 4-10 04/21/20 10:30 04/28/20 10:29 Ondansetron HCl (Zofran) 4 mg Q6H PRN IVP Nausea & Vomiting 04/09/20 09:00 05/09/20 08:59 Pantoprazole (Protonix) 40 mg DAILY IVP 04/09/20 09:00 05/09/20 08:59 04/22/20 08:30 Quetiapine Fumarate (SEROqueL) 50 mg Q6H PRN GT Restlessness and agitation 04/10/20 16:15 05/25/20 16:14 04/15/20 14:04 Quetiapine Fumarate (SEROqueL) 200 mg Q12HR GT 04/11/20 09:00 05/26/20 08:59 04/22/20 08:27 Tamsulosin HCl (Flomax) 0.4 mg BEDTIME ORAL 04/21/20 21:00 05/21/20 20:59 04/21/20 21:05 Vitamin D (Vitamin D) 2,000 unit DAILY GT 04/09/20 09:00 05/09/20 08:59 04/22/20 08:27 Zinc Oxide (Zinc Oxide) 1 applic TIDPRN PRN TOPIC Itching 04/09/20 08:30 07/08/20 08:29 Zinc Sulfate (Zinc Sulfate) 220 mg DAILY GT 04/09/20 09:00 07/08/20 08:59 04/22/20 08:27 Laboratory Tests 04/21/20 11:58: POC Whole Blood Glucose 247H 04/21/20 17:38: POC Whole Blood Glucose 232H 04/22/20 00:00: POC Whole Blood Glucose [Pending] 04/22/20 03:10: White Blood Count 14.6H, Red Blood Count 3.44L, Hemoglobin 9.5L, Hematocrit 28.7L, Mean Corpuscular Volume 83, Mean Corpuscular Hemoglobin 27.6, Mean Corpuscular Hemoglobin Concent 33.1, Red Cell Distribution Width 14.9H, Platelet Count 493H, Mean Platelet Volume 6.4L, Neutrophils (%) (Auto) 75.7H, Lymphocytes (%) (Auto) 12.0L, Monocytes (%) (Auto) 8.3, Eosinophils (%) (Auto) 2.6, Basophils (%) (Auto) 1.5, Erythrocyte Sedimentation Rate 118H, Sodium Level 139, Potassium Level 3.9, Chloride Level 101, Carbon Dioxide Level 33H, Anion Gap 5, Blood Urea Nitrogen 44H, Creatinine 1.2, Estimat Glomerular Filtration Rate > 60, Glucose Level 208H, Calcium Level 10.2H, Total Bilirubin 0.2, Aspartate Amino Transf (AST/SGOT) 12L, Alanine Aminotransferase (ALT/SGPT) 14, Alkaline Phosphatase 162H, C-Reactive Protein, Quantitative 2.6H, Total Protein 9.0H, Albumin 2.1L, Globulin 6.9, Albumin/Globulin Ratio 0.3L 04/22/20 05:52: POC Whole Blood Glucose [Pending] Height (Feet): 5 Height (Inches): 6.00 Weight (Pounds): 135 Objective exam stable urine yellow with debris Saji Zacarias MD Apr 22, 2020 09:22
--- NOTE | 2020-04-22 10:24 | General Progress Note ---
Subjective ROS Limited/Unobtainable: No Allergies: Coded Allergies: No Known Allergies (Unverified , 04/08/20) Objective Last 24 Hour Vital Signs Date Time Temp Pulse Resp B/P (MAP) Pulse Ox O2 Delivery O2 Flow Rate FiO2 04/22/20 08:00 96.7 85 17 118/84 (95) 100 04/22/20 08:00 89 04/22/20 08:00 Mechanical Ventilator 04/22/20 08:00 30 04/22/20 04:00 Mechanical Ventilator 04/22/20 04:00 90 04/22/20 04:00 97.7 92 22 129/78 (95) 100 04/22/20 04:00 30 04/22/20 03:07 91 18 30 04/22/20 00:00 30 04/22/20 00:00 Mechanical Ventilator 04/22/20 00:00 102 04/22/20 00:00 96.4 96 22 132/73 (92) 100 04/21/20 23:12 97 19 30 04/21/20 20:00 30 04/21/20 20:00 84 04/21/20 20:00 97.7 87 22 133/90 (104) 100 04/21/20 20:00 Mechanical Ventilator 04/21/20 19:41 95 19 30 04/21/20 16:00 86 04/21/20 16:00 Mechanical Ventilator 04/21/20 16:00 30 04/21/20 16:00 98.7 69 22 116/59 (78) 100 04/21/20 15:05 77 20 30 04/21/20 12:00 98 04/21/20 12:00 96.9 87 18 110/69 (83) 100 04/21/20 12:00 30 04/21/20 12:00 Mechanical Ventilator 04/21/20 11:05 100 21 30 Intake and Output 04/21/20 04/22/20 19:00 07:00 Intake Total 1140 ml 780 ml Output Total 400 ml Balance 740 ml 780 ml Intake Free Water 150 ml Tube Feeding 140 ml 630 ml Other 1000 ml Output Urine Total 400 ml Laboratory Tests 04/21/20 11:58: POC Whole Blood Glucose 247H 04/21/20 17:38: POC Whole Blood Glucose 232H 04/22/20 00:00: POC Whole Blood Glucose [Pending] 04/22/20 03:10: White Blood Count 14.6H, Red Blood Count 3.44L, Hemoglobin 9.5L, Hematocrit 28.7L, Mean Corpuscular Volume 83, Mean Corpuscular Hemoglobin 27.6, Mean Corpuscular Hemoglobin Concent 33.1, Red Cell Distribution Width 14.9H, Platelet Count 493H, Mean Platelet Volume 6.4L, Neutrophils (%) (Auto) 75.7H, Lymphocytes (%) (Auto) 12.0L, Monocytes (%) (Auto) 8.3, Eosinophils (%) (Auto) 2.6, Basophils (%) (Auto) 1.5, Erythrocyte Sedimentation Rate 118H, Sodium Level 139, Potassium Level 3.9, Chloride Level 101, Carbon Dioxide Level 33H, Anion Gap 5, Blood Urea Nitrogen 44H, Creatinine 1.2, Estimat Glomerular Filtration Rate > 60, Glucose Level 208H, Calcium Level 10.2H, Total Bilirubin 0.2, Aspartate Amino Transf (AST/SGOT) 12L, Alanine Aminotransferase (ALT/SGPT) 14, Alkaline Phosphatase 162H, C-Reactive Protein, Quantitative 2.6H, Total Protein 9.0H, Albumin 2.1L, Globulin 6.9, Albumin/Globulin Ratio 0.3L 04/22/20 05:52: POC Whole Blood Glucose [Pending] Height (Feet): 5 Height (Inches): 6.00 Weight (Pounds): 135 General Appearance: no apparent distress EENT: normal ENT inspection Neck: supple Cardiovascular: normal rate Respiratory/Chest: decreased breath sounds Abdomen: normal bowel sounds, non tender, soft Extremities: non-tender Assessment/Plan Assessment/Plan: Assessment/Plan: Assessment - dysphagia, GT - resp failure, trach - anemia - leukocytosis - malnutrition - decub ulcer - LE ischemia - DM Recommendations - continue TF - protein powder - MVI / zinc - GT care - follow labs - abx Jerry Roberts MD Apr 22, 2020 10:24
[2020-04-22 12:00] VITALS: BP 113/81
--- NOTE | 2020-04-22 15:21 | NUR ---
NURSE NOTES: Wound care completed per standing wound care order. pt tolerated well, able to assist w/ turning.
--- NOTE | 2020-04-22 15:24 | NUR ---
RESPIRATORY NOTE: PT remained stable on mechanical ventilation with current settings. SX PRN. Airway is secure and patent. Vent circuit is secure and out of the way. No s/s of respiratory distress noted at this time.
--- NOTE | 2020-04-22 15:28 | Pulmonology Progress Note ---
Subjective ROS Limited/Unobtainable: No Constitutional: Denies: fever Musculoskeletal: Reports: no symptoms Allergies: Coded Allergies: No Known Allergies (Unverified , 04/08/20) Objective Last 24 Hour Vital Signs Date Time Temp Pulse Resp B/P (MAP) Pulse Ox O2 Delivery O2 Flow Rate FiO2 04/22/20 12:00 30 04/22/20 12:00 Mechanical Ventilator 04/22/20 12:00 97.5 94 19 113/81 (92) 100 04/22/20 12:00 91 04/22/20 11:22 91 17 30 04/22/20 08:00 96.7 85 17 118/84 (95) 100 04/22/20 08:00 89 04/22/20 08:00 Mechanical Ventilator 04/22/20 08:00 30 04/22/20 07:19 91 17 30 04/22/20 04:00 Mechanical Ventilator 04/22/20 04:00 90 04/22/20 04:00 97.7 92 22 129/78 (95) 100 04/22/20 04:00 30 04/22/20 03:07 91 18 30 04/22/20 00:00 30 04/22/20 00:00 Mechanical Ventilator 04/22/20 00:00 102 04/22/20 00:00 96.4 96 22 132/73 (92) 100 04/21/20 23:12 97 19 30 04/21/20 20:00 30 04/21/20 20:00 84 04/21/20 20:00 97.7 87 22 133/90 (104) 100 04/21/20 20:00 Mechanical Ventilator 04/21/20 19:41 95 19 30 04/21/20 16:00 86 04/21/20 16:00 Mechanical Ventilator 04/21/20 16:00 30 04/21/20 16:00 98.7 69 22 116/59 (78) 100 Intake and Output 04/21/20 04/22/20 19:00 07:00 Intake Total 1140 ml 780 ml Output Total 400 ml Balance 740 ml 780 ml Intake Free Water 150 ml Tube Feeding 140 ml 630 ml Other 1000 ml Output Urine Total 400 ml Laboratory Tests 04/21/20 17:38: POC Whole Blood Glucose 232H 04/22/20 00:00: POC Whole Blood Glucose [Pending] 04/22/20 03:10: White Blood Count 14.6H, Red Blood Count 3.44L, Hemoglobin 9.5L, Hematocrit 28.7L, Mean Corpuscular Volume 83, Mean Corpuscular Hemoglobin 27.6, Mean Corpuscular Hemoglobin Concent 33.1, Red Cell Distribution Width 14.9H, Platelet Count 493H, Mean Platelet Volume 6.4L, Neutrophils (%) (Auto) 75.7H, Lymphocytes (%) (Auto) 12.0L, Monocytes (%) (Auto) 8.3, Eosinophils (%) (Auto) 2.6, Basophils (%) (Auto) 1.5, Erythrocyte Sedimentation Rate 118H, Sodium Level 139, Potassium Level 3.9, Chloride Level 101, Carbon Dioxide Level 33H, Anion Gap 5, Blood Urea Nitrogen 44H, Creatinine 1.2, Estimat Glomerular Filtration Rate > 60, Glucose Level 208H, Calcium Level 10.2H, Total Bilirubin 0.2, Aspartate Amino Transf (AST/SGOT) 12L, Alanine Aminotransferase (ALT/SGPT) 14, Alkaline Phosphatase 162H, C-Reactive Protein, Quantitative 2.6H, Total Protein 9.0H, Albumin 2.1L, Globulin 6.9, Albumin/Globulin Ratio 0.3L 04/22/20 05:52: POC Whole Blood Glucose [Pending] 04/22/20 11:55: POC Whole Blood Glucose 194H Current Medications Medications (Trade) Dose Ordered Sig/Benigno Route PRN Reason Start Time Stop Time Status Last Admin Dose Admin Acetaminophen (Tylenol) 650 mg Q4H PRN ORAL Mild Pain (Pain Scale 1-3) 04/09/20 09:00 05/09/20 08:59 Acetaminophen (Tylenol) 650 mg Q4H PRN ORAL Temp >100.5 04/09/20 09:00 05/09/20 08:59 Ascorbic Acid (Vitamin C) 1,000 mg DAILY GT 04/09/20 09:00 05/09/20 08:59 04/22/20 08:27 Dextrose (Dextrose 50%) 25 ml Q30M PRN IV Hypoglycemia 04/09/20 09:00 07/08/20 08:59 Dextrose (Dextrose 50%) 50 ml Q30M PRN IV Hypoglycemia 04/09/20 09:00 07/08/20 08:59 Diphenhydramine HCl (Benadryl) 50 mg Q12H PRN IVP Agitation 04/11/20 01:30 05/11/20 01:29 04/15/20 12:53 Furosemide (Lasix) 20 mg EVERY 12 HOURS IV 04/09/20 09:00 05/09/20 08:59 04/22/20 08:27 Haloperidol Lactate (Haldol) 5 mg Q6H PRN IM Agitation 04/11/20 16:15 05/26/20 16:14 04/17/20 10:11 Heparin Sodium (Porcine) (Heparin 5000 units/ml) 5,000 units EVERY 12 HOURS SUBQ 04/09/20 10:00 05/24/20 09:59 04/22/20 08:36 Insulin Aspart (NovoLOG) EVERY 6 HOURS SUBQ 04/15/20 06:00 07/08/20 11:29 04/22/20 12:00 Magnesium Hydroxide (Mom) 30 ml DAILYPRN PRN ORAL Constipation 04/09/20 09:00 05/09/20 08:59 Midodrine (Pro-Amatine) 10 mg THREE TIMES A DAY ORAL 04/20/20 09:00 07/17/20 08:59 04/22/20 12:23 Morphine Sulfate (Morphine Sulfate) 2 mg Q3H PRN IVP For Pain 4-10 04/21/20 10:30 04/28/20 10:29 Ondansetron HCl (Zofran) 4 mg Q6H PRN IVP Nausea & Vomiting 04/09/20 09:00 05/09/20 08:59 Pantoprazole (Protonix) 40 mg DAILY IVP 04/09/20 09:00 05/09/20 08:59 04/22/20 08:30 Quetiapine Fumarate (SEROqueL) 50 mg Q6H PRN GT Restlessness and agitation 04/10/20 16:15 05/25/20 16:14 04/15/20 14:04 Quetiapine Fumarate (SEROqueL) 200 mg Q12HR GT 04/11/20 09:00 05/26/20 08:59 04/22/20 08:27 Tamsulosin HCl (Flomax) 0.4 mg BEDTIME ORAL 04/21/20 21:00 05/21/20 20:59 04/21/20 21:05 Vitamin D (Vitamin D) 2,000 unit DAILY GT 04/09/20 09:00 05/09/20 08:59 04/22/20 08:27 Zinc Oxide (Zinc Oxide) 1 applic TIDPRN PRN TOPIC Itching 04/09/20 08:30 07/08/20 08:29 Zinc Sulfate (Zinc Sulfate) 220 mg DAILY GT 04/09/20 09:00 07/08/20 08:59 04/22/20 08:27 Assessment/Plan Assessment/Plan Pulmonary Progress Note Subjective Allergies: Coded Allergies: No Known Allergies (Unverified , 04/08/20) Subjective care noted on vent and trach Objective Vital Signs noted Laboratory noted Height (Feet): 5 Height (Inches): 6.00 Weight (Pounds): 135 Objective WDWN trach reduced breath sounds bilaterally without rhonchi or wheeze [id number] without MRG NABS nontender GT no CCE poor LOC Assessment/Plan Impression: Pneumonia, h/o Klebsiella Ventilator dependance Tracheostomy status Diabetes Sacral decubitus and feet pressure areas azotemia leukocytosis necrotic lower extremity diabetes Plan: - urology follow up - Continue antibiotics per ID - ID,Surgeryfollowing - Continue current ventilator sttings - Adjust O2 as needed - DVT prophylaxis -Wound consult - dc planning impression, plan, and exam edited and reviewed in detail care discussed with Homer Beckham MD Apr 22, 2020 15:28
[2020-04-22 16:00] VITALS: BP 128/70
--- NOTE | 2020-04-22 16:55 | Surgery Progress Note ---
Surgery Progress Note Subjective Additional Comments wbc esr otherwise stable Objective Last 24 Hour Vital Signs Date Time Temp Pulse Resp B/P (MAP) Pulse Ox O2 Delivery O2 Flow Rate FiO2 04/22/20 16:00 30 04/22/20 16:00 96.4 81 17 128/70 (89) 98 04/22/20 16:00 Mechanical Ventilator 04/22/20 15:24 84 20 30 04/22/20 12:00 30 04/22/20 12:00 Mechanical Ventilator 04/22/20 12:00 97.5 94 19 113/81 (92) 100 04/22/20 12:00 91 04/22/20 11:22 91 17 30 04/22/20 08:00 96.7 85 17 118/84 (95) 100 04/22/20 08:00 89 04/22/20 08:00 Mechanical Ventilator 04/22/20 08:00 30 04/22/20 07:19 91 17 30 04/22/20 04:00 Mechanical Ventilator 04/22/20 04:00 90 04/22/20 04:00 97.7 92 22 129/78 (95) 100 04/22/20 04:00 30 04/22/20 03:07 91 18 30 04/22/20 00:00 30 04/22/20 00:00 Mechanical Ventilator 04/22/20 00:00 102 04/22/20 00:00 96.4 96 22 132/73 (92) 100 04/21/20 23:12 97 19 30 04/21/20 20:00 30 04/21/20 20:00 84 04/21/20 20:00 97.7 87 22 133/90 (104) 100 04/21/20 20:00 Mechanical Ventilator 04/21/20 19:41 95 19 30 I&O Intake and Output 04/21/20 04/22/20 19:00 07:00 Intake Total 1140 ml 780 ml Output Total 400 ml Balance 740 ml 780 ml Intake Free Water 150 ml Tube Feeding 140 ml 630 ml Other 1000 ml Output Urine Total 400 ml Cardiovascular: RSR Respiratory: decreased breath sounds Abdomen: soft, flat, non-tender, present bowel sounds Extremities: cyanosis, no edema, no tenderness Laboratory Tests Test 04/21/20 17:38 04/22/20 00:00 04/22/20 03:10 04/22/20 05:52 POC Whole Blood Glucose 232 MG/DL (74-106) H Pending Pending White Blood Count 14.6 K/UL (4.8-10.8) H Red Blood Count 3.44 M/UL (4.70-6.10) L Hemoglobin 9.5 G/DL (14.2-18.0) L Hematocrit 28.7 % (42.0-52.0) L Mean Corpuscular Volume 83 FL (80-99) Mean Corpuscular Hemoglobin 27.6 PG (27.0-31.0) Mean Corpuscular Hemoglobin Concent 33.1 G/DL (32.0-36.0) Red Cell Distribution Width 14.9 % (11.6-14.8) H Platelet Count 493 K/UL (150-450) H Mean Platelet Volume 6.4 FL (6.5-10.1) L Neutrophils (%) (Auto) 75.7 % (45.0-75.0) H Lymphocytes (%) (Auto) 12.0 % (20.0-45.0) L Monocytes (%) (Auto) 8.3 % (1.0-10.0) Eosinophils (%) (Auto) 2.6 % (0.0-3.0) Basophils (%) (Auto) 1.5 % (0.0-2.0) Erythrocyte Sedimentation Rate 118 MM/HR (0-15) H Sodium Level 139 MMOL/L (136-145) Potassium Level 3.9 MMOL/L (3.5-5.1) Chloride Level 101 MMOL/L (98-107) Carbon Dioxide Level 33 MMOL/L (21-32) H Anion Gap 5 mmol/L (5-15) Blood Urea Nitrogen 44 mg/dL (7-18) H Creatinine 1.2 MG/DL (0.55-1.30) Estimat Glomerular Filtration Rate > 60 mL/min (>60) Glucose Level 208 MG/DL (74-106) H Calcium Level 10.2 MG/DL (8.5-10.1) H Total Bilirubin 0.2 MG/DL (0.2-1.0) Aspartate Amino Transf (AST/SGOT) 12 U/L (15-37) L Alanine Aminotransferase (ALT/SGPT) 14 U/L (12-78) Alkaline Phosphatase 162 U/L (46-116) H C-Reactive Protein, Quantitative 2.6 mg/dL (0.00-0.90) H Total Protein 9.0 G/DL (6.4-8.2) H Albumin 2.1 G/DL (3.4-5.0) L Globulin 6.9 g/dL Albumin/Globulin Ratio 0.3 (1.0-2.7) L Test 04/22/20 11:55 POC Whole Blood Glucose 194 MG/DL (74-106) H Plan Problems: (1) Pneumonia (2) Sacral decubitus ulcer Assessment & Plan: Pt presented on admission with Tracheostomy,GT and Multiple Wounds including an Unstageable Pressure Injury Sacrum(L)2.1cm x (W)2.8cm.Base of wound is 100% slough. Borders are adherent, erythematous. Periwound is indurated with non-blanchable erythema. At L HIP A Blue marker measuring (L)6cm x (W)5cm. Small linear shaped wound that is somewhat approximated. The remaining base within Blue Marker is indurated,erythematous with elevation in skin temp at affected area within marker, and extends well beyond borders of Marker to upper L thigh(L)12cm x (W)8cm. Large Necrotic Ulcer with irregular borders noted to lateral L Tibia. Base of wound is 100% Necrotic and dry. Edges are adherent and erythematous. Periwound is dusky with elevation in skin temp noted(L)21cm x (W)11.5cm. Necrotic Ulcer lateral L foot/L malleolus(L)4cm x 6.5cm. Base of wound is 100% soft, but dry necrosis.Edges are adherent to base of wound but are erythematous. Surrounding the wound, skin colour is dusky and skin temp is elevated. NO odor or exudate noted. Open abscess/Boil noted to lateral R Tibia(L)3cm x (W)3cm with small opening at center base (L)0.4cmx (W)0.4cm. No exudate noted. Skin temp is slightly elevated. Both heels are callused and dry. Dry peeling skin noted to both lower ext, both feet including plantar aspect of both feet. Tx.Plan: Cleanse Sacral wound with Saline. Apply TheraHoney. Apply Moisture Barrier Paste periwound. Cover with Optifoam drsg Daily and prn. Apply Betadine to L Hip. Cover with Optifoam drsg. Change every 3 days and prn. Apply Betadine to Lateral L Tibia, and Lateral L foot. Cover each site with ABD Pads and wrap with Kerlix Daily and prn. Apply Betadine to Lateral R Tibia. Cover with Optifoam drsg. Change every 3 days and prn. Apply Cavilon Skin Barrier to both heels. Cover each heel with Optifoam drsg. Change every 7 days and prn. Reposition at Least every 2 hours or as tolerated. Elevate both lower ext and float Heels with pillows.Patient presents on admission with identifiable unstageable sacral decubitus ulcer fairly fraction likely recently forming. Areas approximately 3 cm x 3 cm unknown depth. No drainage. No foul odor. Eschar area identified soft no ischemic eschar likely forming. Deep tissue underneath injury. Furthermore patient identified to have significant left lower extremity ischemic disease with ulcers and necrotic eschar. On the left lateral foot there is a necrotic eschar as well as on the left lateral leg significantly large. No drainage no signs of active infection chronic appearing in nature. Care plan initiated. Will need to ensure optimization of patient for care plan. Leukocytosis unlikely related to wounds as they do not seem actively infected Nutritional optimization We will follow with recommendations thank you for let me participate in patient's care (3) Ischemia of left lower extremity Assessment & Plan: chronic large wounds US duplex arterial and venous will follow with recs leukocytosis has been trending down leg exam stable without signs of active infection. just large area of chronic ischemia eschar On the right, triphasic waveforms with sharp systolic peaks are seen at the common femoral, superficial femoral, and popliteal artery levels. Tibial vessel waveforms are biphasic or triphasic with sharp systolic peaks. On the left, triphasic waveforms are seen at the level of the common femoral artery level. Left superficial femoral artery waveforms are triphasic proximally, borderline monophasic in the mid portion. Popliteal artery waveforms are monophasic but systolic peaks are sharp. Tibial vessel waveforms are monophasic but with sharp systolic peaks. There is a stenosis of the dorsalis pedis artery, with flow velocity elevation of up to 332 cm/s. There is slightly dampened flow velocity distal to it. Impression: No evidence of significant right lower extremity arterial insufficiency Monophasic waveforms in the distal superficial femoral and popliteal artery, could indicate stenosis in these segments; more likely artifactual as there is still rapid systolic upstroke, including in the ankle vessels. Evidence of significant stenosis in the dorsalis pedis artery There is a large area of low attenuation within the lateral subcutaneous fat extending from the highest slice in the distal thigh along the entire course of the anterolateral leg and into the foot, where it extends to the level of the metacarpals dorsolaterally. Is unclear whether this represents an organized fluid collection versus intense edema/phlegmon, although suspect the latter, as there are numerous gas bubbles within the collection in the leg which do not float nondependently. There is enhancement of the tissues bordering it.. The widest extent of this is in the distal thigh, where it measures 8.2 cm AP and about 2 cm in thickness. The overall length of this is at least 45 cm, although as mentioned earlier the proximal extent is not visualized. There is a skin defect in the lateral leg at the superficial aspect of the collection which presumably represents a skin ulcer. This demonstrates multiple areas of ulceration. Low attenuation also extends into the anterior muscular compartment of the leg. The fat appears to be hypoattenuating although the musculature demonstrates only mild if any hypoattenuation. No osseous erosions, abnormal periosteal reaction, or other findings to suggest osteomyelitis are demonstrated. Impression: Intense edema versus organized fluid exiting the entire extent of the anterolateral subcutaneous fat of the leg, extending into the foot to the level of the metatarsals and proximal into the thigh beyond the edge of the imaging volume. Favor that this represents edema/phlegmon, as there are gas bubbles that appear to be trapped within it, and there is an open wound through which it should drain if it was fluid. Presence of gas bubbles is concerning for infection with a gas-forming organism. This process also extends into the anterior muscular compartment of the tibial muscles No definite evidence of osteomyelitis. However, evaluation for such is limited on CT, and MRI should be considered if this is a clinical concern Anthony Fernandez Apr 22, 2020 16:55
--- NOTE | 2020-04-22 17:42 | NUR ---
NURSE HAND-OFF REPORT: Important Events on Shift: wound care Patient Status: fc, stable Diet: glucerna 1.2 AT 70CC Pending Orders: PENDING DC Pending Results/Labs: Pending MD notification: Latest Vital Signs: Temperature 96.4 , Pulse 85 , B/P 128 /70 , Respiratory Rate 17 , O2 SAT 98 , Mechanical Ventilator, O2 Flow Rate 3.0 . Vital Sign Comment: EKG Rhythm: Sinus Rhythm Rhythm change?: N MD Notified?: N - MD Response: Latest Linder Fall Score: 95 Fall Risk: High Risk Safety Measures: Call light Within Reach, Bed Alarm Zone 2, Side Rails Side Rails x3, Bed position Low and Locked. Fall Precautions: Yellow Socks Yellow Gown Door Sign Patient Fall Education Report TO BE GIVEN. Addendum: 04/22/20 at 1942 by Janett Gleason RN RN Pt is stable. Report given to EMILE Hooker
--- NOTE | 2020-04-22 17:57 | NUR ---
CASE MANAGEMENT:REVIEW 04/22/20 SI: PNA. NECROTIC LE TRACH/VENT/GTUBE DEPENDENT 96.4 81 17 128/70 98% ON VENT SUPPORT W/30% FIO2 WBC+14.3 IS: FLOMAX GT QHS MIDODRINE GT TID NOVOLOG SQ Q6 SEROQUEL GT Q12 HEPARIN SQ SQ Q12 IV PROTONIX QD IV LASIX Q12 : STEP DOWN UNIT DCP: FROM [facility]
--- NOTE | 2020-04-22 19:30 | NUR ---
NURSE NOTES: Received patient in bed awake and alert,trach to vent TV 550 AC 16 fio2 30% peep 5,well tolerated.Gt Glucerna 1.2 at 70 cc/hr no residuals noted.Bilateral soft wrist restraints in place ,non compliant had episodes of removing his tubings .
--- NOTE | 2020-04-22 20:25 | Psychiatric Progress Note ---
Psychiatry Progress Note Psychiatry Progress Note Medications Current Medications Medications (Trade) Dose Ordered Sig/Benigno Route PRN Reason Start Time Stop Time Status Last Admin Dose Admin Acetaminophen (Tylenol) 650 mg Q4H PRN ORAL Mild Pain (Pain Scale 1-3) 04/09/20 09:00 05/09/20 08:59 Acetaminophen (Tylenol) 650 mg Q4H PRN ORAL Temp >100.5 04/09/20 09:00 05/09/20 08:59 Ascorbic Acid (Vitamin C) 1,000 mg DAILY GT 04/09/20 09:00 05/09/20 08:59 04/22/20 08:27 Dextrose (Dextrose 50%) 25 ml Q30M PRN IV Hypoglycemia 04/09/20 09:00 07/08/20 08:59 Dextrose (Dextrose 50%) 50 ml Q30M PRN IV Hypoglycemia 04/09/20 09:00 07/08/20 08:59 Diphenhydramine HCl (Benadryl) 50 mg Q12H PRN IVP Agitation 04/11/20 01:30 05/11/20 01:29 04/15/20 12:53 Furosemide (Lasix) 20 mg EVERY 12 HOURS IV 04/09/20 09:00 05/09/20 08:59 04/22/20 08:27 Haloperidol Lactate (Haldol) 5 mg Q6H PRN IM Agitation 04/11/20 16:15 05/26/20 16:14 04/17/20 10:11 Heparin Sodium (Porcine) (Heparin 5000 units/ml) 5,000 units EVERY 12 HOURS SUBQ 04/09/20 10:00 05/24/20 09:59 04/22/20 08:36 Insulin Aspart (NovoLOG) EVERY 6 HOURS SUBQ 04/15/20 06:00 07/08/20 11:29 04/22/20 18:16 Magnesium Hydroxide (Mom) 30 ml DAILYPRN PRN ORAL Constipation 04/09/20 09:00 05/09/20 08:59 Midodrine (Pro-Amatine) 10 mg THREE TIMES A DAY ORAL 04/20/20 09:00 07/17/20 08:59 04/22/20 18:15 Morphine Sulfate (Morphine Sulfate) 2 mg Q3H PRN IVP For Pain 4-10 04/21/20 10:30 04/28/20 10:29 Ondansetron HCl (Zofran) 4 mg Q6H PRN IVP Nausea & Vomiting 04/09/20 09:00 05/09/20 08:59 Pantoprazole (Protonix) 40 mg DAILY IVP 04/09/20 09:00 05/09/20 08:59 04/22/20 08:30 Quetiapine Fumarate (SEROqueL) 50 mg Q6H PRN GT Restlessness and agitation 04/10/20 16:15 05/25/20 16:14 04/15/20 14:04 Quetiapine Fumarate (SEROqueL) 200 mg Q12HR GT 04/11/20 09:00 05/26/20 08:59 04/22/20 08:27 Tamsulosin HCl (Flomax) 0.4 mg BEDTIME ORAL 04/21/20 21:00 05/21/20 20:59 04/21/20 21:05 Vitamin D (Vitamin D) 2,000 unit DAILY GT 04/09/20 09:00 05/09/20 08:59 04/22/20 08:27 Zinc Oxide (Zinc Oxide) 1 applic TIDPRN PRN TOPIC Itching 04/09/20 08:30 07/08/20 08:29 Zinc Sulfate (Zinc Sulfate) 220 mg DAILY GT 04/09/20 09:00 07/08/20 08:59 04/22/20 08:27 Neurological/Psychiatric: Reports: anxiety, depressed, emotional problems Allergies: Coded Allergies: No Known Allergies (Unverified , 04/08/20) Objective Data Height (Feet): 5 Height (Inches): 6.00 Weight (Pounds): 135 General Appearance: no apparent distress Additional Comments: MENTAL STATUS EXAMINATION: The patient is awake, oriented to self, and disoriented to situation. Mood is agitated. Affect is flat. Thought process, there is a paucity of thought content. Thought content, no suicidal or homicidal ideation. Cognition is impaired. Insight and judgment is impaired. Assessment/Plan [place] I: ASSESSMENT: [place] I Psychotic disorder. [place] II Deferred. [place] III Pneumonia. [place] IV Low. [place] V 20 PLAN: 1. We will start the patient on Haldol p.r.n. 2. Seroquel. 3. Discussed with the nurse. Status Narrative ASSESSMENT: [place] I Psychotic disorder. [place] II Deferred. [place] III Pneumonia. [place] IV Low. [place] V 20 PLAN: 1. We will start the patient on Haldol p.r.n. 2. Seroquel. 3. Discussed with the nurse. Assessment/Plan: ASSESSMENT: [place] I Psychotic disorder. [place] II Deferred. [place] III Pneumonia. [place] IV Low. [place] V 20 PLAN: 1. We will start the patient on Haldol p.r.n. 2. Seroquel. 3. Discussed with the nurse. Watson Graham MD Apr 22, 2020 20:25
[2020-04-22 20:28] VITALS: BP 122/93
[2020-04-22] MEDS: Tamsulosin 0.4mg cap ORAL SCH (21:10)
[2020-04-23] VITALS: BP 131/91
[2020-04-23 04:00] VITALS: BP 116/80
[2020-04-23] MEDS: NovoLOG Insulin Flexpen SUBQ SCH ×4 (05:28→23:40)
--- NOTE | 2020-04-23 07:30 | NUR ---
NURSE HAND-OFF REPORT: Important Events on Shift:none Patient Status: stable Diet: Gt Glucerna 1.2 at 70cc/hr Pending Orders: CBC,cmp ,chest x-ray Pending Results/Labs:CBC,CMP,Chest X-ray Pending MD notification:none Latest Vital Signs: Temperature 98.0 , Pulse 88 , B/P 116 /80 , Respiratory Rate 19 , O2 SAT 99 , Mechanical Ventilator, O2 Flow Rate 3.0 . Vital Sign Comment: EKG Rhythm: Sinus Rhythm Rhythm change?: N MD Notified?: N - MD Response: Latest Linder Fall Score: 95 Fall Risk: High Risk Safety Measures: Call light Within Reach, Bed Alarm Zone 2, Side Rails Side Rails x3, Bed position Low and Locked. Fall Precautions: Yellow Socks Yellow Gown Door Sign Patient Fall Education Report given to EMILE Olivia.
--- NOTE | 2020-04-23 07:35 | NUR ---
NURSE NOTES: Received report from EMILE Hooker. Patient in bed resting, no active s/s cardiac, respiratory distress noticed at this time. Patient open eyes spontaneously, able to follow simple command. Patient trach to vent Shiley 8 AC 16 TV 500 PEEP 5 Fio2 30%, O2 sat 95% at this time. IV on left FA 20G, asymptomatic, patent, intact. Patient on bilateral soft wrist restraints, cap refill <3 sec, able to move, warm to touch. Bed in lowest position, side rails upx3, call light within reach. Will continue monitor.
[2020-04-23 07:55] LABS: BASOPHILS % (AUTO) 1.2 % (0.0-2.0); EOSINOPHILS % (AUTO) 2.6 % (0.0-3.0); HEMATOCRIT 31.4 % (42.0-52.0); HEMOGLOBIN 10.1 G/DL (14.2-18.0); LYMPHOCYTES % (AUTO) 14.3 % (20.0-45.0); MEAN CORPUSCULAR VOLUME 84 FL (80-99); MONOCYTES % (AUTO) 6.3 % (1.0-10.0); NEUTROPHILS % (AUTO) 75.6 % (45.0-75.0); PLATELET COUNT 508 K/UL (150-450); RED BLOOD COUNT 3.74 M/UL (4.70-6.10); RED CELL DISTRIBUTION WIDTH 15.1 % (11.6-14.8); WHITE BLOOD COUNT 13.3 K/UL (4.8-10.8)
[2020-04-23 08:00] VITALS: BP 125/82
[2020-04-23] MEDS: Zinc Sulfate 220mg GT SCH (08:14)
[2020-04-23] MEDS: Pantoprazole Inj IVP SCH (08:14)
[2020-04-23] MEDS: Midodrine 10mg tab ORAL SCH ×3 (08:15→17:05)
[2020-04-23] MEDS: Vitamin D 1000 units Tab GT SCH (08:15)
[2020-04-23] MEDS: Ascorbic Acid 500mg tab GT SCH (08:15)
[2020-04-23] MEDS: QUEtiapine 200mg tab GT SCH ×2 (08:15→21:29)
[2020-04-23] MEDS: Heparin 5000 units/ml inj SUBQ SCH ×2 (08:18→21:29)
[2020-04-23 08:41] LABS: ALBUMIN 2.2 G/DL (3.4-5.0); ALBUMIN/GLOBULIN RATIO 0.3 (1.0-2.7); BILIRUBIN,TOTAL 0.2 MG/DL (0.2-1.0); CALCIUM 10.7 MG/DL (8.5-10.1); CREATININE 1.4 MG/DL (0.55-1.30); POTASSIUM 4.1 MMOL/L (3.5-5.1)
--- NOTE | 2020-04-23 10:04 | Urology Progress Note ---
Assessment/Plan Assessment/Plan: 1. Urinary retention. 2. Possible BPH. 3. Probable neurogenic bladder. 4. Rule out UTI colonization. 5. Urethral stenosis. monitor clinically maintain santillan, replaced 04/21 hand irrigated and do PRN flomax added voiding trial at some point? cysto electively Subjective Allergies: Coded Allergies: No Known Allergies (Unverified , 04/08/20) Subjective all noted Objective Last 24 Hour Vital Signs Date Time Temp Pulse Resp B/P (MAP) Pulse Ox O2 Delivery O2 Flow Rate FiO2 04/23/20 08:00 97.0 88 20 125/82 (96) 97 04/23/20 07:27 88 19 30 04/23/20 04:00 Mechanical Ventilator 04/23/20 04:00 90 04/23/20 04:00 98.0 75 17 116/80 (92) 99 04/23/20 04:00 30 04/23/20 03:50 87 17 30 04/23/20 00:00 97.8 90 17 131/91 (104) 98 04/23/20 00:00 30 04/23/20 00:00 91 04/23/20 00:00 Mechanical Ventilator 04/22/20 23:16 91 17 30 04/22/20 20:28 98.2 82 17 122/93 (103) 98 04/22/20 20:00 84 04/22/20 20:00 Mechanical Ventilator 04/22/20 20:00 30 04/22/20 19:11 81 18 30 04/22/20 16:00 85 04/22/20 16:00 30 04/22/20 16:00 96.4 81 17 128/70 (89) 98 04/22/20 16:00 Mechanical Ventilator 04/22/20 15:24 84 20 30 04/22/20 12:00 30 04/22/20 12:00 Mechanical Ventilator 04/22/20 12:00 97.5 94 19 113/81 (92) 100 04/22/20 12:00 91 04/22/20 11:22 91 17 30 Intake and Output 04/22/20 04/23/20 19:00 07:00 Intake Total 1140 ml 870 ml Output Total 2150 ml 775 ml Balance -1010 ml 95 ml Intake Free Water 300 ml 100 ml Tube Feeding 840 ml 770 ml Output Urine Total 2150 ml 775 ml Microbiology Date/Time Source Procedure Growth Status 04/10/20 18:00 Sputum Induced Gram Stain - Final Complete 04/10/20 18:00 Sputum Culture - Final Marlyn Albicans Complete 04/10/20 15:30 Blood Blood Culture - Final NO GROWTH AFTER 5 DAYS Complete 04/10/20 13:15 Indwelling Cath Urine Culture - Final NO GROWTH AFTER 48 HOURS Complete 04/09/20 05:45 Rectum VRE Culture - Final NO VANCOMYCIN RESISTANT ENTEROCOCCUS ... Complete Current Medications Medications (Trade) Dose Ordered Sig/Benigno Route PRN Reason Start Time Stop Time Status Last Admin Dose Admin Acetaminophen (Tylenol) 650 mg Q4H PRN ORAL Mild Pain (Pain Scale 1-3) 04/09/20 09:00 05/09/20 08:59 Acetaminophen (Tylenol) 650 mg Q4H PRN ORAL Temp >100.5 04/09/20 09:00 05/09/20 08:59 Ascorbic Acid (Vitamin C) 1,000 mg DAILY GT 04/09/20 09:00 05/09/20 08:59 04/23/20 08:15 Dextrose (Dextrose 50%) 25 ml Q30M PRN IV Hypoglycemia 04/09/20 09:00 07/08/20 08:59 Dextrose (Dextrose 50%) 50 ml Q30M PRN IV Hypoglycemia 04/09/20 09:00 07/08/20 08:59 Diphenhydramine HCl (Benadryl) 50 mg Q12H PRN IVP Agitation 04/11/20 01:30 05/11/20 01:29 04/15/20 12:53 Furosemide (Lasix) 20 mg EVERY 12 HOURS IV 04/09/20 09:00 05/09/20 08:59 04/23/20 08:14 Haloperidol Lactate (Haldol) 5 mg Q6H PRN IM Agitation 04/11/20 16:15 05/26/20 16:14 04/17/20 10:11 Heparin Sodium (Porcine) (Heparin 5000 units/ml) 5,000 units EVERY 12 HOURS SUBQ 04/09/20 10:00 05/24/20 09:59 04/23/20 08:18 Insulin Aspart (NovoLOG) EVERY 6 HOURS SUBQ 04/15/20 06:00 07/08/20 11:29 04/23/20 05:28 Magnesium Hydroxide (Mom) 30 ml DAILYPRN PRN ORAL Constipation 04/09/20 09:00 05/09/20 08:59 Midodrine (Pro-Amatine) 10 mg THREE TIMES A DAY ORAL 04/20/20 09:00 07/17/20 08:59 04/23/20 08:15 Morphine Sulfate (Morphine Sulfate) 2 mg Q3H PRN IVP For Pain 4-10 04/21/20 10:30 04/28/20 10:29 Ondansetron HCl (Zofran) 4 mg Q6H PRN IVP Nausea & Vomiting 04/09/20 09:00 05/09/20 08:59 Pantoprazole (Protonix) 40 mg DAILY IVP 04/09/20 09:00 05/09/20 08:59 04/23/20 08:14 Quetiapine Fumarate (SEROqueL) 50 mg Q6H PRN GT Restlessness and agitation 04/10/20 16:15 05/25/20 16:14 04/15/20 14:04 Quetiapine Fumarate (SEROqueL) 200 mg Q12HR GT 04/11/20 09:00 05/26/20 08:59 04/23/20 08:15 Tamsulosin HCl (Flomax) 0.4 mg BEDTIME ORAL 04/21/20 21:00 05/21/20 20:59 04/22/20 21:10 Vitamin D (Vitamin D) 2,000 unit DAILY GT 04/09/20 09:00 05/09/20 08:59 04/23/20 08:15 Zinc Oxide (Zinc Oxide) 1 applic TIDPRN PRN TOPIC Itching 04/09/20 08:30 07/08/20 08:29 Zinc Sulfate (Zinc Sulfate) 220 mg DAILY GT 04/09/20 09:00 07/08/20 08:59 04/23/20 08:14 Laboratory Tests 04/22/20 11:55: POC Whole Blood Glucose 194H 04/22/20 18:13: POC Whole Blood Glucose 210H 04/22/20 23:34: POC Whole Blood Glucose 223H 04/23/20 05:01: POC Whole Blood Glucose 258H 04/23/20 06:08: White Blood Count 13.3H, Red Blood Count 3.74L, Hemoglobin 10.1L, Hematocrit 31.4L, Mean Corpuscular Volume 84, Mean Corpuscular Hemoglobin 27.0, Mean Corpuscular Hemoglobin Concent 32.2, Red Cell Distribution Width 15.1H, Platelet Count 508H, Mean Platelet Volume 6.5, Neutrophils (%) (Auto) 75.6H, Lymphocytes (%) (Auto) 14.3L, Monocytes (%) (Auto) 6.3, Eosinophils (%) (Auto) 2.6, Basop hils (%) (Auto) 1.2, Sodium Level 139, Potassium Level 4.1, Chloride Level 99, Carbon Dioxide Level 32, Anion Gap 8, Blood Urea Nitrogen 56H, Creatinine 1.4H, Estimat Glomerular Filtration Rate 54.6, Glucose Level 245H, Calcium Level 10.7H , Total Bilirubin 0.2, Aspartate Amino Transf (AST/SGOT) 12L, Alanine Aminotransferase (ALT/SGPT) 15, Alkaline Phosphatase 163H, Total Protein 9.5H, Albumin 2.2L, Globulin 7.3, Albumin/Globulin Ratio 0.3L Height (Feet): 5 Height (Inches): 6.00 Weight (Pounds): 135 Objective exam stable urine yellow with debris Saji Zacarias MD Apr 23, 2020 10:04
--- NOTE | 2020-04-23 10:33 | General Progress Note ---
Subjective ROS Limited/Unobtainable: No Allergies: Coded Allergies: No Known Allergies (Unverified , 04/08/20) Objective Last 24 Hour Vital Signs Date Time Temp Pulse Resp B/P (MAP) Pulse Ox O2 Delivery O2 Flow Rate FiO2 04/23/20 08:00 97.0 88 20 125/82 (96) 97 04/23/20 07:27 88 19 30 04/23/20 04:00 Mechanical Ventilator 04/23/20 04:00 90 04/23/20 04:00 98.0 75 17 116/80 (92) 99 04/23/20 04:00 30 04/23/20 03:50 87 17 30 04/23/20 00:00 97.8 90 17 131/91 (104) 98 04/23/20 00:00 30 04/23/20 00:00 91 04/23/20 00:00 Mechanical Ventilator 04/22/20 23:16 91 17 30 04/22/20 20:28 98.2 82 17 122/93 (103) 98 04/22/20 20:00 84 04/22/20 20:00 Mechanical Ventilator 04/22/20 20:00 30 04/22/20 19:11 81 18 30 04/22/20 16:00 85 04/22/20 16:00 30 04/22/20 16:00 96.4 81 17 128/70 (89) 98 04/22/20 16:00 Mechanical Ventilator 04/22/20 15:24 84 20 30 04/22/20 12:00 30 04/22/20 12:00 Mechanical Ventilator 04/22/20 12:00 97.5 94 19 113/81 (92) 100 04/22/20 12:00 91 04/22/20 11:22 91 17 30 Intake and Output 04/22/20 04/23/20 19:00 07:00 Intake Total 1140 ml 870 ml Output Total 2150 ml 775 ml Balance -1010 ml 95 ml Intake Free Water 300 ml 100 ml Tube Feeding 840 ml 770 ml Output Urine Total 2150 ml 775 ml Laboratory Tests 04/22/20 11:55: POC Whole Blood Glucose 194H 04/22/20 18:13: POC Whole Blood Glucose 210H 04/22/20 23:34: POC Whole Blood Glucose 223H 04/23/20 05:01: POC Whole Blood Glucose 258H 04/23/20 06:08: White Blood Count 13.3H, Red Blood Count 3.74L, Hemoglobin 10.1L, Hematocrit 31.4L, Mean Corpuscular Volume 84, Mean Corpuscular Hemoglobin 27.0, Mean Corpuscular Hemoglobin Concent 32.2, Red Cell Distribution Width 15.1H, Platelet Count 508H, Mean Platelet Volume 6.5, Neutrophils (%) (Auto) 75.6H, Lymphocytes (%) (Auto) 14.3L, Monocytes (%) (Auto) 6.3, Eosinophils (%) (Auto) 2.6, Basophils (%) (Auto) 1.2, Sodium Level 139, Potassium Level 4.1, Chloride Level 99, Carbon Dioxide Level 32, Anion Gap 8, Blood Urea Nitrogen 56H, Creatinine 1.4H, Estimat Glomerular Filtration Rate 54.6, Glucose Level 245H, Calcium Level 10.7H, Total Bilirubin 0.2, Aspartate Amino Transf (AST/SGOT) 12L, Alanine Aminotransferase (ALT/SGPT) 15, Alkaline Phosphatase 163H, Total Protein 9.5H, Albumin 2.2L, Globulin 7.3, Albumin/Globulin Ratio 0.3L Height (Feet): 5 Height (Inches): 6.00 Weight (Pounds): 135 General Appearance: no apparent distress EENT: normal ENT inspection Neck: supple Cardiovascular: normal rate Respiratory/Chest: decreased breath sounds Abdomen: normal bowel sounds, non tender, soft Extremities: non-tender, normal inspection Assessment/Plan Assessment/Plan: Assessment/Plan: Assessment - dysphagia, GT - resp failure, trach - anemia - leukocytosis - malnutrition - decub ulcer - LE ischemia - DM Recommendations - continue TF - protein powder - MVI / zinc - GT care - follow labs - abx eJrry Roberts MD Apr 23, 2020 10:33
--- NOTE | 2020-04-23 10:50 | Surgery Progress Note ---
Surgery Progress Note Subjective Additional Comments wbc improving no n/v labs noted Objective Last 24 Hour Vital Signs Date Time Temp Pulse Resp B/P (MAP) Pulse Ox O2 Delivery O2 Flow Rate FiO2 04/23/20 08:00 Mechanical Ventilator 04/23/20 08:00 97.0 88 20 125/82 (96) 97 04/23/20 08:00 30 04/23/20 08:00 89 04/23/20 07:27 88 19 30 04/23/20 04:00 Mechanical Ventilator 04/23/20 04:00 90 04/23/20 04:00 98.0 75 17 116/80 (92) 99 04/23/20 04:00 30 04/23/20 03:50 87 17 30 04/23/20 00:00 97.8 90 17 131/91 (104) 98 04/23/20 00:00 30 04/23/20 00:00 91 04/23/20 00:00 Mechanical Ventilator 04/22/20 23:16 91 17 30 04/22/20 20:28 98.2 82 17 122/93 (103) 98 04/22/20 20:00 84 04/22/20 20:00 Mechanical Ventilator 04/22/20 20:00 30 04/22/20 19:11 81 18 30 04/22/20 16:00 85 04/22/20 16:00 30 04/22/20 16:00 96.4 81 17 128/70 (89) 98 04/22/20 16:00 Mechanical Ventilator 04/22/20 15:24 84 20 30 04/22/20 12:00 30 04/22/20 12:00 Mechanical Ventilator 04/22/20 12:00 97.5 94 19 113/81 (92) 100 04/22/20 12:00 91 04/22/20 11:22 91 17 30 I&O Intake and Output 04/22/20 04/23/20 19:00 07:00 Intake Total 1140 ml 870 ml Output Total 2150 ml 775 ml Balance -1010 ml 95 ml Intake Free Water 300 ml 100 ml Tube Feeding 840 ml 770 ml Output Urine Total 2150 ml 775 ml Dressing: dry Cardiovascular: RSR Respiratory: decreased breath sounds Abdomen: soft, non-tender, present bowel sounds Extremities: cyanosis, no edema, no tenderness Laboratory Tests Test 04/22/20 11:55 04/22/20 18:13 04/22/20 23:34 04/23/20 05:01 POC Whole Blood Glucose 194 MG/DL (74-106) H 210 MG/DL (74-106) H 223 MG/DL (74-106) H 258 MG/DL (74-106) H Test 04/23/20 06:08 White Blood Count 13.3 K/UL (4.8-10.8) H Red Blood Count 3.74 M/UL (4.70-6.10) L Hemoglobin 10.1 G/DL (14.2-18.0) L Hematocrit 31.4 % (42.0-52.0) L Mean Corpuscular Volume 84 FL (80-99) Mean Corpuscular Hemoglobin 27.0 PG (27.0-31.0) Mean Corpuscular Hemoglobin Concent 32.2 G/DL (32.0-36.0) Red Cell Distribution Width 15.1 % (11.6-14.8) H Platelet Count 508 K/UL (150-450) H Mean Platelet Volume 6.5 FL (6.5-10.1) Neutrophils (%) (Auto) 75.6 % (45.0-75.0) H Lymphocytes (%) (Auto) 14.3 % (20.0-45.0) L Monocytes (%) (Auto) 6.3 % (1.0-10.0) Eosinophils (%) (Auto) 2.6 % (0.0-3.0) Basophils (%) (Auto) 1.2 % (0.0-2.0) Sodium Level 139 MMOL/L (136-145) Potassium Level 4.1 MMOL/L (3.5-5.1) Chloride Level 99 MMOL/L (98-107) Carbon Dioxide Level 32 MMOL/L (21-32) Anion Gap 8 mmol/L (5-15) Blood Urea Nitrogen 56 mg/dL (7-18) H Creatinine 1.4 MG/DL (0.55-1.30) H Estimat Glomerular Filtration Rate 54.6 mL/min (>60) Glucose Level 245 MG/DL (74-106) H Calcium Level 10.7 MG/DL (8.5-10.1) H Total Bilirubin 0.2 MG/DL (0.2-1.0) Aspartate Amino Transf (AST/SGOT) 12 U/L (15-37) L Alanine Aminotransferase (ALT/SGPT) 15 U/L (12-78) Alkaline Phosphatase 163 U/L (46-116) H Total Protein 9.5 G/DL (6.4-8.2) H Albumin 2.2 G/DL (3.4-5.0) L Globulin 7.3 g/dL Albumin/Globulin Ratio 0.3 (1.0-2.7) L Plan Problems: (1) Pneumonia (2) Sacral decubitus ulcer Assessment & Plan: Pt presented on admission with Tracheostomy,GT and Multiple Wounds including an Unstageable Pressure Injury Sacrum(L)2.1cm x (W)2.8cm.Base of wound is 100% slough. Borders are adherent, erythematous. Periwound is indurated with non-blanchable erythema. At L HIP A Blue marker measuring (L)6cm x (W)5cm. Small linear shaped wound that is somewhat approximated. The remaining base within Blue Marker is indurated,erythematous with elevation in skin temp at affected area within mar ker, and extends well beyond borders of Marker to upper L thigh(L)12cm x (W)8cm. Large Necrotic Ulcer with irregular borders noted to lateral L Tibia. Base of wound is 100% Necrotic and dry. Edges are adherent and erythematous. Periwound is dusky with elevation in skin temp noted(L)21cm x (W)11.5cm. Necrotic Ulcer lateral L foot/L malleolus(L)4cm x 6.5cm. Base of wound is 100% soft, but dry necrosis.Edges are adherent to base of wound but are erythematous. Surrounding the wound, skin colour is dusky and skin temp is elevated. NO odor or exudate noted. Open abscess/Boil noted to lateral R Tibia(L)3cm x (W)3cm with small opening at center base (L)0.4cmx (W)0.4cm. No exudate noted. Skin temp is slightly elevated. Both heels are callused and dry. Dry peeling skin noted to both lower ext, both feet including plantar aspect of both feet. Tx.Plan: Cleanse Sacral wound with Saline. Apply TheraHoney. Apply Moisture Barrier Paste periwound. Cover with Optifoam drsg Daily and prn. Apply Betadine to L Hip. Cover with Optifoam drsg. Change every 3 days and prn. Apply Betadine to Lateral L Tibia, and Lateral L foot. Cover each site with ABD Pads and wrap with Kerlix Daily and prn. Apply Betadine to Lateral R Tibia. Cover with Optifoam drsg. Change every 3 days and prn. Apply Cavilon Skin Barrier to both heels. Cover each heel with Optifoam drsg. Change every 7 days and prn. Reposition at Least every 2 hours or as tolerated. Elevate both lower ext and float Heels with pillows.Patient presents on admission with identifiable unstageable sacral decubitus ulcer fairly fraction likely recently forming. Areas approximately 3 cm x 3 cm unknown depth. No drainage. No foul odor. Eschar area identified soft no ischemic eschar likely forming. Deep tissue underneath injury. Furthermore patient identified to have significant left lower extremity ischemic disease with ulcers and necrotic eschar. On the left lateral foot there is a necrotic eschar as well as on the left lateral leg significantly large. No drainage no signs of active infection chronic appearing in nature. Care plan initiated. Will need to ensure optimization of patient for care plan. Leukocytosis unlikely related to wounds as they do not seem actively infected Nutritional optimization We will follow with recommendations thank you for let me participate in patient's care (3) Ischemia of left lower extremity Assessment & Plan: chronic large wounds US duplex arterial and venous will follow with recs leukocytosis has been trending down leg exam stable without signs of active infection. just large area of chronic ischemia eschar On the right, triphasic waveforms with sharp systolic peaks are seen at the common femoral, superficial femoral, and popliteal artery levels. Tibial vessel waveforms are biphasic or triphasic with sharp systolic peaks. On the left, triphasic waveforms are seen at the level of the common femoral artery level. Left superficial femoral artery waveforms are triphasic proximally, borderline monophasic in the mid portion. Popliteal artery waveforms are monophasic but systolic peaks are sharp. Tibial vessel waveforms are monophasic but with sharp systolic peaks. There is a stenosis of the dorsalis pedis artery, with flow velocity elevation of up to 332 cm/s. There is slightly dampened flow velocity distal to it. Impression: No evidence of significant right lower extremity arterial insufficiency Monophasic waveforms in the distal superficial femoral and popliteal artery, could indicate stenosis in these segments; more likely artifactual as there is still rapid systolic upstroke, including in the ankle vessels. Evidence of significant stenosis in the dorsalis pedis artery There is a large area of low attenuation within the lateral subcutaneous fat extending from the highest slice in the distal thigh along the entire course of the anterolateral leg and into the foot, where it extends to the level of the metacarpals dorsolaterally. Is unclear whether this represents an organized fluid collection versus intense edema/phlegmon, although suspect the latter, as there are numerous gas bubbles within the collection in the leg which do not float nondependently. There is enhancement of the tissues bordering it.. The widest extent of this is in the distal thigh, where it measures 8.2 cm AP and about 2 cm in thickness. The overall length of this is at least 45 cm, although as mentioned earlier the proximal extent is not visualized. There is a skin defect in the lateral leg at the superficial aspect of the collection which presumably represents a skin ulcer. This demonstrates multiple areas of ulceration. Low attenuation also extends into the anterior muscular compartment of the leg. The fat appears to be hypoattenuating although the musculature demonstrates only mild if any hypoattenuation. No osseous erosions, abnormal periosteal reaction, or other findings to suggest osteomyelitis are demonstrated. Impression: Intense edema versus organized fluid exiting the entire extent of the anterolateral subcutaneous fat of the leg, extending into the foot to the level of the metatarsals and proximal into the thigh beyond the edge of the imaging volume. Favor that this represents edema/phlegmon, as there are gas bubbles that appear to be trapped within it, and there is an open wound through which it should drain if it was fluid. Presence of gas bubbles is concerning for infection with a gas-forming organism. This process also extends into the anterior muscular compartment of the tibial muscles No definite evidence of osteomyelitis. However, evaluation for such is limited on CT, and MRI should be considered if this is a clinical concern Anthony Fernandez Apr 23, 2020 10:50
[2020-04-23 12:00] VITALS: BP 114/85
--- NOTE | 2020-04-23 14:50 | NUR ---
NURSE NOTES: Patient awake and alert, able to follow simple command. Trying off soft wrist restraints.
[2020-04-23 16:00] VITALS: BP 127/74
--- NOTE | 2020-04-23 19:13 | NUR ---
NURSE HAND-OFF REPORT: Important Events on Shift: NA Patient Status: stable Diet: GT , Glucerna 1.2@ 70ml/h Pending Orders: na Pending Results/Labs:na Pending MD notification:na Latest Vital Signs: Temperature 97.5 , Pulse 87 , B/P 127 /74 , Respiratory Rate 16 , O2 SAT 99 , Mechanical Ventilator, O2 Flow Rate 3.0 . Vital Sign Comment: stable EKG Rhythm: Sinus Rhythm Rhythm change?: N MD Notified?: N - MD Response: Latest Linder Fall Score: 95 Fall Risk: High Risk Safety Measures: Call light Within Reach, Bed Alarm Zone 2, Side Rails Side Rails x3, Bed position Low and Locked. Fall Precautions: Yellow Socks Yellow Gown Door Sign Patient Fall Education Report given to EMILE Hall.
--- NOTE | 2020-04-23 19:14 | NUR ---
NURSE NOTES: Received report from EMILE Olivia. Upon assessment pt is awake, alert, able to make needs known. A/Ox4. PERRLA. Vitals stable, afebrile. Saturating 99% on Vent settings of Vt 500, AC 16, fiO2 30%. 5-lead EKG shows SR. G-tube running Glucerna 1.2 at 70 with 0 residual. Henry draining well to gravity. Bed kept in lowest and locked position. Side rails up x3. Call light within reach. Will monitor.
--- NOTE | 2020-04-23 19:30 | Pulmonology Progress Note ---
Subjective ROS Limited/Unobtainable: Yes Constitutional: Denies: fever Musculoskeletal: Reports: no symptoms Allergies: Coded Allergies: No Known Allergies (Unverified , 04/08/20) Objective Last 24 Hour Vital Signs Date Time Temp Pulse Resp B/P (MAP) Pulse Ox O2 Delivery O2 Flow Rate FiO2 04/23/20 16:00 97.5 86 16 127/74 (91) 99 04/23/20 16:00 30 04/23/20 16:00 87 04/23/20 16:00 Mechanical Ventilator 04/23/20 13:30 89 20 30 04/23/20 12:00 30 04/23/20 12:00 86 04/23/20 12:00 Mechanical Ventilator 04/23/20 12:00 97.0 86 17 114/85 (95) 100 04/23/20 08:00 Mechanical Ventilator 04/23/20 08:00 97.0 88 20 125/82 (96) 97 04/23/20 08:00 30 04/23/20 08:00 89 04/23/20 07:27 88 19 30 04/23/20 04:00 Mechanical Ventilator 04/23/20 04:00 90 04/23/20 04:00 98.0 75 17 116/80 (92) 99 04/23/20 04:00 30 04/23/20 03:50 87 17 30 04/23/20 00:00 97.8 90 17 131/91 (104) 98 04/23/20 00:00 30 04/23/20 00:00 91 04/23/20 00:00 Mechanical Ventilator 04/22/20 23:16 91 17 30 04/22/20 20:28 98.2 82 17 122/93 (103) 98 04/22/20 20:00 84 04/22/20 20:00 Mechanical Ventilator 04/22/20 20:00 30 Intake and Output 04/22/20 04/23/20 19:00 07:00 Intake Total 1140 ml 940 ml Output Total 2150 ml 775 ml Balance -1010 ml 165 ml Intake Free Water 300 ml 100 ml Tube Feeding 840 ml 840 ml Output Urine Total 2150 ml 775 ml Laboratory Tests 04/22/20 23:34: POC Whole Blood Glucose 223H 04/23/20 05:01: POC Whole Blood Glucose 258H 04/23/20 06:08: White Blood Count 13.3H, Red Blood Count 3.74L, Hemoglobin 10.1L, Hematocrit 31.4L, Mean Corpuscular Volume 84, Mean Corpuscular Hemoglobin 27.0, Mean Corpuscular Hemoglobin Concent 32.2, Red Cell Distribution Width 15.1H, Platelet Count 508H, Mean Platelet Volume 6.5, Neutrophils (%) (Auto) 75.6H, Lymphocytes (%) (Auto) 14.3L, Monocytes (%) (Auto) 6.3, Eosinophils (%) (Auto) 2.6, Basophils (%) (Auto) 1.2, Sodium Level 139, Potassium Level 4.1, Chloride Level 99, Carbon Dioxide Level 32, Anion Gap 8, Blood Urea Nitrogen 56H, Creatinine 1.4H, Estimat Glomerular Filtration Rate 54.6, Glucose Level 245H, Calcium Level 10.7H, Total Bilirubin 0.2, Aspartate Amino Transf (AST/SGOT) 12L, Alanine Aminotransferase (ALT/SGPT) 15, Alkaline Phosphatase 163H, Total Protein 9.5H, Albumin 2.2L, Globulin 7.3, Albumin/Globulin Ratio 0.3L 04/23/20 12:36: POC Whole Blood Glucose 283H 04/23/20 17:07: POC Whole Blood Glucose [Pending] Current Medications Medications (Trade) Dose Ordered Sig/Benigno Route PRN Reason Start Time Stop Time Status Last Admin Dose Admin Acetaminophen (Tylenol) 650 mg Q4H PRN ORAL Mild Pain (Pain Scale 1-3) 04/09/20 09:00 05/09/20 08:59 Acetaminophen (Tylenol) 650 mg Q4H PRN ORAL Temp >100.5 04/09/20 09:00 05/09/20 08:59 Ascorbic Acid (Vitamin C) 1,000 mg DAILY GT 04/09/20 09:00 05/09/20 08:59 04/23/20 08:15 Dextrose (Dextrose 50%) 25 ml Q30M PRN IV Hypoglycemia 04/09/20 09:00 07/08/20 08:59 Dextrose (Dextrose 50%) 50 ml Q30M PRN IV Hypoglycemia 04/09/20 09:00 07/08/20 08:59 Diphenhydramine HCl (Benadryl) 50 mg Q12H PRN IVP Agitation 04/11/20 01:30 05/11/20 01:29 04/15/20 12:53 Furosemide (Lasix) 20 mg EVERY 12 HOURS IV 04/09/20 09:00 05/09/20 08:59 04/23/20 08:14 Haloperidol Lactate (Haldol) 5 mg Q6H PRN IM Agitation 04/11/20 16:15 05/26/20 16:14 04/17/20 10:11 Heparin Sodium (Porcine) (Heparin 5000 units/ml) 5,000 units EVERY 12 HOURS SUBQ 04/09/20 10:00 05/24/20 09:59 04/23/20 08:18 Insulin Aspart (NovoLOG) EVERY 6 HOURS SUBQ 04/15/20 06:00 07/08/20 11:29 04/23/20 17:14 Magnesium Hydroxide (Mom) 30 ml DAILYPRN PRN ORAL Constipation 04/09/20 09:00 05/09/20 08:59 Midodrine (Pro-Amatine) 10 mg THREE TIMES A DAY ORAL 04/20/20 09:00 07/17/20 08:59 04/23/20 17:05 Morphine Sulfate (Morphine Sulfate) 2 mg Q3H PRN IVP For Pain 4-10 04/21/20 10:30 04/28/20 10:29 Ondansetron HCl (Zofran) 4 mg Q6H PRN IVP Nausea & Vomiting 04/09/20 09:00 05/09/20 08:59 Pantoprazole (Protonix) 40 mg DAILY IVP 04/09/20 09:00 05/09/20 08:59 04/23/20 08:14 Quetiapine Fumarate (SEROqueL) 50 mg Q6H PRN GT Restlessness and agitation 04/10/20 16:15 05/25/20 16:14 04/15/20 14:04 Quetiapine Fumarate (SEROqueL) 200 mg Q12HR GT 04/11/20 09:00 05/26/20 08:59 04/23/20 08:15 Tamsulosin HCl (Flomax) 0.4 mg BEDTIME ORAL 04/21/20 21:00 05/21/20 20:59 04/22/20 21:10 Vitamin D (Vitamin D) 2,000 unit DAILY GT 04/09/20 09:00 05/09/20 08:59 04/23/20 08:15 Zinc Oxide (Zinc Oxide) 1 applic TIDPRN PRN TOPIC Itching 04/09/20 08:30 07/08/20 08:29 Zinc Sulfate (Zinc Sulfate) 220 mg DAILY GT 04/09/20 09:00 07/08/20 08:59 04/23/20 08:14 Assessment/Plan Assessment/Plan Pulmonary Progress Note Subjective Allergies: Coded Allergies: No Known Allergies (Unverified , 04/08/20) Subjective care noted on vent and trach Objective Vital Signs noted Laboratory noted Height (Feet): 5 Height (Inches): 6.00 Weight (Pounds): 135 Objective WDWN trach reduced breath sounds bilaterally without rhonchi or wheeze [id number] without MRG NABS nontender GT no CCE poor LOC Assessment/Plan Impression: Pneumonia, h/o Klebsiella Ventilator dependance Tracheostomy status Diabetes Sacral decubitus and feet pressure areas azotemia leukocytosis necrotic lower extremity diabetes Plan: - urology follow up - Continue antibiotics per ID - ID,Surgeryfollowing - Continue current ventilator sttings - Adjust O2 as needed - DVT prophylaxis -Wound consult - dc planning impression, plan, and exam edited and reviewed in detail care discussed with Homer Beckham MD Apr 23, 2020 19:30
[2020-04-23 20:00] VITALS: BP 118/84
[2020-04-23] MEDS: Tamsulosin 0.4mg cap ORAL SCH (21:28)
[2020-04-24] VITALS: BP 122/88
--- NOTE | 2020-04-24 03:39 | NUR ---
NURSE NOTES: Patient appears to be resting comfortably. Bed bath and oral care provided. Moderate brown soft stool noted. Will monitor.
[2020-04-24 04:00] VITALS: BP 118/82
[2020-04-24] MEDS: NovoLOG Insulin Flexpen SUBQ SCH ×3 (05:39→17:54)
--- NOTE | 2020-04-24 07:17 | NUR ---
NURSE NOTES: Received report from EMILE [place]. Pt in bed sleeping. Saturating 99% on Vent settings of Vt 500, AC 16, fiO2 30%. 5-lead EKG shows SR. G-tube running Glucerna 1.2 at 50. Herny draining well to gravity. Bed kept in lowest and locked position. Side rails up x3. Call light within reach.
--- NOTE | 2020-04-24 07:41 | NUR ---
NURSE HAND-OFF REPORT: Important Events on Shift: No changes Patient Status: Diet: Glucerna Pending Orders: Pending Results/Labs: Pending MD notification: Latest Vital Signs: Temperature 97.9 , Pulse 82 , B/P 118 /82 , Respiratory Rate 16 , O2 SAT 99 , Mechanical Ventilator, O2 Flow Rate 3.0 . Vital Sign Comment: EKG Rhythm: Sinus Rhythm Rhythm change?: N MD Notified?: N - MD Response: Latest Linder Fall Score: 95 Fall Risk: High Risk Safety Measures: Call light Within Reach, Bed Alarm Zone 1, Side Rails Side Rails x3, Bed position Low and Locked. Fall Precautions: Yellow Socks Yellow Gown Door Sign Patient Fall Education Report given to EMILE Moya.
[2020-04-24 08:00] VITALS: BP 120/82
--- NOTE | 2020-04-24 08:10 | Urology Progress Note ---
Assessment/Plan Assessment/Plan: 1. Urinary retention. 2. Possible BPH. 3. Probable neurogenic bladder. 4. Rule out UTI colonization. 5. Urethral stenosis. monitor clinically maintain santillan, replaced 04/21 hand irrigated and do PRN flomax added voiding trial at some point? cysto electively Subjective Allergies: Coded Allergies: No Known Allergies (Unverified , 04/08/20) Subjective all noted Objective Last 24 Hour Vital Signs Date Time Temp Pulse Resp B/P (MAP) Pulse Ox O2 Delivery O2 Flow Rate FiO2 04/24/20 04:00 Mechanical Ventilator 04/24/20 04:00 97.9 82 16 118/82 (94) 99 04/24/20 04:00 30 04/24/20 04:00 89 04/24/20 03:10 89 16 30 04/24/20 00:00 97.7 78 16 122/88 (99) 99 04/24/20 00:00 Mechanical Ventilator 04/24/20 00:00 88 04/24/20 00:00 30 04/23/20 23:05 91 17 30 04/23/20 20:00 87 04/23/20 20:00 Mechanical Ventilator 04/23/20 20:00 97.7 98 20 118/84 (95) 98 04/23/20 19:15 86 22 30 04/23/20 16:00 97.5 86 16 127/74 (91) 99 04/23/20 16:00 30 04/23/20 16:00 87 04/23/20 16:00 Mechanical Ventilator 04/23/20 13:30 89 20 30 04/23/20 12:00 30 04/23/20 12:00 86 04/23/20 12:00 Mechanical Ventilator 04/23/20 12:00 97.0 86 17 114/85 (95) 100 Intake and Output 04/23/20 04/24/20 19:00 07:00 Intake Total 1020 ml 630 ml Output Total 500 ml Balance 520 ml 630 ml Intake Free Water 180 ml Tube Feeding 840 ml 630 ml Output Urine Total 500 ml # Bowel Movements 2 Microbiology Date/Time Source Procedure Growth Status 04/10/20 18:00 Sputum Induced Gram Stain - Final Complete 04/10/20 18:00 Sputum Culture - Final Marlyn Albicans Complete 04/10/20 15:30 Blood Blood Culture - Final NO GROWTH AFTER 5 DAYS Complete 04/10/20 13:15 Indwelling Cath Urine Culture - Final NO GROWTH AFTER 48 HOURS Complete 04/09/20 05:45 Rectum VRE Culture - Final NO VANCOMYCIN RESISTANT ENTEROCOCCUS ... Complete Current Medications Medications (Trade) Dose Ordered Sig/Benigno Route PRN Reason Start Time Stop Time Status Last Admin Dose Admin Acetaminophen (Tylenol) 650 mg Q4H PRN ORAL Mild Pain (Pain Scale 1-3) 04/09/20 09:00 05/09/20 08:59 Acetaminophen (Tylenol) 650 mg Q4H PRN ORAL Temp >100.5 04/09/20 09:00 05/09/20 08:59 Ascorbic Acid (Vitamin C) 1,000 mg DAILY GT 04/09/20 09:00 05/09/20 08:59 04/23/20 08:15 Dextrose (Dextrose 50%) 25 ml Q30M PRN IV Hypoglycemia 04/09/20 09:00 07/08/20 08:59 Dextrose (Dextrose 50%) 50 ml Q30M PRN IV Hypoglycemia 04/09/20 09:00 07/08/20 08:59 Diphenhydramine HCl (Benadryl) 50 mg Q12H PRN IVP Agitation 04/11/20 01:30 05/11/20 01:29 04/15/20 12:53 Furosemide (Lasix) 20 mg EVERY 12 HOURS IV 04/09/20 09:00 05/09/20 08:59 04/23/20 21:30 Haloperidol Lactate (Haldol) 5 mg Q6H PRN IM Agitation 04/11/20 16:15 05/26/20 16:14 04/17/20 10:11 Heparin Sodium (Porcine) (Heparin 5000 units/ml) 5,000 units EVERY 12 HOURS SUBQ 04/09/20 10:00 05/24/20 09:59 04/23/20 21:29 Insulin Aspart (NovoLOG) EVERY 6 HOURS SUBQ 04/15/20 06:00 07/08/20 11:29 04/24/20 05:39 Magnesium Hydroxide (Mom) 30 ml DAILYPRN PRN ORAL Constipation 04/09/20 09:00 05/09/20 08:59 Midodrine (Pro-Amatine) 10 mg THREE TIMES A DAY ORAL 04/20/20 09:00 07/17/20 08:59 04/23/20 17:05 Morphine Sulfate (Morphine Sulfate) 2 mg Q3H PRN IVP For Pain 4-10 04/21/20 10:30 04/28/20 10:29 Ondansetron HCl (Zofran) 4 mg Q6H PRN IVP Nausea & Vomiting 04/09/20 09:00 05/09/20 08:59 Pantoprazole (Protonix) 40 mg DAILY IVP 04/09/20 09:00 05/09/20 08:59 04/23/20 08:14 Quetiapine Fumarate (SEROqueL) 50 mg Q6H PRN GT Restlessness and agitation 04/10/20 16:15 05/25/20 16:14 04/15/20 14:04 Quetiapine Fumarate (SEROqueL) 200 mg Q12HR GT 04/11/20 09:00 05/26/20 08:59 04/23/20 21:29 Tamsulosin HCl (Flomax) 0.4 mg BEDTIME ORAL 04/21/20 21:00 05/21/20 20:59 04/23/20 21:28 Vitamin D (Vitamin D) 2,000 unit DAILY GT 04/09/20 09:00 05/09/20 08:59 04/23/20 08:15 Zinc Oxide (Zinc Oxide) 1 applic TIDPRN PRN TOPIC Itching 04/09/20 08:30 07/08/20 08:29 Zinc Sulfate (Zinc Sulfate) 220 mg DAILY GT 04/09/20 09:00 07/08/20 08:59 04/23/20 08:14 Laboratory Tests 04/23/20 12:36: POC Whole Blood Glucose 283H 04/23/20 17:07: POC Whole Blood Glucose [Pending] 04/24/20 05:37: POC Whole Blood Glucose 266H Height (Feet): 5 Height (Inches): 6.00 Weight (Pounds): 135 Objective exam stable urine yellow with debris Saji Zacarias MD Apr 24, 2020 08:10
[2020-04-24] MEDS: Midodrine 10mg tab ORAL SCH ×3 (08:25→17:54)
[2020-04-24] MEDS: Ascorbic Acid 500mg tab GT SCH (08:25)
[2020-04-24] MEDS: QUEtiapine 200mg tab GT SCH ×2 (08:25→20:23)
[2020-04-24] MEDS: Pantoprazole Inj IVP SCH (08:25)
[2020-04-24] MEDS: Zinc Sulfate 220mg GT SCH (08:26)
[2020-04-24] MEDS: Vitamin D 1000 units Tab GT SCH (08:26)
[2020-04-24] MEDS: Heparin 5000 units/ml inj SUBQ SCH ×2 (08:27→20:25)
--- NOTE | 2020-04-24 08:45 | NUR ---
NURSE NOTES: Relayed to Dr. Driscoll that pt has been having multiple stools since last night andf that gtube feeding has been reduced to 50cc. Per MD return rate to ordered 70 and do Cdif on stool.
--- NOTE | 2020-04-24 09:17 | NUR ---
CASE MANAGEMENT:REVIEW 04/24/20 SI: PNA. NECROTIC LE TRACH/VENT/GTUBE DEPENDENT 96.4 81 17 128/70 98% ON VENT SUPPORT W/30% FIO2 WBC+13.3 GLUCOSE+166 IS: FLOMAX GT QHS MIDODRINE GT TID NOVOLOG SQ Q6 SEROQUEL GT Q12 HEPARIN SQ SQ Q12 IV PROTONIX QD IV LASIX Q12 : STEP DOWN UNIT DCP: FROM [facility] PLAN: NEED HELP FROM [facility] WITH PLACEMENT SINCE PATIENT BELONGS IN [facility]
--- NOTE | 2020-04-24 09:50 | NUR ---
RD ASSESSMENT & RECOMMENDATIONS SEE CARE ACTIVITY FOR COMPLETE ASSESSMENT DAILY ESTIMATED NEEDS: Needs based on Critical care, wound, underweight/ 52kg 25-30 kcals/kg 7186-8271 total kcals 1.25-2 g protein/kg 65-104 g total protein 25-30 mL/kg 0961-3377 total fluid mLs NUTRITION DIAGNOSIS: Swallowing difficulty R/T respiratory status as evidenced by trach/vent dep, PEG dep. (CURRENT TF:Glucerna 1.2 @ 70ml/hr x 24 hrs) ENTERAL NUTRITION RECOMMENDATIONS: Glucerna 1.2 @ 50ml/hr x 24 hrs + prosource 1 pack daily to provide 1200ml, 1440kcal, 72g + 11g prot, 966ml free water * Rec goal rate of 50ml/hr x 24 hrs: meets 100% est kcal/prot needs * HOB over 30 degrees/ water flush per MD * Add prosource 1 pack daily to better meet est pro needs. ADDITIONAL RECOMMENDATIONS: * Calibrated bedscale wt * Wound care: Continue Vit C and ZnSO4 William BID via PEG * Monitor lytes, replete as needed * Monitor BGs, POC glu 200's -> rec LOWERING TF goal rate, monitor need for long acting. * F/up w/ C-diff results, need for low fiber formula w/ added insulin
--- NOTE | 2020-04-24 11:19 | Infectious Diseases Prog Note ---
Assessment/Plan Assessment/Plan antibiotics : none A 1. left leg necrotic ulcer 2. pneumonia 3. diabetes mellitus 4. respiratory failure s/p tracheostomy P 1. continue off antibiotics 2. will follow up cultures Subjective ROS Limited/Unobtainable: Yes Allergies: Coded Allergies: No Known Allergies (Unverified , 04/08/20) Objective Last 24 Hour Vital Signs Date Time Temp Pulse Resp B/P (MAP) Pulse Ox O2 Delivery O2 Flow Rate FiO2 04/24/20 11:17 89 18 30 04/24/20 08:00 96.2 96 18 120/82 (95) 99 04/24/20 08:00 30 04/24/20 08:00 97 04/24/20 08:00 Mechanical Ventilator 04/24/20 07:35 94 19 30 04/24/20 04:00 Mechanical Ventilator 04/24/20 04:00 97.9 82 16 118/82 (94) 99 04/24/20 04:00 30 04/24/20 04:00 89 04/24/20 03:10 89 16 30 04/24/20 00:00 97.7 78 16 122/88 (99) 99 04/24/20 00:00 Mechanical Ventilator 04/24/20 00:00 88 04/24/20 00:00 30 04/23/20 23:05 91 17 30 04/23/20 20:00 87 04/23/20 20:00 Mechanical Ventilator 04/23/20 20:00 97.7 98 20 118/84 (95) 98 04/23/20 19:15 86 22 30 04/23/20 16:00 97.5 86 16 127/74 (91) 99 04/23/20 16:00 30 04/23/20 16:00 87 04/23/20 16:00 Mechanical Ventilator 04/23/20 13:30 89 20 30 04/23/20 12:00 30 04/23/20 12:00 86 04/23/20 12:00 Mechanical Ventilator 04/23/20 12:00 97.0 86 17 114/85 (95) 100 Height (Feet): 5 Height (Inches): 6.00 Weight (Pounds): 135 HEENT: status post trach Respiratory/Chest: lungs clear Cardiovascular: normal rate, regular rhythm, no gallop/murmur Abdomen: soft, non tender, other - GT Extremities: no edema, other - left leg necrotic ulcer Laboratory Tests Test 04/23/20 12:36 04/23/20 17:07 04/24/20 05:37 POC Whole Blood Glucose 283 MG/DL (74-106) H Pending 266 MG/DL (74-106) H Current Medications Medications (Trade) Dose Ordered Sig/Benigno Route PRN Reason Start Time Stop Time Status Last Admin Dose Admin Acetaminophen (Tylenol) 650 mg Q4H PRN ORAL Mild Pain (Pain Scale 1-3) 04/09/20 09:00 05/09/20 08:59 Acetaminophen (Tylenol) 650 mg Q4H PRN ORAL Temp >100.5 04/09/20 09:00 05/09/20 08:59 Ascorbic Acid (Vitamin C) 1,000 mg DAILY GT 04/09/20 09:00 05/09/20 08:59 04/24/20 08:25 Dextrose (Dextrose 50%) 25 ml Q30M PRN IV Hypoglycemia 04/09/20 09:00 07/08/20 08:59 Dextrose (Dextrose 50%) 50 ml Q30M PRN IV Hypoglycemia 04/09/20 09:00 07/08/20 08:59 Diphenhydramine HCl (Benadryl) 50 mg Q12H PRN IVP Agitation 04/11/20 01:30 05/11/20 01:29 04/15/20 12:53 Furosemide (Lasix) 20 mg EVERY 12 HOURS IV 04/09/20 09:00 05/09/20 08:59 04/24/20 08:26 Haloperidol Lactate (Haldol) 5 mg Q6H PRN IM Agitation 04/11/20 16:15 05/26/20 16:14 04/17/20 10:11 Heparin Sodium (Porcine) (Heparin 5000 units/ml) 5,000 units EVERY 12 HOURS SUBQ 04/09/20 10:00 05/24/20 09:59 04/24/20 08:27 Insulin Aspart (NovoLOG) EVERY 6 HOURS SUBQ 04/15/20 06:00 07/08/20 11:29 04/24/20 05:39 Magnesium Hydroxide (Mom) 30 ml DAILYPRN PRN ORAL Constipation 04/09/20 09:00 05/09/20 08:59 Midodrine (Pro-Amatine) 10 mg THREE TIMES A DAY ORAL 04/20/20 09:00 07/17/20 08:59 04/24/20 08:25 Morphine Sulfate (Morphine Sulfate) 2 mg Q3H PRN IVP For Pain 4-10 04/21/20 10:30 04/28/20 10:29 Ondansetron HCl (Zofran) 4 mg Q6H PRN IVP Nausea & Vomiting 04/09/20 09:00 05/09/20 08:59 Pantoprazole (Protonix) 40 mg DAILY IVP 04/09/20 09:00 05/09/20 08:59 04/24/20 08:25 Quetiapine Fumarate (SEROqueL) 50 mg Q6H PRN GT Restlessness and agitation 04/10/20 16:15 05/25/20 16:14 04/15/20 14:04 Quetiapine Fumarate (SEROqueL) 200 mg Q12HR GT 04/11/20 09:00 05/26/20 08:59 04/24/20 08:25 Tamsulosin HCl (Flomax) 0.4 mg BEDTIME ORAL 04/21/20 21:00 05/21/20 20:59 04/23/20 21:28 Vitamin D (Vitamin D) 2,000 unit DAILY GT 04/09/20 09:00 05/09/20 08:59 04/24/20 08:26 Zinc Oxide (Zinc Oxide) 1 applic TIDPRN PRN TOPIC Itching 04/09/20 08:30 07/08/20 08:29 Zinc Sulfate (Zinc Sulfate) 220 mg DAILY GT 04/09/20 09:00 07/08/20 08:59 04/24/20 08:26 Wong Kilpatrick MD Apr 24, 2020 11:19
[2020-04-24 12:00] VITALS: BP 121/83
--- NOTE | 2020-04-24 14:01 | Diagnostic Imaging Report ---
EXAM: XR Chest, 1 View CLINICAL HISTORY: F/U TECHNIQUE: Frontal view of the chest. COMPARISON: Chest radiograph on 04/14/2020 FINDINGS: Hardware: Tracheostomy tube terminates in the region of the mid thoracic trachea. Lungs/pleura: Patchy opacities throughout the lungs, similar on the left and slightly decreased on the right. No focal consolidation. Possible trace left pleural effusion. Heart/mediastinum: Normal. No cardiomegaly. Soft tissues: Unremarkable. Bones: No acute fracture. Upper abdomen: Normal. IMPRESSION: Patchy opacities throughout the lungs, similar on the left and slightly decreased on the right, concerning for an infectious/inflammatory process. Possible trace left pleural effusion.
--- NOTE | 2020-04-24 14:45 | NUR ---
FILM SOUND COORDINATOR NOTES SPOKE WITH GABI FROM [employer] MADE AWARE OF PT NEEDING PLACEMENT AND BARRIERS TO PLACEMENT. WILL FOLLOW UP WITH RAUL TIJERINA FOR ACCEPTANCE AND TY.
--- NOTE | 2020-04-24 15:06 | NUR ---
INSURANCE CLINCALS AND REVIEWS FAXED TO [employer] [employer] T: [phone] [id number] F: [phone]
--- NOTE | 2020-04-24 15:32 | NUR ---
*-*DISCHARGE PLANNING*-* PATIENT HAS BEEN REFERRED TO: RAUL TIJERINA P: [phone]
[2020-04-24 16:00] VITALS: BP 121/92
--- NOTE | 2020-04-24 16:57 | NUR ---
*-*DISCHARGE PLANNING*-* PATIENT HAS BEEN REFERRED TO: RAUL TIJERINA P: [phone] S/W DC, WHO STATED WILL CALL BACK AFTER REVIEW.
--- NOTE | 2020-04-24 17:01 | NUR ---
*-*DISCHARGE PLANNING*-* PATIENT HAS BEEN REFERRED TO: RAUL TIJERINA P: [phone] PLACED A CALL TO DON, NO ANSWER, FOLLOW UP TOMORROW.
--- NOTE | 2020-04-24 17:06 | General Progress Note ---
Subjective ROS Limited/Unobtainable: Yes Allergies: Coded Allergies: No Known Allergies (Unverified , 04/08/20) Subjective care noted on vent and trach sugars elevated Objective Last 24 Hour Vital Signs Date Time Temp Pulse Resp B/P (MAP) Pulse Ox O2 Delivery O2 Flow Rate FiO2 04/24/20 16:00 30 04/24/20 16:00 Mechanical Ventilator 04/24/20 16:00 89 04/24/20 12:00 97.3 88 18 121/83 (96) 100 04/24/20 12:00 30 04/24/20 12:00 85 04/24/20 12:00 Mechanical Ventilator 04/24/20 11:17 89 18 30 04/24/20 08:00 96.2 96 18 120/82 (95) 99 04/24/20 08:00 30 04/24/20 08:00 97 04/24/20 08:00 Mechanical Ventilator 04/24/20 07:35 94 19 30 04/24/20 04:00 Mechanical Ventilator 04/24/20 04:00 97.9 82 16 118/82 (94) 99 04/24/20 04:00 30 04/24/20 04:00 89 04/24/20 03:10 89 16 30 04/24/20 00:00 97.7 78 16 122/88 (99) 99 04/24/20 00:00 Mechanical Ventilator 04/24/20 00:00 88 04/24/20 00:00 30 04/23/20 23:05 91 17 30 04/23/20 20:00 87 04/23/20 20:00 Mechanical Ventilator 04/23/20 20:00 97.7 98 20 118/84 (95) 98 04/23/20 19:15 86 22 30 Intake and Output 04/23/20 04/24/20 19:00 07:00 Intake Total 1020 ml 630 ml Output Total 500 ml Balance 520 ml 630 ml Intake Free Water 180 ml Tube Feeding 840 ml 630 ml Output Urine Total 500 ml # Bowel Movements 2 Laboratory Tests 04/23/20 17:07: POC Whole Blood Glucose [Pending] 04/24/20 05:37: POC Whole Blood Glucose 266H Height (Feet): 5 Height (Inches): 6.00 Weight (Pounds): 135 Objective WDWN trach reduced breath sounds bilaterally without rhonchi or wheeze [id number] without MRG NABS nontender GT no CCE poor LOC Assessment/Plan Assessment/Plan: Impression: Pneumonia, h/o Klebsiella Ventilator dependance Tracheostomy status Diabetes Sacral decubitus and feet pressure areas azotemia leukocytosis necrotic lower extremity diabetes Plan: - Continue antibiotics per ID - add insulin - ID Consult,Surgery Consult - Continue current ventilator sttings - Adjust O2 as needed - DVT prophylaxis -Wound consult - dc planning to snf impression, plan, and exam edited and reviewed in detail care discussed with Mikhail Alejandro MD Apr 24, 2020 17:06
[2020-04-24] MEDS: Levemir Flexpen SUBQ SCH (18:35)
--- NOTE | 2020-04-24 18:51 | NUR ---
NURSE HAND-OFF REPORT: Important Events on Shift:[stool collected for Cdif. Spoke to , per her request asked Alina if she can please look for SNF in [place]. ] Patient Status: [Full code] Diet: [Glucerna 1.2 70cc/hr] Pending Orders: [] Pending Results/Labs:[] Pending MD notification:[] Latest Vital Signs: Temperature 97.9 , Pulse 94 , B/P 121 /92 , Respiratory Rate 18 , O2 SAT 99 , Mechanical Ventilator, O2 Flow Rate 3.0 . Vital Sign Comment: [] EKG Rhythm: Sinus Rhythm Rhythm change?: N MD Notified?: N - MD Response: Latest Linder Fall Score: 95 Fall Risk: High Risk Safety Measures: Call light Within Reach, Bed Alarm Zone 1, Side Rails Side Rails x3, Bed position Low and Locked. Fall Precautions: Yellow Socks Yellow Gown Door Sign Patient Fall Education Report given to [Pending RN assignment]. Addendum: 04/24/20 at 1919 by Chelsea Orellana RN Report given to Aliya BAPTISTE
--- NOTE | 2020-04-24 19:45 | NUR ---
NURSE NOTES: Received patient awake in bed, AOx4, able to follow commands. Large loose bowel movement at this time, patient cleaned, linen changed. Patient tolerating current Vent settings, O2 sat 99-100% at this time, mild to moderate secretions. G tube feeding patent, patient tolerating well. IV access patent, dressing dry and intact. Bed low and locked, patient wearing non slip socks.
[2020-04-24 20:00] VITALS: BP 139/94
--- NOTE | 2020-04-24 20:17 | General Progress Note ---
Subjective Allergies: Coded Allergies: No Known Allergies (Unverified , 04/08/20) Subjective Above noted Tolerating TF calm/comfortable d/w RN - liquid stools noted Objective Last 24 Hour Vital Signs Date Time Temp Pulse Resp B/P (MAP) Pulse Ox O2 Delivery O2 Flow Rate FiO2 04/24/20 19:24 94 23 30 04/24/20 16:00 97.9 94 18 121/92 (102) 99 04/24/20 16:00 30 04/24/20 16:00 Mechanical Ventilator 04/24/20 16:00 89 04/24/20 15:09 92 18 30 04/24/20 12:00 97.3 88 18 121/83 (96) 100 04/24/20 12:00 30 04/24/20 12:00 85 04/24/20 12:00 Mechanical Ventilator 04/24/20 11:17 89 18 30 04/24/20 08:00 96.2 96 18 120/82 (95) 99 04/24/20 08:00 30 04/24/20 08:00 97 04/24/20 08:00 Mechanical Ventilator 04/24/20 07:35 94 19 30 04/24/20 04:00 Mechanical Ventilator 04/24/20 04:00 97.9 82 16 118/82 (94) 99 04/24/20 04:00 30 04/24/20 04:00 89 04/24/20 03:10 89 16 30 04/24/20 00:00 97.7 78 16 122/88 (99) 99 04/24/20 00:00 Mechanical Ventilator 04/24/20 00:00 88 04/24/20 00:00 30 04/23/20 23:05 91 17 30 Intake and Output 04/23/20 04/24/20 19:00 07:00 Intake Total 1020 ml 630 ml Output Total 500 ml Balance 520 ml 630 ml Intake Free Water 180 ml Tube Feeding 840 ml 630 ml Output Urine Total 500 ml # Bowel Movements 2 Laboratory Tests 04/24/20 05:37: POC Whole Blood Glucose 266H Height (Feet): 5 Height (Inches): 6.00 Weight (Pounds): 135 Objective Debilitated NCAT (+) trach Coarse BS RR abd soft, (+) GT ext (+) LLE leg dressings, no edema Assessment/Plan Assessment/Plan: Assessment - dysphagia, GT - resp failure, trach - anemia - leukocytosis - malnutrition - decub ulcer - LE ischemia - DM - loose stools - r/o C Diff Recommendations - continue TF - check C Diff - protein powder - MVI / zinc - GT care - follow labs - abx Slade Shah MD Apr 24, 2020 20:16
[2020-04-24] MEDS: Tamsulosin 0.4mg cap ORAL SCH (20:23)
--- NOTE | 2020-04-24 20:24 | Psychiatric Progress Note ---
Psychiatry Progress Note Psychiatry Progress Note Medications Current Medications Medications (Trade) Dose Ordered Sig/Benigno Route PRN Reason Start Time Stop Time Status Last Admin Dose Admin Acetaminophen (Tylenol) 650 mg Q4H PRN ORAL Mild Pain (Pain Scale 1-3) 04/09/20 09:00 05/09/20 08:59 Acetaminophen (Tylenol) 650 mg Q4H PRN ORAL Temp >100.5 04/09/20 09:00 05/09/20 08:59 Ascorbic Acid (Vitamin C) 1,000 mg DAILY GT 04/09/20 09:00 05/09/20 08:59 04/24/20 08:25 Dextrose (Dextrose 50%) 25 ml Q30M PRN IV Hypoglycemia 04/09/20 09:00 07/08/20 08:59 Dextrose (Dextrose 50%) 50 ml Q30M PRN IV Hypoglycemia 04/09/20 09:00 07/08/20 08:59 Diphenhydramine HCl (Benadryl) 50 mg Q12H PRN IVP Agitation 04/11/20 01:30 05/11/20 01:29 04/15/20 12:53 Furosemide (Lasix) 20 mg EVERY 12 HOURS IV 04/09/20 09:00 05/09/20 08:59 04/24/20 08:26 Haloperidol Lactate (Haldol) 5 mg Q6H PRN IM Agitation 04/11/20 16:15 05/26/20 16:14 04/17/20 10:11 Heparin Sodium (Porcine) (Heparin 5000 units/ml) 5,000 units EVERY 12 HOURS SUBQ 04/09/20 10:00 05/24/20 09:59 04/24/20 08:27 Insulin Aspart (NovoLOG) EVERY 6 HOURS SUBQ 04/15/20 06:00 07/08/20 11:29 04/24/20 17:54 Insulin Detemir (Levemir) 6 units Q24H SUBQ 04/24/20 18:00 07/23/20 17:59 04/24/20 18:35 Magnesium Hydroxide (Mom) 30 ml DAILYPRN PRN ORAL Constipation 04/09/20 09:00 05/09/20 08:59 Midodrine (Pro-Amatine) 10 mg THREE TIMES A DAY ORAL 04/20/20 09:00 07/17/20 08:59 04/24/20 17:54 Morphine Sulfate (Morphine Sulfate) 2 mg Q3H PRN IVP For Pain 4-10 04/21/20 10:30 04/28/20 10:29 Ondansetron HCl (Zofran) 4 mg Q6H PRN IVP Nausea & Vomiting 04/09/20 09:00 05/09/20 08:59 Pantoprazole (Protonix) 40 mg DAILY IVP 04/09/20 09:00 05/09/20 08:59 04/24/20 08:25 Quetiapine Fumarate (SEROqueL) 50 mg Q6H PRN GT Restlessness and agitation 04/10/20 16:15 05/25/20 16:14 04/15/20 14:04 Quetiapine Fumarate (SEROqueL) 200 mg Q12HR GT 04/11/20 09:00 05/26/20 08:59 04/24/20 08:25 Tamsulosin HCl (Flomax) 0.4 mg BEDTIME ORAL 04/21/20 21:00 05/21/20 20:59 04/23/20 21:28 Vitamin D (Vitamin D) 2,000 unit DAILY GT 04/09/20 09:00 05/09/20 08:59 04/24/20 08:26 Zinc Oxide (Zinc Oxide) 1 applic TIDPRN PRN TOPIC Itching 04/09/20 08:30 07/08/20 08:29 Zinc Sulfate (Zinc Sulfate) 220 mg DAILY GT 04/09/20 09:00 07/08/20 08:59 04/24/20 08:26 Neurological/Psychiatric: Reports: anxiety, depressed, emotional problems Allergies: Coded Allergies: No Known Allergies (Unverified , 04/08/20) Objective Data Height (Feet): 5 Height (Inches): 6.00 Weight (Pounds): 135 General Appearance: no apparent distress Additional Comments: MENTAL STATUS EXAMINATION: The patient is awake, oriented to self, and disoriented to situation. Mood is agitated. Affect is flat. Thought process, there is a paucity of thought content. Thought content, no suicidal or homicidal ideation. Cognition is impaired. Insight and judgment is impaired. Assessment/Plan Burdett I: ASSESSMENT: Burdett I Psychotic disorder. Burdett II Deferred. Burdett III Pneumonia. Burdett IV Low. Burdett V 20 PLAN: 1. We will start the patient on Haldol p.r.n. 2. Seroquel. 3. Discussed with the nurse. Status Narrative ASSESSMENT: Burdett I Psychotic disorder. Burdett II Deferred. Burdett III Pneumonia. Burdett IV Low. Burdett V 20 PLAN: 1. We will start the patient on Haldol p.r.n. 2. Seroquel. 3. Discussed with the nurse. Assessment/Plan: ASSESSMENT: Burdett I Psychotic disorder. Burdett II Deferred. Burdett III Pneumonia. Burdett IV Low. Burdett V 20 PLAN: 1. We will start the patient on Haldol p.r.n. 2. Seroquel. 3. Discussed with the nurse. Watson Graham MD Apr 24, 2020 20:24
[2020-04-25] VITALS: BP 114/85
[2020-04-25] MEDS: NovoLOG Insulin Flexpen SUBQ SCH ×4 (00:15→17:47)
--- NOTE | 2020-04-25 00:20 | NUR ---
NURSE NOTES: Patient asleep in bed, easily arousable, no s/s of acute distress. Patient tolerating current Vent settings, no changes made, RT at bedside. Patient tolerating G-tube feeding. Left forearm IV discontinued per patient, covered with sterile gauze. Left hand IV patent, flushed with normal saline, on saline lock.
[2020-04-25 04:00] VITALS: BP 118/89
--- NOTE | 2020-04-25 06:49 | NUR ---
NURSE HAND-OFF REPORT: Important Events on Shift: diarrhea x2 Patient Status: stable Diet: Glucerna 1.2 Pending Orders: Pending Results/Labs: no AM labs for 04/25 Pending MD notification: Latest Vital Signs: Temperature 98.4 , Pulse 94 , B/P 118 /89 , Respiratory Rate 18 , O2 SAT 100 , Mechanical Ventilator, O2 Flow Rate 3.0 . Vital Sign Comment: EKG Rhythm: Sinus Rhythm Rhythm change?: N MD Notified?: N - MD Response: Latest Linder Fall Score: 95 Fall Risk: High Risk Safety Measures: Call light Within Reach, Bed Alarm Zone 1, Side Rails Side Rails x3, Bed position Low and Locked. Fall Precautions: Yellow Socks Yellow Gown Door Sign Patient Fall Education Report given to . Addendum: 04/25/20 at 0717 by Afshan Ramey RN Report given to EMILE Victoria
--- NOTE | 2020-04-25 07:25 | NUR ---
NURSE NOTES: Received report from EMILE Hooker. Patient in bed resting, no active s/s cardiac, respiratory distress noticed at this time, Patient non-verbal, able to make need known, follow command. SR with HR 94. Patient trach to vent Shiley 8 AC 16 TV 500 PEEP 5 Fio2 30%, O2 sat 100%. GT feeding on Glucerna 1.2 @ 70ml/h. IV on left hand 22G, asymptomatic, patent, intact. Discharge planning, pending placement at this time. Bed in lowest position, side rails upx3, call light within reach, bed alarm on, Will continue to monitor.
[2020-04-25 08:00] VITALS: BP_SYST 119; BP_DIAS 6; BP_DIAS 86
--- NOTE | 2020-04-25 08:03 | NUR ---
NURSE NOTES: Dr. Shah made aware of loose stool, negative C.Diff. Per MD change formula from Glucerna to Rachana AF. Order noted, entered, carried out. Will continue to monitor.
--- NOTE | 2020-04-25 08:05 | Urology Progress Note ---
Assessment/Plan Assessment/Plan: 1. Urinary retention. 2. Possible BPH. 3. Probable neurogenic bladder. 4. Rule out UTI colonization. 5. Urethral stenosis. monitor clinically maintain santillan, replaced 04/21 hand irrigated and do PRN flomax added voiding trial at some point? cysto electively Subjective Allergies: Coded Allergies: No Known Allergies (Unverified , 04/08/20) Subjective all noted Objective Last 24 Hour Vital Signs Date Time Temp Pulse Resp B/P (MAP) Pulse Ox O2 Delivery O2 Flow Rate FiO2 04/25/20 04:00 94 04/25/20 04:00 30 04/25/20 04:00 Mechanical Ventilator 04/25/20 04:00 98.4 97 18 118/89 (99) 100 04/25/20 02:44 92 17 30 04/25/20 00:00 93 04/25/20 00:00 Mechanical Ventilator 04/25/20 00:00 97.2 93 18 114/85 (95) 99 04/25/20 00:00 30 04/24/20 23:27 90 20 30 04/24/20 20:00 30 04/24/20 20:00 92 04/24/20 20:00 97.5 91 18 139/94 (109) 100 04/24/20 20:00 Mechanical Ventilator 04/24/20 19:24 94 23 30 04/24/20 16:00 97.9 94 18 121/92 (102) 99 04/24/20 16:00 30 04/24/20 16:00 Mechanical Ventilator 04/24/20 16:00 89 04/24/20 15:09 92 18 30 04/24/20 12:00 97.3 88 18 121/83 (96) 100 04/24/20 12:00 30 04/24/20 12:00 85 04/24/20 12:00 Mechanical Ventilator 04/24/20 11:17 89 18 30 Intake and Output 04/24/20 04/25/20 19:00 07:00 Intake Total 140 ml 930 ml Output Total 300 ml 1101 ml Balance -160 ml -171 ml Intake Free Water 160 ml Tube Feeding 140 ml 770 ml Output Urine Total 300 ml 1100 ml Stool Total 1 ml # Bowel Movements 3 3 Microbiology Date/Time Source Procedure Growth Status 04/24/20 09:30 Stool Clostridium difficile Toxin Assay - Final Complete 04/10/20 18:00 Sputum Induced Gram Stain - Final Complete 04/10/20 18:00 Sputum Culture - Final Marlyn Albicans Complete 04/10/20 15:30 Blood Blood Culture - Final NO GROWTH AFTER 5 DAYS Complete 04/10/20 13:15 Indwelling Cath Urine Culture - Final NO GROWTH AFTER 48 HOURS Complete 04/09/20 05:45 Rectum VRE Culture - Final NO VANCOMYCIN RESISTANT ENTEROCOCCUS ... Complete Current Medications Medications (Trade) Dose Ordered Sig/Benigno Route PRN Reason Start Time Stop Time Status Last Admin Dose Admin Acetaminophen (Tylenol) 650 mg Q4H PRN ORAL Mild Pain (Pain Scale 1-3) 04/09/20 09:00 05/09/20 08:59 Acetaminophen (Tylenol) 650 mg Q4H PRN ORAL Temp >100.5 04/09/20 09:00 05/09/20 08:59 Ascorbic Acid (Vitamin C) 1,000 mg DAILY GT 04/09/20 09:00 05/09/20 08:59 04/24/20 08:25 Dextrose (Dextrose 50%) 25 ml Q30M PRN IV Hypoglycemia 04/09/20 09:00 07/08/20 08:59 Dextrose (Dextrose 50%) 50 ml Q30M PRN IV Hypoglycemia 04/09/20 09:00 07/08/20 08:59 Diphenhydramine HCl (Benadryl) 50 mg Q12H PRN IVP Agitation 04/11/20 01:30 05/11/20 01:29 04/15/20 12:53 Furosemide (Lasix) 20 mg EVERY 12 HOURS IV 04/09/20 09:00 05/09/20 08:59 04/24/20 20:23 Haloperidol Lactate (Haldol) 5 mg Q6H PRN IM Agitation 04/11/20 16:15 05/26/20 16:14 04/17/20 10:11 Heparin Sodium (Porcine) (Heparin 5000 units/ml) 5,000 units EVERY 12 HOURS SUBQ 04/09/20 10:00 05/24/20 09:59 04/24/20 20:25 Insulin Aspart (NovoLOG) EVERY 6 HOURS SUBQ 04/15/20 06:00 07/08/20 11:29 04/25/20 05:16 Insulin Detemir (Levemir) 6 units Q24H SUBQ 04/24/20 18:00 07/23/20 17:59 04/24/20 18:35 Magnesium Hydroxide (Mom) 30 ml DAILYPRN PRN ORAL Constipation 04/09/20 09:00 05/09/20 08:59 Midodrine (Pro-Amatine) 10 mg THREE TIMES A DAY ORAL 04/20/20 09:00 07/17/20 08:59 04/24/20 17:54 Morphine Sulfate (Morphine Sulfate) 2 mg Q3H PRN IVP For Pain 4-10 04/21/20 10:30 04/28/20 10:29 Ondansetron HCl (Zofran) 4 mg Q6H PRN IVP Nausea & Vomiting 04/09/20 09:00 05/09/20 08:59 Pantoprazole (Protonix) 40 mg DAILY IVP 04/09/20 09:00 05/09/20 08:59 04/24/20 08:25 Quetiapine Fumarate (SEROqueL) 50 mg Q6H PRN GT Restlessness and agitation 04/10/20 16:15 05/25/20 16:14 04/15/20 14:04 Quetiapine Fumarate (SEROqueL) 200 mg Q12HR GT 04/11/20 09:00 05/26/20 08:59 04/24/20 20:23 Tamsulosin HCl (Flomax) 0.4 mg BEDTIME ORAL 04/21/20 21:00 05/21/20 20:59 04/24/20 20:23 Vitamin D (Vitamin D) 2,000 unit DAILY GT 04/09/20 09:00 05/09/20 08:59 04/24/20 08:26 Zinc Oxide (Zinc Oxide) 1 applic TIDPRN PRN TOPIC Itching 04/09/20 08:30 07/08/20 08:29 Zinc Sulfate (Zinc Sulfate) 220 mg DAILY GT 04/09/20 09:00 07/08/20 08:59 04/24/20 08:26 Laboratory Tests 04/25/20 00:12: POC Whole Blood Glucose [Pending] 04/25/20 05:15: POC Whole Blood Glucose [Pending] Height (Feet): 5 Height (Inches): 6.00 Weight (Pounds): 135 Objective exam stable urine yellow with debris Saji Zacarias MD Apr 25, 2020 08:05
[2020-04-25] MEDS: Midodrine 10mg tab ORAL SCH ×3 (08:29→17:46)
[2020-04-25] MEDS: QUEtiapine 200mg tab GT SCH ×2 (08:29→20:21)
[2020-04-25] MEDS: Vitamin D 1000 units Tab GT SCH (08:29)
[2020-04-25] MEDS: Pantoprazole Inj IVP SCH (08:29)
[2020-04-25] MEDS: Ascorbic Acid 500mg tab GT SCH (08:29)
[2020-04-25] MEDS: Zinc Sulfate 220mg GT SCH (08:29)
[2020-04-25] MEDS: Heparin 5000 units/ml inj SUBQ SCH ×2 (08:30→20:23)
--- NOTE | 2020-04-25 08:43 | General Progress Note ---
Subjective ROS Limited/Unobtainable: Yes Allergies: Coded Allergies: No Known Allergies (Unverified , 04/08/20) Subjective care noted on vent and trach sugars elevated per review Objective Last 24 Hour Vital Signs Date Time Temp Pulse Resp B/P (MAP) Pulse Ox O2 Delivery O2 Flow Rate FiO2 04/25/20 08:22 93 04/25/20 04:00 94 04/25/20 04:00 30 04/25/20 04:00 Mechanical Ventilator 04/25/20 04:00 98.4 97 18 118/89 (99) 100 04/25/20 02:44 92 17 30 04/25/20 00:00 93 04/25/20 00:00 Mechanical Ventilator 04/25/20 00:00 97.2 93 18 114/85 (95) 99 04/25/20 00:00 30 04/24/20 23:27 90 20 30 04/24/20 20:00 30 04/24/20 20:00 92 04/24/20 20:00 97.5 91 18 139/94 (109) 100 04/24/20 20:00 Mechanical Ventilator 04/24/20 19:24 94 23 30 04/24/20 16:00 97.9 94 18 121/92 (102) 99 04/24/20 16:00 30 04/24/20 16:00 Mechanical Ventilator 04/24/20 16:00 89 04/24/20 15:09 92 18 30 04/24/20 12:00 97.3 88 18 121/83 (96) 100 04/24/20 12:00 30 04/24/20 12:00 85 04/24/20 12:00 Mechanical Ventilator 04/24/20 11:17 89 18 30 Intake and Output 04/24/20 04/25/20 19:00 07:00 Intake Total 140 ml 930 ml Output Total 300 ml 1101 ml Balance -160 ml -171 ml Intake Free Water 160 ml Tube Feeding 140 ml 770 ml Output Urine Total 300 ml 1100 ml Stool Total 1 ml # Bowel Movements 3 3 Laboratory Tests 04/25/20 00:12: POC Whole Blood Glucose [Pending] 04/25/20 05:15: POC Whole Blood Glucose [Pending] Height (Feet): 5 Height (Inches): 6.00 Weight (Pounds): 135 Objective WDWN trach reduced breath sounds bilaterally without rhonchi or wheeze [id number] without MRG NABS nontender GT no CCE poor LOC Assessment/Plan Assessment/Plan: Impression: Pneumonia, h/o Klebsiella Ventilator dependance Tracheostomy status Diabetes Sacral decubitus and feet pressure areas azotemia leukocytosis necrotic lower extremity diabetes Plan: - Continue antibiotics per ID - add insulin long acting and adjust - ID Consult,Surgery Consult - Continue current ventilator sttings - Adjust O2 as needed - DVT prophylaxis -Wound consult - dc planning to snf when able and cleared impression, plan, and exam edited and reviewed in detail care discussed with Mikhail Alejandro MD Apr 25, 2020 08:43
--- NOTE | 2020-04-25 10:55 | Infectious Diseases Prog Note ---
Assessment/Plan Assessment/Plan A: 1. Pneumonia treated 2. Sacral decubitus ulcer. 3. Left leg necrotic ulcer, phlegmon or edema 4. Ventilator dependent respiratory failure 5. Anemia 5. Leukocytosis PLAN: 1. Observe off antibiotic Subjective ROS Limited/Unobtainable: Yes Allergies: Coded Allergies: No Known Allergies (Unverified , 04/08/20) Objective Last 24 Hour Vital Signs Date Time Temp Pulse Resp B/P (MAP) Pulse Ox O2 Delivery O2 Flow Rate FiO2 04/25/20 08:22 93 04/25/20 08:00 97.3 97 18 119/6 (43) 100 04/25/20 08:00 Mechanical Ventilator 04/25/20 08:00 30 04/25/20 07:00 86 17 30 04/25/20 04:00 94 04/25/20 04:00 30 04/25/20 04:00 Mechanical Ventilator 04/25/20 04:00 98.4 97 18 118/89 (99) 100 04/25/20 02:44 92 17 30 04/25/20 00:00 93 04/25/20 00:00 Mechanical Ventilator 04/25/20 00:00 97.2 93 18 114/85 (95) 99 04/25/20 00:00 30 04/24/20 23:27 90 20 30 04/24/20 20:00 30 04/24/20 20:00 92 04/24/20 20:00 97.5 91 18 139/94 (109) 100 04/24/20 20:00 Mechanical Ventilator 04/24/20 19:24 94 23 30 04/24/20 16:00 97.9 94 18 121/92 (102) 99 04/24/20 16:00 30 04/24/20 16:00 Mechanical Ventilator 04/24/20 16:00 89 04/24/20 15:09 92 18 30 04/24/20 12:00 97.3 88 18 121/83 (96) 100 04/24/20 12:00 30 04/24/20 12:00 85 04/24/20 12:00 Mechanical Ventilator 04/24/20 11:17 89 18 30 Height (Feet): 5 Height (Inches): 6.00 Weight (Pounds): 135 HEENT: mucous membranes moist Respiratory/Chest: lungs clear, other - on ventilator Cardiovascular: normal rate Abdomen: soft, non tender, other - Gt feeding Extremities: no edema Neurologic/Psychiatric: alert, responsive Microbiology Date/Time Source Procedure Growth Status 04/24/20 09:30 Stool Clostridium difficile Toxin Assay - Final Complete Laboratory Tests Test 04/25/20 00:12 04/25/20 05:15 POC Whole Blood Glucose Pending Pending Current Medications Medications (Trade) Dose Ordered Sig/Benigno Route PRN Reason Start Time Stop Time Status Last Admin Dose Admin Acetaminophen (Tylenol) 650 mg Q4H PRN ORAL Mild Pain (Pain Scale 1-3) 04/09/20 09:00 05/09/20 08:59 Acetaminophen (Tylenol) 650 mg Q4H PRN ORAL Temp >100.5 04/09/20 09:00 05/09/20 08:59 Ascorbic Acid (Vitamin C) 1,000 mg DAILY GT 04/09/20 09:00 05/09/20 08:59 04/25/20 08:29 Dextrose (Dextrose 50%) 25 ml Q30M PRN IV Hypoglycemia 04/09/20 09:00 07/08/20 08:59 Dextrose (Dextrose 50%) 50 ml Q30M PRN IV Hypoglycemia 04/09/20 09:00 07/08/20 08:59 Diphenhydramine HCl (Benadryl) 50 mg Q12H PRN IVP Agitation 04/11/20 01:30 05/11/20 01:29 04/15/20 12:53 Furosemide (Lasix) 20 mg EVERY 12 HOURS IV 04/09/20 09:00 05/09/20 08:59 04/25/20 08:29 Haloperidol Lactate (Haldol) 5 mg Q6H PRN IM Agitation 04/11/20 16:15 05/26/20 16:14 04/17/20 10:11 Heparin Sodium (Porcine) (Heparin 5000 units/ml) 5,000 units EVERY 12 HOURS SUBQ 04/09/20 10:00 05/24/20 09:59 04/25/20 08:30 Insulin Aspart (NovoLOG) EVERY 6 HOURS SUBQ 04/15/20 06:00 07/08/20 11:29 04/25/20 05:16 Insulin Detemir (Levemir) 6 units Q24H SUBQ 04/24/20 18:00 07/23/20 17:59 04/24/20 18:35 Magnesium Hydroxide (Mom) 30 ml DAILYPRN PRN ORAL Constipation 04/09/20 09:00 05/09/20 08:59 Midodrine (Pro-Amatine) 10 mg THREE TIMES A DAY ORAL 04/20/20 09:00 07/17/20 08:59 04/25/20 08:29 Morphine Sulfate (Morphine Sulfate) 2 mg Q3H PRN IVP For Pain 4-10 04/21/20 10:30 04/28/20 10:29 Ondansetron HCl (Zofran) 4 mg Q6H PRN IVP Nausea & Vomiting 04/09/20 09:00 05/09/20 08:59 Pantoprazole (Protonix) 40 mg DAILY IVP 04/09/20 09:00 05/09/20 08:59 04/25/20 08:29 Quetiapine Fumarate (SEROqueL) 50 mg Q6H PRN GT Restlessness and agitation 04/10/20 16:15 05/25/20 16:14 04/15/20 14:04 Quetiapine Fumarate (SEROqueL) 200 mg Q12HR GT 04/11/20 09:00 05/26/20 08:59 04/25/20 08:29 Tamsulosin HCl (Flomax) 0.4 mg BEDTIME ORAL 04/21/20 21:00 05/21/20 20:59 04/24/20 20:23 Vitamin D (Vitamin D) 2,000 unit DAILY GT 04/09/20 09:00 05/09/20 08:59 04/25/20 08:29 Zinc Oxide (Zinc Oxide) 1 applic TIDPRN PRN TOPIC Itching 04/09/20 08:30 07/08/20 08:29 Zinc Sulfate (Zinc Sulfate) 220 mg DAILY GT 04/09/20 09:00 07/08/20 08:59 04/25/20 08:29 Sumit Devine MD Apr 25, 2020 10:55
--- NOTE | 2020-04-25 11:03 | Surgery Progress Note ---
Surgery Progress Note Subjective Additional Comments wbc improving exam stable comfortable no complaints Objective Last 24 Hour Vital Signs Date Time Temp Pulse Resp B/P (MAP) Pulse Ox O2 Delivery O2 Flow Rate FiO2 04/25/20 08:22 93 04/25/20 08:00 97.3 97 18 119/6 (43) 100 04/25/20 08:00 Mechanical Ventilator 04/25/20 08:00 30 04/25/20 07:00 86 17 30 04/25/20 04:00 94 04/25/20 04:00 30 04/25/20 04:00 Mechanical Ventilator 04/25/20 04:00 98.4 97 18 118/89 (99) 100 04/25/20 02:44 92 17 30 04/25/20 00:00 93 04/25/20 00:00 Mechanical Ventilator 04/25/20 00:00 97.2 93 18 114/85 (95) 99 04/25/20 00:00 30 04/24/20 23:27 90 20 30 04/24/20 20:00 30 04/24/20 20:00 92 04/24/20 20:00 97.5 91 18 139/94 (109) 100 04/24/20 20:00 Mechanical Ventilator 04/24/20 19:24 94 23 30 04/24/20 16:00 97.9 94 18 121/92 (102) 99 04/24/20 16:00 30 04/24/20 16:00 Mechanical Ventilator 04/24/20 16:00 89 04/24/20 15:09 92 18 30 04/24/20 12:00 97.3 88 18 121/83 (96) 100 04/24/20 12:00 30 04/24/20 12:00 85 04/24/20 12:00 Mechanical Ventilator 04/24/20 11:17 89 18 30 I&O Intake and Output 04/24/20 04/25/20 19:00 07:00 Intake Total 140 ml 930 ml Output Total 300 ml 1101 ml Balance -160 ml -171 ml Intake Free Water 160 ml Tube Feeding 140 ml 770 ml Output Urine Total 300 ml 1100 ml Stool Total 1 ml # Bowel Movements 3 3 Dressing: dry Wound: clean Cardiovascular: RSR Respiratory: clear Abdomen: soft, flat, non-tender, present bowel sounds Extremities: no tenderness, no cyanosis Laboratory Tests Test 04/25/20 00:12 04/25/20 05:15 POC Whole Blood Glucose Pending Pending Plan Problems: (1) Pneumonia (2) Sacral decubitus ulcer Assessment & Plan: Pt presented on admission with Tracheostomy,GT and Multiple Wounds including an Unstageable Pressure Injury Sacrum(L)2.1cm x (W)2.8cm.Base of wound is 100% slough. Borders are adherent, erythematous. Periwound is indurated with non-blanchable erythema. At L HIP A Blue marker measuring (L)6cm x (W)5cm. Small linear shaped wound that is somewhat approximated. The remaining base within Blue Marker is indurated,erythematous with elevation in skin temp at affected area within marker, and extends well beyond borders of Marker to upper L thigh(L)12cm x (W)8cm. Large Necrotic Ulcer with irregular borders noted to lateral L Tibia. Base of wound is 100% Necrotic and dry. Edges are adherent and erythematous. Periwound is dusky with elevation in skin temp noted(L)21cm x (W)11.5cm. Necrotic Ulcer lateral L foot/L malleolus(L)4cm x 6.5cm. Base of wound is 100% soft, but dry necrosis.Edges are adherent to base of wound but are erythematous. Surrounding the wound, skin colour is dusky and skin temp is elevated. NO odor or exudate noted. Open abscess/Boil noted to lateral R Tibia(L)3cm x (W)3cm with small opening at center base (L)0.4cmx (W)0.4cm. No exudate noted. Skin temp is slightly elevated. Both heels are callused and dry. Dry peeling skin noted to both lower ext, both feet including plantar aspect of both feet. Tx.Plan: Cleanse Sacral wound with Saline. Apply TheraHoney. Apply Moisture Barrier Paste periwound. Cover with Optifoam drsg Daily and prn. Apply Betadine to L Hip. Cover with Optifoam drsg. Change every 3 days and prn. Apply Betadine to Lateral L Tibia, and Lateral L foot. Cover each site with ABD Pads and wrap with Kerlix Daily and prn. Apply Betadine to Lateral R Tibia. Cover with Optifoam drsg. Change every 3 days and prn. Apply Cavilon Skin Barrier to both heels. Cover each heel with Optifoam drsg. Change every 7 days and prn. Reposition at Least every 2 hours or as tolerated. Elevate both lower ext and float Heels with pillows.Patient presents on admission with identifiable unstageable sacral decubitus ulcer fairly fraction likely recently forming. Areas approximately 3 cm x 3 cm unknown depth. No drainage. No foul odor. Eschar area identified soft no ischemic eschar likely forming. Deep tissue underneath injury. Furthermore patient identified to have significant left lower extremity ischemic disease with ulcers and necrotic eschar. On the left lateral foot there is a necrotic eschar as well as on the left lateral leg significantly large. No drainage no signs of active infection chronic appearing in nature. Care plan initiated. Will need to ensure optimization of patient for care plan. Leukocytosis unlikely related to wounds as they do not seem actively infected Nutritional optimization We will follow with recommendations thank you for let me participate in patient's care (3) Ischemia of left lower extremity Assessment & Plan: chronic large wounds US duplex arterial and venous will follow with recs leukocytosis has been trending down leg exam stable without signs of active infection. just large area of chronic ischemia eschar On the right, triphasic waveforms with sharp systolic peaks are seen at the common femoral, superficial femoral, and popliteal artery levels. Tibial vessel waveforms are biphasic or triphasic with sharp systolic peaks. On the left, triphasic waveforms are seen at the level of the common femoral artery level. Left superficial femoral artery waveforms are triphasic proximally, borderline monophasic in the mid portion. Popliteal artery waveforms are monophasic but systolic peaks are sharp. Tibial vessel waveforms are monophasic but with sharp systolic peaks. There is a stenosis of the dorsalis pedis artery, with flow velocity elevation of up to 332 cm/s. There is slightly dampened flow velocity distal to it. Impression: No evidence of significant right lower extremity arterial insuffi ciency Monophasic waveforms in the distal superficial femoral and popliteal artery, could indicate stenosis in these segments; more likely artifactual as there is still rapid systolic upstroke, including in the ankle vessels. Evidence of significant stenosis in the dorsalis pedis artery There is a large area of low attenuation within the lateral subcutaneous fat extending from the highest slice in the distal thigh along the entire course of the anterolateral leg and into the foot, where it extends to the level of the metacarpals dorsolaterally. Is unclear whether this represents an organized fluid collection versus intense edema/phlegmon, although suspect the latter, as there are numerous gas bubbles within the collection in the leg which do not float nondependently. There is enhancement of the tissues bordering it.. The widest extent of this is in the distal thigh, where it measures 8.2 cm AP and about 2 cm in thickness. The overall length of this is at least 45 cm, although as mentioned earlier the proximal extent is not visualized. There is a skin defect in the lateral leg at the superficial aspect of the collection which presumably represents a skin ulcer. This demonstrates multiple areas of ulceration. Low attenuation also extends into the anterior muscular compartment of the leg. The fat appears to be hypoattenuating although the musculature demonstrates only mild if any hypoattenuation. No osseous erosions, abnormal periosteal reaction, or other findings to suggest osteomyelitis are demonstrated. Impression: Intense edema versus organized fluid exiting the entire extent of the anterolateral subcutaneous fat of the leg, extending into the foot to the level of the metatarsals and proximal into the thigh beyond the edge of the imaging volume. Favor that this represents edema/phlegmon, as there are gas bubbles that appear to be trapped within it, and there is an open wound through which it should drain if it was fluid. Presence of gas bubbles is concerning for infection with a gas-forming organism. This process also extends into the anterior muscular compartment of the tibial muscles No definite evidence of osteomyelitis. However, evaluation for such is limited on CT, and MRI should be considered if this is a clinical concern Additional Comments patient seen and examined 04/24. was unable to write note because of log in issue Anthony Fernandez Apr 25, 2020 11:03
--- NOTE | 2020-04-25 11:52 | NUR ---
CASE MANAGEMENT:REVIEW 04/25/20 SI: PNA. NECROTIC LE TRACH/VENT/GTUBE DEPENDENT 97.3 97 18 118/89 100% ON VENT SUPPORT W/30% FIO2 NO LABS TODAY IS: FLOMAX GT QHS MIDODRINE GT TID NOVOLOG SQ Q6 SEROQUEL GT Q12 HEPARIN SQ SQ Q12 IV PROTONIX QD IV LASIX Q12 : STEP DOWN UNIT DCP: FROM [facility] PLAN: NEED HELP FROM [facility] WITH PLACEMENT SINCE PATIENT BELONGS IN [facility] REFERRED TO RAUL TIJERINA..WILL NEED TY
[2020-04-25 12:00] VITALS: BP 118/86
--- NOTE | 2020-04-25 14:16 | NUR ---
INSURANCE CLINCALS AND REVIEWS FAXED TO [employer] T: [phone] [id number] F: [phone]
[2020-04-25 16:00] VITALS: BP 123/86
[2020-04-25] MEDS: Levemir Flexpen SUBQ SCH (17:47)
--- NOTE | 2020-04-25 19:04 | NUR ---
NURSE HAND-OFF REPORT: Important Events on Shift: change formula to Vital AF Patient Status: stable Diet: Vital AF @ 70ml/h Pending Orders: na Pending Results/Labs:na Pending MD notification:na Latest Vital Signs: Temperature 96.1 , Pulse 87 , B/P 123 /86 , Respiratory Rate 18 , O2 SAT 99 , Mechanical Ventilator, O2 Flow Rate 3.0 . Vital Sign Comment: stable EKG Rhythm: Sinus Rhythm Rhythm change?: N MD Notified?: N - MD Response: Latest Linder Fall Score: 95 Fall Risk: High Risk Safety Measures: Call light Within Reach, Bed Alarm Zone 1, Side Rails Side Rails x3, Bed position Low and Locked. Fall Precautions: Yellow Socks Yellow Gown Door Sign Patient Fall Education Report given to EMILE Molina.
--- NOTE | 2020-04-25 19:49 | NUR ---
NURSE NOTES: Received patient report from Ne RN and Nimo RN. Patient is AO x4 awake and able to make needs known. Patient shows no signs of distress or pain at the time. IV is intact and patent. There are no signs of erythema, infiltration, or bleeding at the time. Patient is on Ventilator shiley 8, AC 16, TV 500, PIP 5, FIO 2 30%. Patient shows no signs of respiratory distress at the time. G tube running Vital AF 1.2 @ 70 cc/hr. Bed is in the lowest position, call light is within reach, side rails up x3. Will continue to monitor.
[2020-04-25 20:00] VITALS: BP 122/86
[2020-04-25] MEDS: Tamsulosin 0.4mg cap ORAL SCH (20:22)
--- NOTE | 2020-04-25 22:24 | General Progress Note ---
Subjective Allergies: Coded Allergies: No Known Allergies (Unverified , 04/08/20) Subjective Above noted Tolerating TF calm/comfortable d/w RN - liquid stools noted C Diff (-) TF changed to Vital AF Objective Last 24 Hour Vital Signs Date Time Temp Pulse Resp B/P (MAP) Pulse Ox O2 Delivery O2 Flow Rate FiO2 04/25/20 20:52 98.2 04/25/20 20:06 30 04/25/20 20:00 98.2 90 20 122/86 (98) 99 04/25/20 20:00 92 04/25/20 20:00 Mechanical Ventilator 04/25/20 19:15 90 21 30 04/25/20 16:00 30 04/25/20 16:00 Mechanical Ventilator 04/25/20 16:00 96.1 87 18 123/86 (98) 99 04/25/20 15:39 88 04/25/20 15:00 86 16 30 04/25/20 12:00 30 04/25/20 12:00 Mechanical Ventilator 04/25/20 12:00 97.9 95 18 118/86 (97) 98 04/25/20 12:00 96 04/25/20 11:09 94 16 30 04/25/20 08:22 93 04/25/20 08:00 97.3 97 18 119/86 (97) 100 04/25/20 08:00 Mechanical Ventilator 04/25/20 08:00 30 04/25/20 07:00 86 17 30 04/25/20 04:00 94 04/25/20 04:00 30 04/25/20 04:00 Mechanical Ventilator 04/25/20 04:00 98.4 97 18 118/89 (99) 100 04/25/20 02:44 92 17 30 04/25/20 00:00 93 04/25/20 00:00 Mechanical Ventilator 04/25/20 00:00 97.2 93 18 114/85 (95) 99 04/25/20 00:00 30 04/24/20 23:27 90 20 30 Intake and Output 04/24/20 04/25/20 19:00 07:00 Intake Total 140 ml 1000 ml Output Total 300 ml 1101 ml Balance -160 ml -101 ml Intake Free Water 160 ml Tube Feeding 140 ml 840 ml Output Urine Total 300 ml 1100 ml Stool Total 1 ml # Bowel Movements 3 3 Laboratory Tests 04/25/20 00:12: POC Whole Blood Glucose [Pending] 04/25/20 05:15: POC Whole Blood Glucose [Pending] 04/25/20 12:13: POC Whole Blood Glucose 279H 04/25/20 17:46: POC Whole Blood Glucose [Pending] Height (Feet): 5 Height (Inches): 6.00 Weight (Pounds): 135 Objective Debilitated NCAT (+) trach Coarse BS RR abd soft, (+) GT ext (+) LLE leg dressings, no edema Assessment/Plan Assessment/Plan: Assessment - dysphagia, GT - resp failure, trach - anemia - leukocytosis - malnutrition - decub ulcer - LE ischemia - DM - loose stools - C Diff negative Recommendations - continue TF - change to vital AF - protein powder - MVI / zinc - GT care - follow labs - abx Slade Shah MD Apr 25, 2020 22:24
[2020-04-26] VITALS: BP 119/85
[2020-04-26] MEDS: NovoLOG Insulin Flexpen SUBQ SCH ×4 (00:16→18:33)
--- NOTE | 2020-04-26 03:06 | NUR ---
NURSE NOTES: Patient repositioned and cleaned. Oral care done.
[2020-04-26 04:00] VITALS: BP 149/95
[2020-04-26 05:57] LABS: BASOPHILS % (AUTO) 1.4 % (0.0-2.0); EOSINOPHILS % (AUTO) 3.3 % (0.0-3.0); HEMATOCRIT 33.1 % (42.0-52.0); HEMOGLOBIN 10.4 G/DL (14.2-18.0); LYMPHOCYTES % (AUTO) 16.2 % (20.0-45.0); MEAN CORPUSCULAR VOLUME 84 FL (80-99); MONOCYTES % (AUTO) 6.7 % (1.0-10.0); NEUTROPHILS % (AUTO) 72.5 % (45.0-75.0); PLATELET COUNT 449 K/UL (150-450); RED BLOOD COUNT 3.92 M/UL (4.70-6.10); RED CELL DISTRIBUTION WIDTH 15.5 % (11.6-14.8)
--- NOTE | 2020-04-26 06:40 | NUR ---
NURSE NOTES: Informed Dr. Campbell of low overnight out put for patient, even though patient received Lasix. Out put was 150 cc overnight. Awaiting response.
--- NOTE | 2020-04-26 07:20 | NUR ---
NURSE NOTES:Handoff received from EMILE Molina. Patient received awake and alert, trach to vent with settings: Shiley 8, AC16, TV500, PEEP5 and FI02 30% tolerating well with o2 saturation at 100% no signs of distress noted at this time. Patient able to communicate using facial expressions, mouthing words and hand gestures. Patient is placed on fall and aspiration precautions with bed in the low and locked position, call light at bedside, side rails up x3 and bed alarm on, HOB elevated to 30', Patient has G tube patient and running Vital AF@ 70ML/HR. Skin issues noted on sacrum and L lower leg black/leather type scaly lesion. Patient is on recreation program specialist, IV site is R hand 22g saline locked. Santillan is patent and draining yellow urine, PM shift nurse stated she flushed santillan earlier. Will follow plan of care.
--- NOTE | 2020-04-26 07:20 | NUR ---
NURSE HAND-OFF REPORT: Important Events on Shift:[Urine output was low even when lasix given. Henry irrigated and water flushed. ] Patient Status: [Full code] Diet: [Vital AF @ 70 cc/hr] Pending Orders: [] Pending Results/Labs:[] Pending MD notification:[] Latest Vital Signs: Temperature 96.8 , Pulse 85 , B/P 149 /95 , Respiratory Rate 18 , O2 SAT 99 , Mechanical Ventilator, O2 Flow Rate 3.0 . Vital Sign Comment: [] EKG Rhythm: Sinus Rhythm Rhythm change?: N MD Notified?: N - MD Response: Latest Linder Fall Score: 95 Fall Risk: High Risk Safety Measures: Call light Within Reach, Bed Alarm Zone 1, Side Rails Side Rails x3, Bed position Low and Locked. Fall Precautions: Yellow Socks Yellow Gown Door Sign Patient Fall Education Report given to [EMILE Turpin].
[2020-04-26 08:00] VITALS: BP_SYST 122; BP_SYST 137; BP_DIAS 90; BP_DIAS 96
--- NOTE | 2020-04-26 08:08 | Urology Progress Note ---
Assessment/Plan Assessment/Plan: 1. Urinary retention. 2. Possible BPH. 3. Probable neurogenic bladder. 4. Rule out UTI colonization. 5. Urethral stenosis. monitor clinically maintain santillan, replaced 04/21 hand irrigated and do PRN flomax added voiding trial at some point? cysto electively Subjective Allergies: Coded Allergies: No Known Allergies (Unverified , 04/08/20) Subjective all noted Objective Last 24 Hour Vital Signs Date Time Temp Pulse Resp B/P (MAP) Pulse Ox O2 Delivery O2 Flow Rate FiO2 04/26/20 04:00 96.8 84 18 149/95 (113) 99 04/26/20 04:00 Mechanical Ventilator 04/26/20 04:00 85 04/26/20 04:00 30 04/26/20 03:17 83 17 30 04/26/20 00:00 98.5 83 20 119/85 (96) 100 04/26/20 00:00 30 04/26/20 00:00 93 04/26/20 00:00 Mechanical Ventilator 04/25/20 23:20 88 18 30 04/25/20 20:52 98.2 04/25/20 20:06 30 04/25/20 20:00 98.2 90 20 122/86 (98) 99 04/25/20 20:00 92 04/25/20 20:00 Mechanical Ventilator 04/25/20 19:15 90 21 30 04/25/20 16:00 30 04/25/20 16:00 Mechanical Ventilator 04/25/20 16:00 96.1 87 18 123/86 (98) 99 04/25/20 15:39 88 04/25/20 15:00 86 16 30 04/25/20 12:00 30 04/25/20 12:00 Mechanical Ventilator 04/25/20 12:00 97.9 95 18 118/86 (97) 98 04/25/20 12:00 96 04/25/20 11:09 94 16 30 04/25/20 08:22 93 Intake and Output 04/25/20 04/26/20 19:00 07:00 Intake Total 1040 ml 870 ml Output Total 950 ml 200 ml Balance 90 ml 670 ml Intake Free Water 200 ml 100 ml Tube Feeding 840 ml 770 ml Output Urine Total 950 ml 200 ml # Bowel Movements 3 Microbiology Date/Time Source Procedure Growth Status 04/24/20 09:30 Stool Clostridium difficile Toxin Assay - Final Complete 04/10/20 18:00 Sputum Induced Gram Stain - Final Complete 04/10/20 18:00 Sputum Culture - Final Marlyn Albicans Complete 04/10/20 15:30 Blood Blood Culture - Final NO GROWTH AFTER 5 DAYS Complete 04/10/20 13:15 Indwelling Cath Urine Culture - Final NO GROWTH AFTER 48 HOURS Complete 04/09/20 05:45 Rectum VRE Culture - Final NO VANCOMYCIN RESISTANT ENTEROCOCCUS ... Complete Current Medications Medications (Trade) Dose Ordered Sig/Benigno Route PRN Reason Start Time Stop Time Status Last Admin Dose Admin Acetaminophen (Tylenol) 650 mg Q4H PRN ORAL Mild Pain (Pain Scale 1-3) 04/09/20 09:00 05/09/20 08:59 04/25/20 20:22 Acetaminophen (Tylenol) 650 mg Q4H PRN ORAL Temp >100.5 04/09/20 09:00 05/09/20 08:59 Ascorbic Acid (Vitamin C) 1,000 mg DAILY GT 04/09/20 09:00 05/09/20 08:59 04/25/20 08:29 Dextrose (Dextrose 50%) 25 ml Q30M PRN IV Hypoglycemia 04/09/20 09:00 07/08/20 08:59 Dextrose (Dextrose 50%) 50 ml Q30M PRN IV Hypoglycemia 04/09/20 09:00 07/08/20 08:59 Diphenhydramine HCl (Benadryl) 50 mg Q12H PRN IVP Agitation 04/11/20 01:30 05/11/20 01:29 04/15/20 12:53 Furosemide (Lasix) 20 mg EVERY 12 HOURS IV 04/09/20 09:00 05/09/20 08:59 04/25/20 20:22 Haloperidol Lactate (Haldol) 5 mg Q6H PRN IM Agitation 04/11/20 16:15 05/26/20 16:14 04/17/20 10:11 Heparin Sodium (Porcine) (Heparin 5000 units/ml) 5,000 units EVERY 12 HOURS SUBQ 04/09/20 10:00 05/24/20 09:59 04/25/20 20:23 Insulin Aspart (NovoLOG) EVERY 6 HOURS SUBQ 04/15/20 06:00 07/08/20 11:29 04/26/20 05:55 Insulin Detemir (Levemir) 6 units Q24H SUBQ 04/24/20 18:00 07/23/20 17:59 04/25/20 17:47 Magnesium Hydroxide (Mom) 30 ml DAILYPRN PRN ORAL Constipation 04/09/20 09:00 05/09/20 08:59 Midodrine (Pro-Amatine) 10 mg THREE TIMES A DAY ORAL 04/20/20 09:00 07/17/20 08:59 04/25/20 17:46 Morphine Sulfate (Morphine Sulfate) 2 mg Q3H PRN IVP For Pain 4-10 04/21/20 10:30 04/28/20 10:29 Ondansetron HCl (Zofran) 4 mg Q6H PRN IVP Nausea & Vomiting 04/09/20 09:00 05/09/20 08:59 Pantoprazole (Protonix) 40 mg DAILY IVP 04/09/20 09:00 05/09/20 08:59 04/25/20 08:29 Quetiapine Fumarate (SEROqueL) 50 mg Q6H PRN GT Restlessness and agitation 04/10/20 16:15 05/25/20 16:14 04/15/20 14:04 Quetiapine Fumarate (SEROqueL) 200 mg Q12HR GT 04/11/20 09:00 05/26/20 08:59 04/25/20 20:21 Tamsulosin HCl (Flomax) 0.4 mg BEDTIME ORAL 04/21/20 21:00 05/21/20 20:59 04/25/20 20:22 Vitamin D (Vitamin D) 2,000 unit DAILY GT 04/09/20 09:00 05/09/20 08:59 04/25/20 08:29 Zinc Oxide (Zinc Oxide) 1 applic TIDPRN PRN TOPIC Itching 04/09/20 08:30 07/08/20 08:29 Zinc Sulfate (Zinc Sulfate) 220 mg DAILY GT 04/09/20 09:00 07/08/20 08:59 04/25/20 08:29 Laboratory Tests 04/25/20 12:13: POC Whole Blood Glucose 279H 04/25/20 17:46: POC Whole Blood Glucose [Pending] 04/26/20 00:11: POC Whole Blood Glucose 239H 04/26/20 05:37: POC Whole Blood Glucose 232H 04/26/20 05:38: White Blood Count 13.0H, Red Blood Count 3.92L, Hemoglobin 10.4L, Hematocrit 33.1L, Mean Corpuscular Volume 84, Mean Corpuscular Hemoglobin 26.5L, Mean Corpuscular Hemoglobin Concent 31.4L, Red Cell Distribution Width 15.5H, Platelet Count 449, Mean Platelet Volume 6.9, Neutrophils (%) (Auto) 72.5, Lymphocytes (%) (Auto) 16.2L, Monocytes (%) (Auto) 6.7, Eosinophils (%) (Auto) 3.3H, Basophils (%) (Auto) 1.4 Height (Feet): 5 Height (Inches): 6.00 Weight (Pounds): 135 Objective exam stable urine yellow with debris Saji Zacarias MD Apr 26, 2020 08:08
[2020-04-26] MEDS: Zinc Sulfate 220mg GT SCH (08:59)
[2020-04-26] MEDS: Vitamin D 1000 units Tab GT SCH (08:59)
[2020-04-26] MEDS: Ascorbic Acid 500mg tab GT SCH (08:59)
[2020-04-26] MEDS: QUEtiapine 200mg tab GT SCH ×2 (08:59→20:47)
[2020-04-26] MEDS: Pantoprazole Inj IVP SCH (09:00)
[2020-04-26] MEDS: Heparin 5000 units/ml inj SUBQ SCH ×2 (09:03→20:57)
[2020-04-26] MEDS: Midodrine 10mg tab ORAL SCH ×3 (09:04→18:29)
--- NOTE | 2020-04-26 09:33 | NUR ---
CASE MANAGEMENT:REVIEW 04/26/20 SI: PNA. NECROTIC LE TRACH/VENT/GTUBE DEPENDENT 98.2 88 18 122/90 100% ON VENT SUPPORT W/30% FIO2 WBC+13.0 H/H-10.4/33.1 GLUCOSE+232 IS: FLOMAX GT QHS MIDODRINE GT TID NOVOLOG SQ Q6 SEROQUEL GT Q12 HEPARIN SQ SQ Q12 IV PROTONIX QD IV LASIX Q12 : STEP DOWN UNIT DCP: FROM [facility] PLAN: NEED HELP FROM [facility] WITH PLACEMENT SINCE PATIENT BELONGS IN [facility]
--- NOTE | 2020-04-26 09:44 | NUR ---
NURSE NOTES:Bladder scan shows residual of 237ML urine, Henry is still in place and draining to gravity, flushed this AM by Dr Zacarias.
--- NOTE | 2020-04-26 11:23 | Infectious Diseases Prog Note ---
Assessment/Plan Assessment/Plan antibiotics : none A 1. left leg necrotic ulcer 2. pneumonia 3. diabetes mellitus 4. respiratory failure s/p tracheostomy P 1. continue off antibiotics 2. will follow up cultures Subjective ROS Limited/Unobtainable: Yes Allergies: Coded Allergies: No Known Allergies (Unverified , 04/08/20) Objective Last 24 Hour Vital Signs Date Time Temp Pulse Resp B/P (MAP) Pulse Ox O2 Delivery O2 Flow Rate FiO2 04/26/20 08:00 Mechanical Ventilator 04/26/20 08:00 30 04/26/20 08:00 98.2 88 18 122/90 (101) 100 04/26/20 07:36 85 04/26/20 07:15 75 16 30 04/26/20 04:00 96.8 84 18 149/95 (113) 99 04/26/20 04:00 Mechanical Ventilator 04/26/20 04:00 85 04/26/20 04:00 30 04/26/20 03:17 83 17 30 04/26/20 00:00 98.5 83 20 119/85 (96) 100 04/26/20 00:00 30 04/26/20 00:00 93 04/26/20 00:00 Mechanical Ventilator 04/25/20 23:20 88 18 30 04/25/20 20:52 98.2 04/25/20 20:06 30 04/25/20 20:00 98.2 90 20 122/86 (98) 99 04/25/20 20:00 92 04/25/20 20:00 Mechanical Ventilator 04/25/20 19:15 90 21 30 04/25/20 16:00 30 04/25/20 16:00 Mechanical Ventilator 04/25/20 16:00 96.1 87 18 123/86 (98) 99 04/25/20 15:39 88 04/25/20 15:00 86 16 30 04/25/20 12:00 30 04/25/20 12:00 Mechanical Ventilator 04/25/20 12:00 97.9 95 18 118/86 (97) 98 04/25/20 12:00 96 Height (Feet): 5 Height (Inches): 6.00 Weight (Pounds): 135 HEENT: status post trach Respiratory/Chest: lungs clear Cardiovascular: normal rate, regular rhythm, no gallop/murmur Abdomen: soft, non tender, other - GT Extremities: no edema, other - left leg drssings Microbiology Date/Time Source Procedure Growth Status 04/24/20 09:30 Stool Clostridium difficile Toxin Assay - Final Complete Laboratory Tests Test 04/25/20 12:13 04/25/20 17:46 04/26/20 00:11 04/26/20 05:37 POC Whole Blood Glucose 279 MG/DL (74-106) H Pending 239 MG/DL (74-106) H 232 MG/DL (74-106) H Test 04/26/20 05:38 White Blood Count 13.0 K/UL (4.8-10.8) H Red Blood Count 3.92 M/UL (4.70-6.10) L Hemoglobin 10.4 G/DL (14.2-18.0) L Hematocrit 33.1 % (42.0-52.0) L Mean Corpuscular Volume 84 FL (80-99) Mean Corpuscular Hemoglobin 26.5 PG (27.0-31.0) L Mean Corpuscular Hemoglobin Concent 31.4 G/DL (32.0-36.0) L Red Cell Distribution Width 15.5 % (11.6-14.8) H Platelet Count 449 K/UL (150-450) Mean Platelet Volume 6.9 FL (6.5-10.1) Neutrophils (%) (Auto) 72.5 % (45.0-75.0) Lymphocytes (%) (Auto) 16.2 % (20.0-45.0) L Monocytes (%) (Auto) 6.7 % (1.0-10.0) Eosinophils (%) (Auto) 3.3 % (0.0-3.0) H Basophils (%) (Auto) 1.4 % (0.0-2.0) Current Medications Medications (Trade) Dose Ordered Sig/Benigno Route PRN Reason Start Time Stop Time Status Last Admin Dose Admin Acetaminophen (Tylenol) 650 mg Q4H PRN ORAL Mild Pain (Pain Scale 1-3) 04/09/20 09:00 05/09/20 08:59 04/25/20 20:22 Acetaminophen (Tylenol) 650 mg Q4H PRN ORAL Temp >100.5 04/09/20 09:00 05/09/20 08:59 Ascorbic Acid (Vitamin C) 1,000 mg DAILY GT 04/09/20 09:00 05/09/20 08:59 04/26/20 08:59 Dextrose (Dextrose 50%) 25 ml Q30M PRN IV Hypoglycemia 04/09/20 09:00 07/08/20 08:59 Dextrose (Dextrose 50%) 50 ml Q30M PRN IV Hypoglycemia 04/09/20 09:00 07/08/20 08:59 Diphenhydramine HCl (Benadryl) 50 mg Q12H PRN IVP Agitation 04/11/20 01:30 05/11/20 01:29 04/15/20 12:53 Furosemide (Lasix) 20 mg EVERY 12 HOURS IV 04/09/20 09:00 05/09/20 08:59 04/26/20 09:00 Haloperidol Lactate (Haldol) 5 mg Q6H PRN IM Agitation 04/11/20 16:15 05/26/20 16:14 04/17/20 10:11 Heparin Sodium (Porcine) (Heparin 5000 units/ml) 5,000 units EVERY 12 HOURS SUBQ 04/09/20 10:00 05/24/20 09:59 04/26/20 09:03 Insulin Aspart (NovoLOG) EVERY 6 HOURS SUBQ 04/15/20 06:00 07/08/20 11:29 04/26/20 05:55 Insulin Detemir (Levemir) 6 units Q24H SUBQ 04/24/20 18:00 07/23/20 17:59 04/25/20 17:47 Magnesium Hydroxide (Mom) 30 ml DAILYPRN PRN ORAL Constipation 04/09/20 09:00 05/09/20 08:59 Midodrine (Pro-Amatine) 10 mg THREE TIMES A DAY ORAL 04/20/20 09:00 07/17/20 08:59 04/26/20 09:04 Morphine Sulfate (Morphine Sulfate) 2 mg Q3H PRN IVP For Pain 4-10 04/21/20 10:30 04/28/20 10:29 Ondansetron HCl (Zofran) 4 mg Q6H PRN IVP Nausea & Vomiting 04/09/20 09:00 05/09/20 08:59 Pantoprazole (Protonix) 40 mg DAILY IVP 04/09/20 09:00 05/09/20 08:59 04/26/20 09:00 Quetiapine Fumarate (SEROqueL) 50 mg Q6H PRN GT Restlessness and agitation 04/10/20 16:15 05/25/20 16:14 04/15/20 14:04 Quetiapine Fumarate (SEROqueL) 200 mg Q12HR GT 04/11/20 09:00 05/26/20 08:59 04/26/20 08:59 Tamsulosin HCl (Flomax) 0.4 mg BEDTIME ORAL 04/21/20 21:00 05/21/20 20:59 04/25/20 20:22 Vitamin D (Vitamin D) 2,000 unit DAILY GT 04/09/20 09:00 05/09/20 08:59 04/26/20 08:59 Zinc Oxide (Zinc Oxide) 1 applic TIDPRN PRN TOPIC Itching 04/09/20 08:30 07/08/20 08:29 Zinc Sulfate (Zinc Sulfate) 220 mg DAILY GT 04/09/20 09:00 07/08/20 08:59 04/26/20 08:59 Wong Kilpatrick MD Apr 26, 2020 11:23
[2020-04-26 12:00] VITALS: BP 124/85
--- NOTE | 2020-04-26 14:07 | NUR ---
*-*DISCHARGE PLANNED*-* PATIENT HAS BEEN ACCEPTED AND WILL BE DISCHARGED TO: [facility] P: [phone] FOR NURSE TO NURSE REPORT ROOM# 55.[facility] TRANSPORTATION SET FOR 3:30PM S/W DANDY [id number]. S/W PATIENTS , ANNIE PARIKH, WHO IS IN AGREEMENT WITH DISCHARGE PLAN.
--- NOTE | 2020-04-26 15:15 | NUR ---
NURSE NOTES:Contacted Dr Campbell as patient is being discharged, to notify him that the medication reconciliation has not been done. Dr Campbell stated to not discharge the patient at this time. Called Meredith case hardener to update her.
[2020-04-26 16:00] VITALS: BP 124/94
--- NOTE | 2020-04-26 16:45 | Surgery Progress Note ---
Surgery Progress Note Subjective Symptoms: improved, pain absent, tolerating diet, passing flatus Objective Last 24 Hour Vital Signs Date Time Temp Pulse Resp B/P (MAP) Pulse Ox O2 Delivery O2 Flow Rate FiO2 04/26/20 16:00 30 04/26/20 16:00 Mechanical Ventilator 04/26/20 12:00 98.1 88 16 124/85 (98) 100 04/26/20 11:47 84 04/26/20 11:26 30 04/26/20 11:25 Mechanical Ventilator 04/26/20 08:00 Mechanical Ventilator 04/26/20 08:00 30 04/26/20 08:00 98.2 88 18 122/90 (101) 100 04/26/20 07:36 85 04/26/20 07:15 75 16 30 04/26/20 04:00 96.8 84 18 149/95 (113) 99 04/26/20 04:00 Mechanical Ventilator 04/26/20 04:00 85 04/26/20 04:00 30 04/26/20 03:17 83 17 30 04/26/20 00:00 98.5 83 20 119/85 (96) 100 04/26/20 00:00 30 04/26/20 00:00 93 04/26/20 00:00 Mechanical Ventilator 04/25/20 23:20 88 18 30 04/25/20 20:52 98.2 04/25/20 20:06 30 04/25/20 20:00 98.2 90 20 122/86 (98) 99 04/25/20 20:00 92 04/25/20 20:00 Mechanical Ventilator 04/25/20 19:15 90 21 30 I&O Intake and Output 04/25/20 04/26/20 19:00 07:00 Intake Total 1040 ml 940 ml Output Total 950 ml 200 ml Balance 90 ml 740 ml Intake Free Water 200 ml 100 ml Tube Feeding 840 ml 840 ml Output Urine Total 950 ml 200 ml # Bowel Movements 3 Wound: clean, dry Cardiovascular: RSR Respiratory: clear Abdomen: soft, flat, non-tender, present bowel sounds Extremities: cyanosis, no edema, no tenderness, pulses Laboratory Tests Test 04/25/20 17:46 04/26/20 00:11 04/26/20 05:37 04/26/20 05:38 POC Whole Blood Glucose Pending 239 MG/DL (74-106) H 232 MG/DL (74-106) H White Blood Count 13.0 K/UL (4.8-10.8) H Red Blood Count 3.92 M/UL (4.70-6.10) L Hemoglobin 10.4 G/DL (14.2-18.0) L Hematocrit 33.1 % (42.0-52.0) L Mean Corpuscular Volume 84 FL (80-99) Mean Corpuscular Hemoglobin 26.5 PG (27.0-31.0) L Mean Corpuscular Hemoglobin Concent 31.4 G/DL (32.0-36.0) L Red Cell Distribution Width 15.5 % (11.6-14.8) H Platelet Count 449 K/UL (150-450) Mean Platelet Volume 6.9 FL (6.5-10.1) Neutrophils (%) (Auto) 72.5 % (45.0-75.0) Lymphocytes (%) (Auto) 16.2 % (20.0-45.0) L Monocytes (%) (Auto) 6.7 % (1.0-10.0) Eosinophils (%) (Auto) 3.3 % (0.0-3.0) H Basophils (%) (Auto) 1.4 % (0.0-2.0) Plan Problems: (1) Pneumonia (2) Sacral decubitus ulcer Assessment & Plan: Pt presented on admission with Tracheostomy,GT and Multiple Wounds including an Unstageable Pressure Injury Sacrum(L)2.1cm x (W)2.8cm.Base of wound is 100% slough. Borders are adherent, erythematous. Periwound is indurated with non-blanchable erythema. At L HIP A Blue marker measuring (L)6cm x (W)5cm. Small linear shaped wound that is somewhat approximated. The remaining base within Blue Marker is indurated,e rythematous with elevation in skin temp at affected area within marker, and extends well beyond borders of Marker to upper L thigh(L)12cm x (W)8cm. Large Necrotic Ulcer with irregular borders noted to lateral L Tibia. Base of wound is 100% Necrotic and dry. Edges are adherent and erythematous. Periwound is dusky with elevation in skin temp noted(L)21cm x (W)11.5cm. Necrotic Ulcer lateral L foot/L malleolus(L)4cm x 6.5cm. Base of wound is 100% soft, but dry necrosis.Edges are adherent to base of wound but are erythematous. Surrounding the wound, skin colour is dusky and skin temp is elevated. NO odor or exudate noted. Open abscess/Boil noted to lateral R Tibia(L)3cm x (W)3cm with small opening at center base (L)0.4cmx (W)0.4cm. No exudate noted. Skin temp is slightly elevated. Both heels are callused and dry. Dry peeling skin noted to both lower ext, both feet including plantar aspect of both feet. Tx.Plan: Cleanse Sacral wound with Saline. Apply TheraHoney. Apply Moisture Barrier Paste periwound. Cover with Optifoam drsg Daily and prn. Apply Betadine to L Hip. Cover with Optifoam drsg. Change every 3 days and prn. Apply Betadine to Lateral L Tibia, and Lateral L foot. Cover each site with ABD Pads and wrap with Kerlix Daily and prn. Apply Betadine to Lateral R Tibia. Cover with Optifoam drsg. Change every 3 days and prn. Apply Cavilon Skin Barrier to both heels. Cover each heel with Optifoam drsg. Change every 7 days and prn. Reposition at Least every 2 hours or as tolerated. Elevate both lower ext and float Heels with pillows.Patient presents on admission with identifiable unstageable sacral decubitus ulcer fairly fraction likely recently forming. Areas approximately 3 cm x 3 cm unknown depth. No drainage. No foul odor. Eschar area identified soft no ischemic eschar likely forming. Deep tissue underneath injury. Furthermore patient identified to have significant left lower extremity ischemic disease with ulcers and necrotic eschar. On the left lateral foot there is a necrotic eschar as well as on the left lateral leg significantly large. No drainage no signs of active infection chronic appearing in nature. Care plan initiated. Will need to ensure optimization of patient for care plan. Leukocytosis unlikely related to wounds as they do not seem actively infected Nutritional optimization We will follow with recommendations thank you for let me participate in patient's care (3) Ischemia of left lower extremity Assessment & Plan: chronic large wounds US duplex arterial and venous will follow with recs leukocytosis has been trending down leg exam stable without signs of active infection. just large area of chronic ischemia eschar On the right, triphasic waveforms with sharp systolic peaks are seen at the common femoral, superficial femoral, and popliteal artery levels. Tibial vessel waveforms are biphasic or triphasic with sharp systolic peaks. On the left, triphasic waveforms are seen at the level of the common femoral artery level. Left superficial femoral artery waveforms are triphasic proximally, borderline monophasic in the mid portion. Popliteal artery waveforms are monophasic but systolic peaks are sharp. Tibial vessel waveforms are monophasic but with sharp systolic peaks. There is a stenosis of the dorsalis pedis artery, with flow velocity elevation of up to 332 cm/s. There is slightly dampened flow velocity distal to it. Impression: No evidence of significant right lower extremity arterial insufficiency Monophasic waveforms in the distal superficial femoral and popliteal artery, could indicate stenosis in these segments; more likely artifactual as there is still rapid systolic upstroke, including in the ankle vessels. Evidence of significant stenosis in the dorsalis pedis artery There is a large area of low attenuation within the lateral subcutaneous fat extending from the highest slice in the distal thigh along the entire course of the anterolateral leg and into the foot, where it extends to the level of the metacarpals dorsolaterally. Is unclear whether this represents an organized fluid collection versus intense edema/phlegmon, although suspect the latter, as there are numerous gas bubbles within the collection in the leg which do not float nondependently. There is enhancement of the tissues bordering it.. The widest extent of this is in the distal thigh, where it measures 8.2 cm AP and about 2 cm in thickness. The overall length of this is at least 45 cm, although as mentioned earlier the proximal extent is not visualized. There is a skin defect in the lateral leg at the superficial aspect of the collection which presumably represents a skin ulcer. This demonstrates multiple areas of ulceration. Low attenuation also extends into the anterior muscular compartment of the leg. The fat appears to be hypoattenuating although the musculature demonstrates only mild if any hypoattenuation. No osseous erosions, abnormal periosteal reaction, or other findings to suggest osteomyelitis are demonstrated. Impression: Intense edema versus organized fluid exiting the entire extent of the anterolateral subcutaneous fat of the leg, extending into the foot to the level of the metatarsals and proximal into the thigh beyond the edge of the imaging volume. Favor that this represents edema/phlegmon, as there are gas bubbles that appear to be trapped within it, and there is an open wound through which it should drain if it was fluid. Presence of gas bubbles is concerning for infection with a gas-forming organism. This process also extends into the anterior muscular compartment of the tibial muscles No definite evidence of osteomyelitis. However, evaluation for such is limited on CT, and MRI should be considered if this is a clinical concern Anthony Fernandez Apr 26, 2020 16:45
--- NOTE | 2020-04-26 17:22 | NUR ---
NURSE NOTES:Bed bath given, linens and wound dressings changed after patient had normal BM.
--- NOTE | 2020-04-26 17:54 | General Progress Note ---
Subjective Allergies: Coded Allergies: No Known Allergies (Unverified , 04/08/20) Subjective care noted on vent and trach sugars elevated on levimir Objective Last 24 Hour Vital Signs Date Time Temp Pulse Resp B/P (MAP) Pulse Ox O2 Delivery O2 Flow Rate FiO2 04/26/20 16:00 30 04/26/20 16:00 94 04/26/20 16:00 98.2 98 16 124/94 (104) 100 04/26/20 16:00 Mechanical Ventilator 04/26/20 15:10 91 20 30 04/26/20 12:00 98.1 88 16 124/85 (98) 100 04/26/20 11:47 84 04/26/20 11:26 30 04/26/20 11:25 Mechanical Ventilator 04/26/20 11:05 86 16 30 04/26/20 08:00 Mechanical Ventilator 04/26/20 08:00 30 04/26/20 08:00 98.2 88 18 122/90 (101) 100 04/26/20 07:36 85 04/26/20 07:15 75 16 30 04/26/20 04:00 96.8 84 18 149/95 (113) 99 04/26/20 04:00 Mechanical Ventilator 04/26/20 04:00 85 04/26/20 04:00 30 04/26/20 03:17 83 17 30 04/26/20 00:00 98.5 83 20 119/85 (96) 100 04/26/20 00:00 30 04/26/20 00:00 93 04/26/20 00:00 Mechanical Ventilator 04/25/20 23:20 88 18 30 04/25/20 20:52 98.2 04/25/20 20:06 30 04/25/20 20:00 98.2 90 20 122/86 (98) 99 04/25/20 20:00 92 04/25/20 20:00 Mechanical Ventilator 04/25/20 19:15 90 21 30 Intake and Output 04/25/20 04/26/20 19:00 07:00 Intake Total 1040 ml 940 ml Output Total 950 ml 200 ml Balance 90 ml 740 ml Intake Free Water 200 ml 100 ml Tube Feeding 840 ml 840 ml Output Urine Total 950 ml 200 ml # Bowel Movements 3 Laboratory Tests 04/26/20 00:11: POC Whole Blood Glucose 239H 04/26/20 05:37: POC Whole Blood Glucose 232H 04/26/20 05:38: White Blood Count 13.0H, Red Blood Count 3.92L, Hemoglobin 10.4L, Hematocrit 33.1L, Mean Corpuscular Volume 84, Mean Corpuscular Hemoglobin 26.5L, Mean Corpuscular Hemoglobin Concent 31.4L, Red Cell Distribution Width 15.5H, Platelet Count 449, Mean Platelet Volume 6.9, Neutrophils (%) (Auto) 72.5, Lymphocytes (%) (Auto) 16.2L, Monocytes (%) (Auto) 6.7, Eosinophils (%) (Auto) 3.3H, Basophils (%) (Auto) 1.4 Height (Feet): 5 Height (Inches): 6.00 Weight (Pounds): 135 Objective WDWN trach reduced breath sounds bilaterally without rhonchi or wheeze [id number] without MRG NABS nontender GT no CCE poor LOC Assessment/Plan Assessment/Plan: Impression: Pneumonia, h/o Klebsiella Ventilator dependance Tracheostomy status Diabetes Sacral decubitus and feet pressure areas azotemia leukocytosis necrotic lower extremity diabetes Plan: - Continue antibiotics per ID - add insulin long acting and adjust - ID Consult,Surgery Consult - Continue current ventilator sttings - Adjust O2 as needed - DVT prophylaxis -Wound consult - dc planning to snf - monitor sugars - chronic care needed and placement found impression, plan, and exam edited and reviewed in detail care discussed with Mikhail Alejandro MD Apr 26, 2020 17:54
[2020-04-26] MEDS: Levemir Flexpen SUBQ SCH (18:00)
--- NOTE | 2020-04-26 18:12 | NUR ---
INSURANCE CLINCALS AND REVIEWS FAXED TO [employer] T: [phone] [id number] F: [phone]
--- NOTE | 2020-04-26 19:39 | NUR ---
NURSE HAND-OFF REPORT: Important Events on Shift:Discharge cancelled by Dr Campbell. Patient Status: stable Diet: Pending Orders: Pending Results/Labs: Pending MD notification: Latest Vital Signs: Temperature 98.2 , Pulse 94 , B/P 124 /94 , Respiratory Rate 16 , O2 SAT 100 , Mechanical Ventilator, O2 Flow Rate 3.0 . Vital Sign Comment: EKG Rhythm: Sinus Rhythm Rhythm change?: N MD Notified?: N - MD Response: Latest Linder Fall Score: 95 Fall Risk: High Risk Safety Measures: Call light Within Reach, Bed Alarm Zone 1, Side Rails Side Rails x3, Bed position Low and Locked. Fall Precautions: Yellow Socks Yellow Gown Door Sign Patient Fall Education Report given to EMILE Orourke.
--- NOTE | 2020-04-26 19:57 | NUR ---
NURSE NOTES: Pt received from EMILE Turpin alert and oriented x2, nonverbal but able to shake and nod head in response. schedule clerk on - Sinus Rhythm (70s). Trach to vent - Shiley 8, AC 16 TV 500, PEEP 5, FiO2 30%. GT feed running to Vital AF 1.2 @ 70, no abd distention or abd discomfort noted. R hand 22 g, saline lock. Pt educated not to pull lines and about high risk for falls, encouraged to call for assistance when needed, pt verbalized understanding. Bed in lowest position, bed alarm on. Call light and belongings within reach.
[2020-04-26 20:00] VITALS: BP 143/81
[2020-04-26] MEDS: Tamsulosin 0.4mg cap ORAL SCH (20:47)
--- NOTE | 2020-04-26 22:26 | General Progress Note ---
Subjective Allergies: Coded Allergies: No Known Allergies (Unverified , 04/08/20) Subjective Above noted Tolerating TF calm/comfortable now on Vital AF Objective Last 24 Hour Vital Signs Date Time Temp Pulse Resp B/P (MAP) Pulse Ox O2 Delivery O2 Flow Rate FiO2 04/26/20 20:00 98.1 95 19 143/81 (101) 100 04/26/20 19:30 91 19 30 04/26/20 16:00 30 04/26/20 16:00 94 04/26/20 16:00 98.2 98 16 124/94 (104) 100 04/26/20 16:00 Mechanical Ventilator 04/26/20 15:10 91 20 30 04/26/20 12:00 98.1 88 16 124/85 (98) 100 04/26/20 11:47 84 04/26/20 11:26 30 04/26/20 11:25 Mechanical Ventilator 04/26/20 11:05 86 16 30 04/26/20 08:00 Mechanical Ventilator 04/26/20 08:00 30 04/26/20 08:00 98.2 88 18 122/90 (101) 100 04/26/20 07:36 85 04/26/20 07:15 75 16 30 04/26/20 04:00 96.8 84 18 149/95 (113) 99 04/26/20 04:00 Mechanical Ventilator 04/26/20 04:00 85 04/26/20 04:00 30 04/26/20 03:17 83 17 30 04/26/20 00:00 98.5 83 20 119/85 (96) 100 04/26/20 00:00 30 04/26/20 00:00 93 04/26/20 00:00 Mechanical Ventilator 04/25/20 23:20 88 18 30 Intake and Output 04/25/20 04/26/20 19:00 07:00 Intake Total 1040 ml 940 ml Output Total 950 ml 200 ml Balance 90 ml 740 ml Intake Free Water 200 ml 100 ml Tube Feeding 840 ml 840 ml Output Urine Total 950 ml 200 ml # Bowel Movements 3 Laboratory Tests 04/26/20 00:11: POC Whole Blood Glucose 239H 04/26/20 05:37: POC Whole Blood Glucose 232H 04/26/20 05:38: White Blood Count 13.0H, Red Blood Count 3.92L, Hemoglobin 10.4L, Hematocrit 33.1L, Mean Corpuscular Volume 84, Mean Corpuscular Hemoglobin 26.5L, Mean Corpuscular Hemoglobin Concent 31.4L, Red Cell Distribution Width 15.5H, Platelet Count 449, Mean Platelet Volume 6.9, Neutrophils (%) (Auto) 72.5, Lymphocytes (%) (Auto) 16.2L, Monocytes (%) (Auto) 6.7, Eosinophils (%) (Auto) 3.3H, Basophils (%) (Auto) 1.4 Height (Feet): 5 Height (Inches): 6.00 Weight (Pounds): 135 Objective Debilitated NCAT (+) trach Coarse BS RR abd soft, (+) GT ext (+) LLE leg dressings, no edema Assessment/Plan Assessment/Plan: Assessment - dysphagia, GT - resp failure, trach - anemia - leukocytosis - malnutrition - decub ulcer - LE ischemia - DM - loose stools - C Diff negative Recommendations - continue TF - vital AF - protein powder - MVI / zinc - GT care - follow labs - Slade Lizama MD Apr 26, 2020 22:26
[2020-04-27] VITALS: BP 128/69
[2020-04-27] MEDS: NovoLOG Insulin Flexpen SUBQ SCH ×2 (00:33→05:38)
--- NOTE | 2020-04-27 01:18 | NUR ---
NURSE NOTES: Bed bath provided, wound care orders followed through. Pt remains on Sinus Rhythm, will continue to monitor.
[2020-04-27 04:00] VITALS: BP 128/71
--- NOTE | 2020-04-27 07:00 | NUR ---
NURSE NOTES: Received patient report from EMILE Hernandez. Patient is AO x3, in bed asleep at this time. No pain or discomfort ntoed at this time. Patient on trach to vent Shiley 8, AC 16 TV 500, PEEP 5, FiO2 30%, breathing is even and unlabored with no signs of respiratory distress. Patient with R hand 22G, patent and intact. Bed in lowest position, locked with side rails x2 up. Call light within reach.
--- NOTE | 2020-04-27 07:18 | NUR ---
NURSE HAND-OFF REPORT: Important Events on Shift: Pt tolerated vent settings overnight, VS WNL, afebrile. Henry catheter patent and drained to 800 ml overnight. Patient Status: Ongoing Diet: Vital AF GT Pending Orders: n/a Pending Results/Labs: n/a Pending MD notification: n/a Latest Vital Signs: Temperature 98.1 , Pulse 87 , B/P 128 /71 , Respiratory Rate 17 , O2 SAT 99 , Mechanical Ventilator, O2 Flow Rate 3.0 . Vital Sign Comment: WNL EKG Rhythm: Sinus Rhythm Rhythm change?: N MD Notified?: N - MD Response: Latest Linder Fall Score: 95 Fall Risk: High Risk Safety Measures: Call light Within Reach, Bed Alarm Zone 1, Side Rails Side Rails x3, Bed position Low and Locked. Fall Precautions: Yes Yellow Socks Yellow Gown Door Sign Patient Fall Education Report given to EMILE Vásquez.
[2020-04-27 08:00] VITALS: BP 128/78
[2020-04-27] MEDS: Pantoprazole Inj IVP SCH (08:27)
[2020-04-27] MEDS: Zinc Sulfate 220mg GT SCH (08:27)
[2020-04-27] MEDS: Vitamin D 1000 units Tab GT SCH (08:28)
[2020-04-27] MEDS: Ascorbic Acid 500mg tab GT SCH (08:28)
[2020-04-27] MEDS: Midodrine 10mg tab ORAL SCH (08:28)
[2020-04-27] MEDS: QUEtiapine 200mg tab GT SCH (08:28)
[2020-04-27] MEDS: Heparin 5000 units/ml inj SUBQ SCH (08:29)
[2020-04-27] MEDS: Levemir Flexpen SUBQ SCH (08:29)
--- NOTE | 2020-04-27 08:47 | General Progress Note ---
Subjective Allergies: Coded Allergies: No Known Allergies (Unverified , 04/08/20) Subjective care noted on vent and trach sugars elevated on levimir Objective Last 24 Hour Vital Signs Date Time Temp Pulse Resp B/P (MAP) Pulse Ox O2 Delivery O2 Flow Rate FiO2 04/27/20 07:55 95 20 30 04/27/20 04:00 Mechanical Ventilator 04/27/20 04:00 89 04/27/20 04:00 98.1 87 17 128/71 (90) 99 04/27/20 04:00 30 04/27/20 03:44 89 16 30 04/27/20 00:00 93 04/27/20 00:00 98.8 92 20 128/69 (88) 100 04/27/20 00:00 Mechanical Ventilator 04/26/20 23:36 94 17 30 04/26/20 20:00 90 04/26/20 20:00 30 04/26/20 20:00 Mechanical Ventilator 04/26/20 20:00 98.1 95 19 143/81 (101) 100 04/26/20 19:30 91 19 30 04/26/20 16:00 30 04/26/20 16:00 94 04/26/20 16:00 98.2 98 16 124/94 (104) 100 04/26/20 16:00 Mechanical Ventilator 04/26/20 15:10 91 20 30 04/26/20 12:00 98.1 88 16 124/85 (98) 100 04/26/20 11:47 84 04/26/20 11:26 30 04/26/20 11:25 Mechanical Ventilator 04/26/20 11:05 86 16 30 Intake and Output 0 04/26/20 04/27/20 19:00 07:00 Intake Total 1260 ml 730 ml Output Total 1250 ml 800 ml Balance 10 ml -70 ml Intake Free Water 280 ml 100 ml Tube Feeding 980 ml 630 ml Output Urine Total 1250 ml 800 ml Laboratory Tests 04/27/20 00:32: POC Whole Blood Glucose 260H 04/27/20 05:37: POC Whole Blood Glucose 271H Height (Feet): 5 Height (Inches): 6.00 Weight (Pounds): 135 Objective WDWN trach reduced breath sounds bilaterally without rhonchi or wheeze [id number] without MRG NABS nontender GT no CCE poor LOC Assessment/Plan Assessment/Plan: Impression: Pneumonia, h/o Klebsiella Ventilator dependance Tracheostomy status Diabetes Sacral decubitus and feet pressure areas azotemia leukocytosis necrotic lower extremity diabetes Plan: - Continue antibiotics per ID - add insulin long acting and adjust - ID Consult,Surgery Consult - Continue current ventilator sttings - Adjust O2 as needed - DVT prophylaxis -Wound consult - dc planning to snf - monitor sugars - chronic care needed and placement found impression, plan, and exam edited and reviewed in detail care discussed with Mikhail Alejandro MD Apr 27, 2020 08:47
--- NOTE | 2020-04-27 09:02 | Urology Progress Note ---
Assessment/Plan Assessment/Plan: 1. Urinary retention. 2. Possible BPH. 3. Probable neurogenic bladder. 4. Rule out UTI colonization. 5. Urethral stenosis. monitor clinically maintain santillan, replaced 04/21 hand irrigated and do PRN flomax added voiding trial at some point? cysto electively Subjective Allergies: Coded Allergies: No Known Allergies (Unverified , 04/08/20) Subjective all noted Objective Last 24 Hour Vital Signs Date Time Temp Pulse Resp B/P (MAP) Pulse Ox O2 Delivery O2 Flow Rate FiO2 04/27/20 07:55 95 20 30 04/27/20 04:00 Mechanical Ventilator 04/27/20 04:00 89 04/27/20 04:00 98.1 87 17 128/71 (90) 99 04/27/20 04:00 30 04/27/20 03:44 89 16 30 04/27/20 00:00 93 04/27/20 00:00 98.8 92 20 128/69 (88) 100 04/27/20 00:00 Mechanical Ventilator 04/26/20 23:36 94 17 30 04/26/20 20:00 90 04/26/20 20:00 30 04/26/20 20:00 Mechanical Ventilator 04/26/20 20:00 98.1 95 19 143/81 (101) 100 04/26/20 19:30 91 19 30 04/26/20 16:00 30 04/26/20 16:00 94 04/26/20 16:00 98.2 98 16 124/94 (104) 100 04/26/20 16:00 Mechanical Ventilator 04/26/20 15:10 91 20 30 04/26/20 12:00 98.1 88 16 124/85 (98) 100 04/26/20 11:47 84 04/26/20 11:26 30 04/26/20 11:25 Mechanical Ventilator 04/26/20 11:05 86 16 30 Intake and Output 04/26/20 04/27/20 19:00 07:00 Intake Total 1260 ml 730 ml Output Total 1250 ml 800 ml Balance 10 ml -70 ml Intake Free Water 280 ml 100 ml Tube Feeding 980 ml 630 ml Output Urine Total 1250 ml 800 ml Microbiology Date/Time Source Procedure Growth Status 04/24/20 09:30 Stool Clostridium difficile Toxin Assay - Final Complete 04/10/20 18:00 Sputum Induced Gram Stain - Final Complete 04/10/20 18:00 Sputum Culture - Final Marlyn Albicans Complete 04/10/20 15:30 Blood Blood Culture - Final NO GROWTH AFTER 5 DAYS Complete 04/10/20 13:15 Indwelling Cath Urine Culture - Final NO GROWTH AFTER 48 HOURS Complete 04/09/20 05:45 Rectum VRE Culture - Final NO VANCOMYCIN RESISTANT ENTEROCOCCUS ... Complete Current Medications Medications (Trade) Dose Ordered Sig/Benigno Route PRN Reason Start Time Stop Time Status Last Admin Dose Admin Acetaminophen (Tylenol) 650 mg Q4H PRN ORAL Mild Pain (Pain Scale 1-3) 04/09/20 09:00 05/09/20 08:59 04/25/20 20:22 Acetaminophen (Tylenol) 650 mg Q4H PRN ORAL Temp >100.5 04/09/20 09:00 05/09/20 08:59 Ascorbic Acid (Vitamin C) 1,000 mg DAILY GT 04/09/20 09:00 05/09/20 08:59 04/27/20 08:28 Dextrose (Dextrose 50%) 25 ml Q30M PRN IV Hypoglycemia 04/09/20 09:00 07/08/20 08:59 Dextrose (Dextrose 50%) 50 ml Q30M PRN IV Hypoglycemia 04/09/20 09:00 07/08/20 08:59 Diphenhydramine HCl (Benadryl) 50 mg Q12H PRN IVP Agitation 04/11/20 01:30 05/11/20 01:29 04/15/20 12:53 Furosemide (Lasix) 20 mg EVERY 12 HOURS IV 04/09/20 09:00 05/09/20 08:59 04/27/20 08:27 Haloperidol Lactate (Haldol) 5 mg Q6H PRN IM Agitation 04/11/20 16:15 05/26/20 16:14 04/17/20 10:11 Heparin Sodium (Porcine) (Heparin 5000 units/ml) 5,000 units EVERY 12 HOURS SUBQ 04/09/20 10:00 05/24/20 09:59 04/27/20 08:29 Insulin Aspart (NovoLOG) EVERY 6 HOURS SUBQ 04/15/20 06:00 07/08/20 11:29 04/27/20 05:38 Insulin Detemir (Levemir) 6 units BID SUBQ 04/26/20 18:00 07/23/20 17:59 04/27/20 08:29 Magnesium Hydroxide (Mom) 30 ml DAILYPRN PRN ORAL Constipation 04/09/20 09:00 05/09/20 08:59 Midodrine (Pro-Amatine) 10 mg THREE TIMES A DAY ORAL 04/20/20 09:00 07/17/20 08:59 04/27/20 08:28 Morphine Sulfate (Morphine Sulfate) 2 mg Q3H PRN IVP For Pain 4-10 04/21/20 10:30 04/28/20 10:29 Ondansetron HCl (Zofran) 4 mg Q6H PRN IVP Nausea & Vomiting 04/09/20 09:00 05/09/20 08:59 Pantoprazole (Protonix) 40 mg DAILY IVP 04/09/20 09:00 05/09/20 08:59 04/27/20 08:27 Quetiapine Fumarate (SEROqueL) 50 mg Q6H PRN GT Restlessness and agitation 04/10/20 16:15 05/25/20 16:14 04/15/20 14:04 Quetiapine Fumarate (SEROqueL) 200 mg Q12HR GT 04/11/20 09:00 05/26/20 08:59 04/27/20 08:28 Tamsulosin HCl (Flomax) 0.4 mg BEDTIME ORAL 04/21/20 21:00 05/21/20 20:59 04/26/20 20:47 Vitamin D (Vitamin D) 2,000 unit DAILY GT 04/09/20 09:00 05/09/20 08:59 04/27/20 08:28 Zinc Oxide (Zinc Oxide) 1 applic TIDPRN PRN TOPIC Itching 04/09/20 08:30 07/08/20 08:29 Zinc Sulfate (Zinc Sulfate) 220 mg DAILY GT 04/09/20 09:00 07/08/20 08:59 04/27/20 08:27 Laboratory Tests 04/27/20 00:32: POC Whole Blood Glucose 260H 04/27/20 05:37: POC Whole Blood Glucose 271H Height (Feet): 5 Height (Inches): 6.00 Weight (Pounds): 135 Objective exam stable urine yellow with debris Saji Zacarias MD Apr 27, 2020 09:02
--- NOTE | 2020-04-27 10:08 | Infectious Diseases Prog Note ---
Assessment/Plan Assessment/Plan A: 1. Pneumonia treated 2. Sacral decubitus ulcer. 3. Left leg necrotic ulcer, phlegmon or edema 4. Ventilator dependent respiratory failure 5. Anemia 5. Leukocytosis PLAN: 1. Observe off antibiotic Subjective ROS Limited/Unobtainable: Yes Respiratory: Reports: no symptoms Allergies: Coded Allergies: No Known Allergies (Unverified , 04/08/20) Objective Last 24 Hour Vital Signs Date Time Temp Pulse Resp B/P (MAP) Pulse Ox O2 Delivery O2 Flow Rate FiO2 04/27/20 08:00 99.1 90 18 128/78 (95) 99 04/27/20 08:00 Mechanical Ventilator 04/27/20 08:00 30 04/27/20 07:55 95 20 30 04/27/20 07:46 89 04/27/20 04:00 Mechanical Ventilator 04/27/20 04:00 89 04/27/20 04:00 98.1 87 17 128/71 (90) 99 04/27/20 04:00 30 04/27/20 03:44 89 16 30 04/27/20 00:00 93 04/27/20 00:00 98.8 92 20 128/69 (88) 100 04/27/20 00:00 Mechanical Ventilator 04/26/20 23:36 94 17 30 04/26/20 20:00 90 04/26/20 20:00 30 04/26/20 20:00 Mechanical Ventilator 04/26/20 20:00 98.1 95 19 143/81 (101) 100 04/26/20 19:30 91 19 30 04/26/20 16:00 30 04/26/20 16:00 94 04/26/20 16:00 98.2 98 16 124/94 (104) 100 04/26/20 16:00 Mechanical Ventilator 04/26/20 15:10 91 20 30 04/26/20 12:00 98.1 88 16 124/85 (98) 100 04/26/20 11:47 84 04/26/20 11:26 30 04/26/20 11:25 Mechanical Ventilator 04/26/20 11:05 86 16 30 Height (Feet): 5 Height (Inches): 6.00 Weight (Pounds): 135 HEENT: status post trach Respiratory/Chest: no respiratory distress, other - on ventilator Cardiovascular: normal rate Abdomen: soft, non tender, other - GT feeding Extremities: no edema Skin: other - left leg eschar Neurologic/Psychiatric: alert, responsive Laboratory Tests Test 04/27/20 00:32 04/27/20 05:37 POC Whole Blood Glucose 260 MG/DL (74-106) H 271 MG/DL (74-106) H Current Medications Medications (Trade) Dose Ordered Sig/Benigno Route PRN Reason Start Time Stop Time Status Last Admin Dose Admin Acetaminophen (Tylenol) 650 mg Q4H PRN ORAL Mild Pain (Pain Scale 1-3) 04/09/20 09:00 05/09/20 08:59 04/25/20 20:22 Acetaminophen (Tylenol) 650 mg Q4H PRN ORAL Temp >100.5 04/09/20 09:00 05/09/20 08:59 Ascorbic Acid (Vitamin C) 1,000 mg DAILY GT 04/09/20 09:00 05/09/20 08:59 04/27/20 08:28 Dextrose (Dextrose 50%) 25 ml Q30M PRN IV Hypoglycemia 04/09/20 09:00 07/08/20 08:59 Dextrose (Dextrose 50%) 50 ml Q30M PRN IV Hypoglycemia 04/09/20 09:00 07/08/20 08:59 Diphenhydramine HCl (Benadryl) 50 mg Q12H PRN IVP Agitation 04/11/20 01:30 05/11/20 01:29 04/15/20 12:53 Furosemide (Lasix) 20 mg EVERY 12 HOURS IV 04/09/20 09:00 05/09/20 08:59 04/27/20 08:27 Haloperidol Lactate (Haldol) 5 mg Q6H PRN IM Agitation 04/11/20 16:15 05/26/20 16:14 04/17/20 10:11 Heparin Sodium (Porcine) (Heparin 5000 units/ml) 5,000 units EVERY 12 HOURS SUBQ 04/09/20 10:00 05/24/20 09:59 04/27/20 08:29 Insulin Aspart (NovoLOG) EVERY 6 HOURS SUBQ 04/15/20 06:00 07/08/20 11:29 04/27/20 05:38 Insulin Detemir (Levemir) 6 units BID SUBQ 04/26/20 18:00 07/23/20 17:59 04/27/20 08:29 Magnesium Hydroxide (Mom) 30 ml DAILYPRN PRN ORAL Constipation 04/09/20 09:00 05/09/20 08:59 Midodrine (Pro-Amatine) 10 mg THREE TIMES A DAY ORAL 04/20/20 09:00 07/17/20 08:59 04/27/20 08:28 Morphine Sulfate (Morphine Sulfate) 2 mg Q3H PRN IVP For Pain 4-10 04/21/20 10:30 04/28/20 10:29 Ondansetron HCl (Zofran) 4 mg Q6H PRN IVP Nausea & Vomiting 04/09/20 09:00 05/09/20 08:59 Pantoprazole (Protonix) 40 mg DAILY IVP 04/09/20 09:00 05/09/20 08:59 04/27/20 08:27 Quetiapine Fumarate (SEROqueL) 50 mg Q6H PRN GT Restlessness and agitation 04/10/20 16:15 05/25/20 16:14 04/15/20 14:04 Quetiapine Fumarate (SEROqueL) 200 mg Q12HR GT 04/11/20 09:00 05/26/20 08:59 04/27/20 08:28 Tamsulosin HCl (Flomax) 0.4 mg BEDTIME ORAL 04/21/20 21:00 05/21/20 20:59 04/26/20 20:47 Vitamin D (Vitamin D) 2,000 unit DAILY GT 04/09/20 09:00 05/09/20 08:59 04/27/20 08:28 Zinc Oxide (Zinc Oxide) 1 applic TIDPRN PRN TOPIC Itching 04/09/20 08:30 07/08/20 08:29 Zinc Sulfate (Zinc Sulfate) 220 mg DAILY GT 04/09/20 09:00 07/08/20 08:59 04/27/20 08:27 Sumit Devine MD Apr 27, 2020 10:08
--- NOTE | 2020-04-27 10:33 | NUR ---
*-*DISCHARGE PLANNED*-* PATIENT HAS BEEN ACCEPTED AND WILL BE DISCHARGED TO: [facility] P: [phone] FOR NURSE TO NURSE REPORT ROOM# 256.[facility] SET FOR 11:45AM S/W PATRICIO [id number]. S/W PATIENTS ANNIE PARIKH, WHO IS IN AGREEMENT WITH DISCHARGE PLAN.
[2020-04-27] MEDS ORDERED: Sterile Water Irrig 1000ml IRRIG ONE ×3 (11:59)
[2020-04-27] MEDS ORDERED: NS 275ml ONE ×2 (11:59)
--- NOTE | 2020-04-27 12:16 | NUR ---
NURSE NOTES: Patient discharged to [facility]. Spoke with Phu from [facility] and gave report. Patient wound photos taken and uploaded to computer. Patient belonging's list done , patient signed. notified of discharge. Dr. Campbell contacted via telephone to confirm orders for snf. Med list given to EMT personnel for SNF. Patient left facility with both ventilator [facility]. Patient in stable condition at this time. monitor tech removed.
--- NOTE | 2020-04-27 14:39 | Surgery Progress Note ---
Surgery Progress Note Subjective Additional Comments late entry seen earlier wound stable dressings going well d/c plan for today okay to d/c cont current care plan Objective Last 24 Hour Vital Signs Date Time Temp Pulse Resp B/P (MAP) Pulse Ox O2 Delivery O2 Flow Rate FiO2 04/27/20 08:00 99.1 90 18 128/78 (95) 99 04/27/20 08:00 Mechanical Ventilator 04/27/20 08:00 30 04/27/20 07:55 95 20 30 04/27/20 07:46 89 04/27/20 04:00 Mechanical Ventilator 04/27/20 04:00 89 04/27/20 04:00 98.1 87 17 128/71 (90) 99 04/27/20 04:00 30 04/27/20 03:44 89 16 30 04/27/20 00:00 93 04/27/20 00:00 98.8 92 20 128/69 (88) 100 04/27/20 00:00 Mechanical Ventilator 04/26/20 23:36 94 17 30 04/26/20 20:00 90 04/26/20 20:00 30 04/26/20 20:00 Mechanical Ventilator 04/26/20 20:00 98.1 95 19 143/81 (101) 100 04/26/20 19:30 91 19 30 04/26/20 16:00 30 04/26/20 16:00 94 04/26/20 16:00 98.2 98 16 124/94 (104) 100 04/26/20 16:00 Mechanical Ventilator 04/26/20 15:10 91 20 30 I&O Intake and Output 04/26/20 04/27/20 19:00 07:00 Intake Total 1260 ml 730 ml Output Total 1250 ml 800 ml Balance 10 ml -70 ml Intake Free Water 280 ml 100 ml Tube Feeding 980 ml 630 ml Output Urine Total 1250 ml 800 ml Dressing: dry Wound: clean Cardiovascular: RSR Respiratory: clear Abdomen: soft, flat, non-tender, present bowel sounds Extremities: cyanosis, other Laboratory Tests Test 04/27/20 00:32 04/27/20 05:37 POC Whole Blood Glucose 260 MG/DL (74-106) H 271 MG/DL (74-106) H Plan Problems: (1) Pneumonia (2) Sacral decubitus ulcer Assessment & Plan: Pt presented on admission with Tracheostomy,GT and Multiple Wounds including an Unstageable Pressure Injury Sacrum(L)2.1cm x (W)2.8cm.Base of wound is 100% slough. Borders are adherent, erythematous. Periwound is indurated with non-blanchable erythema. At L HIP A Blue marker measuring (L)6cm x (W)5cm. Small linear shaped wound that is somewhat approximated. The remaining base within Blue Marker is indurated,erythematous with elevation in skin temp at affected area within marker, and extends well beyond borders of Marker to upper L thigh(L)12cm x (W)8cm. Large Necrotic Ulcer with irregular borders noted to lateral L Tibia. Base of wound is 100% Necrotic and dry. Edges are adherent and erythematous. Periwound is dusky with elevation in skin temp noted(L)21cm x (W)11.5cm. Necrotic Ulcer lateral L foot/L malleolus(L)4cm x 6.5cm. Base of wound is 100% soft, but dry necrosis.Edges are adherent to base of wound but are erythematous. Surrounding the wound, skin colour is dusky and skin temp is elevated. NO odor or exudate noted. Open abscess/Boil noted to lateral R Tibia(L)3cm x (W)3cm with small opening at center base (L)0.4cmx (W)0.4cm. No exudate noted. Skin temp is slightly elevated. Both heels are callused and dry. Dry peeling skin noted to both lower ext, both feet including plantar aspect of both feet. Tx.Plan: Cleanse Sacral wound with Saline. Apply TheraHoney. Apply Moisture Barrier Paste periwound. Cover with Optifoam drsg Daily and prn. Apply Betadine to L Hip. Cover with Optifoam drsg. Change every 3 days and prn. Apply Betadine to Lateral L Tibia, and Lateral L foot. Cover each site with ABD Pads and wrap with Kerlix Daily and prn. Apply Betadine to Lateral R Tibia. Cover with Optifoam drsg. Change every 3 days and prn. Apply Cavilon Skin Barrier to both heels. Cover each heel with Optifoam drsg. Change every 7 days and prn. Reposition at Least every 2 hours or as tolerated. Elevate both lower ext and float Heels with pillows.Patient presents on admission with identifiable unstageable sacral decubitus ulcer fairly f raction likely recently forming. Areas approximately 3 cm x 3 cm unknown depth. No drainage. No foul odor. Eschar area identified soft no ischemic eschar likely forming. Deep tissue underneath injury. Furthermore patient identified to have significant left lower extremity ischemic disease with ulcers and necrotic eschar. On the left lateral foot there is a necrotic eschar as well as on the left lateral leg significantly large. No drainage no signs of active infection chronic appearing in nature. Care plan initiated. Will need to ensure optimization of patient for care plan. Leukocytosis unlikely related to wounds as they do not seem actively infected Nutritional optimization We will follow with recommendations thank you for let me participate in patient's care (3) Ischemia of left lower extremity Assessment & Plan: chronic large wounds US duplex arterial and venous will follow with recs leukocytosis has been trending down leg exam stable without signs of active infection. just large area of chronic ischemia eschar On the right, triphasic waveforms with sharp systolic peaks are seen at the common femoral, superficial femoral, and popliteal artery levels. Tibial vessel waveforms are biphasic or triphasic with sharp systolic peaks. On the left, triphasic waveforms are seen at the level of the common femoral artery level. Left superficial femoral artery waveforms are triphasic proximally, borderline monophasic in the mid portion. Popliteal artery waveforms are monophasic but systolic peaks are sharp. Tibial vessel waveforms are monophasic but with sharp systolic peaks. There is a stenosis of the dorsalis pedis artery, with flow velocity elevation of up to 332 cm/s. There is slightly dampened flow velocity distal to it. Impression: No evidence of significant right lower extremity arterial insufficiency Monophasic waveforms in the distal superficial femoral and popliteal artery, could indicate stenosis in these segments; more likely artifactual as there is still rapid systolic upstroke, including in the ankle vessels. Evidence of significant stenosis in the dorsalis pedis artery There is a large area of low attenuation within the lateral subcutaneous fat extending from the highest slice in the distal thigh along the entire course of the anterolateral leg and into the foot, where it extends to the level of the metacarpals dorsolaterally. Is unclear whether this represents an organized fluid collection versus intense edema/phlegmon, although suspect the latter, as there are numerous gas bubbles within the collection in the leg which do not float nondependently. There is enhancement of the tissues bordering it.. The widest extent of this is in the distal thigh, where it measures 8.2 cm AP and about 2 cm in thickness. The overall length of this is at least 45 cm, although as mentioned earlier the proximal extent is not visualized. There is a skin defect in the lateral leg at the superficial aspect of the collection which presumably represents a skin ulcer. This demonstrates multiple areas of ulceration. Low attenuation also extends into the anterior muscular compartment of the leg. The fat appears to be hypoattenuating although the musculature demonstrates only mild if any hypoattenuation. No osseous erosions, abnormal periosteal reaction, or other findings to suggest osteomyelitis are demonstrated. Impression: Intense edema versus organized fluid exiting the entire extent of the anterolateral subcutaneous fat of the leg, extending into the foot to the level of the metatarsals and proximal into the thigh beyond the edge of the imaging volume. Favor that this represents edema/phlegmon, as there are gas bubbles that appear to be trapped within it, and there is an open wound through which it should drain if it was fluid. Presence of gas bubbles is concerning for infection with a gas-forming organism. This process also extends into the anterior muscular compartment of the tibial muscles No definite evidence of osteomyelitis. However, evaluation for such is limited on CT, and MRI should be considered if this is a clinical concern Anthony Fernandez Apr 27, 2020 14:39
--- NOTE | 2020-04-27 16:18 | NUR ---
INSURANCE CLINCALS AND REVIEWS FAXED TO [employer] T: [phone] [id number] F: [phone].
--- NOTE | 2020-04-27 18:55 | General Progress Note ---
Subjective Allergies: Coded Allergies: No Known Allergies (Unverified , 04/08/20) Subjective Above noted Tolerating TF calm/comfortable now on Vital AF Objective Last 24 Hour Vital Signs Date Time Temp Pulse Resp B/P (MAP) Pulse Ox O2 Delivery O2 Flow Rate FiO2 04/27/20 08:00 99.1 90 18 128/78 (95) 99 04/27/20 08:00 Mechanical Ventilator 04/27/20 08:00 30 04/27/20 07:55 95 20 30 04/27/20 07:46 89 04/27/20 04:00 Mechanical Ventilator 04/27/20 04:00 89 04/27/20 04:00 98.1 87 17 128/71 (90) 99 04/27/20 04:00 30 04/27/20 03:44 89 16 30 04/27/20 00:00 93 04/27/20 00:00 98.8 92 20 128/69 (88) 100 04/27/20 00:00 Mechanical Ventilator 04/26/20 23:36 94 17 30 04/26/20 20:00 90 04/26/20 20:00 30 04/26/20 20:00 Mechanical Ventilator 04/26/20 20:00 98.1 95 19 143/81 (101) 100 04/26/20 19:30 91 19 30 Intake and Output 04/26/20 04/27/20 19:00 07:00 Intake Total 1260 ml 730 ml Output Total 1250 ml 800 ml Balance 10 ml -70 ml Intake Free Water 280 ml 100 ml Tube Feeding 980 ml 630 ml Output Urine Total 1250 ml 800 ml Laboratory Tests 04/27/20 00:32: POC Whole Blood Glucose 260H 04/27/20 05:37: POC Whole Blood Glucose 271H Height (Feet): 5 Height (Inches): 6.00 Weight (Pounds): 135 Objective Debilitated NCAT (+) trach Coarse BS RR abd soft, (+) GT ext (+) LLE leg dressings, no edema Assessment/Plan Assessment/Plan: Assessment - dysphagia, GT - resp failure, trach - anemia - leukocytosis - malnutrition - decub ulcer - LE ischemia - DM - loose stools - C Diff negative Recommendations - continue TF - vital AF - protein powder - MVI / zinc - GT care - follow labs - Slade Lizama MD Apr 27, 2020 18:55
== END 2020-04-27 12:00 | DRG 130 ==
LOC: EDBD 23:27 → EMR 23:41 → 2W 04-09 00:05 → EDBEDREQ 04-09 06:37 → 2W 04-11 15:32
PROC: 5A1955Z Respiratory Ventilation, Greater than 96 Consecutive Hours (ICD-10-PCS; principal; 2020-04-09)
DX: J15.0 Pneumonia due to Klebsiella pneumoniae (principal); J96.10 Chronic respiratory failure, unspecified whether with hypoxia or hypercapnia; Z99.11 Dependence on respirator [ventilator] status; L89.159 Pressure ulcer of sacral region, unspecified stage; Z93.0 Tracheostomy status; Z93.1 Gastrostomy status; N35.811 Other urethral stricture, male, meatal; N31.9 Neuromuscular dysfunction of bladder, unspecified; N40.1 Benign prostatic hyperplasia with lower urinary tract symptoms; E11.52 Type 2 diabetes mellitus with diabetic peripheral angiopathy with gangrene; L97.829 Non-pressure chronic ulcer of other part of left lower leg with unspecified severity; I70.262 Atherosclerosis of native arteries of extremities with gangrene, left leg; F29 Unspecified psychosis not due to a substance or known physiological condition; R33.9 Retention of urine, unspecified; T83.091A Other mechanical complication of indwelling urethral catheter, initial encounter; R13.10 Dysphagia, unspecified; R19.7 Diarrhea, unspecified; E46 Unspecified protein-calorie malnutrition; Z68.21 Body mass index [BMI] 21.0-21.9, adult
CPT/HCPCS: 36415; 71045; 74018; 80048; 80053; 80202; 82803; 82962; 83036; 83605; 83880; 84443; 84484; 85007; 85025; 85651; 86140; 86850; 86900; 86901; 86920; 87040; 87070; 87081; 87086; 87205; 87324; 93005; 93925; 93970; 94002; 94003; 96365; 96375; 99285; J1815; J8499; S5561; U0002